=== PATIENT | female | born 1935 | race Caucasian/White ===

== ENCOUNTER 2016-06-08 10:04 | Emergency (ER) | payer MEDICARE, BC ==
[2016-06-08 11:45] VITALS: BP 150/73
--- NOTE | 2016-06-08 12:26 | EDM.PDOC ---
ED HPI Trauma - General Chief Complaint: Lower Extremity Injury/Pain Stated Complaint: A LOT OF PAIN, HYPOGLYCEMIC, HASN'T EATEN Time Seen by Provider: 06/08/16 10:37 Source: Reports: Patient History Limitations: Reports: No limitations - History of Present Illness INITIAL COMMENTS - FREE TEXT/NARRATIVE: History of present illness: [-year-old female has an appointment to see a clinic office manager she thinks the st for left hip pain. She is patient of Dr. Smith is was arranged this. She presents today ambulatory with a cane after her son called and requested that we do a pelvic CT to see if we might find anything by that study. She's had pain for 2 weeks now in it's progressively getting worse and she's been given pain medications but she states that they aren't quite cutting it but she will followup with her primary care doctor on that. I believe it was Percocet she was given.. she's had no fevers or dysuria. No constipation or diarrhea] Review of systems: As per history of present illness and below otherwise all systems reviewed and negative. Past medical history: As per history of present illness and as reviewed below otherwise noncontributory. Surgical history: As per history of present illness and as reviewed below otherwise noncontributory. Social history: No reported history of drug or alcohol abuse. Family history: As per history of present illness and as reviewed below otherwise noncontributory. Physical exam: HEENT: Atraumatic, normocephalic, pupils reactive, negative for conjunctival pallor or scleral icterus, mucous membranes moist, throat clear, neck supple, nontender, trachea midline. Lungs: Clear to auscultation, breath sounds equal bilaterally, chest nontender. Heart: S1S2, regular, negative for clicks, rubs, or JVD. Abdomen: Soft, nondistended, nontender. Negative for masses or hepatosplenomegaly. Negative for costovertebral tenderness. Pelvis: Stable nontender. Genitourinary: Deferred. Rectal: Deferred. Extremities: Atraumatic, negative for cords or calf pain. Neurovascular unremarkable. Neuro: Awake, alert, oriented. Cranial nerves II through XII unremarkable. Cerebellum unremarkable. Motor and sensory unremarkable throughout. Exam nonfocal. Diagnostics: [] Therapeutics: [] Impression: [] Plan: [] Definitive disposition and diagnosis as appropriate pending reevaluation and review of above. Allergies/ADRs: Allergies milk Allergy (Unknown, Verified 06/23/15 09:35) Cannot Remember gluten Allergy (Verified 06/23/15 09:35) Cannot Remember acetaminophen [From Tylenol-Codeine #3] Adverse Reaction (Verified 06/23/15 09: 35) Nausea codeine phosphate [From Tylenol-Codeine #3] Adverse Reaction (Verified 06/23/15 09:35) Nausea Home Medications: Ambulatory Orders RX: Amitriptyline [Elavil] 100 mg PO BEDTIME 02/23/14 [Confirmed 06/08/16] RX: Furosemide [Lasix] 20 mg PO TID 04/05/14 [Confirmed 06/08/16] RX: Cod Liver Oil 1 cap PO DAILY 07/01/14 [Confirmed 06/08/16] RX: Multivitamin [Multivitamins] 1 tab PO DAILY 07/01/14 [Confirmed 06/08/16] RX: Vitamin B Complex [B Complex] 1 tab PO DAILY 07/01/14 [Confirmed 06/08/16] RX: Folic Acid 1 mg PO DAILY 04/26/15 [Confirmed 06/08/16] RX: predniSONE [Prednisone] 20 mg PO DAILY 03/31/16 [Confirmed 06/08/16] RX: Pantoprazole [Protonix] 40 mg PO ACBREAKFAST #30 tab.cr 04/07/16 [Confirmed 06/08/16] oxyCODONE HCl/Acetaminophen [Percocet 5-325 mg Tablet] 1 each PO TID 06/08/16 [ Confirmed 06/08/16] Past Medical History HEENT History: Reports: Impaired vision Cardiovascular History: Reports: Heart murmur Respiratory History: Reports: Asthma Gastrointestinal History: Reports: GERD Genitourinary History: Reports: UTI, recurrent 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: Musculoskeletal History: Reports: Osteoarthritis, Other (see below) Other Musculoskeletal History: Chronic hip pain polyarthritis Psychiatric History: Reports: Anxiety Endocrine/Metabolic History: Reports: Other (see below) Other Endocrine/Metabolic History: hyperglycemia , adrenal insufficiency(HCC) Hematologic History: Reports: Anemia 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 - Infectious Disease History Infectious Disease History: Reports: Chicken pox, Measles, Mumps - Past Surgical History HEENT Surgical History: Reports: Cataract surgery GI Surgical History: Reports: Cholecystectomy, Colonoscopy Female Surgical History: Reports: Hysterectomy Musculoskeletal Surgical History: Reports: None Social & Family History - Family History Respiratory: Reports: COPD, Other (see below) Other Respiratory Family Hisory: emphysema : Reports: Renal disease/insufficiency Musculoskeletal: Reports: Arthritis, Osteoporosis, RA Neurological: Reports: Migraines Dermatologic: Reports: Eczema, Psoriasis - Tobacco Use Smoking Status *Q: Never Smoker Second Hand Smoke Exposure: No - Caffeine Use Caffeine Use: Reports: Coffee Caffeine Use Comment: 1 cup per day - Alcohol Use Days Per Week of Alcohol Use: 0 - Recreational Drug Use Recreational Drug Use: No Review of Systems - Review of Systems Review Of Systems: ROS reveals no pertinent complaints other than HPI. Trauma Exam - Physical Exam Exam: See Below Course - Vital Signs Last Recorded V/S: Last Vital Signs Temp 36.6 C 06/08/16 11:44 Pulse 85 06/08/16 11:44 Resp 16 06/08/16 11:44 BP 150/73 H 06/08/16 11:44 Pulse Ox 8 L 06/08/16 11:44 - Orders/Labs/Meds Orders: Active Orders 24 hr Category Date Time Status Pelvis wo Cont [CT] Stat Exams 06/08/16 10:38 Taken Labs: Laboratory Tests 06/08/16 Range/Units 11:41 Urine Color Yellow Urine Appearance Clear Urine pH 5.0 (4.5-8.0) Ur Specific [place] 1.015 (1.008-1.030) Urine Protein Negative (NEGATIVE) mg/dL Urine Glucose (UA) Normal (NEGATIVE) mg/dL Urine Ketones Negative (NEGATIVE) mg/dL Urine Occult Blood Negative (NEGATIVE) Urine Nitrite Negative (NEGATIVE) Urine Bilirubin Negative (NEGATIVE) Urine Urobilinogen Normal (NORMAL) mg/dL Ur Leukocyte Esterase Negative (NEGATIVE) Urine RBC 0-5 (0-5) Urine WBC 0-5 (0-5) Ur Epithelial Cells Few Amorphous Sediment Not seen Urine Bacteria Few Urine Mucus Not seen Departure - Departure Time of Disposition: 12:25 Disposition: Home, Self-Care 01 Condition: good Clinical Impression: Left hip pain Forms: ED Department Discharge Additional Instructions: If the pain medication that you were given is not quite strong enough I would recommend that you please call the clinic and speak with your doctor's nurse to see if they might want to try something different for you. I am glad that you have an appointment to see a clinic office manager and hopefully they will be able to help you. - My Orders Last 24 Hours: My Active Orders 06/08/16 10:38 Pelvis wo Cont [CT] Stat - Assessment/Plan Last 24 Hours: My Active Orders 06/08/16 10:38 Pelvis wo Cont [CT] Stat
== END 2016-06-08 12:35 | disposition home or self-care (01) ==
LOC: JP.ED 10:04
DX: M25.552 Pain in left hip (principal); K21.9 Gastro-esophageal reflux disease without esophagitis; F41.9 Anxiety disorder, unspecified; Z90.49 Acquired absence of other specified parts of digestive tract; Z98.49 Cataract extraction status, unspecified eye; Z90.710 Acquired absence of both cervix and uterus; Z79.899 Other long term (current) drug therapy; Z88.5 Allergy status to narcotic agent; Z88.8 Allergy status to other drugs, medicaments and biological substances; Z91.011 Allergy to milk products
CPT/HCPCS: 72192; 81001; 99282; 99284

== ENCOUNTER 2016-06-12 18:08 | Emergency (ER) | payer MEDICARE, BC ==
[2016-06-12 19:00] VITALS: BP 160/89
[2016-06-12] MEDS ORDERED: oxyCODONE 5 MG Tab PO ONE (19:54)
--- NOTE | 2016-06-12 19:59 | EDM.PDOC ---
ED HPI GENERAL MEDICAL PROBLEM - General Chief Complaint: Back Pain or Injury Stated Complaint: ARTHRITIC PAIN, LEFT HIP Time Seen by Provider: 06/12/16 19:05 Source of Information: Reports: Patient, Family (Son), Old records, RN notes reviewed History Limitations: Reports: No limitations - History of Present Illness INITIAL COMMENTS - FREE TEXT/NARRATIVE: Brought in by her son Chief complaint Left hip pain HPI 81-year-old female who is fairly independent, lives with her son, she still drives but he takes care of her. Last admitted to the hospital from March 31- with diverticulitis and sepsis, also had a small right-sided pneumonia. Treated with antibiotics and discharged improved. She always reports pains in her hips and back and has been diagnosed with osteoarthritis of her hips and degenerative disc disease and some spinal stenosis in the lumbar spine. However about 2-3 weeks ago she started having increased pain in her left hip area it hard for her to walk and get around. She was seen in the clinic 2 weeks ago and was prescribed Tylenol and a muscle relaxant for muscle spasms in her back. The son states that this was a misdiagnosis. She became quite dizzy and had some hallucinations on the muscle relaxer which had to be stopped. Furthermore didn't help her pain at all. Seen in the clinic again, on the , a different physician, prescribed Percocet for the pain, 5 mg/325, one tablet every 6 hours which did help with the pain, but only lasted about 5 hours. Seen in emergency June 08 because of the persisting pain. 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 She was instructed to take the oxycodone more frequently every 4 hours. Consequently she ran out of pain medication. Her son phoned to try and get a renewal or visit to get a renewal this was declined and there is no openings available at the clinic. She does have a followup appointment in 5 days time to recheck her hip. At home she's been crying with the pain which is really unusual for her, she has tolerated pain previously. No incontinence of bowel or stool No other signs of pain or injury. She She notes and feels the pain as a deep ache, most probably in the posterior aspect of the hip and the left buttock. Also to lesser degree in the anterior aspect of left hip and shooting down the leg to as far as the knee. She has not had any constipation, she does use laxatives regularly and this has not been a problem for her. Left Hip Pain Score (Numeric/FACES): 10 - Related Data Allergies Allergy/AdvReac Type Severity Reaction Status Date / Time milk Allergy Unknown Cannot Verified 06/23/15 09:35 Remember gluten Allergy Cannot Verified 06/23/15 09:35 Remember acetaminophen AdvReac Nausea Verified 06/23/15 09:35 [From Tylenol-Codeine #3] codeine phosphate AdvReac Nausea Verified 06/23/15 09:35 [From Tylenol-Codeine #3] Home Meds: Home Meds Amitriptyline [Elavil] 100 mg PO BEDTIME 02/23/14 [History] Furosemide [Lasix] 20 mg PO TID 04/05/14 [History] Cod Liver Oil 1 cap PO DAILY 07/01/14 [History] Multivitamin [Multivitamins] 1 tab PO DAILY 07/01/14 [History] Vitamin B Complex [B Complex] 1 tab PO DAILY 07/01/14 [History] Folic Acid 1 mg PO DAILY 04/26/15 [History] predniSONE [Prednisone] 20 mg PO DAILY 03/31/16 [History] Pantoprazole [Protonix] 40 mg PO ACBREAKFAST #30 tab.cr 04/07/16 [Rx] oxyCODONE HCl/Acetaminophen [Percocet 5-325 mg Tablet] 1 each PO TID 06/08/16 [ History] oxyCODONE 5 mg PO Q4H #36 tab 06/12/16 [Rx] Past Medical History HEENT History: Reports: Impaired vision Cardiovascular History: Reports: Heart murmur Respiratory History: Reports: Asthma Gastrointestinal History: Reports: GERD Genitourinary History: Reports: UTI, recurrent 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: Musculoskeletal History: Reports: Osteoarthritis, Other (see below) Other Musculoskeletal History: Chronic hip pain polyarthritis Psychiatric History: Reports: Anxiety Endocrine/Metabolic History: Reports: Other (see below) Other Endocrine/Metabolic History: hyperglycemia , adrenal insufficiency(HCC) Hematologic History: Reports: Anemia 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 - Infectious Disease History Infectious Disease History: Reports: Chicken pox, Measles, Mumps - Past Surgical History HEENT Surgical History: Reports: Cataract surgery GI Surgical History: Reports: Cholecystectomy, Colonoscopy Female Surgical History: Reports: Hysterectomy Musculoskeletal Surgical History: Reports: None Social & Family History - Family History Respiratory: Reports: COPD, Other (see below) Other Respiratory Family Hisory: emphysema : Reports: Renal disease/insufficiency Musculoskeletal: Reports: Arthritis, Osteoporosis, RA Neurological: Reports: Migraines Dermatologic: Reports: Eczema, Psoriasis - Tobacco Use Smoking Status *Q: Never Smoker Second Hand Smoke Exposure: No - Caffeine Use Caffeine Use: Reports: Coffee Caffeine Use Comment: 1 cup per day - Alcohol Use Days Per Week of Alcohol Use: 0 - Recreational Drug Use Recreational Drug Use: No ED ROS GENERAL - Review of Systems Review Of Systems: See Below Constitutional: Reports: no symptoms HEENT: Reports: No symptoms Respiratory: Reports: No Symptoms Cardiovascular: Reports: No symptoms GI/Abdominal: Reports: No symptoms : Reports: no symptoms Musculoskeletal: Reports: back pain, joint pain (Left hip), other (Ambulate using a cane in her right hand, less agile than usual) Skin: Reports: no symptoms Neurological: Reports: Difficulty Walking (Because of the pain). Denies: Numbness, Paresthesia, Syncope, Tingling, Trouble Speaking, Weakness, Change in Speech Psychiatric: Reports: Other (Occasional cries with the pain) Hematologic/Lymphatic: Reports: anemia (Chronic immune hemolytic anemia, on prednisone daily) Immunologic: Reports: no symptoms ED EXAM, GENERAL - Physical Exam Exam: See Below Exam Limited By: No limitations General Appearance: alert, mild distress, other (Appears healthy, color normal, vital signs normal apart from elevated systolic blood pressure, no difficulty speaking or breathing) Eye Exam: bilateral eye: normal inspection Ears: normal external exam, hearing grossly normal Nose: normal inspection Throat/Mouth: Normal inspection Head: atraumatic, normocephalic Neck: normal inspection, supple Respiratory/Chest: no respiratory distress, no accessory muscle use Cardiovascular: normal peripheral pulses, regular rate, rhythm Back Exam: normal inspection, other (Good range of motion although she has some instability bending forward, flexion and extension do not aggravate the pain but rotation to the left cause aggravation of her left hip pain, no spinal tenderness). No: vertebral tenderness Extremities: normal inspection, other (Pain particularly with external rotation of the left hip, she's able then to using a cane.Range of motion of the hip is otherwise normal, no crepitus, no deformity). No: limited range of motion Neurological: alert, oriented, normal cognition, normal reflexes, no motor/ sensory deficits, other (Strength is equal both lower limbs, reflexes are normal , no paresthesias and no motor or sensory deficit) Psychiatric: normal affect, normal mood Skin Exam: Warm, Dry, Intact, Normal color, No rash, Other (No signs of zoster- like rash) Lymphatic: no adenopathy Course - Vital Signs Last Recorded V/S: Last Vital Signs Temp 36.6 C 06/12/16 18:58 Pulse 87 06/12/16 18:58 Resp 18 06/12/16 18:58 BP 160/89 H 06/12/16 18:58 Pulse Ox 97 06/12/16 18:58 - Orders/Labs/Meds Meds: Medications Discontinued Medications Generic Name Dose Route Start Last Admin Trade Name Dorian PRN Reason Stop Dose Admin Oxycodone HCl 5 mg 06/12/16 19:54 06/12/16 19:58 Oxycodone PO 06/12/16 19:55 5 mg ONETIME ONE Administration - Re-Assessments/Exams Free Text/Narrative Re-Assessment/Exam: 06/12/16 20:56 81-year-old female with significant pain which appears to be in the left hip area. 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 Oxycodone 5 mg one tablet by mouth She does have followup in 5 days time Departure - Departure Time of Disposition: 19:55 Disposition: Home, Self-Care 01 Condition: fair Clinical Impression: Left hip pain Prescriptions: oxyCODONE 5 mg PO Q4H #36 tab Instructions: Hip Pain Referrals: Charbel Machuca MD [Primary Care Provider] - Forms: ED Department Discharge Additional Instructions: Please keep your appointment next Friday as scheduled. Return to emergency if symptoms are worsening
== END 2016-06-12 20:05 | disposition home or self-care (01) ==
LOC: JP.ED 18:08
DX: M25.552 Pain in left hip (principal); J45.909 Unspecified asthma, uncomplicated; K21.9 Gastro-esophageal reflux disease without esophagitis; Z79.899 Other long term (current) drug therapy; Z88.5 Allergy status to narcotic agent; Z88.8 Allergy status to other drugs, medicaments and biological substances; Z91.011 Allergy to milk products; Z98.49 Cataract extraction status, unspecified eye; Z90.49 Acquired absence of other specified parts of digestive tract; Z90.710 Acquired absence of both cervix and uterus
CPT/HCPCS: 99283; A9270

== ENCOUNTER 2016-08-04 12:04 | Emergency (ER) | payer MEDICARE, BC ==
[2016-08-04 12:30] VITALS: BP 165/80
--- NOTE | 2016-08-04 12:58 | EDM.PDOC ---
ED HPI GENERAL MEDICAL PROBLEM - General Chief Complaint: Lower Extremity Injury/Pain Stated Complaint: MEDICAL VIA TRI Time Seen by Provider: 08/04/16 12:40 Source of Information: Reports: Patient, EMS History Limitations: Reports: No Limitations. Denies: Altered Mental Status - History of Present Illness INITIAL COMMENTS - FREE TEXT/NARRATIVE: Patient presents today via EMS with complaints of worsening left hip pain. She reports use of oxycodone 5mg PO as directed for pain. She states the pain today has worsened. She states she had a fall a few weeks ago, denies significant pain with fall. She does state the pain has increased since that time. Onset: Other (chronic pain with worsening the past several weeks. Pending appointment with Dr. Machuca this coming or Friday. ) Location: Reports: Lower Extremity, Left Quality: Reports: Ache, Dull, Throbbing Severity: Moderate Improves with: Reports: Medication Worsens with: Reports: Movement Associated Symptoms: Denies: Confusion, Chest Pain, Cough, Diaphoresis, Fever/ Chills, Headaches, Nausea/Vomiting, Shortness of Breath, Syncope Treatments MANAGER MANAGED CARE: Reports: Other (see below) (Per EMS, IV fentanyl) - Related Data Allergies Allergy/AdvReac Type Severity Reaction Status Date / Time milk Allergy Unknown Cannot Verified 06/23/15 09:35 Remember gluten Allergy Cannot Verified 06/23/15 09:35 Remember acetaminophen AdvReac Nausea Verified 06/23/15 09:35 [From Tylenol-Codeine #3] codeine phosphate AdvReac Nausea Verified 06/23/15 09:35 [From Tylenol-Codeine #3] Home Meds: Home Meds Amitriptyline [Elavil] 100 mg PO BEDTIME 02/23/14 [History] Furosemide [Lasix] 20 mg PO TID 04/05/14 [History] Cod Liver Oil 1 cap PO DAILY 07/01/14 [History] Multivitamin [Multivitamins] 1 tab PO DAILY 07/01/14 [History] Vitamin B Complex [B Complex] 1 tab PO DAILY 07/01/14 [History] Folic Acid 1 mg PO DAILY 04/26/15 [History] predniSONE [Prednisone] 20 mg PO DAILY 03/31/16 [History] Pantoprazole [ProTONIX] 40 mg PO ACBREAKFAST #30 tab.cr 04/07/16 [Rx] oxyCODONE HCl/Acetaminophen [Percocet 5-325 mg Tablet] 1 each PO TID 06/08/16 [ History] oxyCODONE 5 mg PO Q4H #36 tab 06/12/16 [Rx] Past Medical History - Past Health History Medical/Surgical History: Denies Medical/Surgical History HEENT History: Reports: Impaired Vision Cardiovascular History: Reports: Heart Murmur Respiratory History: Reports: Asthma Gastrointestinal History: Reports: GERD Genitourinary History: Reports: UTI, Recurrent 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: Musculoskeletal History: Reports: Osteoarthritis, Other (See Below) Other Musculoskeletal History: Chronic hip pain polyarthritis Psychiatric History: Reports: Anxiety Endocrine/Metabolic History: Reports: Other (See Below) Other Endocrine/Metabolic History: hyperglycemia , adrenal insufficiency(HCC) Hematologic History: Reports: Anemia 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 - Infectious Disease History Infectious Disease History: Reports: Chicken Pox, Measles, Mumps - Past Surgical History HEENT Surgical History: Reports: Cataract Surgery GI Surgical History: Reports: Cholecystectomy, Colonoscopy Social & Family History - Family History Respiratory: Reports: COPD, Other (See Below) Other Respiratory Family Hisory: emphysema : Reports: Renal Disease/Insufficiency Musculoskeletal: Reports: Arthritis, Osteoporosis, RA Neurological: Reports: Migraines Dermatologic: Reports: Eczema, Psoriasis - Tobacco Use Smoking Status *Q: Never Smoker Second Hand Smoke Exposure: No - Caffeine Use Caffeine Use: Reports: Coffee Caffeine Use Comment: 1 cup per day - Alcohol Use Days Per Week of Alcohol Use: 0 - Recreational Drug Use Recreational Drug Use: No Review of Systems - Review of Systems Review Of Systems: See Below Constitutional: Denies: Chills, Diaphoresis, Fever, Weakness Eyes: Denies: Blurred Vision, Vision Change Mouth/Throat: Denies: Throat Swelling, Muffled Voice, Difficulty Swallowing, Painful Swallowing Respiratory: Denies: Shortness of Breath, Wheezing, Pleuritic Chest Pain, Cough Cardiovascular: Denies: Chest Pain, Edema, Lightheadedness, Syncope GI/Abdominal: Denies: Abdominal Pain, Constipation, Diarrhea, Nausea, Vomiting Genitourinary: Denies: Hematuria, Incontinence, Painful Urination Musculoskeletal: Reports: Other (Left hip pain, chronic in nature with acute exacerbation. ) Skin: Reports: No Symptoms. Denies: Bruising, Rash, Erythema, Wound Neurological: Denies: Dizziness, Headache, Numbness, Tingling, Weakness Psychiatric: Denies: Confusion, Depression, Anxiety Trauma Exam - Physical Exam Exam: See Below Exam Limited By: No Limitations General Appearance: Reports: Alert, WD/WN, No Apparent Distress Head: Reports: Atraumatic, Normocephalic Eyes: Bilateral Eye: PERRL Ears: Reports: Normal External Exam, Normal Canal, Hearing Grossly Normal, Normal TMs Throat/Mouth: Reports: Normal Inspection, Normal Lips, Normal Teeth, Normal Gums , Normal Oropharynx, Normal Voice, No Airway Compromise Neck: Reports: Non-Tender, Full Range of Motion, Normal Alignment, Normal Inspection Respiratory Exam: Reports: No Respiratory Distress, Lungs Clear, Normal Breath Sounds, No Accessory Muscle Use, Chest Non-Tender Cardiovascular: Reports: Normal Peripheral Pulses, Regular Rate, Rhythm, No Edema, No Gallop, No Murmur, No Rub GI/Abdominal: Reports: Normal Bowel Sounds, Soft, Non-Tender, No Organomegaly, No Distention, No Abnormal Bruit, No Mass, Pelvis Stable Back: Reports: Normal Inspection, Non-Tender. Denies: CVA Tenderness (R), CVA Tenderness (L) Extremities: No Evidence of Injury, No Pedal Edema, Other (Pain with movement to left hip, point tenderness to hip. ) Neurologic: Reports: No Motor/Sensory Deficits, Alert, Normal Mood/Affect, Oriented x 3 Skin: Reports: Normal Color, Warm/Dry Course - Vital Signs Last Recorded V/S: Last Vital Signs Temp 36.3 C 08/04/16 12:21 Pulse 88 08/04/16 12:21 Resp 14 08/04/16 12:21 BP 165/80 H 08/04/16 12:21 Pulse Ox 98 08/04/16 12:21 - Orders/Labs/Meds Orders: Active Orders 24 hr Category Date Time Status Hip Min 2V or 3V Lt [CR] Stat Exams 08/04/16 12:46 Taken fentaNYL [Duragesic] Med 08/04/16 14:30 Active 25 mcg TRDERM Q72H Medication Orders Fentanyl (Duragesic) 25 mcg TRDERM Q72H [facility] Last Admin: 08/04/16 14:46 Dose: 25 mcg Meds: Medications Generic Name Dose Route Start Last Admin Trade Name Frebelen PRN Reason Stop Dose Admin Fentanyl 25 mcg 08/04/16 14:30 08/04/16 14:46 Duragesic TRDERM 25 mcg Q72H MYLES Administration Discontinued Medications Generic Name Dose Route Start Last Admin Trade Name Dorian PRN Reason Stop Dose Admin Hydromorphone HCl 0.5 mg 08/04/16 13:13 08/04/16 13:27 Dilaudid IVPUSH 08/04/16 13:14 0.5 mg ONETIME ONE Administration Hydromorphone HCl 0.5 mg 08/04/16 13:39 08/04/16 14:04 Dilaudid IVPUSH 08/04/16 13:40 0.5 mg ONETIME ONE Administration Ondansetron HCl 4 mg 08/04/16 13:14 08/04/16 13:27 Zofran IVPUSH 08/04/16 13:15 4 mg ONETIME ONE Administration - Radiology Interpretation Free Text/Narrative:: Left hip x-rays displays bone on bone, osteoarthritis, no acute fracture identified. Images reviewed with Officer. 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 - Re-Assessments/Exams Free Text/Narrative Re-Assessment/Exam: 08/04/16 1248 At time of examination patient declined additional IV pain medication. 08/04/16 13:41 Patient chart review completed. She was recently seen at [facility] by ORTHO on 07/19/16 and recommended to have hip replacement. She was instructed to follow up with her primary care provider for pain management. She was prescribed oxycodone [address] Machuca on 07/12/16. Patient telephone call to clinic 07/30/16 where she reported she would not have enough pain pills to last her to scheduled appointment this week. No intervention documented with telephone call. Patient reports taking oxycodone every 6 hours to control her pain. She reports she is not well controlled for pain and continues to have difficulty ambulating, completing daily tasks due to pain. Concerns regarding use of oxycodone, her age and level of pain control completed. Patient reports she is the only one taking her oxycodone. She denies her son or other person taking her pain medications. Ally reports she keeps her medication bottles in her room and takes them from the bottle. She states her son does not touch her medication bottles. Ally reports her pain control is not doing well and is concerned about being at home. Per Kenney DOCKERY, patient son telephoned and stated he does not think he can manage Ally at home. Case reviewed with Dr. Cortes. 08/04/16 13:55 Dr. Gallagherr discussed case with Dr. Max Cummings. Management and surgery is best completed as currently arranged with Stacey [facility]. 08/04/16 14:45 Patient status discussed with Mignon discharge planning and Dr. Noble. Patient will be provided fentanyl 25mcg patch today in the emergency room. She will be provided a prescription for one additional patch. Referral for home health placed. Current taxing effort for patient to leave her home due to pain with avascular necrosis and need for monitoring of pain, medication effectiveness with additional fentanyl patch use. Ally will follow up with Dr. Machuca this week as scheduled. Ally is in agreement with plan, all her questions were answered. Reviewed results of x-ray with patient. Ally is in agreement with plan. 08/04/16 15:22 Free Text/Narrative Re-Assessment/Exam: 08/04/16 15:22 Patient son Patricio, telephoned ER multiple times, discharge plan, home health plan discussed. Patricio's questions answered. Departure - Departure Time of Disposition: 14:55 Disposition: Home, Self-Care 01 Condition: fair Clinical Impression: Hip pain, chronic - Discharge Information Instructions: Hip Pain Referrals: Charbel Machuca MD [Primary Care Provider] - Forms: ED Department Discharge Additional Instructions: Ally, you suffer from poor pain control of your left hip pain. You currently have avascular necrosis of your hips and report appointments with [facility]. You must take pain medication as directed. Keep the fentanyl pain patch in place until FridayAugust 07. Take the current patch off and put the new fentanyl pain patch on August 07. Keep your appointment with Dr. Machuca this week. Try to take the oxycodone only twice to three times a day. The pain patch will assist with your pain control, causing you to need less oxycodone. You will be provided oxycodone 5mg tablets. You must only take one tablet at a time. Do not take more then four times in one day. If your pain is well controlled with use of the fentanyl pain patch, DO NOT TAKE the oxycodone. With the use of narcotic medication you run the risk of having a significant decrease in your breathing. Do not overuse the oxycodone. If at any time you feel too sedated, remove the fentanyl pain patch and call or return the the emergency room or your primary provider. Keep yourself hydrated, watch for constipation. Home health services will be contacting you to set up assistance with monitoring of pain. - My Orders Last 24 Hours: My Active Orders 08/04/16 12:46 Hip Min 2V or 3V Lt [CR] Stat 08/04/16 14:30 fentaNYL [Duragesic] 25 mcg TRDERM Q72H - Assessment/Plan Last 24 Hours: My Active Orders 08/04/16 12:46 Hip Min 2V or 3V Lt [CR] Stat 08/04/16 14:30 fentaNYL [Duragesic] 25 mcg TRDERM Q72H
[2016-08-04] MEDS ORDERED: HYDROmorphone 0.5 MG/0.5 ML Syringe IVPUSH ONE ×2 (13:13→13:39)
[2016-08-04] MEDS ORDERED: Ondansetron 4 MG/2 ML SDV IVPUSH ONE (13:14)
[2016-08-04] MEDS ORDERED: fentaNYL 25 MCG/HR Transdermal Patch TRDERM SCH (14:30)
--- NOTE | 2016-08-05 09:55 | CR ---
Hip Min 2V or 3V Lt HISTORY: increase in hip pain FINDINGS: Avascular necrosis changes head of the left femur are redemonstrated. There has been furth er collapse of the superior aspect of the femoral head since the MRI study of 07/08/2016. No other ac pamunkey fracture or dislocation is identified. Bony structures are somewhat osteopenic. No joint effusio n can be seen. No other interval change is identified. IMPRESSION: Probable avascular necrosis head of the left femur with collapse of the superior aspect of the femoral head. This appears little more prominent compared with MRI study of 07/08/2016.
== END 2016-08-04 16:17 | disposition home or self-care (01) ==
LOC: JP.ED 12:04
DX: M25.552 Pain in left hip (principal); G89.29 Other chronic pain; K21.9 Gastro-esophageal reflux disease without esophagitis; F41.9 Anxiety disorder, unspecified; Z98.49 Cataract extraction status, unspecified eye; Z90.49 Acquired absence of other specified parts of digestive tract; Z79.899 Other long term (current) drug therapy; Z88.5 Allergy status to narcotic agent; Z88.8 Allergy status to other drugs, medicaments and biological substances; Z91.011 Allergy to milk products; Z91.018 Allergy to other foods
CPT/HCPCS: 73502; 99284; A9270; J1170; J2405

== ENCOUNTER 2016-08-15 10:12 | Observation (INO) | payer MEDICARE, BC ==
[2016-08-15] MEDS ORDERED: HYDROmorphone 0.5 MG/0.5 ML Syringe IM ONE (11:13)
[2016-08-15] MEDS ORDERED: Cyclobenzaprine 10 MG Tab PO ONE (11:15)
--- NOTE | 2016-08-15 11:21 | EDM.PDOC ---
ED HPI GENERAL MEDICAL PROBLEM - General Chief Complaint: Lower Extremity Injury/Pain Stated Complaint: MEDICAL VIA NORTH Time Seen by Provider: 08/15/16 11:16 Source of Information: Reports: Patient History Limitations: Reports: No Limitations - History of Present Illness INITIAL COMMENTS - FREE TEXT/NARRATIVE: pt arrived from her apartment by ambulance with very severe pain in the left leg and hip. She also has pain ovr the buttock area. Onset: Gradual, Other ( this a chronic pain which is worse today. ) Duration: Day(s):, Other (pain was much worse today. ) Location: Reports: Lower Extremity, Left Associated Symptoms: Reports: No Other Symptoms Left Hip Pain Score (Numeric/FACES): 10 - Related Data Allergies Allergy/AdvReac Type Severity Reaction Status Date / Time milk Allergy Unknown Cannot Verified 08/15/16 10:51 Remember fentanyl Allergy Itching Verified 08/15/16 11:09 gluten Allergy Cannot Verified 08/15/16 10:51 Remember acetaminophen AdvReac Nausea Verified 08/15/16 10:51 [From Tylenol-Codeine #3] codeine phosphate AdvReac Nausea Verified 08/15/16 10:51 [From Tylenol-Codeine #3] Home Meds: Home Meds Amitriptyline [Elavil] 100 mg PO BEDTIME 02/23/14 [History] Furosemide [Lasix] 20 mg PO TID 04/05/14 [History] Cod Liver Oil 1 cap PO DAILY 07/01/14 [History] Multivitamin [Multivitamins] 1 tab PO DAILY 07/01/14 [History] Vitamin B Complex [B Complex] 1 tab PO DAILY 07/01/14 [History] Folic Acid 1 mg PO DAILY 04/26/15 [History] predniSONE [Prednisone] 20 mg PO DAILY 03/31/16 [History] Pantoprazole [ProTONIX] 40 mg PO ACBREAKFAST #30 tab.cr 04/07/16 [Rx] oxyCODONE HCl/Acetaminophen [Percocet 5-325 mg Tablet] 1 each PO TID 06/08/16 [ History] fentaNYL [Duragesic] 25 mcg TRDERM Q72H #1 patch 08/04/16 [Rx] Diclofenac Sodium [Voltaren] 08/15/16 [History] oxyCODONE 5 mg PO Q4H 08/15/16 [History] Past Medical History - Past Health History Medical/Surgical History: Denies Medical/Surgical History HEENT History: Reports: Impaired Vision Cardiovascular History: Reports: Heart Murmur Respiratory History: Reports: Asthma Gastrointestinal History: Reports: GERD Genitourinary History: Reports: UTI, 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: Musculoskeletal History: Reports: Osteoarthritis, Other (See Below) Other Musculoskeletal History: Chronic hip pain polyarthritis Psychiatric History: Reports: Anxiety Endocrine/Metabolic History: Reports: Other (See Below) Other Endocrine/Metabolic History: hyperglycemia , adrenal insufficiency(HCC) Hematologic History: Reports: Anemia 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 - Infectious Disease History Infectious Disease History: Reports: Chicken Pox, Measles, Mumps - Past Surgical History HEENT Surgical History: Reports: Cataract Surgery GI Surgical History: Reports: Cholecystectomy, Colonoscopy Social & Family History - Family History Respiratory: Reports: COPD, Other (See Below) Other Respiratory Family Hisory: emphysema : Reports: Renal Disease/Insufficiency Musculoskeletal: Reports: Arthritis, Osteoporosis, RA Neurological: Reports: Migraines Dermatologic: Reports: Eczema, Psoriasis - Tobacco Use Smoking Status *Q: Never Smoker Second Hand Smoke Exposure: No - Caffeine Use Caffeine Use: Reports: Coffee Caffeine Use Comment: 1 cup per day - Alcohol Use Days Per Week of Alcohol Use: 0 - Recreational Drug Use Recreational Drug Use: No Review of Systems - Review of Systems Review Of Systems: See Below Constitutional: Reports: No Symptoms Eyes: Reports: No Symptoms Ears: Reports: No Symptoms Nose: Reports: No Symptoms Mouth/Throat: Reports: No Symptoms Respiratory: Reports: No Symptoms Cardiovascular: Reports: No Symptoms GI/Abdominal: Reports: No Symptoms Genitourinary: Reports: No Symptoms Musculoskeletal: Reports: Other ( severe pain in the left hip area. ) Skin: Reports: No Symptoms Psychiatric: Reports: No Symptoms Trauma Exam - Physical Exam Exam: See Below Text/Narrative:: Pt arrived with severe pain over the left buttock, hip and down the left leg to the ankle. Exam Limited By: Intoxication General Appearance: Reports: Alert, Anxious, Moderate Distress Head: Reports: Atraumatic Ears: Reports: Normal TMs Nose: Reports: Normal Inspection Throat/Mouth: Reports: Normal Inspection Neck: Reports: Non-Tender Respiratory Exam: Reports: No Respiratory Distress Cardiovascular: Reports: Regular Rate, Rhythm GI/Abdominal: Reports: Soft, Non-Tender Rectal (Female) Exam: Deferred Back: Reports: Other (pt is tender in the lower lumbar area. She is very uncomfortable if her leg is raised. She has alot of pain in the left hip. Her pain is going down her leg to the ankle. The color of the leg is good. ) Course - Vital Signs Last Recorded V/S: Last Vital Signs Temp 36.5 C 08/15/16 10:49 Pulse 91 08/15/16 13:30 Resp 15 08/15/16 13:30 BP 149/84 H 08/15/16 13:30 Pulse Ox 98 08/15/16 13:30 - Orders/Labs/Meds Meds: Medications Discontinued Medications Generic Name Dose Route Start Last Admin Trade Name Freq PRN Reason Stop Dose Admin Cyclobenzaprine HCl 5 mg 08/15/16 11:15 08/15/16 11:20 Flexeril PO 08/15/16 11:16 5 mg ONETIME ONE Administration Hydromorphone HCl 0.5 mg 08/15/16 11:13 08/15/16 11:17 Dilaudid IM 08/15/16 11:14 0.5 mg ONETIME ONE Administration Oxycodone/Acetaminophen 1 tab 08/15/16 12:49 08/15/16 13:59 Percocet 325-5 Mg PO 08/15/16 12:50 1 tab ONETIME ONE Administration - Re-Assessments/Exams Free Text/Narrative Re-Assessment/Exam: 08/15/16 15:02 pt was given dilaudid im and percocet 5/325 . She is much more comfortable. We did get her up and she could bearly stand up. She has so much pain with movement. Departure - Departure Time of Disposition: 15:07 Disposition: Admitted As Inpatient 64 Condition: fair Clinical Impression: Lumbar disc disease with radiculopathy, Degenerative arthritis of hip - Discharge Information Forms: ED Department Discharge Care Plan Goals: admit to Dr murdock.
[2016-08-15] MEDS ORDERED: Acetaminophen/oxyCODONE 325-5 MG Tab PO ONE (12:49)
--- NOTE | 2016-08-15 15:35 | PCM.HP ---
H&P History of Present Illness - General Date of Service: 08/15/16 Admit Problem/Dx: Admission Diagnosis/Problem Admission Diagnosis/Problem Hip pain Source of Information: Patient, Provider History Limitations: Reports: No Limitations - History of Present Illness Initial Comments - Free Text/Narative: Ally presents to the emergency room today with acute on chronic bilateral hip pain, left greater than right. She has been struggling with hip pain for a number of months and has not had great pain control. She has known avascular necrosis of the hip and surgical intervention is planned in August at [facility]. Pain has been much worse for some reason over the past week or 2. Her pain is so bad that she is unable to bear any weight at this time. She reports a combination of deep achy pain as well as a sharp shooting pains in the left hip that radiates to the groin. 2 Percocet help take the edge off of the pain moving makes the pain much worse. Pain is mild to moderate rest and severe with any sort of activity. Similar though less intense pain in the right hip. She also has some mild diffuse muscle aches as well as a variety of other arthritis symptoms that are mild. He has not had any recent fevers. She has not noticed any joints that have become warm or swollen. Appetite and energy have been okay. She is able to get some sleep at night. Bowels seem to move regularly as long as she is taking a stool softener. No recent falls or trauma. She does use a cane or walker to get around. Workup in the emergency room remarkable for a fair amount of pain but otherwise benign. Mild hypertension initially that has improved with pain control. She' s not felt to be safe for outpatient management because she's requiring the assistance of 2 people just to get to the commode. She will be admitted for observation and pain control. Left Hip Pain Score (Numeric/FACES): 10 - Related Data Allergies/Adverse Reactions: Allergies Allergy/AdvReac Type Severity Reaction Status Date / Time milk Allergy Unknown Cannot Verified 08/15/16 10:51 Remember fentanyl Allergy Itching Verified 08/15/16 11:09 gluten Allergy Cannot Verified 08/15/16 10:51 Remember acetaminophen AdvReac Nausea Verified 08/15/16 10:51 [From Tylenol-Codeine #3] codeine phosphate AdvReac Nausea Verified 08/15/16 10:51 [From Tylenol-Codeine #3] Home Medications: Home Meds Amitriptyline [Elavil] 100 mg PO BEDTIME 02/23/14 [History] Furosemide [Lasix] 20 mg PO TID 04/05/14 [History] Cod Liver Oil 1 cap PO DAILY 07/01/14 [History] Multivitamin [Multivitamins] 1 tab PO DAILY 07/01/14 [History] Vitamin B Complex [B Complex] 1 tab PO DAILY 07/01/14 [History] Folic Acid 1 mg PO DAILY 04/26/15 [History] predniSONE [Prednisone] 20 mg PO DAILY 03/31/16 [History] Pantoprazole [ProTONIX] 40 mg PO ACBREAKFAST #30 tab.cr 04/07/16 [Rx] oxyCODONE HCl/Acetaminophen [Percocet 5-325 mg Tablet] 1 each PO TID 06/08/16 [ History] fentaNYL [Duragesic] 25 mcg TRDERM Q72H #1 patch 08/04/16 [Rx] Diclofenac Sodium [Voltaren] 08/15/16 [History] oxyCODONE 5 mg PO Q4H 08/15/16 [History] Past Medical History - Past Health History Medical/Surgical History: Denies Medical/Surgical History HEENT History: Reports: Impaired Vision Cardiovascular History: Reports: Heart Murmur Respiratory History: Reports: Asthma Gastrointestinal History: Reports: GERD Genitourinary History: Reports: UTI, Recurrent 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: Musculoskeletal History: Reports: Osteoarthritis, Other (See Below) Other Musculoskeletal History: Chronic hip pain polyarthritis Psychiatric History: Reports: Anxiety Endocrine/Metabolic History: Reports: Other (See Below) Other Endocrine/Metabolic History: hyperglycemia , adrenal insufficiency(HCC) Hematologic History: Reports: Anemia 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 - Infectious Disease History Infectious Disease History: Reports: Chicken Pox, Measles, Mumps - Past Surgical History HEENT Surgical History: Reports: Cataract Surgery GI Surgical History: Reports: Cholecystectomy, Colonoscopy Social & Family History - Family History Respiratory: Reports: COPD, Other (See Below) Other Respiratory Family Hisory: emphysema : Reports: Renal Disease/Insufficiency Musculoskeletal: Reports: Arthritis, Osteoporosis, RA Neurological: Reports: Migraines Dermatologic: Reports: Eczema, Psoriasis - Tobacco Use Smoking Status *Q: Never Smoker Second Hand Smoke Exposure: No - Caffeine Use Caffeine Use: Reports: Coffee Caffeine Use Comment: 1 cup per day - Alcohol Use Days Per Week of Alcohol Use: 0 - Recreational Drug Use Recreational Drug Use: No H&P Review of Systems - Review of Systems: Review Of Systems: See Below Free Text/Narrative: A complete 12 point review of systems was obtained. Pertinent positives and negatives are noted in the history of present illness. All other systems were reviewed and were negative except as noted. Exam - Exam Exam: See Below - Vital Signs Vital Signs: Last Vital Signs Temp 36.5 C 08/15/16 10:49 Pulse 94 08/15/16 15:03 Resp 16 08/15/16 15:03 BP 135/81 08/15/16 15:03 Pulse Ox 96 08/15/16 15:03 Weight: 67.585 kg - Exam Quality Assessment: No: Supplemental Oxygen General: Alert, Oriented, Cooperative, Mild Distress HEENT: Mucosa Moist & [place]. No: Scleral Icterus Neck: Supple, Trachea Midline Lungs: Clear to Auscultation, Normal Respiratory Effort Cardiovascular: Regular Rate, Regular Rhythm, Systolic Murmur Abdomen: Normal Bowel Sounds, Soft. No: Distention, Tenderness Back Exam: Full Range of Motion Extremities: Edema (mild bilateral ankle edema). No: Cyanosis Skin: Warm, Dry Neuro Extensive - Mental Status: Alert, Oriented x3, Nl Response to Commands Neuro Extensive - Motor, Sensory, Reflexes: CN II-XII Intact. No: Dysarthria, Abnormal Motor, Tremor Psychiatric: Alert, Normal Affect *Q Meaningful Use (ADM) - VTE *Q VTE Criteria *Q: - VTE Risk Assess *Q Each Risk Factor Represents 1 Point: Swollen Legs, Current Total Score 1 Point Risk Factors: 1 Each Risk Factor Represents 2 Points: None Total Score 2 Point Risk Factors: 0 Each Risk Factor Represents 3 Points: Age 75 Years or Greater Total Score 3 Point Risk Factors: 3 Each Risk Factor Represents 5 Points: None Total Score 5 Point Risk Factors: 0 Venous Thromboembolism Risk Factor Score *Q: 4 - Stroke *Q Stroke Criteria *Q: - AMI *Q AMI Criteria *Q: - Problem List (1) Avascular necrosis of bone of left hip SNOMED Code(s): 127055082 ICD Code: M87.052 - IDIOPATHIC ASEPTIC NECROSIS OF LEFT FEMUR Status: Acute Current Visit: Yes (2) Autoimmune hemolytic anemia SNOMED Code(s): 630366847 ICD Code: D59.1 - OTHER AUTOIMMUNE HEMOLYTIC ANEMIAS Status: Chronic Current Visit: No Problem List Initiated/Reviewed/Updated: Yes Orders Last 24hrs: Active Orders 24 hr Category Date Time Status Patient Status Manage Transfer [TRANSFER] Routine ADT 08/15/16 15:24 Ordered Resuscitation Status Routine Resus Stat 08/15/16 15:26 Ordered Assessment/Plan Comment:: Assessment and plan - Avascular necrosis left hip with acute on chronic pain - no obvious cause for worsening of her pain. She can't bare weight and needs the assist of two people. Surgical intervention is planned but unfortunately not for more than 2 weeks. She has some optimal pain control and was not safe for outpatient management at this time. If she has upcoming surgical intervention I think it would be best to avoid increasing her steroids at this time. -Admit for observation -Increase oxycodone to 10 mg every 4 hours as needed -Trial of OxyContin at bedtime -Ibuprofen as needed -Physical therapy Hemolytic anemia - history of. Stable she's been on prednisone therapy. -Continue prednisone Maintenance issues - - DVT prophylaxis - antiembolism stockings - GI prophylaxis - PPI - Nutrition - regular diet - Carlos catheter - not indicated CODE STATUS - full code Admission justification - patient will be referred observation status for pain control and physical therapy Disposition - hopefully we will be able to control her pain well enough so she can go home but she may need senior living placement until her hip surgery Primary care physician - Dr. Brigette Noble M.D.
[2016-08-15] MEDS ORDERED: Ibuprofen 600 MG Tab PO PRN (16:08)
[2016-08-15] MEDS ORDERED: Polyethylene Glycol 3350 Powder 17 GM Packet PO PRN (16:08)
[2016-08-15] MEDS ORDERED: HYDROmorphone 0.5 MG/0.5 ML Syringe IVPUSH PRN (16:08)
[2016-08-15] MEDS ORDERED: Ondansetron 4 MG Tab.DIS PO PRN (16:08)
[2016-08-15] MEDS: oxyCODONE 5 MG Tab PO PRN ×2 (18:08→22:05)
[2016-08-15] MEDS ORDERED: OXYCODONE 15 MG PO SCH (21:00)
[2016-08-15] MEDS ORDERED: oxyCODONE ER 10 MG TAB.ER ONE (21:08)
[2016-08-15] MEDS: AMITRIPTYLINE 100 MG PO SCH (21:18)
[2016-08-16] MEDS: oxyCODONE 5 MG Tab PO PRN ×3 (03:09→18:02)
[2016-08-16] MEDS ORDERED: Non-Formulary Medication 1 Each (Pantoprazole [Protonix***] 40 MG) PO SCH (07:30)
[2016-08-16] MEDS: PANTOPRAZOLE 40 MG PO SCH (08:48)
[2016-08-16] MEDS: PREDNISONE 20 MG PO SCH (08:48)
[2016-08-16] MEDS: oxyCODONE ER 10 MG TAB.ER PO SCH ×2 (08:48→20:51)
[2016-08-16] MEDS: FOLIC ACID 1 MG PO SCH (08:48)
[2016-08-16] MEDS ORDERED: Non-Formulary Medication 1 Each (Folic Acid [Folic Acid] 1 MG) PO SCH (09:00)
[2016-08-16] MEDS ORDERED: PREDNISONE 20 MG PO SCH (09:00)
--- NOTE | 2016-08-16 15:29 | PCM.PN ---
- General Info Date of Service: 08/16/16 Functional Status: Reports: ambulating, urinating - Review of Systems General: Reports: Weakness. Denies: Fever, Chills Pulmonary: Reports: no symptoms Cardiovascular: Reports: No Symptoms Gastrointestinal: Reports: No symptoms Musculoskeletal: Reports: other (Left hip pain) Systems Review Comment:: This patient is an 81-year-old woman who was admitted to observation status yesterday because of uncontrolled pain in her left hip secondary to aseptic necrosis. She has documented aseptic necrosis of both hips, thought secondary to long-standing prednisone use. She has been taking oxycodone at home but had progressed to the point with her pain that she's been unable to walk or weight- bear. On admission she was started on OxyContin 10 mg twice daily. Pain control has improved but she continues to have difficulty with ambulation. - Patient Data Vitals - most recent: Last Vital Signs Temp 99.3 F 08/16/16 14:26 Pulse 92 08/16/16 14:26 Resp 16 08/16/16 14:26 BP 129/54 L 08/16/16 14:26 Pulse Ox 95 08/16/16 14:26 Weight - most recent: 150 lb 0.005 oz I&O - last 24 hours: Intake & Output 08/16/16 08/16/16 08/16/16 06:59 14:59 22:59 Intake Total 480 800 Output Total 100 525 Balance 380 275 Med Orders - Current: Current Medications Folic Acid (Folic Acid) 1 mg PO DAILY [facility] Last Admin: 08/16/16 08:48 Dose: 1 mg Hydromorphone HCl (Dilaudid) 0.5 - 1 mg IVPUSH Q2H PRN PRN Reason: Pain (severe 7-10) Last Admin: 08/15/16 22:06 Dose: 1 mg Ibuprofen (Motrin) 600 mg PO Q6H PRN PRN Reason: Pain/Fever Amitriptyline [ Elavil] 100 Mg Own Med 100 mg PO BEDTIME [facility] Last Admin: 08/15/16 21:18 Dose: 100 mg Ondansetron HCl (Zofran Odt) 4 mg PO Q6H PRN PRN Reason: Nausea able to take PO Oxycodone HCl (Oxycodone) 10 mg PO Q4H PRN PRN Reason: Pain (moderate 4-6) Last Admin: 08/16/16 13:46 Dose: 10 mg Oxycodone HCl (Oxycontin) 10 mg PO BID [facility] Last Admin: 08/16/16 08:48 Dose: 10 mg Pantoprazole Sodium (Protonix) 40 mg PO ACBREAKFAST [facility] Last Admin: 08/16/16 08:48 Dose: 40 mg Polyethylene Glycol (Miralax) 17 gm PO DAILY PRN PRN Reason: Constipation Prednisone (Prednisone) 20 mg PO DAILY@0800 [facility] Last Admin: 08/16/16 08:48 Dose: 20 mg Senna/Docusate Sodium (Senna Plus) 1 tab PO BID PRN PRN Reason: Constipation Discontinued Medications Cyclobenzaprine HCl (Flexeril) 5 mg PO ONETIME ONE Stop: 08/15/16 11:16 Last Admin: 08/15/16 11:20 Dose: 5 mg Hydromorphone HCl (Dilaudid) 0.5 mg IM ONETIME ONE Stop: 08/15/16 11:14 Last Admin: 08/15/16 11:17 Dose: 0.5 mg Oxycodone HCl (Oxycontin) 10 mg PO Q12H [facility] Last Admin: 08/15/16 21:19 Dose: 10 mg Oxycodone HCl (Oxycontin) Confirm Administered Dose 10 mg .ROUTE .STK-MED ONE Stop: 08/15/16 21:09 Last Admin: 08/15/16 21:18 Dose: Not Given Oxycodone/Acetaminophen (Percocet 325-5 Mg) 1 tab PO ONETIME ONE Stop: 08/15/16 12:50 Last Admin: 08/15/16 13:59 Dose: 1 tab - Exam Quality Assessment: DVT prophylaxis General: alert, oriented, cooperative, moderate distress Lungs: Clear to auscultation, Normal respiratory effort Cardiovascular: Regular Rate, Regular Rhythm, No Murmurs Abdomen: bowel sounds present, soft, no tenderness, no distension Extremities: no edema Skin: warm, dry, intact - Problem List Review Problem List Initiated/Reviewed/Updated: Yes - Plan Plan:: Assessment and plan - Avascular necrosis left hip with acute on chronic pain - no obvious cause for worsening of her pain. Symptoms have improved somewhat since admission with increasing pain medication. She was able to transfer somewhat better today and walked a short distance with a from the physical therapist. -Increase oxycodone to 10 mg every 4 hours as needed -Trial of OxyContin 10 mg by mouth twice a day -Ibuprofen as needed -Physical therapy Hemolytic anemia - history of. Stable she's been on prednisone therapy. -Continue prednisone Maintenance issues - - DVT prophylaxis - antiembolism stockings - GI prophylaxis - PPI - Nutrition - regular diet - Carlos catheter - not indicated CODE STATUS - full code Admission justification - patient will be referred observation status for pain control and physical therapy Disposition - she refuses any consideration of detention placement, plan for discharge to home tomorrow with home care services Primary care physician - Dr. Machuca
[2016-08-16] MEDS: AMITRIPTYLINE 100 MG PO SCH (20:54)
[2016-08-17] MEDS: oxyCODONE 5 MG Tab PO PRN ×3 (03:43→11:41)
[2016-08-17] MEDS: PREDNISONE 20 MG PO SCH (08:44)
[2016-08-17] MEDS: PANTOPRAZOLE 40 MG PO SCH (08:44)
[2016-08-17] MEDS: FOLIC ACID 1 MG PO SCH (08:44)
[2016-08-17] MEDS: oxyCODONE ER 10 MG TAB.ER PO SCH (08:45)
--- NOTE | 2016-08-17 11:17 | PCM.DCSUM1 ---
Discharge Summary - Hospital Course Brief History: This patient is an 81-year-old woman who is admitted through the emergency department to observation status for management of severe pain related to aseptic process of her left hip. - Discharge Data Discharge Date: 08/17/16 Discharge Disposition: Home, W Home Health Agency 06 Condition: Stable - Discharge Diagnosis/Problem(s) (1) Avascular necrosis of bone of left hip SNOMED Code(s): 734105925 ICD Code: M87.052 - IDIOPATHIC ASEPTIC NECROSIS OF LEFT FEMUR Status: Acute Current Visit: Yes (2) Hip pain, chronic SNOMED Code(s): 99881345 ICD Code: M25.559 - PAIN IN UNSPECIFIED HIP; G89.29 - OTHER CHRONIC PAIN Status: Acute Current Visit: No (3) Autoimmune hemolytic anemia SNOMED Code(s): 615647899 ICD Code: D59.1 - OTHER AUTOIMMUNE HEMOLYTIC ANEMIAS Status: Chronic Current Visit: No - Patient Summary/Data Hospital Course: This patient has had ongoing difficulty with pain in her left hip related to aseptic necrosis, she also has known aseptic process of her right hip which is not as severe. Pain had reached the point where she was unable to ambulate independently. She does have an appointment coming up with orthopedic surgery to discuss left hip replacement. She's been on prednisone for some time because of a history of hemolytic anemia. On admission she was given IV fluids for hydration and her pain medication was increased with the addition of OxyContin 10 mg by mouth twice daily. She was seen and evaluated by physical therapy and by the time of discharge was able to ambulate with use of the walker , for short distances. Physical therapy also recommended that she be provided with a wheelchair to increase her mobility. On discharge prescription will rewritten for wheelchair, to assist in ongoing management of her severe pain and aseptic process of the left hip. Prior to discharge we did review the change in narcotic therapy with her primary care physician, Dr. Machuca, who is in agreement with current management plan. Patient does understand that narcotics will be discontinued after her hip replacement surgery. Activity will be as tolerated and she will resume her usual diet. Followup appointment will be scheduled with Dr. Machuca within one week. Activity will be as tolerated and she will resume her usual diet. Home care services will be prescribed at the time of discharge for ongoing assistance in management at home. - Patient Instructions Diet: Usual Diet as Tolerated Activity: As Tolerated Other/Special Instructions: Please schedule followup appointment with Dr. Machuca within one week. - Discharge Plan Prescriptions/Med Rec: oxyCODONE ER [OxyCONTIN] 10 mg PO BID #20 tab.er Home Medications: Home Meds Amitriptyline [Elavil] 100 mg PO BEDTIME 02/23/14 [History] Furosemide [Lasix] 20 mg PO TID 04/05/14 [History] Cod Liver Oil 1 cap PO DAILY 07/01/14 [History] Multivitamin [Multivitamins] 1 tab PO DAILY 07/01/14 [History] Vitamin B Complex [B Complex] 1 tab PO DAILY 07/01/14 [History] Folic Acid 1 mg PO DAILY 04/26/15 [History] predniSONE [Prednisone] 20 mg PO DAILY 03/31/16 [History] Pantoprazole [ProTONIX] 40 mg PO ACBREAKFAST #30 tab.cr 04/07/16 [Rx] oxyCODONE HCl/Acetaminophen [Percocet 5-325 mg Tablet] 1 each PO TID 06/08/16 [ History] Diclofenac Sodium [Voltaren] 08/15/16 [History] oxyCODONE 5 mg PO Q4H 08/15/16 [History] oxyCODONE ER [OxyCONTIN] 10 mg PO BID #20 tab.er 08/17/16 [Rx] Referrals: Charbel Machuca MD [Physician] - - Patient Data Vitals - Most Recent: Last Vital Signs Temp 98.1 F 08/17/16 06:58 Pulse 83 08/17/16 06:58 Resp 16 08/17/16 06:58 BP 131/59 L 08/17/16 06:58 Pulse Ox 94 L 08/17/16 06:58 Weight - Most Recent: 150 lb 0.005 oz I&O - Last 24 hours: Intake & Output 08/16/16 08/17/16 08/17/16 22:59 06:59 14:59 Intake Total 240 Output Total 550 400 Balance -310 -400 Med Orders - Current: Current Medications Folic Acid (Folic Acid) 1 mg PO DAILY [facility] Last Admin: 08/17/16 08:44 Dose: 1 mg Hydromorphone HCl (Dilaudid) 0.5 - 1 mg IVPUSH Q2H PRN PRN Reason: Pain (severe 7-10) Last Admin: 08/15/16 22:06 Dose: 1 mg Ibuprofen (Motrin) 600 mg PO Q6H PRN PRN Reason: Pain/Fever Last Admin: 08/17/16 03:43 Dose: 600 mg Amitriptyline [ Elavil] 100 Mg Own Med 100 mg PO BEDTIME [facility] Last Admin: 08/16/16 20:54 Dose: 100 mg Ondansetron HCl (Zofran Odt) 4 mg PO Q6H PRN PRN Reason: Nausea able to take PO Oxycodone HCl (Oxycodone) 10 mg PO Q4H PRN PRN Reason: Pain (moderate 4-6) Last Admin: 08/17/16 07:45 Dose: 10 mg Oxycodone HCl (Oxycontin) 10 mg PO BID [facility] Last Admin: 08/17/16 08:45 Dose: 10 mg Pantoprazole Sodium (Protonix) 40 mg PO ACBREAKFAST [facility] Last Admin: 08/17/16 08:44 Dose: 40 mg Polyethylene Glycol (Miralax) 17 gm PO DAILY PRN PRN Reason: Constipation Prednisone (Prednisone) 20 mg PO DAILY@0800 [facility] Last Admin: 08/17/16 08:44 Dose: 20 mg Senna/Docusate Sodium (Senna Plus) 1 tab PO BID PRN PRN Reason: Constipation Discontinued Medications Cyclobenzaprine HCl (Flexeril) 5 mg PO ONETIME ONE Stop: 08/15/16 11:16 Last Admin: 08/15/16 11:20 Dose: 5 mg Hydromorphone HCl (Dilaudid) 0.5 mg IM ONETIME ONE Stop: 08/15/16 11:14 Last Admin: 08/15/16 11:17 Dose: 0.5 mg Oxycodone HCl (Oxycontin) 10 mg PO Q12H [facility] Last Admin: 08/15/16 21:19 Dose: 10 mg Oxycodone HCl (Oxycontin) Confirm Administered Dose 10 mg .ROUTE .STK-MED ONE Stop: 08/15/16 21:09 Last Admin: 08/15/16 21:18 Dose: Not Given Oxycodone/Acetaminophen (Percocet 325-5 Mg) 1 tab PO ONETIME ONE Stop: 08/15/16 12:50 Last Admin: 08/15/16 13:59 Dose: 1 tab *Q Meaningful Use (DIS) - VTE *Q VTE Criteria *Q: - Stroke *Q Stroke Criteria *Q: - AMI *Q AMI Criteria *Q:
[2016-08-17 11:20] VITALS: BP 146/66
== END 2016-08-17 13:32 | disposition home health service (06) ==
LOC: JP.ED 10:12 → JP.MS 16:08
PROVIDERS: ADMIT Internal Medicine; ATTEND Hospitalist
DX: M87.052 Idiopathic aseptic necrosis of left femur (principal); D59.1 Other autoimmune hemolytic anemias; G89.29 Other chronic pain; M25.552 Pain in left hip; J45.909 Unspecified asthma, uncomplicated; F41.9 Anxiety disorder, unspecified; K21.9 Gastro-esophageal reflux disease without esophagitis; R73.9 Hyperglycemia, unspecified; Z90.49 Acquired absence of other specified parts of digestive tract; Z98.890 Other specified postprocedural states; Z79.899 Other long term (current) drug therapy; Z91.011 Allergy to milk products; Z88.8 Allergy status to other drugs, medicaments and biological substances; D58.9 Hereditary hemolytic anemia, unspecified
CPT/HCPCS: 97110; 97162; 97530; 99284; 99285; A9270; J1170; 96374; 99217; 99219; 99225; G0378

== ENCOUNTER 2016-08-29 12:11 | Emergency (ER) | payer MEDICARE, BC ==
--- NOTE | 2016-08-29 13:28 | EDM.PDOC ---
[id number]: back pain Time Seen by Provider: 08/29/16 12:30 Source of Information: Reports: Patient, EMS History Limitations: Reports: No Limitations - History of Present Illness INITIAL COMMENTS - FREE TEXT/NARRATIVE: 81-year-old female with known avascular necrosis of the left hip is developed intractable left hip and left back pain. She was recently hospitalized for pain control and discharge but his back by ambulance today. She is not febrile , has not had new trauma but is having marked difficulty bearing any weight with her left leg. She is on OxyContin twice daily and not getting relief. Onset: Gradual (Worsening over the past 2 months) Lower Back Pain Score (Numeric/FACES): 10 - Related Data Allergies Allergy/AdvReac Type Severity Reaction Status Date / Time milk Allergy Unknown Cannot Verified 08/29/16 12:14 Remember fentanyl Allergy Itching Verified 08/29/16 12:14 gluten Allergy Cannot Verified 08/29/16 12:14 Remember codeine phosphate AdvReac Nausea Verified 08/29/16 12:14 [From Tylenol-Codeine #3] Home Meds: Home Meds Amitriptyline [Elavil] 100 mg PO BEDTIME 02/23/14 [History] Furosemide [Lasix] 20 mg PO TID 04/05/14 [History] Cod Liver Oil 1 cap PO DAILY 07/01/14 [History] Multivitamin [Multivitamins] 1 tab PO DAILY 07/01/14 [History] Vitamin B Complex [B Complex] 1 tab PO DAILY 07/01/14 [History] Folic Acid 1 mg PO DAILY 04/26/15 [History] predniSONE [Prednisone] 20 mg PO DAILY 03/31/16 [History] Pantoprazole [ProTONIX] 40 mg PO ACBREAKFAST #30 tab.cr 04/07/16 [Rx] Diclofenac Sodium [Voltaren] 50 mg PO TID 08/15/16 [History] oxyCODONE 5 mg PO Q4H 08/15/16 [History] oxyCODONE ER [OxyCONTIN] 10 mg PO BID #20 tab.er 08/17/16 [Rx] hydrOXYzine HCl [Atarax] 25 mg PO TID PRN 08/29/16 [History] Past Medical History - Past Health History Medical/Surgical History: Denies Medical/Surgical History HEENT History: Reports: Impaired Vision Cardiovascular History: Reports: Heart Murmur Respiratory History: Reports: Asthma Gastrointestinal History: Reports: GERD Genitourinary History: Reports: UTI, Recurrent 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: Musculoskeletal History: Reports: Arthritis, Back Pain, Chronic, Osteoarthritis , Other (See Below) Other Musculoskeletal History: Chronic hip pain B 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 planning CORBIN in future Psychiatric History: Reports: Anxiety Endocrine/Metabolic History: Reports: Other (See Below) Other Endocrine/Metabolic History: hypoglycemia, adrenal insufficiency (HCC) Hematologic History: Reports: Anemia Other Hematologic History: hemolytic anemia, 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 - Infectious Disease History Infectious Disease History: Reports: Chicken Pox, Measles, Mumps - Past Surgical History HEENT Surgical History: Reports: Cataract Surgery GI Surgical History: Reports: Cholecystectomy, Colonoscopy Female Surgical History: Reports: Hysterectomy Musculoskeletal Surgical History: Reports: None Social & Family History - Family History Cardiac: Reports: Blood Clots/VTE/DVT, Heart Failure, [place], Other (See Below) Other Cardiac Family History: strokes Respiratory: Reports: COPD, Other (See Below) Other Respiratory Family Hisory: emphysema : Reports: Renal Disease/Insufficiency Musculoskeletal: Reports: Arthritis, Osteoporosis, RA Neurological: Reports: CVA, Migraines Psychiatric: Reports: Panic Attack Dermatologic: Reports: Eczema, Psoriasis Oncologic: Reports: Brain - Tobacco Use Smoking Status *Q: Never Smoker Second Hand Smoke Exposure: Yes - Caffeine Use Caffeine Use: Reports: Coffee Caffeine Use Comment: 1 cup per day - Alcohol Use Days Per Week of Alcohol Use: 0 - Recreational Drug Use Recreational Drug Use: No ED ROS GENERAL - Review of Systems Review Of Systems: See Below Constitutional: Denies: Chills Respiratory: Denies: Shortness of Breath Cardiovascular: Denies: Chest Pain GI/Abdominal: Denies: Nausea Skin: Reports: Bruising (Bruises easily) Neurological: Denies: Confusion Psychiatric: Reports: Anxiety ED EXAM, GENERAL - Physical Exam Exam: See Below Exam Limited By: No Limitations General Appearance: Alert, Moderate Distress (Persistent groaning in discomfort despite pain control) Respiratory/Chest: No Respiratory Distress, Lungs Clear Cardiovascular: Regular Rate, Rhythm GI/Abdominal: Soft Extremities: Other (Patient has marked pain with any passive range of motion or palpation of the left hip area.) Skin Exam: Warm, Dry (Some bruising seen over the top of the right foot unknown etiology) Course - Vital Signs Last Recorded V/S: Last Vital Signs Temp 97.5 F 08/29/16 13:37 Pulse 105 H 08/29/16 13:37 Resp 16 08/29/16 13:37 BP 151/99 H 08/29/16 13:37 Pulse Ox 93 L 08/29/16 13:37 - Orders/Labs/Meds Meds: Medications Discontinued Medications Generic Name Dose Route Start Last Admin Trade Name Dorian PRN Reason Stop Dose Admin Fentanyl 50 mcg 08/29/16 13:55 08/29/16 14:07 Sublimaze IVPUSH 50 mcg Q6H PRN Administration Pain (severe 7-10) - Re-Assessments/Exams Free Text/Narrative Re-Assessment/Exam: 08/29/16 13:25 No further workup was done in the emergency room. She was given 50 mcg of IV fentanyl for pain control. I discussed her condition with our hospitalist service who asked her to be sent to [facility] if possible for definitive orthopedic care. It was felt that our options were limited and we had no further offerings other than pain control. I discussed her condition with Dr. Caraballo of the hospitalist service at [facility] and he kindly accepted the patient. We will try to collect any recent H&Ps and discharge summaries as well as imaging studies to send with the patient. Departure - Departure Time of Disposition: 14:10 Disposition: DC/Tfer to Other 70 Condition: fair Clinical Impression: Avascular necrosis of bone of left hip Degenerative arthritis of hip Qualifiers: Osteoarthritis type: unspecified Laterality: left Qualified Code(s): M16.12 - Unilateral primary osteoarthritis, left hip - Discharge Information Referrals: PCP,None [Primary Care Provider] - Forms: ED Department Discharge Care Plan Goals: Patient will be transferred to [facility] in [place] for orthopedic evaluation of intractable left hip pain due to avascular necrosis.
[2016-08-29 13:38] VITALS: BP 151/99
[2016-08-29] MEDS ORDERED: fentaNYL 100 MCG/2 ML SDV IVPUSH PRN (13:55)
== END 2016-08-29 14:10 | disposition other institution (70) ==
LOC: JP.ED 12:11
DX: M87.052 Idiopathic aseptic necrosis of left femur (principal); M16.12 Unilateral primary osteoarthritis, left hip; J45.909 Unspecified asthma, uncomplicated; E27.40 Unspecified adrenocortical insufficiency; K21.9 Gastro-esophageal reflux disease without esophagitis; F41.9 Anxiety disorder, unspecified; Z98.49 Cataract extraction status, unspecified eye; Z90.49 Acquired absence of other specified parts of digestive tract; Z90.710 Acquired absence of both cervix and uterus; Z79.899 Other long term (current) drug therapy; Z91.011 Allergy to milk products; Z88.5 Allergy status to narcotic agent; Z88.8 Allergy status to other drugs, medicaments and biological substances
CPT/HCPCS: 96374; 99285; J3010; 99284

== ENCOUNTER 2016-09-14 10:13 | Emergency (ER) | payer MEDICARE, BC ==
--- NOTE | 2016-09-14 12:28 | EDM.PDOC ---
ED HPI GENERAL MEDICAL PROBLEM - General Chief Complaint: Wound Recheck Stated Complaint: HAD LT HIP SURGERY/RETAINING FLUID/LEAKING Time Seen by Provider: 09/14/16 11:05 Source of Information: Reports: Patient History Limitations: Reports: No Limitations - History of Present Illness INITIAL COMMENTS - FREE TEXT/NARRATIVE: Ally is an 81 year old female who presents to the ED today with c/o drainage from her left hip surgical incision that started this morning. Patient had her hip replaced on [facility] approximately 2 weeks ago, (patient unsure of exact date) and has been doing well. Patient denies any fever/chills/increased pain or other complaints today. - Related Data Allergies Allergy/AdvReac Type Severity Reaction Status Date / Time milk Allergy Unknown Cannot Verified 08/29/16 12:14 Remember fentanyl Allergy Itching Verified 08/29/16 12:14 gluten Allergy Cannot Verified 08/29/16 12:14 Remember codeine phosphate AdvReac Nausea Verified 08/29/16 12:14 [From Tylenol-Codeine #3] Home Meds: Home Meds Amitriptyline [Elavil] 100 mg PO BEDTIME 02/23/14 [History] Furosemide [Lasix] 20 mg PO TID 04/05/14 [History] Cod Liver Oil 1 cap PO DAILY 07/01/14 [History] Multivitamin [Multivitamins] 1 tab PO DAILY 07/01/14 [History] Vitamin B Complex [B Complex] 1 tab PO DAILY 07/01/14 [History] Folic Acid 1 mg PO DAILY 04/26/15 [History] predniSONE [Prednisone] 20 mg PO DAILY 03/31/16 [History] Pantoprazole [ProTONIX] 40 mg PO ACBREAKFAST #30 tab.cr 04/07/16 [Rx] Diclofenac Sodium [Voltaren] 50 mg PO TID 08/15/16 [History] oxyCODONE 5 mg PO Q4H 08/15/16 [History] oxyCODONE ER [OxyCONTIN] 10 mg PO BID #20 tab.er 08/17/16 [Rx] hydrOXYzine HCl [Atarax] 25 mg PO TID PRN 08/29/16 [History] Past Medical History - Past Health History Medical/Surgical History: Denies Medical/Surgical History HEENT History: Reports: Impaired Vision Cardiovascular History: Reports: Heart Murmur Respiratory History: Reports: Asthma Gastrointestinal History: Reports: GERD Genitourinary History: Reports: UTI, Recurrent 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: Musculoskeletal History: Reports: Arthritis, Back Pain, Chronic, Osteoarthritis , Other (See Below) Other Musculoskeletal History: Chronic hip pain B 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 planning CORBIN in future Psychiatric History: Reports: Anxiety Endocrine/Metabolic History: Reports: Other (See Below) Other Endocrine/Metabolic History: hypoglycemia, adrenal insufficiency (HCC) Hematologic History: Reports: Anemia Other Hematologic History: hemolytic anemia, 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 - Infectious Disease History Infectious Disease History: Reports: Chicken Pox, Measles, Mumps - Past Surgical History HEENT Surgical History: Reports: Cataract Surgery GI Surgical History: Reports: Cholecystectomy, Colonoscopy Female Surgical History: Reports: Hysterectomy Musculoskeletal Surgical History: Reports: None Social & Family History - Family History Cardiac: Reports: Blood Clots/VTE/DVT, Heart Failure, [place], Other (See Below) Other Cardiac Family History: strokes Respiratory: Reports: COPD, Other (See Below) Other Respiratory Family Hisory: emphysema : Reports: Renal Disease/Insufficiency Musculoskeletal: Reports: Arthritis, Osteoporosis, RA Neurological: Reports: CVA, Migraines Psychiatric: Reports: Panic Attack Dermatologic: Reports: Eczema, Psoriasis Oncologic: Reports: Brain - Tobacco Use Smoking Status *Q: Never Smoker Second Hand Smoke Exposure: Yes - Caffeine Use Caffeine Use: Reports: Coffee Caffeine Use Comment: 1 cup per day - Alcohol Use Days Per Week of Alcohol Use: 0 - Recreational Drug Use Recreational Drug Use: No ED ROS GENERAL - Review of Systems Review Of Systems: ROS reveals no pertinent complaints other than HPI. ED EXAM, SKIN/RASH Exam: See Below Exam Limited By: No Limitations General Appearance: Alert, WD/WN, No Apparent Distress Ears: Normal External Exam Throat/Mouth: Normal Inspection, Normal Oropharynx Head: Atraumatic Respiratory/Chest: No Respiratory Distress, Lungs Clear Cardiovascular: Regular Rate, Rhythm Extremities: Normal Inspection Neurological: Alert, Oriented, CN II-XII Intact Psychiatric: Normal Affect Skin: Warm, Dry, Intact, Normal Color, Other (4 inch surgical incision to left lateral hip, no erythema or warmth, serous drainage from proximal portion of incision, otherwise looks great) Lymphatic: No Adenopathy Course - Vital Signs Text/Narrative:: Ally is an 81 year old immunocompromised (on chronic prednisone for Yefri's syndrome) who presents to the ED today with c/o left hip drainage. Patient had a CORBIN done on 09/[address] Holliday at [facility]. Patient has been doing well and has been ambulating with minimal difficulty. Please refer to HPI and focused exam. Hip incision looks wonderful, there is some serous drainage noted from proximal portion but no evidence of infection. Patient did ask to follow up with our orthopedic department here. I discussed patient with Dr. Cummings who desires patient to follow up with her primary surgeon. I then spoke with Dr. Bryson who is electronic warfare operator for [facility] orthopedics to discuss patient' s presentation today, I also informed him of patient's chronic prednisone use. He feels that patient likely had a hematoma that is dissolving, causing her drainage. He does not recommend antibitoics at this time but to ensure patient follows up with Dr. Holliday on Friday as scheduled. I discussed this all with Ally as well as reasons to return to the ED in detail. She was given gauze to collect any drainage and should change often. She is agreeable to plan of care and questions were answered prior to discharge. Patient discharged in stable condition. Last Recorded V/S: Last Vital Signs Temp 36.3 C 09/14/16 12:32 Pulse 90 09/14/16 12:32 Resp 16 09/14/16 12:32 BP 125/75 09/14/16 12:32 Pulse Ox 93 L 09/14/16 12:32 Departure - Departure Time of Disposition: 13:15 Disposition: Home, Self-Care 01 Condition: Good Clinical Impression: S/P hip replacement Qualifiers: Laterality: left Qualified Code(s): Z96.642 - Presence of left artificial hip joint Clinical Impression: (Ruled Out): Surgical incision causing urine leakage - Discharge Information Forms: ED Department Discharge Additional Instructions: Ally, please keep gauze on wound and change frequently. Follow up with Dr. Holliday on Friday as scheduled. Return to the ED if you experience any worsening pain, redness of incision, or generally do not feel well. Take care and good luck with your recovery.
[2016-09-14 12:32] VITALS: BP 125/75
== END 2016-09-14 13:47 | disposition home or self-care (01) ==
LOC: JP.ED 10:13
DX: T84.89XA Other specified complication of internal orthopedic prosthetic devices, implants and grafts, initial encounter (principal); M19.90 Unspecified osteoarthritis, unspecified site; H54.7 Unspecified visual loss; J45.909 Unspecified asthma, uncomplicated; K21.9 Gastro-esophageal reflux disease without esophagitis; Z87.440 Personal history of urinary (tract) infections; D69.41 Evans syndrome; E16.2 Hypoglycemia, unspecified; E27.40 Unspecified adrenocortical insufficiency; Z91.011 Allergy to milk products; Z96.642 Presence of left artificial hip joint; Z88.8 Allergy status to other drugs, medicaments and biological substances; Z88.5 Allergy status to narcotic agent; Z79.899 Other long term (current) drug therapy; Z90.49 Acquired absence of other specified parts of digestive tract; Z90.710 Acquired absence of both cervix and uterus; Z98.49 Cataract extraction status, unspecified eye
CPT/HCPCS: 99282; 99283

== ENCOUNTER 2016-10-02 19:20 | Emergency (ER) | payer MEDICARE, BC ==
[2016-10-02] MEDS ORDERED: Sodium Chloride 0.9% 1,000 ML IV SCH (21:15)
--- NOTE | 2016-10-02 21:32 | EDM.PDOC ---
ED HPI GENERAL MEDICAL PROBLEM - General Chief Complaint: General Stated Complaint: INFECTION Time Seen by Provider: 10/02/16 20:22 Source of Information: Reports: Patient History Limitations: Reports: No Limitations - History of Present Illness INITIAL COMMENTS - FREE TEXT/NARRATIVE: History of present illness: [Patient is an 81-year-old female who had total hip surgery left in [place] approximately a month ago. She is presenting to our emergency room with about a two-week history of increasing weakness and weight loss up to 20 pounds. She has had some chilling at night but no fever that she is aware of she continues to have pain in her left hip whether this represents postop pain versus infection is to do be determined. ] Review of systems: As per history of present illness and below otherwise all systems reviewed and negative. Past medical history: As per history of present illness and as reviewed below otherwise noncontributory. Surgical history: As per history of present illness and as reviewed below otherwise noncontributory. Social history: No reported history of drug or alcohol abuse. Family history: As per history of present illness and as reviewed below otherwise noncontributory. Physical exam: HEENT: Atraumatic, normocephalic, pupils reactive, negative for conjunctival pallor or scleral icterus, mucous membranes moist, throat clear, neck supple, nontender, trachea midline. Lungs: Clear to auscultation, breath sounds equal bilaterally, chest nontender. Heart: S1S2, regular, negative for clicks, rubs, or JVD. Abdomen: Soft, nondistended, nontender. Negative for masses or hepatosplenomegaly. Negative for costovertebral tenderness. Pelvis: Stable nontender. Genitourinary: Deferred. Rectal: Deferred. Extremities: Manipulation of her left hip exacerbates her pain Neuro: Awake, alert, oriented. Cranial nerves II through XII unremarkable. Cerebellum unremarkable. Motor and sensory unremarkable throughout. Exam nonfocal. Diagnostics: [CBC demonstrates an elevated white count of 20,000 CRP is also elevated chest x -ray looks clear urine is still pending] Therapeutics: [She is receiving IV fluids] Impression: [Elevated white count of uncertain etiology septic hip is the most concerning issue] Plan: [We've made arrangements for her to be transferred to [facility] were her hip surgery was done is the hospitalist that is the accepting physician. We thank him for his help in caring for this patient.] Definitive disposition and diagnosis as appropriate pending reevaluation and review of above. Lower Back Pain Score (Numeric/FACES): 8 - Related Data Allergies Allergy/AdvReac Type Severity Reaction Status Date / Time milk Allergy Unknown Cannot Verified 10/02/16 20:21 Remember fentanyl Allergy Itching Verified 10/02/16 20:21 gluten Allergy Cannot Verified 10/02/16 20:21 Remember codeine phosphate AdvReac Nausea Verified 10/02/16 20:21 [From Tylenol-Codeine #3] Home Meds: Home Meds Amitriptyline [Elavil] 100 mg PO BEDTIME 02/23/14 [History] Furosemide [Lasix] 20 mg PO TID PRN 04/05/14 [History] Cod Liver Oil 1 cap PO DAILY 07/01/14 [History] Multivitamin [Multivitamins] 1 tab PO DAILY 07/01/14 [History] Vitamin B Complex [B Complex] 1 tab PO DAILY 07/01/14 [History] Folic Acid 1 mg PO DAILY 04/26/15 [History] predniSONE [Prednisone] 20 mg PO DAILY 03/31/16 [History] Pantoprazole [ProTONIX] 40 mg PO ACBREAKFAST #30 tab.cr 04/07/16 [Rx] Diclofenac Sodium [Voltaren] 50 mg PO TID 08/15/16 [History] hydrOXYzine HCl [Atarax] 25 mg PO TID PRN 08/29/16 [History] Acetaminophen 2 tab PO Q6H PRN 10/02/16 [History] Ibuprofen 2 cap PO Q6H PRN 10/02/16 [History] Menthol [[place] Pain Relieving] 1 dose TOP ASDIRECTED 10/02/16 [History] Past Medical History - Past Health History Medical/Surgical History: Denies Medical/Surgical History HEENT History: Reports: Cataract, Impaired Vision, Macular Degeneration Cardiovascular History: Reports: Heart Murmur Respiratory History: Reports: Asthma Gastrointestinal History: Reports: GERD Genitourinary History: Reports: UTI, Recurrent 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: Musculoskeletal History: Reports: Arthritis, Back Pain, Chronic, Osteoarthritis , Other (See Below) Other Musculoskeletal History: Chronic hip pain B 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 planning CORBIN in future Psychiatric History: Reports: Anxiety Endocrine/Metabolic History: Reports: Other (See Below) Other Endocrine/Metabolic History: hypoglycemia, adrenal insufficiency (HCC) Hematologic History: Reports: Anemia Other Hematologic History: hemolytic anemia, 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 - Infectious Disease History Infectious Disease History: Reports: Chicken Pox, Measles, Mumps - Past Surgical History HEENT Surgical History: Reports: Cataract Surgery GI Surgical History: Reports: Cholecystectomy, Colonoscopy Female Surgical History: Reports: Hysterectomy Musculoskeletal Surgical History: Reports: None, Hip Replacement, Other (See Below) Other Musculoskeletal Surgeries/Procedures:: left hip replacement August 2016 Social & Family History - Family History Cardiac: Reports: Blood Clots/VTE/DVT, Heart Failure, [place], Other (See Below) Other Cardiac Family History: strokes Respiratory: Reports: COPD, Other (See Below) Other Respiratory Family Hisory: emphysema : Reports: Renal Disease/Insufficiency Musculoskeletal: Reports: Arthritis, Osteoporosis, RA Neurological: Reports: CVA, Migraines Psychiatric: Reports: Panic Attack Dermatologic: Reports: Eczema, Psoriasis Oncologic: Reports: Brain - Tobacco Use Smoking Status *Q: Never Smoker Second Hand Smoke Exposure: Yes - Caffeine Use Caffeine Use: Reports: Coffee Caffeine Use Comment: 1 cup per day - Alcohol Use Days Per Week of Alcohol Use: 0 - Recreational Drug Use Recreational Drug Use: No ED ROS GENERAL - Review of Systems Review Of Systems: ROS reveals no pertinent complaints other than HPI. ED EXAM, GENERAL - Physical Exam Exam: See Below Course - Vital Signs Last Recorded V/S: Last Vital Signs Temp 37.1 C 10/02/16 20:20 Pulse 99 10/02/16 20:20 Resp 16 10/02/16 20:20 BP 155/82 H 10/02/16 20:20 Pulse Ox 97 10/02/16 20:20 - Orders/Labs/Meds Orders: Active Orders 24 hr Category Date Time Status SEDIMENTATION RATE MANUAL [HEME] Stat Lab 10/02/16 20:35 Received UA W/MICROSCOPIC [URIN] Stat Lab 10/02/16 20:23 Uncollected Sodium Chloride 0.9% [Normal Saline] 1,000 ml Med 10/02/16 21:15 Active IV ASDIRECTED Medication Orders Sodium Chloride (Normal Saline) 1,000 mls @ 250 mls/hr IV ASDIRECTED MYLES Labs: Laboratory Tests 10/02/16 10/02/16 10/02/16 Range/Units 20:35 20:35 20:35 WBC 28.1 H (4.5-11.0) K/uL RBC 3.35 (3.30-5.50) M/uL Hgb 12.6 D (12.0-15.0) g/dL Hct 35.6 L (36.0-48.0) % MCV 106 H (80-98) fL MCH 38 H (27-31) pg MCHC 35 (32-36) % Plt Count 354 (150-400) K/uL Neut % (Auto) 90 H (36-66) % Lymph % (Auto) 4 L (24-44) % [place] % (Auto) 5 (2-6) % Eos % (Auto) 0 L (2-4) % Baso % (Auto) 0 (0-1) % Sodium 138 L (140-148) mmol/L Potassium 4.5 (3.6-5.2) mmol/L Chloride 99 L (100-108) mmol/L Carbon Dioxide 33 H (21-32) mmol/L Anion Gap 10.5 (5.0-14.0) mmol/L BUN 30 H D (7-18) mg/dL Creatinine 1.8 H D (0.6-1.0) mg/dL Est Cr Clr Drug Dosing 17.01 mL/min Estimated GFR (MDRD) 27 L (>60) Glucose 141 H (74-106) mg/dL Lactic Acid 1.3 (0.4-2.0) mmol/L Calcium 10.2 H (8.5-10.1) mg/dL Total Bilirubin 1.2 H (0.2-1.0) mg/dL AST 30 (15-37) U/L ALT 23 (12-78) U/L Alkaline Phosphatase 202 H D (46-116) U/L C-Reactive Protein 8.61 H (0.0-0.3) mg/dL Total Protein 6.5 (6.4-8.2) g/dL Albumin 3.6 (3.4-5.0) g/dL Globulin 2.9 (2.3-3.5) g/dL Albumin/Globulin Ratio 1.2 (1.2-2.2) Meds: Medications Generic Name Dose Route Start Last Admin Trade Name Dorian PRN Reason Stop Dose Admin Sodium Chloride 1,000 mls @ 250 mls/hr 10/02/16 21:15 Normal Saline IV ASDIRECTED MYLES Departure - Departure Time of Disposition: 21:31 Disposition: DC/Tfer to Acute Hospital 02 Condition: Fair Clinical Impression: Weakness, Weight loss Elevated white blood cell count Qualifiers: Leukocytosis type: unspecified Qualified Code(s): D72.829 - Elevated white blood cell count, unspecified - Discharge Information Forms: ED Department Discharge - My Orders Last 24 Hours: My Active Orders 10/02/16 20:23 UA W/MICROSCOPIC [URIN] Stat 10/02/16 20:35 SEDIMENTATION RATE MANUAL [HEME] Stat 10/02/16 21:15 Sodium Chloride 0.9% [Normal Saline] 1,000 ml IV ASDIRECTED - Assessment/Plan Last 24 Hours: My Active Orders 10/02/16 20:23 UA W/MICROSCOPIC [URIN] Stat 10/02/16 20:35 SEDIMENTATION RATE MANUAL [HEME] Stat 10/02/16 21:15 Sodium Chloride 0.9% [Normal Saline] 1,000 ml IV ASDIRECTED
[2016-10-02 21:39] VITALS: BP 193/60
[2016-10-02] MEDS ORDERED: HYDROmorphone 1 MG/ML Syringe IVPUSH ONE (21:58)
== END 2016-10-02 22:27 ==
LOC: JP.ED 19:20
DX: R53.1 Weakness (principal); D72.829 Elevated white blood cell count, unspecified; R63.4 Abnormal weight loss; J45.909 Unspecified asthma, uncomplicated; K21.9 Gastro-esophageal reflux disease without esophagitis; M19.90 Unspecified osteoarthritis, unspecified site; D64.9 Anemia, unspecified; Z90.710 Acquired absence of both cervix and uterus; Z98.49 Cataract extraction status, unspecified eye; Z90.49 Acquired absence of other specified parts of digestive tract; Z96.649 Presence of unspecified artificial hip joint; Z79.899 Other long term (current) drug therapy; Z88.5 Allergy status to narcotic agent; Z91.011 Allergy to milk products; Z88.8 Allergy status to other drugs, medicaments and biological substances
CPT/HCPCS: 36415; 80053; 83605; 85025; 85651; 86140; 96360; 99285; J7040; 99284

== ENCOUNTER 2016-12-07 11:30 | Emergency (ER) | payer MEDICARE, BC ==
[2016-12-07] MEDS ORDERED: LORazepam 2 MG/ML MDV IM ONE (11:50)
[2016-12-07] MEDS ORDERED: HYDROmorphone 1 MG/ML Syringe IM ONE (11:51)
--- NOTE | 2016-12-07 12:11 | EDM.PDOC ---
ED HPI GENERAL MEDICAL PROBLEM - General Chief Complaint: Back Pain or Injury Stated Complaint: MEDICAL Time Seen by Provider: 12/07/16 11:52 Source of Information: Reports: Patient, Family History Limitations: Reports: No Limitations - History of Present Illness INITIAL COMMENTS - FREE TEXT/NARRATIVE: Ally presents today for complaints of pain to her low back. She states she is out of oxycodone. Patient son with patient, he states he was told to give her two pain pills at a time and they were not given enough pain pills. Onset: Today Duration: Hour(s): Location: Reports: Back Quality: Reports: Ache, Stabbing Severity: Severe Improves with: Reports: None Worsens with: Reports: Movement Associated Symptoms: Reports: No Other Symptoms - Related Data Allergies Allergy/AdvReac Type Severity Reaction Status Date / Time milk Allergy Unknown Cannot Verified 12/07/16 11:44 Remember fentanyl Allergy Itching Verified 12/07/16 11:44 gluten Allergy Cannot Verified 12/07/16 11:44 Remember codeine phosphate AdvReac Nausea Verified 12/07/16 11:44 [From Tylenol-Codeine #3] Home Meds: Home Meds Amitriptyline [Elavil] 100 mg PO BEDTIME 02/23/14 [History] Furosemide [Lasix] 20 mg PO TID PRN 04/05/14 [History] Cod Liver Oil 1 cap PO DAILY 07/01/14 [History] Multivitamin [Multivitamins] 1 tab PO DAILY 07/01/14 [History] Vitamin B Complex [B Complex] 1 tab PO DAILY 07/01/14 [History] Folic Acid 1 mg PO DAILY 04/26/15 [History] predniSONE [Prednisone] 20 mg PO DAILY 03/31/16 [History] Pantoprazole [ProTONIX] 40 mg PO ACBREAKFAST #30 tab.cr 04/07/16 [Rx] Diclofenac Sodium [Voltaren] 50 mg PO TID 08/15/16 [History] hydrOXYzine HCl [Atarax] 25 mg PO TID PRN 08/29/16 [History] Acetaminophen 2 tab PO Q6H PRN 10/02/16 [History] Ibuprofen 2 cap PO Q6H PRN 10/02/16 [History] Menthol [Gold Barron Pain Relieving] 1 dose TOP ASDIRECTED 10/02/16 [History] oxyCODONE [oxyCODONE] 1 tab PO Q4HR 12/07/16 [History] Past Medical History - Past Health History Medical/Surgical History: Denies Medical/Surgical History HEENT History: Reports: Cataract, Impaired Vision, Macular Degeneration Cardiovascular History: Reports: Heart Murmur Respiratory History: Reports: Asthma Gastrointestinal History: Reports: GERD Genitourinary History: Reports: UTI, 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: Musculoskeletal History: Reports: Arthritis, Back Pain, Chronic, Osteoarthritis , Other (See Below) Other Musculoskeletal History: Chronic hip pain B 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 planning CORBIN in future Psychiatric History: Reports: Anxiety Endocrine/Metabolic History: Reports: Other (See Below) Other Endocrine/Metabolic History: hypoglycemia, adrenal insufficiency (HCC) Hematologic History: Reports: Anemia Other Hematologic History: hemolytic anemia, 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 - Infectious Disease History Infectious Disease History: Reports: Chicken Pox, Measles, Mumps - Past Surgical History HEENT Surgical History: Reports: Cataract Surgery GI Surgical History: Reports: Cholecystectomy, Colonoscopy Female Surgical History: Reports: Hysterectomy Musculoskeletal Surgical History: Reports: None, Hip Replacement, Other (See Below) Other Musculoskeletal Surgeries/Procedures:: left hip replacement August 2016 Social & Family History - Family History Cardiac: Reports: Blood Clots/VTE/DVT, Heart Failure, [place], Other (See Below) Other Cardiac Family History: strokes Respiratory: Reports: COPD, Other (See Below) Other Respiratory Family Hisory: emphysema : Reports: Renal Disease/Insufficiency Musculoskeletal: Reports: Arthritis, Osteoporosis, RA Neurological: Reports: CVA, Migraines Psychiatric: Reports: Panic Attack Dermatologic: Reports: Eczema, Psoriasis Oncologic: Reports: Brain - Tobacco Use Smoking Status *Q: Never Smoker Second Hand Smoke Exposure: Yes - Caffeine Use Caffeine Use: Reports: Coffee Caffeine Use Comment: 1 cup per day - Alcohol Use Days Per Week of Alcohol Use: 0 - Recreational Drug Use Recreational Drug Use: No ED ROS GENERAL - Review of Systems Review Of Systems: See Below Constitutional: Denies: Fever, Chills, Malaise, Weakness HEENT: Reports: No Symptoms Respiratory: Denies: Shortness of Breath, Wheezing, Cough, Sputum Cardiovascular: Denies: Chest Pain, Blood Pressure Problem, Dyspnea on Exertion , Edema, Lightheadedness, Palpitations, Syncope Endocrine: Reports: No Symptoms GI/Abdominal: Denies: Abdominal Pain, Anorexia, Black Stool, Bloody Stool, Constipation, Diarrhea, Nausea, Vomiting : Reports: No Symptoms Musculoskeletal: Reports: Back Pain Skin: Denies: Cyanosis, Diaphoresis, Bruising, Pruritis, Rash, Erythema Neurological: Denies: Confusion, Dizziness, Headache, Numbness, Paresthesia, Tingling, Weakness Psychiatric: Denies: Agitation, Anxiety, Confusion, Cravings, Depression, Homicidal Ideation, Suicidal Ideation Hematologic/Lymphatic: Reports: No Symptoms Immunologic: Reports: No Symptoms ED EXAM,LOWER BACK PAIN/INJURY - Physical Exam Exam: See Below Exam Limited By: No Limitations General Appearance: Alert, Moderate Distress Eye Exam: Bilateral Eye: EOMI, PERRL Ears: Normal External Exam, Normal Canal, Hearing Grossly Normal, Normal TMs Nose: Normal Inspection, Normal Mucosa, No Blood Throat/Mouth: Normal Inspection, Normal Lips, Normal Voice, No Airway Compromise Head: Atraumatic, Normocephalic Neck: Normal Inspection, Supple, Non-Tender, Full Range of Motion Respiratory/Chest: No Respiratory Distress, Lungs Clear, Normal Breath Sounds, No Accessory Muscle Use, Chest Non-Tender Cardiovascular: Normal Peripheral Pulses, Regular Rate, Rhythm, No Edema, No Murmur, No Rub GI/Abdominal: Normal Bowel Sounds, Soft, Non-Tender, No Distention Back Exam: Other (Patient yells and cries with any attempt at palpation or examination of back. ). No: CVA Tenderness (R), CVA Tenderness (L) Extremities: Normal Inspection, Normal Range of Motion, Non-Tender, No Pedal Edema, Normal Capillary Refill Neurological: Alert, Normal Dorsiflexion, CN II-XII Intact, No Motor/Sensory Deficits, Oriented x 3 Psychiatric: Anxious, Tearful, Other (Crying and yelling, stating she has pain. ) Skin Exam: Warm, Intact, Normal Color, Diaphoretic Lymphatic: No Adenopathy Course - Vital Signs Last Recorded V/S: Last Vital Signs Temp 36.8 C 12/07/16 12:15 Pulse 89 12/07/16 12:15 Resp 20 12/07/16 12:15 BP 135/60 12/07/16 12:15 Pulse Ox 96 12/07/16 12:15 - Orders/Labs/Meds Orders: Active Orders 24 hr Category Date Time Status Abdomen Pelvis w Cont [CT] Stat Exams 12/07/16 14:48 Taken Lactated Ringers [Ringers, Lactated] 1,000 ml Med 12/07/16 14:30 Active IV ASDIRECTED Sodium Chloride 0.9% [Saline Flush] Med 12/07/16 14:29 Active 10 ml FLUSH ASDIRECTED PRN Saline Lock Insert [OM.PC] Routine Oth 12/07/16 14:29 Ordered Medication Orders Lactated Ringer's (Ringers, Lactated) 1,000 mls @ 150 mls/hr IV ASDIRECTED MYLES Last Admin: 12/07/16 15:38 Dose: 150 mls/hr Sodium Chloride (Saline Flush) 10 ml FLUSH ASDIRECTED PRN PRN Reason: Keep Vein Open Last Admin: 12/07/16 15:38 Dose: 10 ml Labs: Laboratory Tests 12/07/16 12/07/16 12/07/16 Range/Units 12:05 12:05 12:15 WBC 15.9 H (4.5-11.0) K/uL RBC 3.29 L (3.30-5.50) M/uL Hgb 12.6 (12.0-15.0) g/dL Hct 35.6 L (36.0-48.0) % MCV 108 H (80-98) fL MCH 38 H (27-31) pg MCHC 35 (32-36) % Plt Count 347 (150-400) K/uL Neut % (Auto) 90 H (36-66) % Lymph % (Auto) 5 L (24-44) % Scott % (Auto) 5 (2-6) % Eos % (Auto) 1 L (2-4) % Baso % (Auto) 0 (0-1) % ESR (0-25) mm/hr Sodium 139 L (140-148) mmol/L Potassium 4.4 (3.6-5.2) mmol/L Chloride 105 (100-108) mmol/L Carbon Dioxide 27 (21-32) mmol/L Anion Gap 11.4 (5.0-14.0) mmol/L BUN 24 H (7-18) mg/dL Creatinine 1.2 H (0.6-1.0) mg/dL Est Cr Clr Drug Dosing 25.51 mL/min Estimated GFR (MDRD) 43 L (>60) Glucose 155 H (74-106) mg/dL Calcium 8.9 (8.5-10.1) mg/dL C-Reactive Protein (0.0-0.3) mg/dL Urine Color Urine Appearance Urine pH (4.5-8.0) Ur Specific [place] (1.008-1.030) Urine Protein (NEGATIVE) mg/dL Urine Glucose (UA) (NEGATIVE) mg/dL Urine Ketones (NEGATIVE) mg/dL Urine Occult Blood (NEGATIVE) Urine Nitrite (NEGATIVE) Urine Bilirubin (NEGATIVE) Urine Urobilinogen (NORMAL) mg/dL Ur Leukocyte Esterase (NEGATIVE) Urine Opiates Screen Positive H (NEGATIVE) Ur Oxycodone Screen Positive H (NEGATIVE) Urine Methadone Screen Negative (NEGATIVE) Ur Propoxyphene Screen Negative (NEGATIVE) Ur Barbiturates Screen Negative (NEGATIVE) Ur Tricyclics Screen Positive H (NEGATIVE) Ur Phencyclidine Scrn Negative (NEGATIVE) Ur Amphetamine Screen Negative (NEGATIVE) U Methamphetamines Scrn Negative (NEGATIVE) Urine MDMA Screen Negative (NEGATIVE) U Benzodiazepines Scrn Negative (NEGATIVE) U Cocaine Metab Screen Negative (NEGATIVE) U Marijuana (THC) Screen Negative (NEGATIVE) 12/07/16 12/07/16 12/07/16 Range/Units 12:15 14:49 14:49 WBC (4.5-11.0) K/uL RBC (3.30-5.50) M/uL Hgb (12.0-15.0) g/dL Hct (36.0-48.0) % MCV (80-98) fL MCH (27-31) pg MCHC (32-36) % Plt Count (150-400) K/uL Neut % (Auto) (36-66) % Lymph % (Auto) (24-44) % Scott % (Auto) (2-6) % Eos % (Auto) (2-4) % Baso % (Auto) (0-1) % ESR 39 H (0-25) mm/hr Sodium (140-148) mmol/L Potassium (3.6-5.2) mmol/L Chloride (100-108) mmol/L Carbon Dioxide (21-32) mmol/L Anion Gap (5.0-14.0) mmol/L BUN (7-18) mg/dL Creatinine (0.6-1.0) mg/dL Est Cr Clr Drug Dosing mL/min Estimated GFR (MDRD) (>60) Glucose (74-106) mg/dL Calcium (8.5-10.1) mg/dL C-Reactive Protein 1.50 H (0.0-0.3) mg/dL Urine Color Yellow Urine Appearance Slightly cloudy Urine pH 5.0 (4.5-8.0) Ur Specific [place] 1.015 (1.008-1.030) Urine Protein Negative (NEGATIVE) mg/dL Urine Glucose (UA) Normal (NEGATIVE) mg/dL Urine Ketones Negative (NEGATIVE) mg/dL Urine Occult Blood Negative (NEGATIVE) Urine Nitrite Negative (NEGATIVE) Urine Bilirubin Negative (NEGATIVE) Urine Urobilinogen Normal (NORMAL) mg/dL Ur Leukocyte Esterase Negative (NEGATIVE) Urine Opiates Screen (NEGATIVE) Ur Oxycodone Screen (NEGATIVE) Urine Methadone Screen (NEGATIVE) Ur Propoxyphene Screen (NEGATIVE) Ur Barbiturates Screen (NEGATIVE) Ur Tricyclics Screen (NEGATIVE) Ur Phencyclidine Scrn (NEGATIVE) Ur Amphetamine Screen (NEGATIVE) U Methamphetamines Scrn (NEGATIVE) Urine MDMA Screen (NEGATIVE) U Benzodiazepines Scrn (NEGATIVE) U Cocaine Metab Screen (NEGATIVE) U Marijuana (THC) Screen (NEGATIVE) Lab work reviewed. Meds: Medications Generic Name Dose Route Start Last Admin Trade Name Freq PRN Reason Stop Dose Admin Lactated Ringer's 1,000 mls @ 150 mls/hr 12/07/16 14:30 12/07/16 15:38 Ringers, Lactated IV 150 mls/hr ASDIRECTED MYLES Administration Sodium Chloride 10 ml 12/07/16 14:29 12/07/16 15:38 Saline Flush FLUSH 10 ml ASDIRECTED PRN Administration Keep Vein Open Discontinued Medications Generic Name Dose Route Start Last Admin Trade Name Freq PRN Reason Stop Dose Admin Docusate Sodium 100 mg 12/07/16 16:40 Colace 50 Mg/5 Ml Liquid PO 12/07/16 16:41 ONETIME ONE Hydromorphone HCl 1 mg 12/07/16 11:51 12/07/16 12:21 Dilaudid IM 12/07/16 11:52 1 mg ONETIME ONE Administration Hydromorphone HCl 0.5 mg 12/07/16 15:28 12/07/16 15:38 Dilaudid IVPUSH 12/07/16 15:29 0.5 mg ONETIME ONE Administration Sodium Chloride 70 mls @ 3 mls/sec 12/07/16 15:04 12/07/16 15:23 Normal Saline IV 12/07/16 15:05 3 mls/sec ASDIRECTED STA Administration Iopamidol 70 ml 12/07/16 15:04 12/07/16 15:23 Isovue-300 (61%) IV 12/07/16 15:05 100 ml . DIRECTED STA Administration Lorazepam 0.5 mg 12/07/16 11:50 12/07/16 12:21 Ativan IM 12/07/16 11:51 0.5 mg ONETIME ONE Administration - Radiology Interpretation Free Text/Narrative:: CT scan report shows compression fracture T12 that is relatively new when compared to March [address] CT[address] Retained stool, constipation. - Re-Assessments/Exams Free Text/Narrative Re-Assessment/Exam: 1445 [place] PDMP reviewed 12/07/16 13:03 Patient resting, denies pain at this time. 12/07/16 13:[address] Noble of patient status, lab work. 12/07/16 13:24 We will work on getting records from [facility]. 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 Recent records reviewed. Due to elevated WBC with left shift, will attempt to transfer patient to [facility]. Patient has recent history of AVN left hip, left TKA. This week Ally's pain drastically increased, she was following instructions as directed per [place] [facility]. 12/07/16 14:51 Discussed patient case with Dr. Haines of [facility]. Will complete CT of abdomen and pelvis with contrast, follow wiht T9-T12 xrays if not well visualized. Free Text/Narrative Re-Assessment/Exam: 12/07/16 17:[address] with [facility] Hospitalist. Advised to have patient continue pain medication, use of muscle relaxant, treat constipation and follow up with primary provider and neurosurgery next week, Friday preferred. Patient notified. She is in agreement with plan. Departure - Departure Time of Disposition: 16:46 Disposition: Home, Self-Care 01 Condition: Fair Clinical Impression: Back pain, Constipation - Discharge Information Instructions: Back Pain, Adult, Constipation, Adult Referrals: Charbel Machuca MD [Primary Care Provider] - Forms: ED Department Discharge Additional Instructions: You are suffering from chronic back pain due to compression fracture of T12. CT scan of abdomen and pelvis show constipation. You need to treat your constipation, this will improve back pain. You are provided percocet #10 tablets. You may take one tablet every 8 hours as needed for pain. Do not take percocet more then directed. You need to buy docusate sodium and miralax to assist with constipation. Take Docusate 100mg tablet by mouth in the morning and at bedtime for a stool softner. Use miralax one capful in 8oz of water if no bowel movement in 3 days. Flexeril 5mg by mouth three times a day for pain. Take your other medications as directed. Follow up with Dr. Machuca on Friday for additional pain control if needed. Follow up with your neurosurgeon on Friday. Return to the emergency room for worsening. - My Orders Last 24 Hours: My Active Orders 12/07/16 14:29 Sodium Chloride 0.9% [Saline Flush] 10 ml FLUSH ASDIRECTED PRN Saline Lock Insert [OM.PC] Routine 12/07/16 14:30 Lactated Ringers [Ringers, Lactated] 1,000 ml IV ASDIRECTED 12/07/16 14:48 Abdomen Pelvis w Cont [CT] Stat - Assessment/Plan Last 24 Hours: My Active Orders 12/07/16 14:29 Sodium Chloride 0.9% [Saline Flush] 10 ml FLUSH ASDIRECTED PRN Saline Lock Insert [OM.PC] Routine 12/07/16 14:30 Lactated Ringers [Ringers, Lactated] 1,000 ml IV ASDIRECTED 12/07/16 14:48 Abdomen Pelvis w Cont [CT] Stat Assessment:: Back pain Compression fracture T12 Constipation Plan: Patient suffering from chronic back pain due to compression fracture of T12. CT scan of abdomen and pelvis show constipation. She was advised that she needs to treat her constipation, this will improve back pain. She is provided percocet #10 tablets. She may take one tablet every 8 hours as needed for pain. Do not take percocet more then directed. She will need to buy docusate sodium and miralax to assist with constipation. Take Docusate 100mg tablet by mouth in the morning and at bedtime for a stool softner. Use miralax one capful in 8oz of water if no bowel movement in 3 days. Flexeril 5mg PO twice daily prn pain. Take other medications as directed. Follow up with Dr. Machuca on Friday for additional pain control if needed. Follow up with your neurosurgeon on Friday. Return to the emergency room for worsening.
[2016-12-07 12:17] VITALS: BP 135/60
[2016-12-07] MEDS ORDERED: Sodium Chloride 0.9% 10 ML Syringe FLUSH PRN (14:29)
[2016-12-07] MEDS ORDERED: Lactated Ringers 1,000 ML IV SCH (14:30)
[2016-12-07] MEDS ORDERED: Iopamidol 612 MG/ML 100 ML Bottle IV STA (15:04)
[2016-12-07] MEDS ORDERED: HYDROmorphone 0.5 MG/0.5 ML Syringe IVPUSH ONE (15:28)
[2016-12-07] MEDS ORDERED: Docusate Sodium Liquid 100 MG/10 ML UD Cup PO ONE (16:40)
== END 2016-12-07 17:51 | disposition home or self-care (01) ==
LOC: JP.ED 11:30
DX: M54.5 Low back pain (principal); K59.00 Constipation, unspecified; J45.909 Unspecified asthma, uncomplicated; K21.9 Gastro-esophageal reflux disease without esophagitis; F41.9 Anxiety disorder, unspecified; M19.90 Unspecified osteoarthritis, unspecified site; Z88.5 Allergy status to narcotic agent; Z88.8 Allergy status to other drugs, medicaments and biological substances; Z79.899 Other long term (current) drug therapy; Z91.011 Allergy to milk products; Z87.440 Personal history of urinary (tract) infections; Z98.49 Cataract extraction status, unspecified eye; Z90.49 Acquired absence of other specified parts of digestive tract; Z90.710 Acquired absence of both cervix and uterus; Z96.642 Presence of left artificial hip joint
CPT/HCPCS: 36415; 74177; 80048; 80305; 81003; 85025; 85651; 86140; 96361; 96372; 96374; 99284; A9270; J1170; J2060; J7030; J7050; J7120; Q9967

== ENCOUNTER 2016-12-09 15:26 | Emergency (ER) | payer MEDICARE, BC ==
[2016-12-09] MEDS ORDERED: Ketorolac 60 MG/2 ML SDV IM ONE (15:56)
--- NOTE | 2016-12-09 16:09 | EDM.PDOC ---
<OfficerElijah - Last Filed: 12/09/16 16:05> ED HPI GENERAL MEDICAL PROBLEM - General Chief Complaint: Back Pain or Injury Stated Complaint: MEDICAL [facility]IA [facility] Time Seen by Provider: 12/09/16 15:38 Source of Information: Reports: Patient, Old Records, RN Notes Reviewed History Limitations: Reports: No Limitations - History of Present Illness INITIAL COMMENTS - FREE TEXT/NARRATIVE: 81-year-old female presents emergency department day he EMS services for exacerbation of chronic back pain, she has a known history of T10 compression fracture has been evaluated by her primary care provider as well as neurosurgery , has also had placement in rehabilitation facility in [place]. She has declined kyphoplasty and also checked herself out of rehabilitation early prior to completion. She has had visits to the emergency department last was 3 days ago was provided oxycodone for pain control she states she took the last one this morning. I also discussed the case with her primary care provider who states there is concern her son may be diverting narcotics at home, and states the social situation has caused her to make the decisions of not proceeding with kyphoplasty and leaving rehabilitation early before completion based upon the relationship with her son. Middle Back Pain Score (Numeric/FACES): 9 - Related Data Allergies Allergy/AdvReac Type Severity Reaction Status Date / Time milk Allergy Unknown Cannot Verified 12/07/16 11:44 Remember fentanyl Allergy Itching Verified 12/07/16 11:44 gluten Allergy Cannot Verified 12/07/16 11:44 Remember codeine phosphate AdvReac Nausea Verified 12/07/16 11:44 [From Tylenol-Codeine #3] Home Meds: Home Meds Amitriptyline [Elavil] 100 mg PO BEDTIME 02/23/14 [History] Furosemide [Lasix] 20 mg PO TID PRN 04/05/14 [History] Cod Liver Oil 1 cap PO DAILY 07/01/14 [History] Multivitamin [Multivitamins] 1 tab PO DAILY 07/01/14 [History] Vitamin B Complex [B Complex] 1 tab PO DAILY 07/01/14 [History] Folic Acid 1 mg PO DAILY 04/26/15 [History] predniSONE [Prednisone] 20 mg PO DAILY 03/31/16 [History] Pantoprazole [ProTONIX] 40 mg PO ACBREAKFAST #30 tab.cr 04/07/16 [Rx] Diclofenac Sodium [Voltaren] 50 mg PO TID 08/15/16 [History] hydrOXYzine HCl [Atarax] 25 mg PO TID PRN 08/29/16 [History] Acetaminophen 2 tab PO Q6H PRN 10/02/16 [History] Ibuprofen 2 cap PO Q6H PRN 10/02/16 [History] Menthol [Gold Barron Pain Relieving] 1 dose TOP ASDIRECTED 10/02/16 [History] Cyclobenzaprine [Flexeril] 10 mg PO ASDIRECTED 12/09/16 [History] Past Medical History HEENT History: Reports: Cataract, Impaired Vision, Macular Degeneration Cardiovascular History: Reports: Heart Murmur Respiratory History: Reports: Asthma Gastrointestinal History: Reports: GERD Genitourinary History: Reports: UTI, 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: Musculoskeletal History: Reports: Arthritis, Back Pain, Chronic, Osteoarthritis , Other (See Below) Other Musculoskeletal History: Chronic hip pain B 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 planning CORBIN in future Psychiatric History: Reports: Anxiety Endocrine/Metabolic History: Reports: Other (See Below) Other Endocrine/Metabolic History: hypoglycemia, adrenal insufficiency (HCC) Hematologic History: Reports: Anemia Other Hematologic History: hemolytic anemia, 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 - Infectious Disease History Infectious Disease History: Reports: Chicken Pox, Measles, Mumps - Past Surgical History HEENT Surgical History: Reports: Cataract Surgery GI Surgical History: Reports: Cholecystectomy, Colonoscopy Female Surgical History: Reports: Hysterectomy Musculoskeletal Surgical History: Reports: None, Hip Replacement, Other (See Below) Other Musculoskeletal Surgeries/Procedures:: left hip replacement August 2016 Social & Family History - Family History Cardiac: Reports: Blood Clots/VTE/DVT, Heart Failure, [place], Other (See Below) Other Cardiac Family History: strokes Respiratory: Reports: COPD, Other (See Below) Other Respiratory Family Hisory: emphysema : Reports: Renal Disease/Insufficiency Musculoskeletal: Reports: Arthritis, Osteoporosis, RA Neurological: Reports: CVA, Migraines Psychiatric: Reports: Panic Attack Dermatologic: Reports: Eczema, Psoriasis Oncologic: Reports: Brain - Tobacco Use Smoking Status *Q: Never Smoker Second Hand Smoke Exposure: Yes - Caffeine Use Caffeine Use: Reports: Coffee Caffeine Use Comment: 1 cup per day - Alcohol Use Days Per Week of Alcohol Use: 0 - Recreational Drug Use Recreational Drug Use: No ED ROS GENERAL - Review of Systems Review Of Systems: See Below Constitutional: Reports: No Symptoms HEENT: Reports: No Symptoms Respiratory: Reports: No Symptoms Cardiovascular: Reports: No Symptoms GI/Abdominal: Reports: No Symptoms : Reports: No Symptoms Musculoskeletal: Reports: Back Pain Skin: Reports: No Symptoms Neurological: Reports: No Symptoms ED EXAM, UPPER BACK/NECK PAIN - Physical Exam Exam: See Below Exam Limited By: No Limitations General Appearance: Alert, Mild Distress Head Exam: Atraumatic, Normocephalic Cardiovascular/Respiratory: No Respiratory Distress Back Exam: Other (Back brace in place) Course - Vital Signs Last Recorded V/S: Last Vital Signs Temp 98.1 F 12/09/16 18:59 Pulse 94 12/09/16 18:59 Resp 16 12/09/16 18:59 BP 133/71 12/09/16 18:59 Pulse Ox 96 12/09/16 18:59 - Orders/Labs/Meds Labs: Laboratory Tests 12/09/16 12/09/16 Range/Units 17:25 17:25 Urine Color Yellow Urine Appearance Clear Urine pH 7.0 (4.5-8.0) Ur Specific [place] 1.010 (1.008-1.030) Urine Protein Negative (NEGATIVE) mg/dL Urine Glucose (UA) Normal (NEGATIVE) mg/dL Urine Ketones 15 H (NEGATIVE) mg/dL Urine Occult Blood Negative (NEGATIVE) Urine Nitrite Negative (NEGATIVE) Urine Bilirubin Negative (NEGATIVE) Urine Urobilinogen Normal (NORMAL) mg/dL Ur Leukocyte Esterase Negative (NEGATIVE) Urine RBC 0-5 (0-5) Urine WBC 0-5 (0-5) Ur Epithelial Cells Few Amorphous Sediment Few Urine Bacteria Rare Urine Mucus Few Urine Opiates Screen Negative (NEGATIVE) Ur Oxycodone Screen Positive H (NEGATIVE) Urine Methadone Screen Negative (NEGATIVE) Ur Propoxyphene Screen Negative (NEGATIVE) Ur Barbiturates Screen Negative (NEGATIVE) Ur Tricyclics Screen Positive H (NEGATIVE) Ur Phencyclidine Scrn Negative (NEGATIVE) Ur Amphetamine Screen Negative (NEGATIVE) U Methamphetamines Scrn Negative (NEGATIVE) Urine MDMA Screen Negative (NEGATIVE) U Benzodiazepines Scrn Negative (NEGATIVE) U Cocaine Metab Screen Negative (NEGATIVE) U Marijuana (THC) Screen Negative (NEGATIVE) Meds: Medications Discontinued Medications Generic Name Dose Route Start Last Admin Trade Name Freq PRN Reason Stop Dose Admin Fentanyl 12 mcg 12/09/16 18:15 12/09/16 18:09 Duragesic TRDERM 12 mcg Q72H MYLES Administration Hydromorphone HCl 1 mg 12/09/16 16:43 12/09/16 16:52 Dilaudid IVPUSH 12/09/16 16:44 1 mg ONETIME ONE Administration Ketorolac Tromethamine 60 mg 12/09/16 15:56 12/09/16 16:28 Toradol IM 12/09/16 15:57 60 mg ONETIME ONE Administration Lorazepam 1 mg 12/09/16 17:34 12/09/16 17:52 Ativan IVPUSH 12/09/16 17:35 1 mg ONETIME ONE Administration Departure - Departure Disposition: DC/Tfer to Other 70 Clinical Impression: T12 compression fracture Back pain Qualifiers: Back pain location: thoracic back pain Chronicity: chronic Back pain laterality : midline Qualified Code(s): M54.6 - Pain in thoracic spine - Discharge Information Referrals: PCP,None [Primary Care Provider] - Forms: ED Department Discharge Care Plan Goals: Patient is to be transferred to [facility] for pain control and consultation regarding kyphoplasty or other treatment modalities to treat her intractable pain. <Charbel Adan - Last Filed: 12/09/16 20:30> Departure - Departure Time of Disposition: 19:10 Condition: Fair
[2016-12-09] MEDS ORDERED: HYDROmorphone 1 MG/ML Syringe IVPUSH ONE (16:43)
[2016-12-09] MEDS ORDERED: LORazepam 2 MG/ML MDV IVPUSH ONE (17:34)
[2016-12-09] MEDS ORDERED: fentaNYL 12 MCG/HR Transdermal Patch TRDERM SCH (18:15)
[2016-12-09 19:00] VITALS: BP 133/71
== END 2016-12-09 19:19 | disposition other institution (70) ==
LOC: JP.ED 15:26
DX: M48.54XA Collapsed vertebra, not elsewhere classified, thoracic region, initial encounter for fracture (principal); J45.909 Unspecified asthma, uncomplicated; M19.90 Unspecified osteoarthritis, unspecified site; F41.9 Anxiety disorder, unspecified; Z86.2 Personal history of diseases of the blood and blood-forming organs and certain disorders involving the immune mechanism; Z90.49 Acquired absence of other specified parts of digestive tract; Z90.710 Acquired absence of both cervix and uterus; Z96.642 Presence of left artificial hip joint; Z79.899 Other long term (current) drug therapy; Z88.5 Allergy status to narcotic agent; Z88.8 Allergy status to other drugs, medicaments and biological substances; Z91.011 Allergy to milk products
CPT/HCPCS: 80305; 81001; 96372; 96374; 96375; 99284; A9270; J1170; J1885; J2060

== ENCOUNTER 2016-12-21 18:53 | Emergency (ER) | payer MEDICARE, BC ==
[2016-12-21] MEDS ORDERED: Sodium Chloride 0.9% 10 ML Syringe FLUSH PRN (19:15)
[2016-12-21] MEDS ORDERED: Sodium Chloride 0.9% 500 ML IV ONE (19:16)
[2016-12-21] MEDS ORDERED: Acetaminophen/oxyCODONE 325-5 MG Tab PO ONE (19:17)
[2016-12-21] MEDS ORDERED: Sodium Chloride 0.9% 1,000 ML IV SCH (19:45)
--- NOTE | 2016-12-21 20:11 | EDM.PDOC ---
ED HPI GENERAL MEDICAL PROBLEM - General Chief Complaint: Back Pain or Injury Stated Complaint: PAIN Time Seen by Provider: 12/21/16 19:15 Source of Information: Reports: Patient History Limitations: Reports: No Limitations - History of Present Illness INITIAL COMMENTS - FREE TEXT/NARRATIVE: Ally is an 81-year-old female with a history of chronic back pain who presents to the emergency department today with complaints of upper back pain and left sided back pain after falling earlier today at 1500. Patient reports that she became dizzy and fell striking her left upper back. Patient reports a recent microsurgery of her upper spine. Patient has been on oxycodone at home which she has since ran out of, her last dose was yesterday. Patient has been taking ibuprofen and Tylenol for pain with minimal relief. Patient reports movement makes her symptoms worse. Patient denies any fever, chest pain, shortness of breath, vomiting, diarrhea. Patient reports her appetite has been poor, she has not been eating much or drinking well. Patient endorses dizziness upon standing throughout the day. Onset: Today, Sudden Middle Back Pain Score (Numeric/FACES): 10 - Related Data Allergies Allergy/AdvReac Type Severity Reaction Status Date / Time milk Allergy Unknown Cannot Verified 12/21/16 20:13 Remember fentanyl Allergy Itching Verified 12/21/16 20:13 gluten Allergy Cannot Verified 12/21/16 20:13 Remember codeine phosphate AdvReac Nausea Verified 12/21/16 20:13 [From Tylenol-Codeine #3] Home Meds: Home Meds Amitriptyline [Elavil] 100 mg PO BEDTIME 02/23/14 [History] Furosemide [Lasix] 20 mg PO TID PRN 04/05/14 [History] Cod Liver Oil 1 cap PO DAILY 07/01/14 [History] Multivitamin [Multivitamins] 1 tab PO DAILY 07/01/14 [History] Vitamin B Complex [B Complex] 1 tab PO DAILY 07/01/14 [History] Folic Acid 1 mg PO DAILY 04/26/15 [History] predniSONE [Prednisone] 20 mg PO DAILY 03/31/16 [History] Pantoprazole [ProTONIX] 40 mg PO ACBREAKFAST #30 tab.cr 04/07/16 [Rx] Diclofenac Sodium [Voltaren] 50 mg PO TID 08/15/16 [History] hydrOXYzine HCl [Atarax] 25 mg PO TID PRN 08/29/16 [History] Acetaminophen 2 tab PO Q6H PRN 10/02/16 [History] Ibuprofen 2 cap PO Q6H PRN 10/02/16 [History] Menthol [[place] Pain Relieving] 1 dose TOP ASDIRECTED 10/02/16 [History] Cyclobenzaprine [Flexeril] 10 mg PO ASDIRECTED 12/09/16 [History] Past Medical History - Past Health History Medical/Surgical History: Denies Medical/Surgical History HEENT History: Reports: Cataract, Impaired Vision, Macular Degeneration Cardiovascular History: Reports: Heart Murmur Respiratory History: Reports: Asthma Gastrointestinal History: Reports: GERD Genitourinary History: Reports: UTI, Recurrent TAX [employer]OR History: Reports: Musculoskeletal History: Reports: Arthritis, Back Pain, Chronic, Osteoarthritis , Other (See Below) Other Musculoskeletal History: Chronic hip pain B 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 planning CORBIN in future Psychiatric History: Reports: Anxiety Endocrine/Metabolic History: Reports: Other (See Below) Other Endocrine/Metabolic History: hypoglycemia, adrenal insufficiency (HCC) Hematologic History: Reports: Anemia Other Hematologic History: hemolytic anemia, 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 - Infectious Disease History Infectious Disease History: Reports: Chicken Pox, Measles, Mumps - Past Surgical History HEENT Surgical History: Reports: Cataract Surgery GI Surgical History: Reports: Cholecystectomy, Colonoscopy Female Surgical History: Reports: Hysterectomy Musculoskeletal Surgical History: Reports: None, Hip Replacement, Other (See Below) Other Musculoskeletal Surgeries/Procedures:: left hip replacement August 2016 Social & Family History - Family History Cardiac: Reports: Blood Clots/VTE/DVT, Heart Failure, CA, Other (See Below) Other Cardiac Family History: strokes Respiratory: Reports: COPD, Other (See Below) Other Respiratory Family Hisory: emphysema : Reports: Renal Disease/Insufficiency Musculoskeletal: Reports: Arthritis, Osteoporosis, RA Neurological: Reports: CVA, Migraines Psychiatric: Reports: Panic Attack Dermatologic: Reports: Eczema, Psoriasis Oncologic: Reports: Brain - Tobacco Use Smoking Status *Q: Never Smoker Second Hand Smoke Exposure: Yes - Caffeine Use Caffeine Use: Reports: Coffee Caffeine Use Comment: 1 cup per day - Alcohol Use Days Per Week of Alcohol Use: 0 - Recreational Drug Use Recreational Drug Use: No ED ROS GENERAL - Review of Systems Review Of Systems: ROS reveals no pertinent complaints other than HPI. ED EXAM, UPPER BACK/NECK PAIN - Physical Exam Exam: See Below Exam Limited By: No Limitations General Appearance: Alert, WD/WN, No Apparent Distress Eye Exam: Bilateral Eye: EOMI Ears Exam: Normal External Exam Nose Exam: Normal Inspection Throat/Mouth Exam: No Airway Compromise, Other (modestly dry mucous membranes) Head Exam: Atraumatic Cardiovascular/Respiratory: Regular Rate, Rhythm, Normal Breath Sounds GI/Abdominal: Normal Bowel Sounds, Soft, Non-Tender Extremities: Normal Inspection, Other (mild tenderness to left upper back just distal to scapular region as well as mid thoracic area, no step-offs or trauma appreciated) Neurologic: No Motor/Sensory Deficits, Normal Mood/Affect, Oriented x 3 Psychiatric: Normal Affect, Normal Mood Skin Exam: Normal Color, Warm/Dry Lymphatic: No Adenopathy EKG INTERPRETATION EKG Date: 12/21/16 Time: 20:09 Rhythm: NSR [place]: Normal P-Wave: Present QRS: Normal ST-T: Normal QT: Normal Comparison: No Change (from EKG done on April 052016) Course - Vital Signs Last Recorded V/S: Last Vital Signs Temp 37.1 C 12/21/16 20:23 Pulse 84 12/21/16 20:23 Resp 16 12/21/16 20:23 BP 160/98 H 12/21/16 20:23 Pulse Ox 95 12/21/16 20:23 Ally is an 81-year-old female with a history of chronic back pain on chronic opioid medication who presents to the emergency department today with complaints of ongoing back pain as well as dizziness which preceded a fall this afternoon. His refer to history of present illness and focused exam. Patient on exam is alert and oriented, she does not exhibit any neural/focal deficits. Patient does admit to not eating or drinking well which likely is playing a role in her dizziness. EKG was obtained to rule out any cardiac abnormality and is negative for any acute ischemic findings or arrhythmias. Blood work was also obtained, white count does come back elevated at 15.1 with a left shift, hemoglobin stable at 12.9. Comprehensive metabolic panel returns with an elevated UN of 23, a creatinine of 0.9, bilirubin of 1.2, and a glucose of 141. Alkaline phosphatase is elevated at 128, troponin is negative. Blood work is consistent with mild dehydration. Patient was given half a liter of normal saline here. Patient was given a dose of oxycodone. Urinalysis was obtained secondary to leukocytosis and dizziness an 81-year-old female, this returns negative for any obvious infection, patient is feeling better here after pain medication and IV fluid. The patient is stable to be discharged home, I encouraged adequate hydration especially given her blood work today. I can't help but wonder if opioid withdrawal is playing a role in her symptoms today. I am going to give patient 10 Percocet today, I had a rather lengthy discussion with the patient and her son regarding her opioid use. Patient reports that her primary doctor is refused to give her medication, I told her that as an emergency department we cannot keep prescribing her opioid medication for her back and she would have to find other options/avenues to deal with her pain. Given that it is the weekend, I will give her enough for today and tomorrow.according to the [place] prescription monitoring program, patient has had several narcotic prescriptions, she has not appeared to be taking more than prescribed based on dates that they were filled. Patient and her son verbalized understanding of this. Narcotic safety was discussed in detail. Patient will be discharged in stable condition with her son driving. - Orders/Labs/Meds Orders: Active Orders 24 hr Category Date Time Status EKG Documentation Completion [RC] ASDIRECTED Care 12/21/16 19:16 Active Peripheral IV Care [RC] . DIRECTED Care 12/21/16 19:15 Active Sodium Chloride 0.9% [Normal Saline] 1,000 ml Med 12/21/16 19:45 Active IV ASDIRECTED Sodium Chloride 0.9% [Saline Flush] Med 12/21/16 19:15 Active 10 ml FLUSH ASDIRECTED PRN Peripheral IV Insertion Adult [OM.PC] Routine Oth 12/21/16 19:15 Ordered EKG 12 Lead [EK] Stat Ther 12/21/16 19:16 Ordered Medication Orders Sodium Chloride (Normal Saline) 1,000 mls @ 500 mls/hr IV ASDIRECTED MYLES Last Admin: 12/21/16 19:35 Dose: 500 mls/hr Sodium Chloride (Saline Flush) 10 ml FLUSH ASDIRECTED PRN PRN Reason: Keep Vein Open Labs: Laboratory Tests 12/21/16 12/21/16 12/21/16 Range/Units 19:30 19:30 21:15 WBC 15.1 H (4.5-11.0) K/uL RBC 3.43 (3.30-5.50) M/uL Hgb 12.9 (12.0-15.0) g/dL Hct 37.3 (36.0-48.0) % MCV 109 H (80-98) fL MCH 38 H (27-31) pg MCHC 35 (32-36) % Plt Count 385 (150-400) K/uL Neut % (Auto) 78 H (36-66) % Lymph % (Auto) 10 L (24-44) % [place] % (Auto) 11 H (2-6) % Eos % (Auto) 0 L (2-4) % Baso % (Auto) 0 (0-1) % Sodium 141 (140-148) mmol/L Potassium 4.4 (3.6-5.2) mmol/L Chloride 104 (100-108) mmol/L Carbon Dioxide 29 (21-32) mmol/L Anion Gap 7.9 (5.0-14.0) mmol/L BUN 23 H (7-18) mg/dL Creatinine 0.9 (0.6-1.0) mg/dL Est Cr Clr Drug Dosing 34.02 mL/min Estimated GFR (MDRD) 60 (>60) Glucose 141 H (74-106) mg/dL Calcium 8.9 (8.5-10.1) mg/dL Total Bilirubin 1.2 H (0.2-1.0) mg/dL AST 31 (15-37) U/L ALT 30 (12-78) U/L Alkaline Phosphatase 128 H (46-116) U/L Troponin I 0.027 (0.000-0.056) ng/mL Total Protein 6.1 L (6.4-8.2) g/dL Albumin 3.6 (3.4-5.0) g/dL Globulin 2.5 (2.3-3.5) g/dL Albumin/Globulin Ratio 1.4 (1.2-2.2) Urine Color Yellow Urine Appearance Slightly cloudy Urine pH 7.0 (4.5-8.0) Ur Specific [place] 1.010 (1.008-1.030) Urine Protein Negative (NEGATIVE) mg/dL Urine Glucose (UA) Normal (NEGATIVE) mg/dL Urine Ketones Negative (NEGATIVE) mg/dL Urine Occult Blood Negative (NEGATIVE) Urine Nitrite Negative (NEGATIVE) Urine Bilirubin Negative (NEGATIVE) Urine Urobilinogen Normal (NORMAL) mg/dL Ur Leukocyte Esterase Negative (NEGATIVE) Urine RBC Not seen (0-5) Urine WBC 0-5 (0-5) Ur Epithelial Cells Few Urine Bacteria Few Urine Mucus Not seen Meds: Medications Generic Name Dose Route Start Last Admin Trade Name Freq PRN Reason Stop Dose Admin Sodium Chloride 1,000 mls @ 500 mls/hr 12/21/16 19:45 12/21/16 19:35 Normal Saline IV 500 mls/hr ASDIRECTED MYLES Administration Sodium Chloride 10 ml 12/21/16 19:15 Saline Flush FLUSH ASDIRECTED PRN Keep Vein Open Discontinued Medications Generic Name Dose Route Start Last Admin Trade Name Freq PRN Reason Stop Dose Admin Sodium Chloride 500 mls @ 500 mls/hr 12/21/16 19:16 Normal Saline IV 12/21/16 20:15 .BOLUS ONE Oxycodone/Acetaminophen 2 tab 12/21/16 19:17 12/21/16 19:31 Percocet 325-5 Mg PO 12/21/16 19:18 2 tab ONETIME ONE Administration Departure - Departure Time of Disposition: 22:00 Disposition: Home, Self-Care 01 Condition: Good Clinical Impression: Dizziness Back pain Qualifiers: Back pain location: thoracic back pain Chronicity: chronic Back pain laterality : midline Qualified Code(s): M54.6 - Pain in thoracic spine; G89.29 - Other chronic pain Fall Qualifiers: Encounter type: initial encounter Qualified Code(s): W19.XXXA - Unspecified fall, initial encounter - Discharge Information Instructions: Back Pain, Adult, [id number], Chronic Back Pain Referrals: PCP,None [Primary Care Provider] - Forms: ED Department Discharge Additional Instructions: Ally, stay well-hydrated. Take medications as prescribed, the Percocet I have prescribed for you does have Tylenol in it,maximum daily dose of Tylenol in a 24-hour period is 4000 mg. You need to follow up with her primary provider on Friday or work on finding a new provider where your pain can be better controlled on a consistent basis. Please be careful when you get up and ambulate. Return to the emergency department with any complications or worsening symptoms. - My Orders Last 24 Hours: My Active Orders 12/21/16 19:15 Peripheral IV Care [RC] . DIRECTED Sodium Chloride 0.9% [Saline Flush] 10 ml FLUSH ASDIRECTED PRN Peripheral IV Insertion Adult [OM.PC] Routine 12/21/16 19:16 EKG Documentation Completion [RC] ASDIRECTED EKG 12 Lead [EK] Stat 12/21/16 19:45 Sodium Chloride 0.9% [Normal Saline] 1,000 ml IV ASDIRECTED - Assessment/Plan Last 24 Hours: My Active Orders 12/21/16 19:15 Peripheral IV Care [RC] . DIRECTED Sodium Chloride 0.9% [Saline Flush] 10 ml FLUSH ASDIRECTED PRN Peripheral IV Insertion Adult [OM.PC] Routine 12/21/16 19:16 EKG Documentation Completion [RC] ASDIRECTED EKG 12 Lead [EK] Stat 12/21/16 19:45 Sodium Chloride 0.9% [Normal Saline] 1,000 ml IV ASDIRECTED
[2016-12-21 22:14] VITALS: BP 158/96
== END 2016-12-21 22:05 | disposition home or self-care (01) ==
LOC: JP.ED 18:53
DX: M54.6 Pain in thoracic spine (principal); G89.29 Other chronic pain; R42 Dizziness and giddiness; J45.909 Unspecified asthma, uncomplicated; K21.9 Gastro-esophageal reflux disease without esophagitis; F41.9 Anxiety disorder, unspecified; Z86.2 Personal history of diseases of the blood and blood-forming organs and certain disorders involving the immune mechanism; Z87.440 Personal history of urinary (tract) infections; Z90.49 Acquired absence of other specified parts of digestive tract; Z91.011 Allergy to milk products; Z90.710 Acquired absence of both cervix and uterus; Z96.642 Presence of left artificial hip joint; Z79.899 Other long term (current) drug therapy; Z88.5 Allergy status to narcotic agent; Z88.8 Allergy status to other drugs, medicaments and biological substances; W19.XXXA Unspecified fall, initial encounter
CPT/HCPCS: 36415; 80053; 81001; 84484; 85025; 93005; 96360; 99284; A9270; J7040; 93010; 99283

== ENCOUNTER 2016-12-27 15:28 | Emergency (ER) | payer MEDICARE, BC ==
[2016-12-27] MEDS ORDERED: Sodium Chloride 0.9% 10 ML Syringe FLUSH PRN (16:21)
[2016-12-27] MEDS ORDERED: HYDROmorphone 0.5 MG/0.5 ML Syringe IVPUSH ONE ×2 (16:21→17:21)
--- NOTE | 2016-12-27 16:27 | EDM.PDOC ---
ED HPI GENERAL MEDICAL PROBLEM - General Chief Complaint: General Stated Complaint: PAIN Time Seen by Provider: 12/27/16 16:10 Source of Information: Reports: Patient History Limitations: Reports: No Limitations - History of Present Illness INITIAL COMMENTS - FREE TEXT/NARRATIVE: Ally presents today with complaints of uncontrolled back pain. She reports pain as burning and aching, 12/31, she has not taken any pain medications and is unable to do her daily tasks. Onset: Today, Gradual Duration: Hour(s):, Getting Worse Location: Reports: Back, Radiates to, Other (bilateral ribs) Quality: Reports: Ache, Stabbing Severity: Moderate Improves with: Reports: None Worsens with: Reports: Movement Associated Symptoms: Reports: Weakness. Denies: Cough, Diaphoresis, Fever/ Chills, Headaches, Nausea/Vomiting, Shortness of Breath Generalized Pain Score (Numeric/FACES): 10 - Related Data Allergies Allergy/AdvReac Type Severity Reaction Status Date / Time milk Allergy Unknown Cannot Verified 12/21/16 20:13 Remember fentanyl Allergy Itching Verified 12/21/16 20:13 gluten Allergy Cannot Verified 12/21/16 20:13 Remember codeine phosphate AdvReac Nausea Verified 12/21/16 20:13 [From Tylenol-Codeine #3] Home Meds: Home Meds Amitriptyline [Elavil] 100 mg PO BEDTIME 02/23/14 [History] Furosemide [Lasix] 20 mg PO TID PRN 04/05/14 [History] Cod Liver Oil 1 cap PO DAILY 07/01/14 [History] Multivitamin [Multivitamins] 1 tab PO DAILY 07/01/14 [History] Vitamin B Complex [B Complex] 1 tab PO DAILY 07/01/14 [History] Folic Acid 1 mg PO DAILY 04/26/15 [History] predniSONE [Prednisone] 20 mg PO DAILY 03/31/16 [History] Pantoprazole [ProTONIX] 40 mg PO ACBREAKFAST #30 tab.cr 04/07/16 [Rx] Diclofenac Sodium [Voltaren] 50 mg PO TID 08/15/16 [History] hydrOXYzine HCl [Atarax] 25 mg PO TID PRN 08/29/16 [History] Acetaminophen 2 tab PO Q6H PRN 10/02/16 [History] Ibuprofen 2 cap PO Q6H PRN 10/02/16 [History] Menthol [Gold Barron Pain Relieving] 1 dose TOP ASDIRECTED 10/02/16 [History] Cyclobenzaprine [Flexeril] 10 mg PO ASDIRECTED 12/09/16 [History] traMADol HCl [Tramadol HCl] 50 mg PO Q6H PRN 12/27/16 [History] Past Medical History - Past Health History Medical/Surgical History: Denies Medical/Surgical History HEENT History: Reports: Cataract, Impaired Vision, Macular Degeneration Cardiovascular History: Reports: Heart Murmur Respiratory History: Reports: Asthma Gastrointestinal History: Reports: GERD Genitourinary History: Reports: UTI, Recurrent CLIENT RETENTION SPECIALIST History: Reports: Musculoskeletal History: Reports: Arthritis, Back Pain, Chronic, Osteoarthritis , Other (See Below) Other Musculoskeletal History: Chronic hip pain B 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 planning CORBIN in future Psychiatric History: Reports: Anxiety Endocrine/Metabolic History: Reports: Other (See Below) Other Endocrine/Metabolic History: hypoglycemia, adrenal insufficiency (HCC) Hematologic History: Reports: Anemia Other Hematologic History: hemolytic anemia, 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 - Infectious Disease History Infectious Disease History: Reports: Chicken Pox, Measles, Mumps - Past Surgical History HEENT Surgical History: Reports: Cataract Surgery GI Surgical History: Reports: Cholecystectomy, Colonoscopy Female Surgical History: Reports: Hysterectomy Musculoskeletal Surgical History: Reports: None, Hip Replacement, Other (See Below) Other Musculoskeletal Surgeries/Procedures:: left hip replacement August 2016 Social & Family History - Family History Cardiac: Reports: Blood Clots/VTE/DVT, Heart Failure, [place], Other (See Below) Other Cardiac Family History: strokes Respiratory: Reports: COPD, Other (See Below) Other Respiratory Family Hisory: emphysema : Reports: Renal Disease/Insufficiency Musculoskeletal: Reports: Arthritis, Osteoporosis, RA Neurological: Reports: CVA, Migraines Psychiatric: Reports: Panic Attack Dermatologic: Reports: Eczema, Psoriasis Oncologic: Reports: Brain - Tobacco Use Smoking Status *Q: Never Smoker Second Hand Smoke Exposure: Yes - Caffeine Use Caffeine Use: Reports: Coffee Caffeine Use Comment: 1 cup per day - Alcohol Use Days Per Week of Alcohol Use: 0 - Recreational Drug Use Recreational Drug Use: No ED ROS GENERAL - Review of Systems Review Of Systems: See Below Constitutional: Reports: Malaise, Weakness. Denies: Fever, Chills, Night Sweats , Diaphoresis HEENT: Reports: No Symptoms Respiratory: Denies: Shortness of Breath, Wheezing, Pleuritic Chest Pain, Cough , Sputum Cardiovascular: Denies: Chest Pain, Dyspnea on Exertion, Edema, Lightheadedness , Palpitations, PND, Syncope Endocrine: Reports: Fatigue GI/Abdominal: Denies: Abdominal Pain, Black Stool, Bloody Stool, Constipation, Diarrhea, Difficulty Swallowing, Nausea, Vomiting : Reports: Flank Pain. Denies: Dysuria, Frequency, Hematuria, Incontinence, Pain, Urgency Musculoskeletal: Reports: Other (Mid/lower Back pain radiating to ribs) Skin: Denies: Cyanosis, Pruritis, Rash, Erythema, Wound, Lesions, Lumps Neurological: Reports: Weakness. Denies: Confusion, Dizziness, Headache, Numbness, Paresthesia, Tingling, Difficulty Walking, Gait Disturbance Psychiatric: Reports: Agitation, Anxiety, Depression. Denies: Hallucinations, Suicidal Ideation Hematologic/Lymphatic: Reports: No Symptoms Immunologic: Reports: No Symptoms ED EXAM, GENERAL - Physical Exam Exam: See Below Free Text/Narrative:: Ally is an alert, oriented and anxious 81 year old female presenting to the emergency room with complaints of worsening back pain radiating to her ribs and flank areas. She reports the pain worsened today and she does not have any pain medication. She would like to be transferred to [place] if she needs to. She denies recent injury or trauma to her back or ribs, she denies chest pain. Exam Limited By: No Limitations General Appearance: Alert, Moderate Distress Eye Exam: Bilateral Eye: EOMI, Normal Inspection Ears: Normal External Exam, Normal Canal, Hearing Grossly Normal, Normal TMs Ear Exam: Bilateral Ear: Auricle Normal, Canal Normal, TM normal Nose: Normal Inspection, Normal Mucosa, No Blood Throat/Mouth: Normal Inspection, Normal Voice, No Airway Compromise, Other (Dry mucus membranes. ) Head: Atraumatic, Normocephalic Neck: Normal Inspection, Supple, Non-Tender, Full Range of Motion. No: Lymphadenopathy (R), Lymphadenopathy (L) Respiratory/Chest: No Respiratory Distress, No Accessory Muscle Use, Decreased Breath Sounds. No: Rales, Rhonchi, Wheezing, Accessory Muscle Use, Retractions , Splinting Cardiovascular: Normal Peripheral Pulses, Regular Rate, Rhythm, No Edema, No Murmur, No Rub Peripheral Pulses: 2+: Radial (L), Radial (R), Dorsalis Pedis (L), Dorsalis Pedis (R) GI/Abdominal: Normal Bowel Sounds, Soft, Non-Tender, No Distention, No Mass Back Exam: Normal Inspection, CVA Tenderness (R), CVA Tenderness (L), Decreased Range of Motion, Muscle Spasm, Other (Tenderness with palpation, no edema or ecchymosis) Extremities: Normal Inspection, Normal Range of Motion, Non-Tender, No Pedal Edema, Normal Capillary Refill Neurological: Alert, Oriented, CN II-XII Intact, Normal Cognition, No Motor/ Sensory Deficits Psychiatric: Anxious, Tearful Skin Exam: Warm, Dry, Intact, Normal Color, No Rash Lymphatic: No Adenopathy EKG INTERPRETATION EKG Date: 12/27/16 Rhythm: NSR [place]: Normal P-Wave: Present QRS: Normal ST-T: Normal QT: Normal Course - Vital Signs Last Recorded V/S: Last Vital Signs Temp 36 C 12/27/16 15:31 Pulse 97 12/27/16 18:47 Resp 18 12/27/16 15:47 BP 134/77 12/27/16 18:47 Pulse Ox 95 12/27/16 18:47 - Orders/Labs/Meds Orders: Active Orders 24 hr Category Date Time Status EKG Documentation Completion [RC] ASDIRECTED Care 12/27/16 18:31 Active Chest Abdomen Pelvis wo Cont [CT] Stat Exams 12/27/16 18:23 Taken Saline Lock Insert [OM.PC] Routine Oth 12/27/16 16:21 Ordered EKG 12 Lead [EK] Routine Ther 12/27/16 18:31 Ordered Labs: Laboratory Tests 12/27/16 12/27/16 12/27/16 Range/Units 16:33 16:33 16:48 WBC Cancelled RBC Cancelled Hgb Cancelled Hct Cancelled MCV Cancelled MCH Cancelled MCHC Cancelled Plt Count Cancelled Add Manual Diff Neutrophils % (Manual) (36-66) % Band Neutrophils % (5-11) % Lymphocytes % (Manual) (24-44) % Monocytes % (Manual) (2-6) % Eosinophils % (Manual) (2-4) % Sodium 140 (140-148) mmol/L Potassium 4.1 (3.6-5.2) mmol/L Chloride 104 (100-108) mmol/L Carbon Dioxide 28 (21-32) mmol/L Anion Gap 7.9 (5.0-14.0) mmol/L BUN 29 H (7-18) mg/dL Creatinine 1.5 H D (0.6-1.0) mg/dL Est Cr Clr Drug Dosing 20.41 mL/min Estimated GFR (MDRD) 33 L (>60) Glucose 179 H (74-106) mg/dL Calcium 9.3 (8.5-10.1) mg/dL Total Bilirubin 1.4 H (0.2-1.0) mg/dL AST 30 (15-37) U/L ALT 27 (12-78) U/L Alkaline Phosphatase 136 H (46-116) U/L Total Protein 6.6 (6.4-8.2) g/dL Albumin 3.7 (3.4-5.0) g/dL Globulin 2.9 (2.3-3.5) g/dL Albumin/Globulin Ratio 1.3 (1.2-2.2) Urine Color Urine Appearance Urine pH (4.5-8.0) Ur Specific [place] (1.008-1.030) Urine Protein (NEGATIVE) mg/dL Urine Glucose (UA) (NEGATIVE) mg/dL Urine Ketones (NEGATIVE) mg/dL Urine Occult Blood (NEGATIVE) Urine Nitrite (NEGATIVE) Urine Bilirubin (NEGATIVE) Urine Urobilinogen (NORMAL) mg/dL Ur Leukocyte Esterase (NEGATIVE) Urine RBC (0-5) Urine WBC (0-5) Ur Epithelial Cells Amorphous Sediment Urine Bacteria Urine Mucus Urine Opiates Screen Negative (NEGATIVE) Ur Oxycodone Screen Negative (NEGATIVE) Urine Methadone Screen Negative (NEGATIVE) Ur Propoxyphene Screen Negative (NEGATIVE) Ur Barbiturates Screen Negative (NEGATIVE) Ur Tricyclics Screen Positive H (NEGATIVE) Ur Phencyclidine Scrn Negative (NEGATIVE) Ur Amphetamine Screen Negative (NEGATIVE) U Methamphetamines Scrn Negative (NEGATIVE) Urine MDMA Screen Negative (NEGATIVE) U Benzodiazepines Scrn Negative (NEGATIVE) U Cocaine Metab Screen Negative (NEGATIVE) U Marijuana (THC) Screen Negative (NEGATIVE) 12/27/16 12/27/16 Range/Units 16:48 18:28 WBC 15.1 H RBC 3.35 Hgb 12.7 Hct 36.0 MCV 108 H MCH 38 H MCHC 35 Plt Count 411 H Add Manual Diff Yes Neutrophils % (Manual) 88 H (36-66) % Band Neutrophils % 2 L (5-11) % Lymphocytes % (Manual) 4 L (24-44) % Monocytes % (Manual) 5 (2-6) % Eosinophils % (Manual) 1 L (2-4) % Sodium (140-148) mmol/L Potassium (3.6-5.2) mmol/L Chloride (100-108) mmol/L Carbon Dioxide (21-32) mmol/L Anion Gap (5.0-14.0) mmol/L BUN (7-18) mg/dL Creatinine (0.6-1.0) mg/dL Est Cr Clr Drug Dosing mL/min Estimated GFR (MDRD) (>60) Glucose (74-106) mg/dL Calcium (8.5-10.1) mg/dL Total Bilirubin (0.2-1.0) mg/dL AST (15-37) U/L ALT (12-78) U/L Alkaline Phosphatase (46-116) U/L Total Protein (6.4-8.2) g/dL Albumin (3.4-5.0) g/dL Globulin (2.3-3.5) g/dL Albumin/Globulin Ratio (1.2-2.2) Urine Color Yellow Urine Appearance Clear Urine pH 5.0 (4.5-8.0) Ur Specific [place] 1.025 (1.008-1.030) Urine Protein Negative (NEGATIVE) mg/dL Urine Glucose (UA) Normal (NEGATIVE) mg/dL Urine Ketones Negative (NEGATIVE) mg/dL Urine Occult Blood Negative (NEGATIVE) Urine Nitrite Negative (NEGATIVE) Urine Bilirubin Small (NEGATIVE) Urine Urobilinogen Normal (NORMAL) mg/dL Ur Leukocyte Esterase Negative (NEGATIVE) Urine RBC 0-5 (0-5) Urine WBC 0-5 (0-5) Ur Epithelial Cells Rare Amorphous Sediment Few Urine Bacteria Not seen Urine Mucus Not seen Urine Opiates Screen (NEGATIVE) Ur Oxycodone Screen (NEGATIVE) Urine Methadone Screen (NEGATIVE) Ur Propoxyphene Screen (NEGATIVE) Ur Barbiturates Screen (NEGATIVE) Ur Tricyclics Screen (NEGATIVE) Ur Phencyclidine Scrn (NEGATIVE) Ur Amphetamine Screen (NEGATIVE) U Methamphetamines Scrn (NEGATIVE) Urine MDMA Screen (NEGATIVE) U Benzodiazepines Scrn (NEGATIVE) U Cocaine Metab Screen (NEGATIVE) U Marijuana (THC) Screen (NEGATIVE) UA negative for opiate medication. Patient filled oxycodone on 12/22/16 per [place] [facility] REPA[employer]. Reviewed CT, noted constipation. Meds: Medications Discontinued Medications Generic Name Dose Route Start Last Admin Trade Name Freq PRN Reason Stop Dose Admin Hydromorphone HCl 0.5 mg 12/27/16 16:21 12/27/16 16:42 Dilaudid IVPUSH 12/27/16 16:22 0.5 mg ONETIME ONE Administration Hydromorphone HCl 0.5 mg 12/27/16 17:21 12/27/16 17:41 Dilaudid IVPUSH 12/27/16 17:22 0.5 mg ONETIME ONE Administration Lactated Ringer's 1,000 mls @ 500 mls/hr 12/27/16 17:00 12/27/16 16:56 Ringers, Lactated IV 500 mls/hr ASDIRECTED MYLES Administration Lorazepam 1 mg 12/27/16 16:50 12/27/16 16:56 Ativan IVPUSH 12/27/16 16:51 1 mg ONETIME ONE Administration Senna/Docusate Sodium 2 tab 12/27/16 20:18 12/27/16 21:27 Senna Plus PO 12/27/16 20:19 2 tab ONETIME ONE Administration Sodium Chloride 10 ml 12/27/16 16:21 12/27/16 16:41 Saline Flush FLUSH 10 ml ASDIRECTED PRN Administration Keep Vein Open - Radiology Interpretation CT Results Date: 12/27/16 (Impression: No acute abnormality seen wihtin the chest, abdomen or pelvis. Trace pericardial effusion. Coronary artery disease. Large amount of stool within the distal colon. Multiple remote compression fractures in the spine with veterebroplasty material at several levels. ) - Re-Assessments/Exams Free Text/Narrative Re-Assessment/Exam: 12/27/16 18:34 WBC elevated, diff ordered, CT chest, abdomen,pelvis. 12/27/16 20:45 Discussion with patient about her use of controlled substances, her son telephoning the emergency room and concerns of diversion of her medications. Ally denies feeling unsafe at home. Departure - Departure Time of Disposition: 21:26 Disposition: Home, Self-Care 01 Condition: Fair Clinical Impression: Constipation, Chronic back pain - Discharge Information Instructions: Constipation, Adult, [id number] Referrals: PCP,None [Primary Care Provider] - Forms: ED Department Discharge Additional Instructions: You are suffering from chronic back pain. You were given IV pain medication and medication for constipation. Use your tramadol as directed for you chronic back pain. Drink plenty of water to stay hydrated and prevent constipation. Return to your primary provider on Friday to address you chronic pain. Return to ER for worsening, issues or concerns. - My Orders Last 24 Hours: My Active Orders 12/27/16 16:21 Saline Lock Insert [OM.PC] Routine 12/27/16 18:23 Chest Abdomen Pelvis wo Cont [CT] Stat 12/27/16 18:31 EKG Documentation Completion [RC] ASDIRECTED EKG 12 Lead [EK] Routine - Assessment/Plan Last 24 Hours: My Active Orders 12/27/16 16:21 Saline Lock Insert [OM.PC] Routine 12/27/16 18:23 Chest Abdomen Pelvis wo Cont [CT] Stat 12/27/16 18:31 EKG Documentation Completion [RC] ASDIRECTED EKG 12 Lead [EK] Routine Assessment:: Chronic back pain Constipation Plan: Patient suffering from chronic back pain, not taking tramadol as directed. She reports she is out of oxycodone. She was given Oxycodone 5mg 10 tabs on 12/22/16. Suspected opiate abuse or diversion. vamp cut out worker notified. She was given IV pain medication, lorazepam and medication for constipation. She had a BM in the ER. She can use her tramadol as directed for chronic back pain. Drink plenty of water to stay hydrated and prevent constipation. Discussion with Ally on her care, pain management and chronic medication management. She would be best cared for in a controlled environment such as a [facility] or assisted living situation. Ally verbalized understanding. She was advised to see her primary care provider Friday. Return to her primary provider on Friday to address her chronic pain. Return to ER for worsening, issues or concerns.
[2016-12-27] MEDS ORDERED: Lactated Ringers 500 ML IV SCH (16:30)
[2016-12-27] MEDS ORDERED: LORazepam 2 MG/ML MDV IVPUSH ONE (16:50)
[2016-12-27] MEDS ORDERED: Lactated Ringers 1,000 ML IV SCH (17:00)
[2016-12-27 18:48] VITALS: BP 134/77
== END 2016-12-27 21:36 | disposition home or self-care (01) ==
LOC: JP.ED 15:28
DX: G89.29 Other chronic pain (principal); M54.9 Dorsalgia, unspecified; K59.00 Constipation, unspecified; J45.909 Unspecified asthma, uncomplicated; K21.9 Gastro-esophageal reflux disease without esophagitis; M19.90 Unspecified osteoarthritis, unspecified site; D64.9 Anemia, unspecified; Z98.49 Cataract extraction status, unspecified eye; Z98.890 Other specified postprocedural states; Z90.49 Acquired absence of other specified parts of digestive tract; Z90.710 Acquired absence of both cervix and uterus; Z79.899 Other long term (current) drug therapy; Z91.011 Allergy to milk products; Z88.5 Allergy status to narcotic agent; Z88.8 Allergy status to other drugs, medicaments and biological substances
CPT/HCPCS: 36415; 71250; 74176; 80053; 80305; 81001; 85025; 93005; 93010; 96361; 96374; 96375; 96376; 99284; A9270; J1170; J2060; J7050; J7120; 99283

== ENCOUNTER 2016-12-28 19:20 | Observation (INO) | payer MEDICARE, BC ==
[2016-12-28] MEDS ORDERED: HYDROmorphone 0.5 MG/0.5 ML Syringe IVPUSH ONE (19:26)
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
[2016-12-28] MEDS ORDERED: Promethazine 6.25 MG in Sodium Chloride 0.9% 50 ML IV PRN (22:46)
[2016-12-28] MEDS ORDERED: Sodium Chloride 0.9% 10 ML Syringe FLUSH PRN (22:46)
[2016-12-28] MEDS ORDERED: Acetaminophen 325 MG Tab PO PRN (22:58)
[2016-12-28] MEDS ORDERED: MENTHOL TOP SCH (23:00)
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
[2016-12-28] MEDS ORDERED: Furosemide 20 MG Tab (PTOM) PO PRN (23:30)
[2016-12-28] MEDS: traMADol 50 MG Tab PO PRN (23:48)
[2016-12-28] MEDS: Acetaminophen 325 MG Tab PO PRN (23:57)
[2016-12-29] MEDS ORDERED: Amitriptyline 10 MG Tab PO ONE
[2016-12-29] MEDS: traMADol 50 MG Tab PO PRN ×3 (06:17→18:16)
[2016-12-29] MEDS ORDERED: Nitroglycerin 0.4 MG Tab.SL ONE (06:21)
[2016-12-29] MEDS ORDERED: Pantoprazole 40 MG Tab.CR PO SCH (07:30)
[2016-12-29] MEDS: Folic Acid 1 MG Tab PO SCH (08:19)
[2016-12-29] MEDS: Multivitamins with Iron/Calcium/Folic Acid/Minerals Tab PO SCH (08:19)
[2016-12-29] MEDS: Vitamin B Complex Tab PO SCH (08:20)
[2016-12-29] MEDS: Diclofenac Sodium 50 MG Tab.EC PO SCH ×3 (08:21→17:15)
[2016-12-29] MEDS ORDERED: Enoxaparin 30 MG/0.3 ML Syringe SUBCUT SCH ×2 (09:00→11:26)
[2016-12-29] MEDS ORDERED: predniSONE 20 MG Tab PO SCH (09:00)
[2016-12-29] MEDS: Acetaminophen 325 MG Tab PO PRN ×3 (09:24→18:16)
--- NOTE | 2016-12-29 11:26 | PCM.PN ---
- General Info Date of Service: 12/29/16 Functional Status: Reports: Pain Controlled, Tolerating Diet - Review of Systems General: Reports: Weakness. Denies: Fever, Chills Pulmonary: Reports: No Symptoms Cardiovascular: Reports: No Symptoms Gastrointestinal: Reports: No Symptoms Musculoskeletal: Reports: Back Pain, Joint Pain Systems Review Comment:: This patient is an 81-year-old woman who was admitted last night to observation status by Dr. Smith. She has had a recent spinal compression fracture and is status post kyphoplasty. Continues to have significant pain and has become progressively more weak. She also has an history of avascular necrosis of both hips and is status post left total hip arthroplasty. She had reached the point where she was unable to function at home and does have a very poor social situation. Son lives with her and there is a history that he is diverted pain medications. Several vulnerable adult status is up and filed with the [facility] but to this point she is not wanted to pursue a different living situation. She' s had transient stays [facility] the [facility] but had always return home prior to this time. She is willing to accept [facility] placement and then consider assisted living following that. - Patient Data Vitals - Most Recent: Last Vital Signs Temp 97.5 F 12/29/16 07:09 Pulse 84 12/29/16 07:09 Resp 16 12/29/16 07:09 BP 128/58 L 12/29/16 09:31 Pulse Ox 98 12/29/16 07:09 Weight - Most Recent: 128 lb 15.527 oz I&O - Last 24 Hours: Intake & Output 12/28/16 12/29/16 12/29/16 22:59 06:59 14:59 Intake Total 480 Balance 480 Lab Results Last 24 Hours: Laboratory Results - last 24 hr 12/28/16 12/28/16 12/29/16 Range/Units 23:12 23:12 06:07 WBC 13.4 H (4.5-11.0) K/uL RBC 3.18 L (3.30-5.50) M/uL Hgb 11.8 L (12.0-15.0) g/dL Hct 33.9 L (36.0-48.0) % MCV 107 H (80-98) fL MCH 37 H (27-31) pg MCHC 35 (32-36) % Plt Count 392 (150-400) K/uL Neut % (Auto) 86 H (36-66) % Lymph % (Auto) 9 L (24-44) % [place] % (Auto) 5 (2-6) % Eos % (Auto) 0 L (2-4) % Baso % (Auto) 0 (0-1) % Sodium 140 (140-148) mmol/L Potassium 4.5 (3.6-5.2) mmol/L Chloride 103 (100-108) mmol/L Carbon Dioxide 29 (21-32) mmol/L Anion Gap 8.0 (5.0-14.0) mmol/L BUN 23 H (7-18) mg/dL Creatinine 1.2 H (0.6-1.0) mg/dL Est Cr Clr Drug Dosing TNP Estimated GFR (MDRD) 43 L (>60) Glucose 176 H (74-106) mg/dL Calcium 9.1 (8.5-10.1) mg/dL Magnesium 1.9 (1.8-2.4) mg/dL Total Bilirubin 1.0 (0.2-1.0) mg/dL AST 21 (15-37) U/L ALT 23 (12-78) U/L Alkaline Phosphatase 119 H (46-116) U/L Creatine Kinase (26-192) U/L Troponin I (0.000-0.056) ng/mL Total Protein 5.7 L (6.4-8.2) g/dL Albumin 3.2 L (3.4-5.0) g/dL Globulin 2.5 (2.3-3.5) g/dL Albumin/Globulin Ratio 1.3 (1.2-2.2) Urine Color Yellow Urine Appearance Clear Urine pH 6.0 (4.5-8.0) Ur Specific [place] 1.010 (1.008-1.030) Urine Protein Negative (NEGATIVE) mg/dL Urine Glucose (UA) Normal (NEGATIVE) mg/dL Urine Ketones Negative (NEGATIVE) mg/dL Urine Occult Blood Negative (NEGATIVE) Urine Nitrite Negative (NEGATIVE) Urine Bilirubin Negative (NEGATIVE) Urine Urobilinogen Normal (NORMAL) mg/dL Ur Leukocyte Esterase Negative (NEGATIVE) Urine RBC 0-5 (0-5) Urine WBC 0-5 (0-5) Ur Epithelial Cells Few Amorphous Sediment Few Urine Bacteria Rare Urine Mucus Few 12/29/16 12/29/16 Range/Units 06:39 06:39 WBC (4.5-11.0) K/uL RBC (3.30-5.50) M/uL Hgb (12.0-15.0) g/dL Hct (36.0-48.0) % MCV (80-98) fL MCH (27-31) pg MCHC (32-36) % Plt Count (150-400) K/uL Neut % (Auto) (36-66) % Lymph % (Auto) (24-44) % [place] % (Auto) (2-6) % Eos % (Auto) (2-4) % Baso % (Auto) (0-1) % Sodium (140-148) mmol/L Potassium (3.6-5.2) mmol/L Chloride (100-108) mmol/L Carbon Dioxide (21-32) mmol/L Anion Gap (5.0-14.0) mmol/L BUN (7-18) mg/dL Creatinine (0.6-1.0) mg/dL Est Cr Clr Drug Dosing Estimated GFR (MDRD) (>60) Glucose (74-106) mg/dL Calcium (8.5-10.1) mg/dL Magnesium (1.8-2.4) mg/dL Total Bilirubin (0.2-1.0) mg/dL AST (15-37) U/L ALT (12-78) U/L Alkaline Phosphatase (46-116) U/L Creatine Kinase 22 L (26-192) U/L Troponin I 0.027 (0.000-0.056) ng/mL Total Protein (6.4-8.2) g/dL Albumin (3.4-5.0) g/dL Globulin (2.3-3.5) g/dL Albumin/Globulin Ratio (1.2-2.2) Urine Color Urine Appearance Urine pH (4.5-8.0) Ur Specific [place] (1.008-1.030) Urine Protein (NEGATIVE) mg/dL Urine Glucose (UA) (NEGATIVE) mg/dL Urine Ketones (NEGATIVE) mg/dL Urine Occult Blood (NEGATIVE) Urine Nitrite (NEGATIVE) Urine Bilirubin (NEGATIVE) Urine Urobilinogen (NORMAL) mg/dL Ur Leukocyte Esterase (NEGATIVE) Urine RBC (0-5) Urine WBC (0-5) Ur Epithelial Cells Amorphous Sediment Urine Bacteria Urine Mucus Med Orders - Current: Current Medications Acetaminophen (Tylenol) 650 mg PO Q4H PRN PRN Reason: Pain (Mild 1-3)/fever Last Admin: 12/29/16 09:24 Dose: 650 mg Amitriptyline HCl (Elavil) 100 mg PO BEDTIME [facility] Diclofenac Sodium (Voltaren) 50 mg PO TIDPC [facility] Last Admin: 12/29/16 08:21 Dose: 50 mg Enoxaparin Sodium (Lovenox) 30 mg SUBCUT DAILY [facility] Folic Acid (Folic Acid) 1 mg PO DAILY [facility] Last Admin: 12/29/16 08:19 Dose: 1 mg Furosemide (Lasix) 20 mg PO TID PRN PRN Reason: Other Promethazine HCl 6.25 mg/ (Sodium Chloride) 50.25 mls @ 200 mls/hr IV Q6H PRN PRN Reason: Nausea/Vomiting Multivitamins/Minerals (Thera M Plus) 1 tab PO DAILY [facility] Last Admin: 12/29/16 08:19 Dose: 1 tab Non-Formulary Medication (Menthol [Gold Barron Pain Relieving]) 1 dose TOP ASDIRECTED [facility] Pantoprazole Sodium (Protonix) 40 mg PO ACBREAKFAST [facility] Last Admin: 12/29/16 08:19 Dose: 40 mg Prednisone (Prednisone) 20 mg PO DAILY [facility] Last Admin: 12/29/16 08:19 Dose: 20 mg Sodium Chloride (Saline Flush) 10 ml FLUSH ASDIRECTED PRN PRN Reason: Keep Vein Open Tramadol HCl (Ultram) 50 mg PO Q6H PRN PRN Reason: Pain Last Admin: 12/29/16 06:17 Dose: 50 mg Vitamin B Complex (Vitamin B Complex) 1 each PO DAILY [facility] Last Admin: 12/29/16 08:20 Dose: 1 each Discontinued Medications Amitriptyline HCl (Elavil) 100 mg PO ONETIME ONE Stop: 12/29/16 00:01 Last Admin: 12/29/16 03:29 Dose: Not Given Amitriptyline HCl (Elavil) 100 mg PO ONETIME ONE Stop: 12/29/16 00:28 Last Admin: 12/29/16 00:45 Dose: 100 mg Hydromorphone HCl (Dilaudid) 0.5 mg IVPUSH ONETIME ONE Stop: 12/28/16 19:27 Last Admin: 12/28/16 19:33 Dose: 0.5 mg Nitroglycerin (Nitrostat) Confirm Administered Dose 0.4 mg .ROUTE .STK-MED ONE Stop: 12/29/16 06:22 Last Admin: 12/29/16 09:31 Dose: Not Given - Exam Quality Assessment: DVT Prophylaxis General: Alert, Oriented, Cooperative, Mild Distress Lungs: Clear to Auscultation, Normal Respiratory Effort Cardiovascular: Regular Rate, Regular Rhythm, Murmurs. No: Irregular Rhythm, Bradycardia, Tachycardia GI/Abdominal Exam: Normal Bowel Sounds, Soft, Non-Tender, No Organomegaly, No Distention Extremities: Non-Tender, No Pedal Edema Skin: Warm, Dry, Intact - Problem List Review Problem List Initiated/Reviewed/Updated: Yes - My Orders Last 24 Hours: My Active Orders 12/29/16 11:12 TROPONIN I [CHEM] Stat 12/30/16 05:00 BASIC METABOLIC PANEL,BMP [CHEM] Timed CBC WITH AUTO DIFF [HEME] Timed 12/30/16 08:00 Myocardial Perf Spect Multi [NM] Routine - Plan Plan:: Assessment and plan Generalized weakness-unable to care for herself at home, yesterday fell and was unable to get herself up off of the floor -alf placement, followed by transition to assisted living Compression fracture chronic-with ongoing pain -PT, OT assessments. -Tramadol as needed for pain -Nonsteroidal therapy as needed Chest pain-on admission last night, occurring in the central chest. Initial troponin within normal range -Follow-up troponin level now -Sumerco scan Cardiolite study in a.m. Admission status-Admit to observation with expected stay not more then two nights. Disposition-anticipate discharge to [facility] tomorrow, transition from [facility] to assisted living. Vulnerable adult filings multiple, [facility] and social service consults. Staff aware, police called because of son's behavior in the emergency department
[2016-12-29] MEDS ORDERED: Enoxaparin 40 MG/0.4 ML Syringe SUBCUT SCH (12:00)
[2016-12-29] MEDS ORDERED: BENGAY TOP PRN (16:11)
[2016-12-29] MEDS: AMITRIPTYLINE 100 MG PO SCH (21:58)
--- NOTE | 2016-12-30 09:03 | CR ---
Portable chest Comparison: 02 October 2016. Findings: The heart and vascular structures are stable. There are no infiltrates or effusions. There are chronic calcified granulomas of the right hilum. There are no acute infiltrates or effusions. Impression: 1. No acute findings.
[2016-12-30] MEDS ORDERED: Aminophylline 250 MG/10 ML SDV IVPUSH ONE (11:54)
--- NOTE | 2016-12-30 13:14 | PCM.PN ---
- General Info Date of Service: 12/30/16 - Review of Systems General: Denies: Fever Musculoskeletal: Reports: Back Pain, Other (muscle pains) Systems Review Comment:: No acute events overnight. No recurrent episodes of chest pain. Vital signs have been stable. Patient reports moderate mid back pain as well as some diffuse myalgias. Pain is stable since yesterday. Still working on physical therapy evaluation and discussing placement options. - Patient Data Vitals - Most Recent: Last Vital Signs Temp 36.3 C 12/30/16 07:00 Pulse 86 12/30/16 11:57 Resp 18 12/30/16 11:57 BP 155/91 H 12/30/16 11:57 Pulse Ox 96 12/30/16 07:00 Weight - Most Recent: 58.513 kg I&O - Last 24 Hours: Intake & Output 12/29/16 12/30/16 12/30/16 22:59 06:59 14:59 Intake Total 480 Output Total 500 Balance -20 Lab Results Last 24 Hours: Laboratory Results - last 24 hr 12/30/16 12/30/16 Range/Units 05:40 05:40 WBC 11.9 H (4.5-11.0) K/uL RBC 2.87 L (3.30-5.50) M/uL Hgb 10.8 L (12.0-15.0) g/dL Hct 31.1 L (36.0-48.0) % MCV 108 H (80-98) fL MCH 38 H (27-31) pg MCHC 35 (32-36) % Plt Count 350 (150-400) K/uL Add Manual Diff Yes Neutrophils % (Manual) 66 (36-66) % Band Neutrophils % 3 L (5-11) % Lymphocytes % (Manual) 24 (24-44) % Monocytes % (Manual) 6 (2-6) % Eosinophils % (Manual) 1 L (2-4) % Sodium 141 (140-148) mmol/L Potassium 3.6 (3.6-5.2) mmol/L Chloride 107 (100-108) mmol/L Carbon Dioxide 29 (21-32) mmol/L Anion Gap 5.3 (5.0-14.0) mmol/L BUN 17 (7-18) mg/dL Creatinine 1.0 (0.6-1.0) mg/dL Est Cr Clr Drug Dosing 30.62 mL/min Estimated GFR (MDRD) 53 L (>60) Glucose 124 H (74-106) mg/dL Calcium 8.6 (8.5-10.1) mg/dL Med Orders - Current: Current Medications Acetaminophen (Tylenol) 650 mg PO Q4H PRN PRN Reason: Pain (Mild 1-3)/fever Last Admin: 12/29/16 18:16 Dose: 650 mg Diclofenac Sodium (Voltaren) 50 mg PO TIDPC [facility] Last Admin: 12/29/16 17:15 Dose: 50 mg Enoxaparin Sodium (Lovenox) 30 mg SUBCUT Q24H [facility] Folic Acid (Folic Acid) 1 mg PO DAILY [facility] Last Admin: 12/29/16 08:19 Dose: 1 mg Furosemide (Lasix) 20 mg PO TID PRN PRN Reason: Other Promethazine HCl 6.25 mg/ (Sodium Chloride) 50.25 mls @ 200 mls/hr IV Q6H PRN PRN Reason: Nausea/Vomiting Multivitamins/Minerals (Thera M Plus) 1 tab PO DAILY [facility] Last Admin: 12/29/16 08:19 Dose: 1 tab Pantoprazole Sodium (Protonix) 40 mg PO ACBREAKFAST [facility] Amitriptyline 100mg ((Ptom)) 0 each PO BEDTIME [facility] Last Admin: 12/29/16 21:58 Dose: 1 each Bengay Cream (Ptom) 0 each TOP ASDIRECTED PRN PRN Reason: PAIN Prednisone (Prednisone) 20 mg PO DAILY [facility] Sodium Chloride (Saline Flush) 10 ml FLUSH ASDIRECTED PRN PRN Reason: Keep Vein Open Tramadol HCl (Ultram) 50 mg PO Q6H PRN PRN Reason: Pain Last Admin: 12/29/16 18:16 Dose: 50 mg Vitamin B Complex (Vitamin B Complex) 1 each PO DAILY [facility] Last Admin: 12/29/16 08:20 Dose: 1 each Discontinued Medications Aminophylline (Aminophylline) 125 mg IVPUSH ONETIME ONE Stop: 12/30/16 11:55 Last Admin: 12/30/16 11:56 Dose: 125 mg Amitriptyline HCl (Elavil) 100 mg PO BEDTIME [facility] Amitriptyline HCl (Elavil) 100 mg PO ONETIME ONE Stop: 12/29/16 00:01 Last Admin: 12/29/16 03:29 Dose: Not Given Amitriptyline HCl (Elavil) 100 mg PO ONETIME ONE Stop: 12/29/16 00:28 Last Admin: 12/29/16 00:45 Dose: 100 mg Enoxaparin Sodium (Lovenox) 40 mg SUBCUT Q24H [facility] Last Admin: 12/29/16 12:05 Dose: 40 mg Hydromorphone HCl (Dilaudid) 0.5 mg IVPUSH ONETIME ONE Stop: 12/28/16 19:27 Last Admin: 12/28/16 19:33 Dose: 0.5 mg Nitroglycerin (Nitrostat) Confirm Administered Dose 0.4 mg .ROUTE .STK-MED ONE Stop: 12/29/16 06:22 Last Admin: 12/29/16 09:31 Dose: Not Given Non-Formulary Medication (Menthol [Gold Barron Pain Relieving]) 1 dose TOP ASDIRECTED [facility] Pantoprazole Sodium (Protonix) 40 mg PO ACBREAKFAST [facility] Last Admin: 12/29/16 08:19 Dose: 40 mg Prednisone (Prednisone) 20 mg PO DAILY [facility] Last Admin: 12/29/16 08:19 Dose: 20 mg Regadenoson (Lexiscan) 0.4 mg IVPUSH ONETIME ONE Stop: 12/30/16 11:46 Last Admin: 12/30/16 11:46 Dose: 0.4 mg - Exam Quality Assessment: No: Supplemental Oxygen General: Alert, Cooperative, No Acute Distress Neck: Supple Lungs: Normal Respiratory Effort GI/Abdominal Exam: Soft, No Distention Extremities: No Pedal Edema Skin: Warm, Dry Psy/Mental Status: Alert, Normal Affect - Problem List Review Problem List Initiated/Reviewed/Updated: Yes - Plan Plan:: Assessment and Plan - Generalized weakness - unable to care for herself at home, concern for diversion of medications. Also concerned that she may not be competent to make her own decisions. -[facility] placement, followed by transition to assisted living -Competency evaluation Compression fracture chronic - pain fairly well controlled -PT, OT assessments. -Tramadol as needed for pain -Scheduled acetaminophen -Nonsteroidal therapy as needed Chest pain - troponin levels normal. No recurrence. Stress test pending. -Follow-up troponin level now -Follow-up stress test results Maintenance issues - -DVT - enoxaparin -GI - PPI -Nutrition - regular diet Jeff Noble M.D.
[2016-12-30] MEDS: Enoxaparin 30 MG/0.3 ML Syringe SUBCUT SCH (13:47)
[2016-12-30] MEDS: Pantoprazole 40 MG Tab.CR (PTOM) PO SCH (13:48)
[2016-12-30] MEDS: PREDNISONE 20 MG PO SCH (13:49)
[2016-12-30] MEDS: Folic Acid 1 MG Tab PO SCH (13:49)
--- NOTE | 2016-12-30 13:49 | NM ---
Nuclear medicine cardiac Lexiscan stress test. History: Chest pain. Technique: The patient was stressed pharmacologically with the administration of Lexiscan. The patien t received intravenously 8.5 millicuries of technetium 99 Myoview followed by rest imaging and 23.8 millicuries followed by stress imaging. Findings: There is a uniform distribution of the radiopharmaceutical on the stress images. There are no findings of ischemia. There is no evidence of infarction. There is normal wall motion. The cardiac ejection fraction is within normal limits equal to 88%. Impression: 1. Negative exam.
[2016-12-30] MEDS: Vitamin B Complex Tab PO SCH (13:50)
[2016-12-30] MEDS: Diclofenac Sodium 50 MG Tab.EC PO SCH ×3 (13:50→17:13)
[2016-12-30] MEDS: Multivitamins with Iron/Calcium/Folic Acid/Minerals Tab PO SCH (13:50)
[2016-12-30] MEDS: Acetaminophen 325 MG Tab PO PRN (14:14)
[2016-12-30] MEDS: AMITRIPTYLINE 100 MG PO SCH (20:07)
[2016-12-30] MEDS: Acetaminophen 500 MG Tab PO SCH (20:09)
--- NOTE | 2016-12-31 02:27 | STRESS ---
DATE OF SERVICE: 12/30/2016 PROPOSED PROCEDURE: Lexiscan stress test. INDICATION FOR STRESS TEST: Chest pain. PRIMARY CARE PHYSICIAN: Charbel Machuca M.D. DESCRIPTION OF PROCEDURE: Ally presents to the outpatient unit from an inpatient bed for a Lexiscan stress test. Preprocedure, her blood pressure was 150/98 and her pulse was 76. Baseline EKG shows a normal sinus rhythm with a normal axis. She does have some diffuse T- wave flattening involving inferior and anterolateral leads. The stress test was administered per the protocol. Review of the continuous EKG monitoring show very slight T- wave inversions inferiorly, and she does develop very small T-waves during the stress and early recovery portion of the test before all of her T-waves returned to baseline. No ST- segment depressions were noted. Blood pressure did drop after Lexiscan injection down to 120/64 at the 1 minute amrik of recovery and then returned to baseline. Heart rate evy to a maximum of 94 at the 2-minute amrik of recovery before declining. Postprocedure blood pressure is 155/91 and her pulse is 88. Review of the product technician's notes suggest they noted occasional PVCs and PACs. She did report chronic back pain, which did not change. She also had a headache in the recovery phase and did require 125 mg of aminophylline. IMPRESSION: Negative EKG portion of the stress test. The patient did not experience chest pain. The nuclear medicine portion will be interpreted separately for additional clinical correlation. Jeff Noble MD /[id number]
[2016-12-31] MEDS: traMADol 50 MG Tab PO PRN ×2 (03:21→10:09)
[2016-12-31] MEDS: Pantoprazole 40 MG Tab.CR (PTOM) PO SCH (07:03)
[2016-12-31] MEDS: Folic Acid 1 MG Tab PO SCH (08:47)
[2016-12-31] MEDS: PREDNISONE 20 MG PO SCH (08:47)
[2016-12-31] MEDS: Acetaminophen 500 MG Tab PO SCH ×2 (08:48→13:14)
[2016-12-31] MEDS: Vitamin B Complex Tab PO SCH (08:48)
[2016-12-31] MEDS: Multivitamins with Iron/Calcium/Folic Acid/Minerals Tab PO SCH (08:48)
[2016-12-31] MEDS: Diclofenac Sodium 50 MG Tab.EC PO SCH ×2 (08:48→12:51)
[2016-12-31 11:07] VITALS: BP 138/61
--- NOTE | 2016-12-31 12:00 | PCM.DCSUM1 ---
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 She was admitted for further workup and management. - Discharge Data Discharge Date: 12/31/16 Discharge Disposition: DC/Tfer to SNF 03 Condition: Good - Discharge Diagnosis/Problem(s) (1) Generalized weakness SNOMED Code(s): 38821317 ICD Code: R53.1 - WEAKNESS Status: Acute Current Visit: Yes (2) Acute chest wall pain SNOMED Code(s): 405035948 ICD Code: R07.89 - OTHER CHEST PAIN Status: Chronic Priority: Medium Current Visit: Yes (3) T12 compression fracture SNOMED Code(s): 292139194 ICD Code: S22.080A - WEDGE COMPRESSION FRACTURE OF T11-T12 VERTEBRA, INIT Status: Chronic Priority: Medium Current Visit: No (4) Back pain SNOMED Code(s): 768896435 ICD Code: M54.9 - DORSALGIA, UNSPECIFIED Status: Chronic Priority: Medium Current Visit: No Qualifiers: Back pain location: thoracic back pain Chronicity: chronic Back pain laterality: midline Qualified Code(s): M54.6 - Pain in thoracic spine; G89.29 - Other chronic pain (5) Cognitive deficits SNOMED Code(s): 971161483 ICD Code: R41.89 - [facility] SYMPTOMS AND SIGNS W COGNITIVE FUNCTIONS AND AWARENESS Status: Chronic Current Visit: Yes (6) Autoimmune hemolytic anemia SNOMED Code(s): 463701651 ICD Code: D59.1 - OTHER AUTOIMMUNE HEMOLYTIC ANEMIAS Status: Chronic Current Visit: No Problem Details: on chronic prednisone therapy (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 Workup in the emergency room was reassuring but the patient was not felt to be safe for outpatient management given her pain difficulties as well as concerns about safety at home as well as the potential she was a vulnerable adult. She was admitted to the hospital for both pain control as well as attempts to improve her social situation. current pain is attributed to a flare of chronic back pain related to a T12 compression fracture that has received kyphoplasty treatment. She also has some pain from her left hip after having a hip replacement performed at [place] in [place] this summer. She also has some right hip pain related to mild avascular necrosis of this hip though it is not bad enough to require surgical intervention at this time. As far as the pain control was concerned we have had good luck using scheduled acetaminophen as well as diclofenac on a scheduled basis. She uses tramadol on an as-needed basis for breakthrough pain. She has been working with physical therapy. She has had significant improvement in her pain during the hospital stay. Her generalized weakness has been slowly improving but she does not have enough strength to be safe at home at this time. Should benefit from subacute rehabilitation to improve both her strength and her endurance prior to returning either home or to an assisted living facility. Regarding her social situation, this is quite complex. She has been living with her son and there is concern that he has been diverting pain medications. A urine drug screen obtained at the time of admission did not reveal any evidence for narcotics though she reported she had been taking them. There is also concern about her decision-making capacity. We did have Dr. Esquivel evaluate her and he did not feel that she was capable of making her own decisions at this time. She does not have a formal diagnosis of dementia at this point but a dementia-like process is suspected. She would benefit from outpatient evaluation and a neuropsychology evaluation for a more formal diagnosis. The county is currently seeking emergency guardianship. Appropriate paperwork has been completed prior to hospital discharge. She has a history of a chronic hemolytic anemia which has been stable while she takes her prednisone daily. there is no evidence for active hemolysis. - Patient Instructions Diet: Regular Diet as Tolerated Activity: As Tolerated Showering/Bathing: May Shower Notify Provider of: Fever, Increased Pain, Nausea and/or Vomiting Other/Special Instructions: 1. You were in the hospital for pain control and strengthening after an episode of acute on chronic back pain and generalized weakness. Your pain has been improving with scheduled Tylenol as well as several as needed medications. I do recommend subacute rehabilitation for strengthening and additional rehabilitation before you return to home or possibly assisted living. 2. CODE STATUS is full code. 3. Referral to physical and occupational therapy for strengthening program. 4. Please seek medical attention if you develop fever greater than 101, have sudden onset of shortness of breath or you have severe pain that is not controlled with the current medications. - Discharge Plan Prescriptions/Med Rec: Acetaminophen [Tylenol Extra Strength] 1,000 mg PO TID #180 tablet Cyclobenzaprine [Flexeril] 10 mg PO BID PRN #20 tablet PRN Reason: Muscle Spasm Furosemide [Lasix] 20 mg PO DAILY #30 tablet traMADol HCl [Tramadol HCl] 50 mg PO Q6H PRN #60 tablet PRN Reason: Pain Home Medications: Home Meds Amitriptyline [Elavil] 100 mg PO BEDTIME 02/23/14 [History] Cod Liver Oil 1 cap PO DAILY 07/01/14 [History] Multivitamin [Multivitamins] 1 tab PO DAILY 07/01/14 [History] Vitamin B Complex [B Complex] 1 tab PO DAILY 07/01/14 [History] Folic Acid 1 mg PO DAILY 04/26/15 [History] predniSONE [Prednisone] 20 mg PO DAILY 03/31/16 [History] Pantoprazole [ProTONIX] 40 mg PO ACBREAKFAST #30 tab.cr 04/07/16 [Rx] hydrOXYzine HCl [hydrOXYzine] 25 mg PO TID PRN 08/29/16 [History] Menthol [Gold Barron Pain Relieving] 1 dose TOP ASDIRECTED 10/02/16 [History] Acetaminophen [Tylenol Extra Strength] 1,000 mg PO TID #180 tablet 12/31/16 [Rx] Cyclobenzaprine [Flexeril] 10 mg PO BID PRN #20 tablet 12/31/16 [Rx] Diclofenac Sodium [Voltaren] 50 mg PO TID 12/31/16 [History] Furosemide [Lasix] 20 mg PO DAILY #30 tablet 12/31/16 [Rx] traMADol HCl [Tramadol HCl] 50 mg PO Q6H PRN #60 tablet 12/31/16 [Rx] Patient Handouts: Tramadol tablets, Spinal Compression Fracture Referrals: Charbel Machuca MD [Physician] - (f/u as needed after the rehab stay) - Discharge Summary/Plan Comment DC Time >30 min.: Yes (45 - new senior living discharge) - Patient Data Vitals - Most Recent: Last Vital Signs Temp 36.3 C 12/31/16 11:00 Pulse 96 12/31/16 11:00 Resp 18 12/31/16 11:00 BP 138/61 12/31/16 11:00 Pulse Ox 96 12/31/16 11:00 Weight - Most Recent: 58.513 kg I&O - Last 24 hours: Intake & Output 12/30/16 12/31/16 12/31/16 22:59 06:59 14:59 Intake Total 360 Output Total 400 Balance -40 Med Orders - Current: Current Medications Acetaminophen (Tylenol Extra Strength) 1,000 mg PO TID [facility] Last Admin: 12/31/16 08:48 Dose: 1,000 mg Diclofenac Sodium (Voltaren) 50 mg PO TIDPC [facility] Last Admin: 12/31/16 08:48 Dose: 50 mg Enoxaparin Sodium (Lovenox) 30 mg SUBCUT Q24H [facility] Last Admin: 12/30/16 13:47 Dose: 30 mg Folic Acid (Folic Acid) 1 mg PO DAILY [facility] Last Admin: 12/31/16 08:47 Dose: 1 mg Furosemide (Lasix) 20 mg PO TID PRN PRN Reason: Other Promethazine HCl 6.25 mg/ (Sodium Chloride) 50.25 mls @ 200 mls/hr IV Q6H PRN PRN Reason: Nausea/Vomiting Multivitamins/Minerals (Thera M Plus) 1 tab PO DAILY [facility] Last Admin: 12/31/16 08:48 Dose: 1 tab Pantoprazole Sodium (Protonix) 40 mg PO ACBREAKFAST [facility] Last Admin: 12/31/16 07:03 Dose: 40 mg Amitriptyline 100mg ((Ptom)) 0 each PO BEDTIME [facility] Last Admin: 12/30/16 20:07 Dose: 1 each Bengay Cream (Ptom) 0 each TOP ASDIRECTED PRN PRN Reason: PAIN Prednisone (Prednisone) 20 mg PO DAILY [facility] Last Admin: 12/31/16 08:47 Dose: 20 mg Sodium Chloride (Saline Flush) 10 ml FLUSH ASDIRECTED PRN PRN Reason: Keep Vein Open Tramadol HCl (Ultram) 50 mg PO Q6H PRN PRN Reason: Pain Last Admin: 12/31/16 10:09 Dose: 50 mg Vitamin B Complex (Vitamin B Complex) 1 each PO DAILY [facility] Last Admin: 12/31/16 08:48 Dose: 1 each Discontinued Medications Acetaminophen (Tylenol) 650 mg PO Q4H PRN PRN Reason: Pain (Mild 1-3)/fever Last Admin: 12/30/16 14:14 Dose: 650 mg Aminophylline (Aminophylline) 125 mg IVPUSH ONETIME ONE Stop: 12/30/16 11:55 Last Admin: 12/30/16 11:56 Dose: 125 mg Amitriptyline HCl (Elavil) 100 mg PO BEDTIME [facility] Amitriptyline HCl (Elavil) 100 mg PO ONETIME ONE Stop: 12/29/16 00:01 Last Admin: 12/29/16 03:29 Dose: Not Given Amitriptyline HCl (Elavil) 100 mg PO ONETIME ONE Stop: 12/29/16 00:28 Last Admin: 12/29/16 00:45 Dose: 100 mg Enoxaparin Sodium (Lovenox) 40 mg SUBCUT Q24H [facility] Last Admin: 12/29/16 12:05 Dose: 40 mg Hydromorphone HCl (Dilaudid) 0.5 mg IVPUSH ONETIME ONE Stop: 12/28/16 19:27 Last Admin: 12/28/16 19:33 Dose: 0.5 mg Nitroglycerin (Nitrostat) Confirm Administered Dose 0.4 mg .ROUTE .STK-MED ONE Stop: 12/29/16 06:22 Last Admin: 12/29/16 09:31 Dose: Not Given Non-Formulary Medication (Menthol [Gold Barron Pain Relieving]) 1 dose TOP ASDIRECTED [facility] Pantoprazole Sodium (Protonix) 40 mg PO ACBREAKFAST [facility] Last Admin: 12/29/16 08:19 Dose: 40 mg Prednisone (Prednisone) 20 mg PO DAILY [facility] Last Admin: 12/29/16 08:19 Dose: 20 mg Regadenoson (Lexiscan) 0.4 mg IVPUSH ONETIME ONE Stop: 12/30/16 11:46 Last Admin: 12/30/16 11:46 Dose: 0.4 mg *Q Meaningful Use (DIS) - VTE *Q VTE Criteria *Q: - Stroke *Q Stroke Criteria *Q: - AMI *Q AMI Criteria *Q:
[2016-12-31] MEDS: Enoxaparin 30 MG/0.3 ML Syringe SUBCUT SCH (12:50)
== END 2016-12-31 14:15 ==
LOC: JP.ED 19:20 → JP.MS 22:46
PROVIDERS: ADMIT Internal Medicine; ATTEND Internal Medicine
DX: S22.080A Wedge compression fracture of T11-T12 vertebra, initial encounter for closed fracture (principal); R53.1 Weakness; R07.9 Chest pain, unspecified; D59.1 Other autoimmune hemolytic anemias; D69.41 Evans syndrome; J45.909 Unspecified asthma, uncomplicated; K21.9 Gastro-esophageal reflux disease without esophagitis; R41.89 Other symptoms and signs involving cognitive functions and awareness; Z98.890 Other specified postprocedural states; Z90.49 Acquired absence of other specified parts of digestive tract; Z91.011 Allergy to milk products; Z79.899 Other long term (current) drug therapy; Z88.8 Allergy status to other drugs, medicaments and biological substances; Z90.710 Acquired absence of both cervix and uterus; Z96.642 Presence of left artificial hip joint; W19.XXXA Unspecified fall, initial encounter
CPT/HCPCS: 36415; 71010; 78452; 80048; 80053; 81001; 82550; 83735; 84484; 85025; 96372; 96374; 96376; 97161; 97165; 97530; 97535; 99217; 99220; 99225; 99285; A9270; A9500; G0283; G0378; J1170; J1650; J2785; 93005; 93017; 96375

== ENCOUNTER 2017-05-18 13:05 | Inpatient (IN) | payer MEDICARE, BC, MEDICAID ==
[2017-05-18] MEDS ORDERED: Cefepime 1 GM Vial ONE (16:26)
[2017-05-18] MEDS ORDERED: Levofloxacin/Dextrose 5%-Water 150 ML IV ONE (16:27)
[2017-05-18] MEDS ORDERED: Cefepime 1 GM in Sodium Chloride 0.9% 50 ML IV SCH (16:30)
--- NOTE | 2017-05-18 16:46 | PCM.HP ---
H&P History of Present Illness - General Date of Service: 05/18/17 Admit Problem/Dx: Admission Diagnosis/Problem Admission Diagnosis/Problem Hypoxia Source of Information: Patient, Old Records, Provider, RN Notes Reviewed History Limitations: Reports: Altered Mental Status (Lethargic, underlying dementia) - History of Present Illness Initial Comments - Free Text/Narative: Ms. Watson is an 82-year-old woman who is admitted through the emergency department with weakness, lethargy, fever, and hypoxia. She currently resides at the [facility] and was noted by staff to be more short of breath and weak, with a fever. She was brought into the emergency department for further evaluation. White blood cell count is significantly elevated at 20,000, chest x- ray shows no obvious infiltrates at this time. Patient is unable to provide significant history concerning recent symptoms or review of systems because of underlying dementia and current lethargy. - Related Data Allergies/Adverse Reactions: Allergies Allergy/AdvReac Type Severity Reaction Status Date / Time milk Allergy Unknown Cannot Verified 05/18/17 13:48 Remember fentanyl Allergy Itching Verified 05/18/17 13:48 gluten Allergy Cannot Verified 05/18/17 13:48 Remember codeine phosphate AdvReac Nausea Verified 05/18/17 13:48 [From Tylenol-Codeine #3] Home Medications: Home Meds Amitriptyline [Elavil] 100 mg PO BEDTIME 02/23/14 [History] Cod Liver Oil 1 cap PO DAILY 07/01/14 [History] Multivitamin [Multivitamins] 1 tab PO DAILY 07/01/14 [History] Vitamin B Complex [B Complex] 1 tab PO DAILY 07/01/14 [History] Folic Acid 1 mg PO DAILY 04/26/15 [History] predniSONE [Prednisone] 20 mg PO DAILY 03/31/16 [History] Pantoprazole [ProTONIX] 40 mg PO ACBREAKFAST #30 tab.cr 04/07/16 [Rx] hydrOXYzine HCl [hydrOXYzine] 25 mg PO TID PRN 08/29/16 [History] Menthol [Gold Barron Pain Relieving] 1 dose TOP ASDIRECTED 10/02/16 [History] Acetaminophen [Tylenol Extra Strength] 1,000 mg PO TID #180 tablet 12/31/16 [Rx] Cyclobenzaprine [Flexeril] 10 mg PO BID PRN #20 tablet 12/31/16 [Rx] Diclofenac Sodium [Voltaren] 50 mg PO TID 12/31/16 [History] Furosemide [Lasix] 20 mg PO DAILY #30 tablet 12/31/16 [Rx] traMADol HCl [Tramadol HCl] 50 mg PO Q6H PRN #60 tablet 12/31/16 [Rx] oxyCODONE HCl/Acetaminophen [oxyCODONE-Acetaminophen 5-325] 1 tab PO BEDTIME [History] Past Medical History - Past Health History Medical/Surgical History: Denies Medical/Surgical History HEENT History: Reports: Cataract, Impaired Vision, Macular Degeneration Cardiovascular History: Reports: Heart Murmur Respiratory History: Reports: Asthma, Other (See Below) Other Respiratory History: H/o pneumonia, h/o bronchitis Gastrointestinal History: Reports: GERD, Other (See Below) Other Gastrointestinal History: H/o diverticulitis Genitourinary History: Reports: UTI, 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: Musculoskeletal History: Reports: Arthritis, Back Pain, Chronic, Fracture, Osteoarthritis, Other (See Below) Other Musculoskeletal History: Chronic hip pain 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; T12 vertebral compression fracture; T10 wedge compression fracture; lumbar disc disease with radiculopathy; R sciatica L3-L4 down R LE; h/o falls Psychiatric History: Reports: Anxiety Endocrine/Metabolic History: Reports: Other (See Below) Other Endocrine/Metabolic History: hypoglycemia, adrenal insufficiency (HCC) Hematologic History: Reports: Anemia Other Hematologic History: hemolytic anemia, 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 - Infectious Disease History Infectious Disease History: Reports: Chicken Pox, Measles, Mumps - Past Surgical History HEENT Surgical History: Reports: Cataract Surgery GI Surgical History: Reports: Cholecystectomy, Colonoscopy Female Surgical History: Reports: Hysterectomy Musculoskeletal Surgical History: Reports: None, Hip Replacement, Other (See Below) Other Musculoskeletal Surgeries/Procedures:: L CORBIN August 2016; Vertebral kyphoplasty ~11/2016 per patient report Social & Family History - Family History Cardiac: Reports: Blood Clots/VTE/DVT, Heart Failure, IA, Other (See Below) Other Cardiac Family History: strokes Respiratory: Reports: COPD, Other (See Below) Other Respiratory Family Hisory: emphysema : Reports: Renal Disease/Insufficiency Musculoskeletal: Reports: Arthritis, Osteoporosis, RA Neurological: Reports: CVA, Migraines Psychiatric: Reports: Panic Attack Dermatologic: Reports: Eczema, Psoriasis Oncologic: Reports: Brain - Tobacco Use Smoking Status *Q: Never Smoker Second Hand Smoke Exposure: Yes - Caffeine Use Caffeine Use: Reports: Coffee Other Caffeine Use: cup per day Caffeine Use Comment: 1 cup per day - Alcohol Use Days Per Week of Alcohol Use: 0 - Recreational Drug Use Recreational Drug Use: No - Living Situation & Occupation Living situation: Reports: Occupation: Retired H&P Review of Systems - Review of Systems: Review Of Systems: Unable To Obtain General: Reports: ROS unobtainable (Lethargy and underlying dementia) Exam - Exam Exam: See Below - Vital Signs Vital Signs: Last Vital Signs Temp 99.8 F 05/18/17 13:44 Pulse 97 05/18/17 14:35 Resp 20 05/18/17 14:35 BP 100/46 L 05/18/17 14:35 Pulse Ox 93 L 05/18/17 14:35 Weight: 165 lb - Exam Quality Assessment: Supplemental Oxygen, DVT Prophylaxis General: Mild Distress, Lethargic HEENT: Conjunctiva Clear, Hearing Intact, Normal Nasal Septum, Posterior Pharynx Clear, Pupils Equal. No: Mucosa Moist & Ellis Neck: Supple, Trachea Midline, +2 Carotid Pulse wo Bruit Lungs: Decreased Breath Sounds, Wheezing. No: Crackles, Rales, Rhonchi, Rub Cardiovascular: Regular Rate, Regular Rhythm, Normal S1, Normal S2, Systolic Murmur. No: Diastolic Murmur GI/Abdominal Exam: Soft, Non-Tender, No Organomegaly, No Distention Extremities: Non-Tender, No Pedal Edema Skin: Warm, Dry, Intact Neuro Extensive - Mental Status: Disorientation to Place, Disorientation to Time , Memory Loss-Recent Events. No: Alert, Memory Intact, Disorientation to Person - Patient Data Lab Results Last 24 hrs: Laboratory Results - last 24 hr 05/18/17 05/18/17 05/18/17 Range/Units 14:52 14:52 16:18 WBC 20.9 H (4.5-11.0) K/uL RBC 3.46 (3.30-5.50) M/uL Hgb 11.9 L (12.0-15.0) g/dL Hct 36.2 (36.0-48.0) % MCV 105 H (80-98) fL MCH 34 H (27-31) pg MCHC 33 (32-36) % Plt Count 300 (150-400) K/uL Add Manual Diff Yes Neutrophils % (Manual) 66 (36-66) % Band Neutrophils % 13 H (5-11) % Lymphocytes % (Manual) 10 L (24-44) % Monocytes % (Manual) 11 H (2-6) % Sodium 135 L (140-148) mmol/L Potassium 4.4 (3.6-5.2) mmol/L Chloride 100 (100-108) mmol/L Carbon Dioxide 27 (21-32) mmol/L Anion Gap 12.4 (5.0-14.0) mmol/L BUN 24 H (7-18) mg/dL Creatinine 1.6 H D (0.6-1.0) mg/dL Est Cr Clr Drug Dosing 25.45 mL/min Estimated GFR (MDRD) 31 L (>60) Glucose 199 H (74-106) mg/dL Lactic Acid 2.4 H (0.4-2.0) mmol/L Calcium 8.7 (8.5-10.1) mg/dL Total Bilirubin 1.2 H (0.2-1.0) mg/dL AST 39 H D (15-37) U/L ALT 32 (12-78) U/L Alkaline Phosphatase 126 H (46-116) U/L Troponin I 0.126 H* (0.000-0.056) ng/mL NT-Pro-B Natriuret Pep 5255 H (5-450) pg/mL Total Protein 5.7 L (6.4-8.2) g/dL Albumin 2.7 L (3.4-5.0) g/dL Globulin 3.0 (2.3-3.5) g/dL Albumin/Globulin Ratio 0.9 L (1.2-2.2) Result Diagrams: 05/18/17 14:52 05/18/17 14:52 Sharath Results Last 24 hrs: Microbiology 05/18/17 14:38 Influenza Type A Antigen Screen - Final Nasopharyngeal Swab NEGATIVE INFLUENZA A VIRUS AG Influenza Type B Antigen Screen - Final NEGATIVE INFLUENZA B VIRUS AG *Q Meaningful Use (ADM) - VTE *Q VTE Criteria *Q: - VTE Risk Assess *Q Each Risk Factor Represents 1 Point: Obesity ( BMI > 25 kg/m2), Serious lung disease including pneumonia Total Score 1 Point Risk Factors: 2 Each Risk Factor Represents 2 Points: None Total Score 2 Point Risk Factors: 0 Each Risk Factor Represents 3 Points: Age 75 Years or Greater Total Score 3 Point Risk Factors: 3 Each Risk Factor Represents 5 Points: None Total Score 5 Point Risk Factors: 0 Venous Thromboembolism Risk Factor Score *Q: 5 - Stroke *Q Stroke Criteria *Q: - AMI *Q AMI Criteria *Q: Problem List Initiated/Reviewed/Updated: Yes Orders Last 24hrs: Active Orders 24 hr Category Date Time Status Patient Status Manage Transfer [TRANSFER] Routine ADT 05/18/17 16:19 Active EKG Documentation Completion [RC] ASDIRECTED Care 05/18/17 14:29 Active Chest 1V Frontal [CR] Urgent Exams 05/18/17 14:28 Taken CULTURE BLOOD [BC] Stat Lab 05/18/17 16:19 Ordered CULTURE BLOOD [BC] Stat Lab 05/18/17 16:19 Ordered FOLIC ACID [CHEM] Stat Lab 05/18/17 16:19 Ordered UA W/MICROSCOPIC [URIN] Stat Lab 05/18/17 15:54 Ordered VITAMIN B12 [CHEM] Stat Lab 05/18/17 16:19 Ordered Cefepime [Maxipime] 1 gm Med 05/18/17 16:30 Active Sodium Chloride 0.9% [Normal Saline] 50 ml IV Q8H Levofloxacin/Dextrose 5%-Water [Levaquin in D5W 750 MG/ Med 05/18/17 17:00 Active 150 ML] 750 mg Premix Bag 1 bag IV Q48H Blood Culture x2 Reflex Set [OM.PC] Urgent Oth 05/18/17 16:18 Ordered Resuscitation Status Routine Resus Stat 05/18/17 16:23 Ordered EKG 12 Lead [EK] Urgent Ther 05/18/17 14:28 Ordered Medication Orders Cefepime HCl 1 gm/ Sodium (Chloride) 50 mls @ 100 mls/hr IV Q8H MYLES Levofloxacin/Dextrose 750 mg/ (Premix) 150 mls @ 100 mls/hr IV Q48H MYLES Assessment/Plan Comment:: ASSESSMENT AND PLAN HYPOXIA-noted by staff at the [facility] to be more short of breath and when checked was found to be hypoxic. This is corrected with use of supplemental oxygen and she denies subjective symptoms of shortness of breath at present time. Likely related to underlying respiratory tract infection, no obvious infiltrate identified on chest x-ray. On exam does have some bilateral expiratory wheezes. -Supplemental oxygen as needed -Nebulized albuterol and duo nebs -Solu-Medrol 40 mg IV every 6 hours -Echocardiogram in a.m. to evaluate left ventricular function PROBABLE PNEUMONIA WITH EARLY SEPSIS-temperature elevation associated with elevated white blood cell count would suggest significant underlying pulmonary infection. Lactic acid level pending but blood pressure is somewhat borderline as is heart rate. -Repeat chest x-ray in a.m. after hydration -IV fluid replacement per sepsis protocol -Lactic acid level pending -Blood cultures and sputum culture ordered -Expanded spectrum IV antibiotic therapy given recent prednisone use and probable sepsis; cefepime and levofloxacin, pending culture results -Urinalysis pending to rule out other source of infection ELEVATED TROPONIN-likely secondary to demand ischemia in the setting of infection and hypoxia, chronic kidney disease may also be a contributing factor -Serial troponin levels CHRONIC KIDNEY DISEASE STAGE III-likely exacerbated secondary to dehydration -IV fluids as above -Closely monitor urine output and renal function DEMENTIA-likely exacerbated secondary to current illness -Melatonin 9 mg by mouth daily at bedtime PALLIATIVE CARE-documented from [facility] that patient does not want further aggressive interventions including CPR or mechanical ventilation. MAINTENANCE ISSUES -DVT prophylaxis; Lovenox 40 mg subcutaneous daily -GI prophylaxis; continue outpatient PPI therapy -Carlos catheter; not indicated -Nutrition; regular diet -Nicotine dependence; not required CODE STATUS-DNR/DNI ADMISSION STATUS-patient will be admitted to inpatient status, expect at least a 2 night hospital stay for evaluation and management of problems as outlined above. At the time of this admission I do not reasonably expected evaluation and management of this problem will require more than a 96 hour hospital stay. DISPOSITION-anticipate discharge to home after the hospital stay.
[2017-05-18] MEDS ORDERED: Enoxaparin 40 MG/0.4 ML Syringe SUBCUT SCH (16:52)
[2017-05-18] MEDS ORDERED: Lactated Ringers 500 ML IV SCH (16:52)
[2017-05-18] MEDS ORDERED: Polyethylene Glycol 3350 Powder 17 GM Packet PO PRN (16:52)
[2017-05-18] MEDS ORDERED: Sodium Chloride 0.9% 10 ML Syringe FLUSH PRN (16:52)
[2017-05-18] MEDS ORDERED: Acetaminophen 325 MG Tab PO PRN (16:52)
[2017-05-18] MEDS ORDERED: Magnesium Hydroxide 400 MG/5 ML Susp 30 ML Cup PO PRN (16:52)
[2017-05-18] MEDS ORDERED: Albuterol 0.083% 2.5 MG/3 ML Neb Soln NEB PRN (16:52)
[2017-05-18] MEDS ORDERED: Ondansetron 4 MG/2 ML SDV IV PRN (16:52)
[2017-05-18] MEDS ORDERED: Levofloxacin/Dextrose 5%-Water 750 MG in Premix Bag 1 BAG IV SCH (17:00)
[2017-05-18] MEDS ORDERED: Sodium Chloride 0.9% 50 ML ONE (17:08)
[2017-05-18] MEDS: methylPREDNISolone Sodium Succinate 40 MG/1 ML SDV IVPUSH SCH ×2 (18:17→22:35)
--- NOTE | 2017-05-18 18:37 | EDM.PDOC ---
ED HPI GENERAL MEDICAL PROBLEM - General Chief Complaint: Respiratory Problem Stated Complaint: RESPIRATORY; FEVER Time Seen by Provider: 05/18/17 14:38 Source of Information: Reports: Patient, Old Records, Provider, RN Notes Reviewed History Limitations: Reports: Altered Mental Status (Lethargic, underlying dementia) - History of Present Illness INITIAL COMMENTS - FREE TEXT/NARRATIVE: This lady comes from the long term. They reported that she seemed to be having some difficulty breathing and her oxygen saturation was down in the 80s. She's a recent admission to the long term. EMS gave her an albuterol nebulizer treatment on the way in and that seemed to help some. - Related Data Allergies Allergy/AdvReac Type Severity Reaction Status Date / Time milk Allergy Unknown Cannot Verified 05/18/17 13:48 Remember fentanyl Allergy Itching Verified 05/18/17 13:48 gluten Allergy Cannot Verified 05/18/17 13:48 Remember codeine phosphate AdvReac Nausea Verified 05/18/17 13:48 [From Tylenol-Codeine #3] Home Meds: Home Meds Amitriptyline [Elavil] 100 mg PO BEDTIME 02/23/14 [History] Cod Liver Oil 1 cap PO DAILY 07/01/14 [History] Multivitamin [Multivitamins] 1 tab PO DAILY 07/01/14 [History] Vitamin B Complex [B Complex] 1 tab PO DAILY 07/01/14 [History] Folic Acid 1 mg PO DAILY 04/26/15 [History] predniSONE [Prednisone] 20 mg PO DAILY 03/31/16 [History] Pantoprazole [ProTONIX] 40 mg PO ACBREAKFAST #30 tab.cr 04/07/16 [Rx] hydrOXYzine HCl [hydrOXYzine] 25 mg PO TID PRN 08/29/16 [History] Menthol [Gold Barron Pain Relieving] 1 dose TOP ASDIRECTED 10/02/16 [History] Acetaminophen [Tylenol Extra Strength] 1,000 mg PO TID #180 tablet 12/31/16 [Rx] Cyclobenzaprine [Flexeril] 10 mg PO BID PRN #20 tablet 12/31/16 [Rx] Diclofenac Sodium [Voltaren] 50 mg PO TID 12/31/16 [History] Furosemide [Lasix] 20 mg PO DAILY #30 tablet 12/31/16 [Rx] traMADol HCl [Tramadol HCl] 50 mg PO Q6H PRN #60 tablet 12/31/16 [Rx] oxyCODONE HCl/Acetaminophen [oxyCODONE-Acetaminophen 5-325] 1 tab PO BEDTIME [History] Past Medical History - Past Health History Medical/Surgical History: Denies Medical/Surgical History HEENT History: Reports: Cataract, Impaired Vision, Macular Degeneration Cardiovascular History: Reports: Heart Murmur Respiratory History: Reports: Asthma, Other (See Below) Other Respiratory History: H/o pneumonia, h/o bronchitis Gastrointestinal History: Reports: GERD, Other (See Below) Other Gastrointestinal History: H/o diverticulitis Genitourinary History: Reports: UTI, Recurrent HEALTH POLICY NURSE History: Reports: Musculoskeletal History: Reports: Arthritis, Back Pain, Chronic, Fracture, Osteoarthritis, Other (See Below) Other Musculoskeletal History: Chronic hip pain 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; T12 vertebral compression fracture; T10 wedge compression fracture; lumbar disc disease with radiculopathy; R sciatica L3-L4 down R LE; h/o falls Psychiatric History: Reports: Anxiety Endocrine/Metabolic History: Reports: Other (See Below) Other Endocrine/Metabolic History: hypoglycemia, adrenal insufficiency (HCC) Hematologic History: Reports: Anemia Other Hematologic History: hemolytic anemia, 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 - Infectious Disease History Infectious Disease History: Reports: Chicken Pox, Measles, Mumps - Past Surgical History HEENT Surgical History: Reports: Cataract Surgery GI Surgical History: Reports: Cholecystectomy, Colonoscopy Female Surgical History: Reports: Hysterectomy Musculoskeletal Surgical History: Reports: None, Hip Replacement, Other (See Below) Other Musculoskeletal Surgeries/Procedures:: L CORBIN August 2016; Vertebral kyphoplasty ~11/2016 per patient report Social & Family History - Family History Cardiac: Reports: Blood Clots/VTE/DVT, Heart Failure, [place], Other (See Below) Other Cardiac Family History: strokes Respiratory: Reports: COPD, Other (See Below) Other Respiratory Family Hisory: emphysema : Reports: Renal Disease/Insufficiency Musculoskeletal: Reports: Arthritis, Osteoporosis, RA Neurological: Reports: CVA, Migraines Psychiatric: Reports: Panic Attack Dermatologic: Reports: Eczema, Psoriasis Oncologic: Reports: Brain - Tobacco Use Smoking Status *Q: Never Smoker Second Hand Smoke Exposure: Yes - Caffeine Use Caffeine Use: Reports: Coffee Other Caffeine Use: cup per day Caffeine Use Comment: 1 cup per day - Alcohol Use Days Per Week of Alcohol Use: 0 - Recreational Drug Use Recreational Drug Use: No - Living Situation & Occupation Living situation: Reports: Occupation: Retired ED ROS GENERAL - Review of Systems Review Of Systems: Unable To Obtain ED EXAM, GENERAL - Physical Exam Exam: See Below Exam Limited By: Altered Mental Status General Appearance: Alert, Obese, Other (This lady is awake she's not able to carry on a conversation. She has some audible upper airway noise which sounds like some rhonchi occasionally a wheeze that I think probably maybe stridor. She doesn't appear to be in respiratory distress) Eye Exam: Bilateral Eye: Normal Inspection Nose: Normal Inspection Throat/Mouth: Normal Inspection Head: Atraumatic Neck: Other (Auscultation over the larynx occasionally demonstrates just a slight stridor but overall I think her airway is okay) Respiratory/Chest: Rhonchi Cardiovascular: Regular Rate, Rhythm GI/Abdominal: Soft, Non-Tender, No Organomegaly, No Distention Extremities: Normal Inspection, Non-Tender, No Pedal Edema Skin Exam: Warm, Dry Course - Vital Signs Last Recorded V/S: Last Vital Signs Temp 37.1 C 05/18/17 17:24 Pulse 93 05/18/17 17:24 Resp 18 05/18/17 17:24 BP 99/50 L 05/18/17 17:24 Pulse Ox 94 L 05/18/17 18:19 - Orders/Labs/Meds Orders: Active Orders 24 hr Category Date Time Status Chest 1V Frontal [CR] Urgent Exams 05/18/17 14:28 Taken CULTURE BLOOD [BC] Stat Lab 05/18/17 16:25 Received CULTURE BLOOD [BC] Stat Lab 05/18/17 16:30 Received UA W/MICROSCOPIC [URIN] Stat Lab 05/18/17 15:54 Ordered Acetaminophen/oxyCODONE [Percocet 325-5 MG] Med 05/18/17 21:00 Active 1 tab PO BEDTIME Amitriptyline [Elavil] Med 05/18/17 21:00 Active 100 mg PO BEDTIME Cefepime [Maxipime] 1 gm Med 05/18/17 16:30 Active Sodium Chloride 0.9% [Normal Saline] 50 ml IV Q8H Folic Acid Med 05/19/17 09:00 Active 1 mg PO DAILY Levofloxacin/Dextrose 5%-Water [Levaquin in D5W 750 MG/ Med 05/18/17 17:00 Active 150 ML] 750 mg Premix Bag 1 bag IV Q48H Pantoprazole [ProTONIX] Med 05/19/17 07:30 Active 40 mg PO ACBREAKFAST Blood Culture x2 Reflex Set [OM.PC] Urgent Oth 05/18/17 16:18 Ordered EKG 12 Lead [EK] Urgent Ther 05/18/17 14:28 Stop Req Medication Orders Acetaminophen (Tylenol) 650 mg PO Q4H PRN PRN Reason: Pain (Mild 1-3)/fever Albuterol (Proventil Neb Soln) 2.5 mg NEB Q4H PRN PRN Reason: Shortness Of Breath/wheezing Albuterol/Ipratropium (Duoneb 3.0-0.5 Mg/3 Ml) 3 ml NEB QID [facility] Enoxaparin Sodium (Lovenox) 40 mg SUBCUT DAILY [facility] Last Admin: 05/18/17 18:16 Dose: 40 mg Folic Acid (Folic Acid) 1 mg PO DAILY [facility] Cefepime HCl 1 gm/ Sodium (Chloride) 50 mls @ 100 mls/hr IV Q8H [facility] Last Admin: 05/18/17 17:42 Dose: 100 mls/hr Levofloxacin/Dextrose 750 mg/ (Premix) 150 mls @ 100 mls/hr IV Q48H [facility] Last Admin: 05/18/17 16:55 Dose: 100 mls/hr Lactated Ringer's (Ringers, Lactated) 500 mls @ 500 mls/hr IV .BOLUS [facility] Stop: 05/18/17 19:53 Last Admin: 05/18/17 17:41 Dose: 500 mls/hr Lactated Ringer's (Ringers, Lactated) 1,000 mls @ 125 mls/hr IV ASDIRECTED [facility] Magnesium Hydroxide (Milk Of Magnesia) 30 ml PO Q12H PRN PRN Reason: Constipation Melatonin (Melatonin) 9 mg PO BEDTIME [facility] Methylprednisolone Sodium Succinate (Solu-Medrol) 40 mg IVPUSH Q6H [facility] Last Admin: 05/18/17 18:17 Dose: 40 mg Non-Formulary Medication (Amitriptyline [Elavil]) 100 mg PO BEDTIME [facility] Ondansetron HCl (Zofran) 4 mg IV Q4H PRN PRN Reason: Nausea/Vomiting Oxycodone/Acetaminophen (Percocet 325-5 Mg) 1 tab PO BEDTIME [facility] Pantoprazole Sodium (Protonix) 40 mg PO ACBREAKFAST [facility] Polyethylene Glycol (Miralax) 17 gm PO DAILY PRN PRN Reason: Constipation Senna/Docusate Sodium (Senna Plus) 1 tab PO BID PRN PRN Reason: Constipation Sodium Chloride (Saline Flush) 10 ml FLUSH ASDIRECTED PRN PRN Reason: Keep Vein Open Labs: Laboratory Tests 05/18/17 05/18/17 05/18/17 Range/Units 14:52 14:52 16:18 WBC 20.9 H (4.5-11.0) K/uL RBC 3.46 (3.30-5.50) M/uL Hgb 11.9 L (12.0-15.0) g/dL Hct 36.2 (36.0-48.0) % MCV 105 H (80-98) fL MCH 34 H (27-31) pg MCHC 33 (32-36) % Plt Count 300 (150-400) K/uL Add Manual Diff Yes Neutrophils % (Manual) 66 (36-66) % Band Neutrophils % 13 H (5-11) % Lymphocytes % (Manual) 10 L (24-44) % Monocytes % (Manual) 11 H (2-6) % Sodium 135 L (140-148) mmol/L Potassium 4.4 (3.6-5.2) mmol/L Chloride 100 (100-108) mmol/L Carbon Dioxide 27 (21-32) mmol/L Anion Gap 12.4 (5.0-14.0) mmol/L BUN 24 H (7-18) mg/dL Creatinine 1.6 H D (0.6-1.0) mg/dL Est Cr Clr Drug Dosing 25.45 mL/min Estimated GFR (MDRD) 31 L (>60) Glucose 199 H (74-106) mg/dL Lactic Acid 2.4 H (0.4-2.0) mmol/L Calcium 8.7 (8.5-10.1) mg/dL Total Bilirubin 1.2 H (0.2-1.0) mg/dL AST 39 H D (15-37) U/L ALT 32 (12-78) U/L Alkaline Phosphatase 126 H (46-116) U/L Troponin I 0.126 H* (0.000-0.056) ng/mL NT-Pro-B Natriuret Pep 5255 H (5-450) pg/mL Total Protein 5.7 L (6.4-8.2) g/dL Albumin 2.7 L (3.4-5.0) g/dL Globulin 3.0 (2.3-3.5) g/dL Albumin/Globulin Ratio 0.9 L (1.2-2.2) Vitamin B12 (193-986) pg/ml Folate (8.6-58.9) ng/ml 05/18/17 Range/Units 16:19 WBC (4.5-11.0) K/uL RBC (3.30-5.50) M/uL Hgb (12.0-15.0) g/dL Hct (36.0-48.0) % MCV (80-98) fL MCH (27-31) pg MCHC (32-36) % Plt Count (150-400) K/uL Add Manual Diff Neutrophils % (Manual) (36-66) % Band Neutrophils % (5-11) % Lymphocytes % (Manual) (24-44) % Monocytes % (Manual) (2-6) % Sodium (140-148) mmol/L Potassium (3.6-5.2) mmol/L Chloride (100-108) mmol/L Carbon Dioxide (21-32) mmol/L Anion Gap (5.0-14.0) mmol/L BUN (7-18) mg/dL Creatinine (0.6-1.0) mg/dL Est Cr Clr Drug Dosing mL/min Estimated GFR (MDRD) (>60) Glucose (74-106) mg/dL Lactic Acid (0.4-2.0) mmol/L Calcium (8.5-10.1) mg/dL Total Bilirubin (0.2-1.0) mg/dL AST (15-37) U/L ALT (12-78) U/L Alkaline Phosphatase (46-116) U/L Troponin I (0.000-0.056) ng/mL NT-Pro-B Natriuret Pep (5-450) pg/mL Total Protein (6.4-8.2) g/dL Albumin (3.4-5.0) g/dL Globulin (2.3-3.5) g/dL Albumin/Globulin Ratio (1.2-2.2) Vitamin B12 1652 H (193-986) pg/ml Folate > 20.0 (8.6-58.9) ng/ml Meds: Medications Generic Name Dose Route Start Last Admin Trade Name Freq PRN Reason Stop Dose Admin Acetaminophen 650 mg 05/18/17 16:52 Tylenol PO Q4H PRN Pain (Mild 1-3)/fever Albuterol 2.5 mg 05/18/17 16:52 Proventil Neb Soln NEB Q4H PRN Shortness Of Breath/wheezing Albuterol/Ipratropium 3 ml 05/18/17 22:00 Duoneb 3.0-0.5 Mg/3 Ml NEB QID [facility] Enoxaparin Sodium 40 mg 05/18/17 16:52 05/18/17 18:16 Lovenox SUBCUT 40 mg DAILY [facility] Administration Folic Acid 1 mg 05/19/17 09:00 Folic Acid PO DAILY [facility] Cefepime HCl 1 gm/ Sodium 50 mls @ 100 mls/hr 05/18/17 16:30 05/18/17 17:42 Chloride IV 100 mls/hr Q8H [facility] Administration Levofloxacin/Dextrose 750 mg/ 150 mls @ 100 mls/hr 05/18/17 17:00 05/18/17 16 :55 Premix IV 100 mls/hr Q48H [facility] Administration Lactated Ringer's 500 mls @ 500 mls/hr 05/18/17 16:52 05/18/17 17:41 Ringers, Lactated IV 05/18/17 19:53 500 mls/hr .BOLUS [facility] Administration Lactated Ringer's 1,000 mls @ 125 mls/hr 05/18/17 19:30 Ringers, Lactated IV ASDIRECTED [facility] Magnesium Hydroxide 30 ml 05/18/17 16:52 Milk Of Magnesia PO Q12H PRN Constipation Melatonin 9 mg 05/18/17 21:00 Melatonin PO BEDTIME [facility] Methylprednisolone Sodium Succinate 40 mg 05/18/17 16:52 05/18/17 18:17 Solu-Medrol IVPUSH 40 mg Q6H [facility] Administration Non-Formulary Medication 100 mg 05/18/17 21:00 Amitriptyline [Elavil] PO BEDTIME [facility] Ondansetron HCl 4 mg 05/18/17 16:52 Zofran IV Q4H PRN Nausea/Vomiting Oxycodone/Acetaminophen 1 tab 05/18/17 21:00 Percocet 325-5 Mg PO BEDTIME [facility] Pantoprazole Sodium 40 mg 05/19/17 07:30 Protonix PO ACBREAKFAST [facility] Polyethylene Glycol 17 gm 05/18/17 16:52 Miralax PO DAILY PRN Constipation Senna/Docusate Sodium 1 tab 05/18/17 16:52 Senna Plus PO BID PRN Constipation Sodium Chloride 10 ml 05/18/17 16:52 Saline Flush FLUSH ASDIRECTED PRN Keep Vein Open Discontinued Medications Generic Name Dose Route Start Last Admin Trade Name Freq PRN Reason Stop Dose Admin Cefepime HCl Confirm 05/18/17 16:26 05/18/17 17:14 Maxipime Administered 05/18/17 16:27 Not Given Dose 1 gm .ROUTE .STK-MED ONE Levofloxacin/Dextrose Confirm 05/18/17 16:27 05/18/17 17:15 Levaquin In D5w 750 Mg/150 Ml Administered 05/18/17 16:28 Not Given Dose 150 mls @ as directed IV .STK-MED ONE Sodium Chloride Confirm 05/18/17 17:08 Normal Saline Administered 05/18/17 17:09 Dose 50 mls @ as directed .ROUTE .STK-MED ONE - Radiology Interpretation Free Text/Narrative:: Chest x-ray shows some mild cardiomegaly I do see a lot of air bronchograms - Re-Assessments/Exams Free Text/Narrative Re-Assessment/Exam: 05/18/17 18:40 Oxygen saturations are 92-93%. Noted an elevated white blood cell count with excessive bands. Troponin is slightly elevated also. EKG did not show any acute ischemia. Dr. Do was contacted and he has come to the department to admit the lady 05/18/17 18:41 Departure - Departure Time of Disposition: 18:42 Disposition: Admitted As Inpatient 64 Clinical Impression: Congestive heart failure - Discharge Information - My Orders Last 24 Hours: My Active Orders 05/18/17 14:28 Chest 1V Frontal [CR] Urgent EKG 12 Lead [EK] Urgent - Assessment/Plan Last 24 Hours: My Active Orders 05/18/17 14:28 Chest 1V Frontal [CR] Urgent EKG 12 Lead [EK] Urgent
[2017-05-18] MEDS ORDERED: Lactated Ringers 1,000 ML IV SCH (19:30)
[2017-05-18] MEDS ORDERED: AMITRIPTYLINE 100 MG PO SCH (21:00)
[2017-05-18] MEDS ORDERED: Albuterol/Ipratropium 3.0-0.5 MG/3 ML Neb Soln NEB SCH (22:00)
[2017-05-18] MEDS: Melatonin 3 MG Tab PO SCH (22:27)
[2017-05-18] MEDS: Acetaminophen/oxyCODONE 325-5 MG Tab PO SCH (22:28)
[2017-05-19] MEDS: Acetaminophen/oxyCODONE 325-5 MG Tab PO SCH ×2 (03:41→21:15)
[2017-05-19] MEDS: methylPREDNISolone Sodium Succinate 40 MG/1 ML SDV IVPUSH SCH (05:25)
[2017-05-19] MEDS: Cefepime 1 GM in Sodium Chloride 0.9% 50 ML IV SCH ×2 (05:25→17:29)
[2017-05-19] MEDS ORDERED: methylPREDNISolone Sodium Succinate 40 MG/1 ML SDV ONE (05:35)
[2017-05-19] MEDS: traMADol 50 MG Tab PO PRN ×2 (06:01→12:49)
[2017-05-19] MEDS: Albuterol/Ipratropium 3.0-0.5 MG/3 ML Neb Soln NEB SCH ×4 (07:03→20:00)
[2017-05-19] MEDS: Pantoprazole 40 MG Tab.CR PO SCH (08:26)
[2017-05-19] MEDS: Folic Acid 1 MG Tab PO SCH (08:27)
--- NOTE | 2017-05-19 09:29 | PCM.PN ---
- General Info Date of Service: 05/19/17 Functional Status: Reports: Pain Controlled, Tolerating Diet - Review of Systems General: Denies: Fever Pulmonary: Reports: Shortness of Breath, Cough Systems Review Comment:: There were no acute events overnight. Patient thinks that she's feeling a little better today but doesn't really remember last night or yesterday. She feels mildly short of breath but cough has been tolerable. She did not have any fevers overnight. No complaints of chest pain or abdominal pain. White blood cell count has improved and her kidney function is better with hydration overnight. Chest x-ray this morning appears to show a right lung infiltrate that was not noted yesterday. - Patient Data Vitals - Most Recent: Last Vital Signs Temp 35.9 C 05/19/17 06:00 Pulse 82 05/19/17 07:03 Resp 20 05/19/17 06:00 BP 144/70 H 05/19/17 06:00 Pulse Ox 96 05/19/17 08:00 Weight - Most Recent: 68.946 kg I&O - Last 24 Hours: Intake & Output 05/18/17 05/19/17 05/19/17 22:59 06:59 14:59 Intake Total 240 1859 Output Total 100 25 Balance 240 1759 -25 Lab Results Last 24 Hours: Laboratory Results - last 24 hr 05/18/17 05/18/17 05/19/17 Range/Units 20:54 20:54 05:30 WBC 16.5 H (4.5-11.0) K/uL RBC 2.96 L (3.30-5.50) M/uL Hgb 10.5 L (12.0-15.0) g/dL Hct 30.7 L (36.0-48.0) % MCV 104 H (80-98) fL MCH 36 H (27-31) pg MCHC 34 (32-36) % Plt Count 279 (150-400) K/uL Neut % (Auto) 93 H (36-66) % Lymph % (Auto) 3 L (24-44) % Gaston % (Auto) 4 (2-6) % Eos % (Auto) 0 L (2-4) % Baso % (Auto) 0 (0-1) % Sodium (140-148) mmol/L Potassium (3.6-5.2) mmol/L Chloride (100-108) mmol/L Carbon Dioxide (21-32) mmol/L Anion Gap (5.0-14.0) mmol/L BUN (7-18) mg/dL Creatinine (0.6-1.0) mg/dL Est Cr Clr Drug Dosing mL/min Estimated GFR (MDRD) (>60) Glucose (74-106) mg/dL Lactic Acid 2.5 H (0.4-2.0) mmol/L Calcium (8.5-10.1) mg/dL Magnesium (1.8-2.4) mg/dL Troponin I 0.076 H* (0.000-0.056) ng/mL 05/19/17 Range/Units 05:30 WBC (4.5-11.0) K/uL RBC (3.30-5.50) M/uL Hgb (12.0-15.0) g/dL Hct (36.0-48.0) % MCV (80-98) fL MCH (27-31) pg MCHC (32-36) % Plt Count (150-400) K/uL Neut % (Auto) (36-66) % Lymph % (Auto) (24-44) % Gaston % (Auto) (2-6) % Eos % (Auto) (2-4) % Baso % (Auto) (0-1) % Sodium 138 L (140-148) mmol/L Potassium 4.4 (3.6-5.2) mmol/L Chloride 103 (100-108) mmol/L Carbon Dioxide 29 (21-32) mmol/L Anion Gap 10.4 (5.0-14.0) mmol/L BUN 23 H (7-18) mg/dL Creatinine 1.2 H (0.6-1.0) mg/dL Est Cr Clr Drug Dosing 33.94 mL/min Estimated GFR (MDRD) 43 L (>60) Glucose 231 H (74-106) mg/dL Lactic Acid (0.4-2.0) mmol/L Calcium 8.6 (8.5-10.1) mg/dL Magnesium 1.9 (1.8-2.4) mg/dL Troponin I 0.022 (0.000-0.056) ng/mL Med Orders - Current: Current Medications Acetaminophen (Tylenol) 650 mg PO Q4H PRN PRN Reason: Pain (Mild 1-3)/fever Albuterol (Proventil Neb Soln) 2.5 mg NEB Q4H PRN PRN Reason: Shortness Of Breath/wheezing Albuterol/Ipratropium (Duoneb 3.0-0.5 Mg/3 Ml) 3 ml NEB QIDRT [facility] Last Admin: 05/19/17 07:03 Dose: 3 ml Amitriptyline HCl (Elavil) 100 mg PO BEDTIME [facility] Enoxaparin Sodium (Lovenox) 30 mg SUBCUT Q24H [facility] Folic Acid (Folic Acid) 1 mg PO DAILY [facility] Last Admin: 05/19/17 08:27 Dose: 1 mg Levofloxacin/Dextrose 750 mg/ (Premix) 150 mls @ 100 mls/hr IV Q48H [facility] Last Admin: 05/18/17 16:55 Dose: 100 mls/hr Cefepime HCl 1 gm/ Sodium (Chloride) 50 mls @ 100 mls/hr IV Q12H [facility] Last Admin: 05/19/17 05:25 Dose: 100 mls/hr Magnesium Hydroxide (Milk Of Magnesia) 30 ml PO Q12H PRN PRN Reason: Constipation Melatonin (Melatonin) 9 mg PO BEDTIME [facility] Last Admin: 05/18/17 22:27 Dose: Not Given Ondansetron HCl (Zofran) 4 mg IV Q4H PRN PRN Reason: Nausea/Vomiting Oxycodone/Acetaminophen (Percocet 325-5 Mg) 1 tab PO BEDTIME [facility] Last Admin: 05/19/17 03:41 Dose: 1 tab Pantoprazole Sodium (Protonix) 40 mg PO ACBREAKFAST [facility] Last Admin: 05/19/17 08:26 Dose: 40 mg Polyethylene Glycol (Miralax) 17 gm PO DAILY PRN PRN Reason: Constipation Prednisone (Prednisone) 20 mg PO BIDAC [facility] Senna/Docusate Sodium (Senna Plus) 1 tab PO BID PRN PRN Reason: Constipation Sodium Chloride (Saline Flush) 10 ml FLUSH ASDIRECTED PRN PRN Reason: Keep Vein Open Tramadol HCl (Ultram) 50 mg PO Q6H PRN PRN Reason: Pain Last Admin: 05/19/17 06:01 Dose: 50 mg Discontinued Medications Albuterol/Ipratropium (Duoneb 3.0-0.5 Mg/3 Ml) 3 ml NEB QID [facility] Last Admin: 05/18/17 22:35 Dose: 3 ml Cefepime HCl (Maxipime) Confirm Administered Dose 1 gm .ROUTE .STK-MED ONE Stop: 05/18/17 16:27 Last Admin: 05/18/17 17:14 Dose: Not Given Enoxaparin Sodium (Lovenox) 40 mg SUBCUT DAILY [facility] Last Admin: 05/18/17 18:16 Dose: 40 mg Cefepime HCl 1 gm/ Sodium (Chloride) 50 mls @ 100 mls/hr IV Q8H [facility] Last Admin: 05/18/17 17:42 Dose: 100 mls/hr Levofloxacin/Dextrose (Levaquin In D5w 750 Mg/150 Ml) Confirm Administered Dose 150 mls @ as directed IV .STK-MED ONE Stop: 05/18/17 16:28 Last Admin: 05/18/17 17:15 Dose: Not Given Lactated Ringer's (Ringers, Lactated) 500 mls @ 500 mls/hr IV .BOLUS [facility] Stop: 05/18/17 19:53 Last Admin: 05/18/17 17:41 Dose: 500 mls/hr Lactated Ringer's (Ringers, Lactated) 1,000 mls @ 125 mls/hr IV ASDIRECTED [facility] Last Admin: 05/19/17 07:40 Dose: 125 mls/hr Sodium Chloride (Normal Saline) Confirm Administered Dose 50 mls @ as directed .ROUTE .STK-MED ONE Stop: 05/18/17 17:09 Last Admin: 05/18/17 21:09 Dose: Not Given Methylprednisolone Sodium Succinate (Solu-Medrol) 40 mg IVPUSH Q6H [facility] Last Admin: 05/19/17 05:25 Dose: 40 mg Methylprednisolone Sodium Succinate (Solu-Medrol) Confirm Administered Dose 40 mg .ROUTE .STK-MED ONE Stop: 05/19/17 05:36 Last Admin: 05/19/17 06:02 Dose: Not Given Methylprednisolone Sodium Succinate (Solu-Medrol) 40 mg IVPUSH Q6H [facility] Non-Formulary Medication (Amitriptyline [Elavil]) 100 mg PO BEDTIME [facility] Last Admin: 05/18/17 22:27 Dose: Not Given - Exam Quality Assessment: Supplemental Oxygen General: Alert, Cooperative, No Acute Distress. No: Oriented Lungs: Normal Respiratory Effort, Crackles (right mid and lower lung), Wheezing (left side, diffuse) Cardiovascular: Regular Rate, Regular Rhythm GI/Abdominal Exam: Normal Bowel Sounds, Soft, No Distention Extremities: No Pedal Edema Skin: Warm, Dry Psy/Mental Status: Alert, Normal Affect - Problem List Review Problem List Initiated/Reviewed/Updated: Yes - My Orders Last 24 Hours: My Active Orders 05/19/17 09:26 Convert IV to Saline Lock [OM.PC] Routine 05/19/17 09:27 Discontinue Telemetry Monitoring [Cardiac Monitoring Discontinue] [RC] Click to Edit 05/19/17 16:30 predniSONE 20 mg PO BIDAC 05/20/17 05:00 BASIC METABOLIC PANEL,BMP [CHEM] Timed CBC W/O DIFF,HEMOGRAM [HEME] Timed (1) - Plan Plan:: ASSESSMENT AND PLAN HYPOXIA - patient has some crackles on the right chest and x-ray suggest new infiltrate not noted yesterday. She has not had any fevers since admission. White blood cell count is trending down. Preliminary review of the echocardiogram does not suggest congestive heart failure with a normal ejection fraction and no significant valvular issues noted. -Supplemental oxygen as needed -Nebulized albuterol and duo nebs -Transition to prednisone -Follow-up formal echocardiogram reading PROBABLE PNEUMONIA WITH EARLY SEPSIS - febrile on arrival but not overnight. Repeat chest x-ray more suggestive of pneumonia today than yesterday. Dissemination fits well as well. Vital signs have stabilized with hydration overnight. -Saline lock IV -Follow-up cultures, negative so far -Expanded spectrum IV antibiotic therapy given recent prednisone use and probable sepsis; cefepime and levofloxacin, pending culture results -Urinalysis pending to rule out other source of infection ELEVATED TROPONIN - likely secondary to demand ischemia in the setting of infection and hypoxia further complicated by acute on chronic kidney disease. Level has normalized overnight. -Discontinue cardiac monitoring CHRONIC KIDNEY DISEASE STAGE III - improved with hydration. -Saline lock IV and repeat labs in the morning DEMENTIA - likely exacerbated secondary to current illness -Melatonin 9 mg by mouth daily at bedtime PALLIATIVE CARE - documented from [facility] that patient does not want further aggressive interventions including CPR or mechanical ventilation. MAINTENANCE ISSUES -DVT prophylaxis; Lovenox 40 mg subcutaneous daily -GI prophylaxis; continue outpatient PPI therapy -Carlos catheter; not indicated -Nutrition; regular diet DISPOSITION - anticipate discharge back to the [facility] after the hospital stay. Jeff Noble M.D.
--- NOTE | 2017-05-19 10:25 | CR ---
Chest 1V Frontal INDICATION: pain COMPARISON: 12/28/2016 FINDINGS: AP portable chest. Heart size normal. Mild vascular congestion or mild fibrotic change is stable. No new infiltrates. No definite pleural effusion.
--- NOTE | 2017-05-19 11:14 | CR ---
Chest 2V INDICATION: FU after hydration COMPARISON: 05/18/2017 FINDINGS: Two views. Vascular congestion as well as mild interstitial pulmonary edema now seen on to day's exam. No focal consolidation or pleural effusion. No change in heart size. Vertebroplasty changes in the thoracic spine again noted. IMPRESSION: Mild CHF appears new since yesterday's exam.
[2017-05-19] MEDS ORDERED: methylPREDNISolone Sodium Succinate 40 MG/1 ML SDV IVPUSH SCH (12:00)
[2017-05-19] MEDS ORDERED: Enoxaparin 30 MG/0.3 ML Syringe SUBCUT SCH (16:00)
[2017-05-19] MEDS: predniSONE 20 MG Tab PO SCH (16:22)
[2017-05-19] MEDS: Melatonin 3 MG Tab PO SCH (21:14)
[2017-05-20] MEDS: Cefepime 1 GM in Sodium Chloride 0.9% 50 ML IV SCH ×2 (05:25→06:08)
[2017-05-20] MEDS: Albuterol/Ipratropium 3.0-0.5 MG/3 ML Neb Soln NEB SCH ×4 (07:05→21:27)
[2017-05-20] MEDS: Folic Acid 1 MG Tab PO SCH (08:50)
[2017-05-20] MEDS: predniSONE 20 MG Tab PO SCH ×2 (08:50→15:50)
[2017-05-20] MEDS: Pantoprazole 40 MG Tab.CR PO SCH (08:50)
--- NOTE | 2017-05-20 09:29 | PCM.PN ---
- General Info Date of Service: 05/20/17 Functional Status: Reports: Pain Controlled, Tolerating Diet - Review of Systems General: Reports: Weakness. Denies: Fever Pulmonary: Reports: Shortness of Breath, Cough Systems Review Comment:: No acute events overnight. No fevers overnight. Oxygenation has improved but she has remained on supplemental oxygen. She reports a moderate nonproductive cough. She was able to produce a sputum sample and this showed a few gram- positive cocci. Clinically she feels better today. Did not sleep well and feels tired but otherwise feels okay. Mild pleuritic chest pain. Cultures negative so far. - Patient Data Vitals - Most Recent: Last Vital Signs Temp 36.1 C 05/20/17 07:00 Pulse 100 05/20/17 07:06 Resp 18 05/20/17 07:00 BP 125/54 L 05/20/17 07:00 Pulse Ox 100 05/20/17 07:00 Weight - Most Recent: 68.81 kg I&O - Last 24 Hours: Intake & Output 05/19/17 05/20/17 05/20/17 22:59 06:59 14:59 Intake Total 817 50 118 Output Total 500 Balance 817 -450 118 Lab Results Last 24 Hours: Laboratory Results - last 24 hr 05/20/17 05/20/17 Range/Units 05:00 05:00 WBC 18.3 H (4.5-11.0) K/uL RBC 2.73 L (3.30-5.50) M/uL Hgb 9.4 L (12.0-15.0) g/dL Hct 28.6 L (36.0-48.0) % MCV 105 H (80-98) fL MCH 34 H (27-31) pg MCHC 33 (32-36) % Plt Count 287 (150-400) K/uL Sodium 139 L (140-148) mmol/L Potassium 4.7 (3.6-5.2) mmol/L Chloride 105 (100-108) mmol/L Carbon Dioxide 30 (21-32) mmol/L Anion Gap 8.7 (5.0-14.0) mmol/L BUN 16 (7-18) mg/dL Creatinine 0.8 (0.6-1.0) mg/dL Est Cr Clr Drug Dosing 50.77 mL/min Estimated GFR (MDRD) > 60 (>60) Glucose 165 H (74-106) mg/dL Calcium 8.9 (8.5-10.1) mg/dL [facility] Results Last 24 Hours: Microbiology 05/18/17 16:30 Aerobic Blood Culture - Preliminary Blood - Arm, Right NO GROWTH AFTER 1 DAY Anaerobic Blood Culture - Preliminary NO GROWTH AFTER 1 DAY 05/18/17 16:25 Aerobic Blood Culture - Preliminary Blood - Arm, Right NO GROWTH AFTER 1 DAY Anaerobic Blood Culture - Preliminary NO GROWTH AFTER 1 DAY Med Orders - Current: Current Medications Acetaminophen (Tylenol) 650 mg PO Q4H PRN PRN Reason: Pain (Mild 1-3)/fever Last Admin: 05/19/17 15:04 Dose: 650 mg Albuterol (Proventil Neb Soln) 2.5 mg NEB Q4H PRN PRN Reason: Shortness Of Breath/wheezing Albuterol/Ipratropium (Duoneb 3.0-0.5 Mg/3 Ml) 3 ml NEB QIDRT [facility] Last Admin: 05/20/17 07:05 Dose: 3 ml Amitriptyline HCl (Elavil) 100 mg PO BEDTIME [facility] Last Admin: 05/19/17 21:15 Dose: 100 mg Enoxaparin Sodium (Lovenox) 30 mg SUBCUT Q24H [facility] Last Admin: 05/19/17 16:23 Dose: 30 mg Folic Acid (Folic Acid) 1 mg PO DAILY [facility] Last Admin: 05/20/17 08:50 Dose: 1 mg Levofloxacin/Dextrose 750 mg/ (Premix) 150 mls @ 100 mls/hr IV Q48H [facility] Last Admin: 05/18/17 16:55 Dose: 100 mls/hr Magnesium Hydroxide (Milk Of Magnesia) 30 ml PO Q12H PRN PRN Reason: Constipation Melatonin (Melatonin) 9 mg PO BEDTIME [facility] Last Admin: 05/19/17 21:14 Dose: 9 mg Ondansetron HCl (Zofran) 4 mg IV Q4H PRN PRN Reason: Nausea/Vomiting Oxycodone/Acetaminophen (Percocet 325-5 Mg) 1 tab PO BEDTIME [facility] Last Admin: 05/19/17 21:15 Dose: 1 tab Pantoprazole Sodium (Protonix) 40 mg PO ACBREAKFAST [facility] Last Admin: 05/20/17 08:50 Dose: 40 mg Polyethylene Glycol (Miralax) 17 gm PO DAILY PRN PRN Reason: Constipation Prednisone (Prednisone) 20 mg PO BIDAC [facility] Last Admin: 05/20/17 08:50 Dose: 20 mg Senna/Docusate Sodium (Senna Plus) 1 tab PO BID PRN PRN Reason: Constipation Sodium Chloride (Saline Flush) 10 ml FLUSH ASDIRECTED PRN PRN Reason: Keep Vein Open Tramadol HCl (Ultram) 50 mg PO Q6H PRN PRN Reason: Pain Last Admin: 05/19/17 12:49 Dose: 50 mg Discontinued Medications Albuterol/Ipratropium (Duoneb 3.0-0.5 Mg/3 Ml) 3 ml NEB QID [facility] Last Admin: 05/18/17 22:35 Dose: 3 ml Cefepime HCl (Maxipime) Confirm Administered Dose 1 gm .ROUTE .STK-MED ONE Stop: 05/18/17 16:27 Last Admin: 05/18/17 17:14 Dose: Not Given Enoxaparin Sodium (Lovenox) 40 mg SUBCUT DAILY [facility] Last Admin: 05/18/17 18:16 Dose: 40 mg Cefepime HCl 1 gm/ Sodium (Chloride) 50 mls @ 100 mls/hr IV Q8H [facility] Last Admin: 05/18/17 17:42 Dose: 100 mls/hr Levofloxacin/Dextrose (Levaquin In D5w 750 Mg/150 Ml) Confirm Administered Dose 150 mls @ as directed IV .STK-MED ONE Stop: 05/18/17 16:28 Last Admin: 05/18/17 17:15 Dose: Not Given Lactated Ringer's (Ringers, Lactated) 500 mls @ 500 mls/hr IV .BOLUS [facility] Stop: 05/18/17 19:53 Last Admin: 05/18/17 17:41 Dose: 500 mls/hr Lactated Ringer's (Ringers, Lactated) 1,000 mls @ 125 mls/hr IV ASDIRECTED [facility] Last Admin: 05/19/17 07:40 Dose: 125 mls/hr Sodium Chloride (Normal Saline) Confirm Administered Dose 50 mls @ as directed .ROUTE .STK-MED ONE Stop: 05/18/17 17:09 Last Admin: 05/18/17 21:09 Dose: Not Given Cefepime HCl 1 gm/ Sodium (Chloride) 50 mls @ 100 mls/hr IV Q12H [facility] Last Admin: 05/20/17 06:08 Dose: 100 mls/hr Methylprednisolone Sodium Succinate (Solu-Medrol) 40 mg IVPUSH Q6H [facility] Last Admin: 05/19/17 05:25 Dose: 40 mg Methylprednisolone Sodium Succinate (Solu-Medrol) Confirm Administered Dose 40 mg .ROUTE .STK-MED ONE Stop: 05/19/17 05:36 Last Admin: 05/19/17 06:02 Dose: Not Given Methylprednisolone Sodium Succinate (Solu-Medrol) 40 mg IVPUSH Q6H [facility] Non-Formulary Medication (Amitriptyline [Elavil]) 100 mg PO BEDTIME [facility] Last Admin: 05/18/17 22:27 Dose: Not Given - Exam Quality Assessment: Supplemental Oxygen General: Alert, Cooperative, No Acute Distress Neck: Supple Lungs: Normal Respiratory Effort, Crackles (diffuse ), Wheezing Cardiovascular: Regular Rate, Regular Rhythm GI/Abdominal Exam: Soft, No Distention Extremities: Pedal Edema Skin: Warm, Dry Psy/Mental Status: Alert, Normal Affect - Problem List Review Problem List Initiated/Reviewed/Updated: Yes - My Orders Last 24 Hours: My Active Orders 05/19/17 09:26 Convert IV to Saline Lock [OM.PC] Routine 05/19/17 16:30 predniSONE 20 mg PO BIDAC 05/20/17 09:27 PT Evaluation and Treatment [CONS] Routine Furosemide [Lasix] 20 mg IVPUSH ONETIME ONE 05/21/17 05:00 BASIC METABOLIC PANEL,BMP [CHEM] Timed CBC W/O DIFF,HEMOGRAM [HEME] Timed (1) - Plan Plan:: ASSESSMENT AND PLAN PROBABLE PNEUMONIA WITH EARLY SEPSIS - no fevers overnight. Still wheezing some today. Oxygenation improving but she has remained on supplemental oxygen. Sputum culture pending with a few gram-positive cocci seen on the Gram stain. Clinically getting better. White blood cell count up today but this could be a steroid effect because otherwise she seems to be improving. She may have a component of mild volume overload today with diffuse crackles noted. -Furosemide 1 -Saline lock IV -Scheduled and as needed nebulizers -Continue prednisone -Follow-up cultures, negative so far -Discontinue cefepime, continue levofloxacin HISTORY OF PERSAUD SYNDROME - hemoglobin has dropped some since admission but there is no evidence for bleeding and this could be related to dilution from IV fluids. She had been taken off prednisone prior to admission. -Repeat hemoglobin in the morning CHRONIC KIDNEY DISEASE STAGE III - continues to improve with hydration. -Saline lock IV and repeat labs in the morning DEMENTIA - likely exacerbated secondary to current illness but no behavior issues. -Melatonin 9 mg by mouth daily at bedtime PALLIATIVE CARE - documented from correction that patient does not want further aggressive interventions including CPR or mechanical ventilation. MAINTENANCE ISSUES -DVT prophylaxis; Lovenox 40 mg subcutaneous daily -GI prophylaxis; continue outpatient PPI therapy -Carlos catheter; not indicated -Nutrition; regular diet DISPOSITION - anticipate discharge back to the correction after the hospital stay. Jeff Noble M.D.
[2017-05-20] MEDS ORDERED: Furosemide 20 MG/2 ML VIAL IVPUSH ONE (10:00)
[2017-05-20] MEDS ORDERED: Enoxaparin 40 MG/0.4 ML Syringe SUBCUT SCH (16:00)
[2017-05-20] MEDS ORDERED: Levofloxacin/Dextrose 5%-Water 750 MG in Premix Bag 1 BAG IV SCH (16:00)
[2017-05-20] MEDS: Acetaminophen/oxyCODONE 325-5 MG Tab PO SCH (21:27)
[2017-05-20] MEDS: Melatonin 3 MG Tab PO SCH (21:28)
[2017-05-21] MEDS: Albuterol/Ipratropium 3.0-0.5 MG/3 ML Neb Soln NEB SCH ×2 (07:21→11:03)
[2017-05-21] MEDS: predniSONE 20 MG Tab PO SCH (07:58)
[2017-05-21] MEDS: Pantoprazole 40 MG Tab.CR PO SCH (07:58)
[2017-05-21] MEDS: Folic Acid 1 MG Tab PO SCH (08:00)
--- NOTE | 2017-05-21 11:00 | PCM.DCSUM1 ---
Discharge Summary - Hospital Course Brief History: 82-year-old female custodial resident with history of Persaud syndrome who presented with fever, lethargy and cough and was admitted for management of bilateral pneumonia with early sepsis syndrome. - Discharge Data Discharge Date: 05/21/17 Discharge Disposition: DC/Tfer to SNF 03 Condition: Good - Discharge Diagnosis/Problem(s) (1) Bilateral pneumonia SNOMED Code(s): 927332761 ICD Code: J18.9 - PNEUMONIA, UNSPECIFIED ORGANISM Status: Acute Current Visit: Yes Qualifiers: Pneumonia type: due to unspecified organism Lung location: unspecified part of lung Qualified Code(s): J18.9 - Pneumonia, unspecified organism (2) Sepsis SNOMED Code(s): 97001718 ICD Code: A41.9 - SEPSIS, UNSPECIFIED ORGANISM Status: Acute Current Visit: Yes Qualifiers: Sepsis type: sepsis due to unspecified organism Qualified Code(s): A41.9 - Sepsis, unspecified organism (3) Acute respiratory failure with hypoxia SNOMED Code(s): 93767322 ICD Code: J96.01 - ACUTE RESPIRATORY FAILURE WITH HYPOXIA Status: Acute Current Visit: Yes (4) Chronic renal insufficiency, stage III (moderate) SNOMED Code(s): 790242376 ICD Code: N18.3 - CHRONIC KIDNEY DISEASE, STAGE 3 (MODERATE) Status: Chronic Current Visit: No (5) Cognitive deficits SNOMED Code(s): 669944894 ICD Code: R41.89 - [facility] SYMPTOMS AND SIGNS W COGNITIVE FUNCTIONS AND AWARENESS Status: Chronic Current Visit: No (6) Persaud' syndrome SNOMED Code(s): 90366405 ICD Code: D69.41 - PERSAUD SYNDROME Status: Chronic Current Visit: No - Patient Summary/Data Consults: Consultations 05/20/17 09:27 PT Evaluation and Treatment [CONS] Routine Please Evaluate and Treat. PT Reason for Consult: Strengthening This query below is only for informational purposes and is not editable. Admission Diagnosis/Problem: Hypoxia Hospital Course: Ally presented to the emergency room from the custodial with lethargy, shortness of breath and fever. Workup in the emergency room revealed leukocytosis with a white blood cell count of 20,000 as well as fever and hypoxic respiratory failure. There was concern for pneumonia but chest x-ray did not show obvious infiltrate. Sepsis was suspected with the hypoxic respiratory failure, leukocytosis, tachycardia and mildly elevated lactic acid. Troponin was also noted to be elevated mildly but EKG did not suggest ischemia. She was admitted to the hospital and started on extended spectrum antibiotics to cover a suspected pneumonia. Extended spectrum antibiotics were chosen because of recent prednisone treatment. Cultures were obtained at the time of admission. A repeat chest x-ray the morning after admission was obtained and this was more suggestive of pneumonia though the radiologist also thought that pulmonary edema could look this way. Her clinical picture was much more consistent with a bilateral pneumonia and physical examination fit with this as well. She remained on the extended spectrum antibiotics and did show slow but steady improvement in her respiratory status. We were able to transition her from IV steroids to prednisone. She continued to show improvement after this transition. By the day before discharge her wheezing had resolved and her oxygenation had improved to the point that we were able to remove her supplemental oxygen. Her white blood cell count has been trending down and her fever curve has improved. We were able to discontinue the cefepime and fortunately she had ongoing clinical improvement. She has remained off supplemental oxygen and has shown continued improvement. I believe she is safe for discharge back to the custodial at this time. She will need for additional days of levofloxacin to complete an 8 day course of antibiotics. Regarding the troponin that was mildly elevated at the time of admission. This was thought to be related to demand ischemia in the setting of hypoxia and sepsis. the level trended down and then normalized by the morning after admission. She has not had any episodes of chest pain. Vital signs have all been stable. I don't believe additional workup is warranted at this time as she has improved significantly. - Patient Instructions Diet: Regular Diet as Tolerated Activity: As Tolerated Showering/Bathing: May Shower Notify Provider of: Fever, Increased Pain, Nausea and/or Vomiting Other/Special Instructions: 1. You were in the hospital for management of bilateral pneumonia. You have been improving with our current antibiotic therapy. I recommend four additional days of antibiotic therapy with levofloxacin. You will take this medication once daily at suppertime for 4 more days with your next dose being due tomorrow. You can use Tessalon Perles as needed for cough. 2. Continue your other medications as previously prescribed. 3. Code status - DNR/DNI. 4. PT and OT for strengthening. 5. Seek medical attention if you develop fever greater than 101, have sudden onset/worsening of your shortness of breath or if you develop chest pain. - Discharge Plan Prescriptions/Med Rec: Benzonatate [Tessalon Perle] 100 mg PO TID PRN #20 capsule PRN Reason: Cough Levofloxacin 750 mg PO QPM #4 tablet Home Medications: Home Meds Amitriptyline [Elavil] 100 mg PO BEDTIME 02/23/14 [History] Cod Liver Oil 1 cap PO DAILY 07/01/14 [History] Multivitamin [Multivitamins] 1 tab PO DAILY 07/01/14 [History] Vitamin B Complex [B Complex] 1 tab PO DAILY 07/01/14 [History] Folic Acid 1 mg PO DAILY 04/26/15 [History] predniSONE [Prednisone] 20 mg PO DAILY 03/31/16 [History] Furosemide [Lasix] 20 mg PO DAILY #30 tablet 12/31/16 [Rx] Acetaminophen [Tylenol Extra Strength] 1,000 mg PO BID 05/21/17 [History] Benzonatate [Tessalon Perle] 100 mg PO TID PRN #20 capsule 05/21/17 [Rx] Hydrocodone/Acetaminophen [Hydrocodon-Acetaminophen 5-325] 1 tab PO BID [History] Levofloxacin 750 mg PO QPM #4 tablet 05/21/17 [Rx] Omeprazole 20 mg PO DAILY 05/21/17 [History] Trolamine Salicylate/Aloe Vera [Aspercreme 10% Cream] 1 gm TP Q6H PRN 05/21/17 [ History] traMADol HCl [Ultram] 50 mg PO BID 05/21/17 [History] Patient Handouts: Incentive Spirometer, Levofloxacin tablets, Community- Acquired Pneumonia, Adult Referrals: Charbel Machuca MD [Physician] - (f/u as needed after the hospital stay) - Discharge Summary/Plan Comment DC Time >30 min.: Yes (40 - [facility] discharge ) - Patient Data Vitals - Most Recent: Last Vital Signs Temp 36.1 C 05/21/17 07:47 Pulse 96 05/21/17 07:47 Resp 16 05/21/17 07:47 BP 140/64 05/21/17 07:47 Pulse Ox 96 05/21/17 07:47 Weight - Most Recent: 68.81 kg I&O - Last 24 hours: Intake & Output 05/20/17 05/21/17 05/21/17 22:59 06:59 14:59 Intake Total 240 300 Output Total 800 400 Balance -560 -100 Lab Results - Last 24 hrs: Laboratory Results - last 24 hr 05/21/17 05/21/17 Range/Units 06:00 06:00 WBC 14.1 H (4.5-11.0) K/uL RBC 2.81 L (3.30-5.50) M/uL Hgb 9.6 L (12.0-15.0) g/dL Hct 29.4 L (36.0-48.0) % MCV 105 H (80-98) fL MCH 34 H (27-31) pg MCHC 33 (32-36) % Plt Count 320 (150-400) K/uL Sodium 143 (140-148) mmol/L Potassium 4.6 (3.6-5.2) mmol/L Chloride 107 (100-108) mmol/L Carbon Dioxide 30 (21-32) mmol/L Anion Gap 6.5 (5.0-14.0) mmol/L BUN 15 (7-18) mg/dL Creatinine 0.9 (0.6-1.0) mg/dL Est Cr Clr Drug Dosing 45.13 mL/min Estimated GFR (MDRD) 60 (>60) Glucose 180 H (74-106) mg/dL Calcium 8.9 (8.5-10.1) mg/dL [facility] Results - Last 24 hrs: Microbiology 05/18/17 16:30 Aerobic Blood Culture - Preliminary Blood - Arm, Right NO GROWTH AFTER 2 DAYS Anaerobic Blood Culture - Preliminary NO GROWTH AFTER 2 DAYS 05/18/17 16:25 Aerobic Blood Culture - Preliminary Blood - Arm, Right NO GROWTH AFTER 2 DAYS Anaerobic Blood Culture - Preliminary NO GROWTH AFTER 2 DAYS Med Orders - Current: Current Medications Acetaminophen (Tylenol) 650 mg PO Q4H PRN PRN Reason: Pain (Mild 1-3)/fever Last Admin: 05/19/17 15:04 Dose: 650 mg Albuterol (Proventil Neb Soln) 2.5 mg NEB Q4H PRN PRN Reason: Shortness Of Breath/wheezing Albuterol/Ipratropium (Duoneb 3.0-0.5 Mg/3 Ml) 3 ml NEB QIDRT [facility] Last Admin: 05/21/17 07:21 Dose: 3 ml Amitriptyline HCl (Elavil) 100 mg PO BEDTIME [facility] Last Admin: 05/20/17 21:28 Dose: 100 mg Enoxaparin Sodium (Lovenox) 40 mg SUBCUT Q24H [facility] Last Admin: 05/20/17 15:51 Dose: 40 mg Folic Acid (Folic Acid) 1 mg PO DAILY [facility] Last Admin: 05/21/17 08:00 Dose: 1 mg Levofloxacin (Levaquin) 250 mg PO Q24H [facility] Levofloxacin (Levaquin) 500 mg PO Q24H [facility] Magnesium Hydroxide (Milk Of Magnesia) 30 ml PO Q12H PRN PRN Reason: Constipation Melatonin (Melatonin) 9 mg PO BEDTIME [facility] Last Admin: 05/20/17 21:28 Dose: 9 mg Ondansetron HCl (Zofran) 4 mg IV Q4H PRN PRN Reason: Nausea/Vomiting Oxycodone/Acetaminophen (Percocet 325-5 Mg) 1 tab PO BEDTIME [facility] Last Admin: 05/20/17 21:27 Dose: 1 tab Pantoprazole Sodium (Protonix) 40 mg PO ACBREAKFAST [facility] Last Admin: 05/21/17 07:58 Dose: 40 mg Polyethylene Glycol (Miralax) 17 gm PO DAILY PRN PRN Reason: Constipation Prednisone (Prednisone) 20 mg PO BIDAC [facility] Last Admin: 05/21/17 07:58 Dose: 20 mg Senna/Docusate Sodium (Senna Plus) 1 tab PO BID PRN PRN Reason: Constipation Sodium Chloride (Saline Flush) 10 ml FLUSH ASDIRECTED PRN PRN Reason: Keep Vein Open Tramadol HCl (Ultram) 50 mg PO Q6H PRN PRN Reason: Pain Last Admin: 05/19/17 12:49 Dose: 50 mg Discontinued Medications Albuterol/Ipratropium (Duoneb 3.0-0.5 Mg/3 Ml) 3 ml NEB QID [facility] Last Admin: 05/18/17 22:35 Dose: 3 ml Cefepime HCl (Maxipime) Confirm Administered Dose 1 gm .ROUTE .STK-MED ONE Stop: 05/18/17 16:27 Last Admin: 05/18/17 17:14 Dose: Not Given Enoxaparin Sodium (Lovenox) 40 mg SUBCUT DAILY [facility] Last Admin: 05/18/17 18:16 Dose: 40 mg Enoxaparin Sodium (Lovenox) 30 mg SUBCUT Q24H [facility] Last Admin: 05/19/17 16:23 Dose: 30 mg Furosemide (Lasix) 20 mg IVPUSH ONETIME ONE Stop: 05/20/17 10:01 Last Admin: 05/20/17 10:18 Dose: 20 mg Cefepime HCl 1 gm/ Sodium (Chloride) 50 mls @ 100 mls/hr IV Q8H [facility] Last Admin: 05/18/17 17:42 Dose: 100 mls/hr Levofloxacin/Dextrose 750 mg/ (Premix) 150 mls @ 100 mls/hr IV Q48H [facility] Last Admin: 05/18/17 16:55 Dose: 100 mls/hr Levofloxacin/Dextrose (Levaquin In D5w 750 Mg/150 Ml) Confirm Administered Dose 150 mls @ as directed IV .STK-MED ONE Stop: 05/18/17 16:28 Last Admin: 05/18/17 17:15 Dose: Not Given Lactated Ringer's (Ringers, Lactated) 500 mls @ 500 mls/hr IV .BOLUS [facility] Stop: 05/18/17 19:53 Last Admin: 05/18/17 17:41 Dose: 500 mls/hr Lactated Ringer's (Ringers, Lactated) 1,000 mls @ 125 mls/hr IV ASDIRECTED [facility] Last Admin: 05/19/17 07:40 Dose: 125 mls/hr Sodium Chloride (Normal Saline) Confirm Administered Dose 50 mls @ as directed .ROUTE .STK-MED ONE Stop: 05/18/17 17:09 Last Admin: 05/18/17 21:09 Dose: Not Given Cefepime HCl 1 gm/ Sodium (Chloride) 50 mls @ 100 mls/hr IV Q12H [facility] Last Admin: 05/20/17 06:08 Dose: 100 mls/hr Levofloxacin/Dextrose 750 mg/ (Premix) 150 mls @ 100 mls/hr IV Q24H [facility] Last Admin: 05/20/17 15:50 Dose: 100 mls/hr Methylprednisolone Sodium Succinate (Solu-Medrol) 40 mg IVPUSH Q6H [facility] Last Admin: 05/19/17 05:25 Dose: 40 mg Methylprednisolone Sodium Succinate (Solu-Medrol) Confirm Administered Dose 40 mg .ROUTE .STK-MED ONE Stop: 05/19/17 05:36 Last Admin: 05/19/17 06:02 Dose: Not Given Methylprednisolone Sodium Succinate (Solu-Medrol) 40 mg IVPUSH Q6H [facility] Non-Formulary Medication (Amitriptyline [Elavil]) 100 mg PO BEDTIME [facility] Last Admin: 05/18/17 22:27 Dose: Not Given - Exam Quality Assessment: Denies: Supplemental Oxygen General: Reports: Alert, Cooperative, No Acute Distress Neck: Reports: Supple Lungs: Reports: Normal Respiratory Effort, Crackles (rare anterior chest). Denies: Wheezing Cardiovascular: Reports: Regular Rate, Regular Rhythm Extremities: No Pedal Edema Psy/Mental Status: Reports: Alert, Normal Affect *Q Meaningful Use (DIS) - VTE *Q VTE Criteria *Q: - Stroke *Q Stroke Criteria *Q: - AMI *Q AMI Criteria *Q:
[2017-05-21] MEDS ORDERED: Levofloxacin 250 MG Tab PO SCH (13:00)
[2017-05-21] MEDS ORDERED: Levofloxacin 500 MG Tab PO SCH (13:00)
[2017-05-21 13:26] VITALS: BP 141/57
[2017-05-21] MEDS ORDERED: guaiFENesin/Dextromethorphan 100-10 MG/5 ML Soln 10 ML Cup PO ONE (13:30)
== END 2017-05-21 14:34 | DRG 871 ==
LOC: JP.ED 13:05 → JP.MS 16:23
PROVIDERS: ADMIT Hospitalist; ATTEND Internal Medicine
DX: A41.9 Sepsis, unspecified organism (principal); J18.9 Pneumonia, unspecified organism; J96.01 Acute respiratory failure with hypoxia; I24.8 Other forms of acute ischemic heart disease; D69.41 Evans syndrome; R74.8 Abnormal levels of other serum enzymes; F03.90 Unspecified dementia, unspecified severity, without behavioral disturbance, psychotic disturbance, mood disturbance, and anxiety; R09.02 Hypoxemia; R50.9 Fever, unspecified; R53.1 Weakness; N18.3 Chronic kidney disease, stage 3 (moderate); R06.00 Dyspnea, unspecified; Z66 Do not resuscitate; Z51.5 Encounter for palliative care; R41.89 Other symptoms and signs involving cognitive functions and awareness; M54.9 Dorsalgia, unspecified; G89.29 Other chronic pain; M19.90 Unspecified osteoarthritis, unspecified site; K21.9 Gastro-esophageal reflux disease without esophagitis; Z87.440 Personal history of urinary (tract) infections; H54.7 Unspecified visual loss; H35.30 Unspecified macular degeneration; Z96.642 Presence of left artificial hip joint; Z79.52 Long term (current) use of systemic steroids; Z88.5 Allergy status to narcotic agent; Z88.8 Allergy status to other drugs, medicaments and biological substances; Z91.011 Allergy to milk products; Z91.018 Allergy to other foods
CPT/HCPCS: 36415; 71045; 71045-26; 71046; 71046-26; 80048; 80053; 82607; 82746; 83605; 83735; 83880; 84484; 85025; 85027; 87040; 87070; 87205; 87804; 93005; 93010; 93306; 94640; 97110-GP; 97161-GP; 99283; 99285-25; A9270-GY; J0692; J1650; J1940; J1956; J2920; J7050; J7120; J7620

== ENCOUNTER 2017-09-06 17:00 | Emergency (ER) | payer MEDICARE, BC, MEDICAID ==
[2017-09-06 17:07] VITALS: BP 184/97
[2017-09-06] MEDS ORDERED: Ketorolac 30 MG/ML SDV IM ONE (18:17)
[2017-09-06] MEDS ORDERED: Cyclobenzaprine 10 MG Tab PO ONE (18:17)
--- NOTE | 2017-09-06 18:27 | EDM.PDOC ---
ED HPI GENERAL MEDICAL PROBLEM - General Chief Complaint: Back Pain or Injury Stated Complaint: BACK PAIN Time Seen by Provider: 09/06/17 18:05 Source of Information: Reports: Patient, Old Records, RN History Limitations: Reports: No Limitations - History of Present Illness INITIAL COMMENTS - FREE TEXT/NARRATIVE: 82 yo female [facility] resident with a pHx of chronic back pain and recurrent compression fx's presents with onset of back pain between her shoulder pains. Pain began a few days ago and has gotten worse. She denies fever, cough or injury. EMS gave Dilaudid 0.5 mg IM with some relief. Has not contacted her provider about her problem. Onset: Gradual Onset Date: 09/04/17 Duration: Day(s): (2+), Getting Worse Location: Reports: Back Quality: Reports: Ache Severity: Moderate Improves with: Reports: Rest Worsens with: Reports: Movement Context: Reports: Other (chronic back pain, compression fx's) Associated Symptoms: Reports: No Other Symptoms Treatments TREATMENT MANAGER: Reports: Other (see below) (IM Dilaudid per EMS) - Related Data Allergies Allergy/AdvReac Type Severity Reaction Status Date / Time milk Allergy Unknown Cannot Verified 09/06/17 17:29 Remember fentanyl Allergy Itching Verified 09/06/17 17:29 gluten Allergy Cannot Verified 09/06/17 17:29 Remember codeine phosphate AdvReac Nausea Verified 09/06/17 17:29 [From Tylenol-Codeine #3] Home Meds: Home Meds Amitriptyline [Elavil] 100 mg PO BEDTIME 02/23/14 [History] Cod Liver Oil 1 cap PO DAILY 07/01/14 [History] Multivitamin [Multivitamins] 1 tab PO DAILY 07/01/14 [History] Vitamin B Complex [B Complex] 1 tab PO DAILY 07/01/14 [History] Folic Acid 1 mg PO DAILY 04/26/15 [History] predniSONE [Prednisone] 20 mg PO DAILY 03/31/16 [History] Furosemide [Lasix] 20 mg PO DAILY #30 tablet 12/31/16 [Rx] Acetaminophen [Tylenol Extra Strength] 1,000 mg PO BID 05/21/17 [History] Benzonatate [Tessalon Perle] 100 mg PO TID PRN #20 capsule 05/21/17 [Rx] Hydrocodone/Acetaminophen [Hydrocodon-Acetaminophen 5-325] 1 tab PO BID [History] Levofloxacin 750 mg PO QPM #4 tablet 05/21/17 [Rx] Omeprazole 20 mg PO DAILY 05/21/17 [History] Trolamine Salicylate/Aloe Vera [Aspercreme 10% Cream] 1 gm TP Q6H PRN 05/21/17 [ History] traMADol HCl [Ultram] 50 mg PO BID 05/21/17 [History] Past Medical History - Past Health History Medical/Surgical History: Denies Medical/Surgical History HEENT History: Reports: Cataract, Impaired Vision, Macular Degeneration Cardiovascular History: Reports: Heart Murmur Respiratory History: Reports: Asthma, Other (See Below) Other Respiratory History: H/o pneumonia, h/o bronchitis Gastrointestinal History: Reports: GERD, Other (See Below) Other Gastrointestinal History: H/o diverticulitis Genitourinary History: Reports: UTI, 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: Musculoskeletal History: Reports: Arthritis, Back Pain, Chronic, Fracture, Osteoarthritis, Other (See Below) Other Musculoskeletal History: Chronic hip pain 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; T12 vertebral compression fracture; T10 wedge compression fracture; lumbar disc disease with radiculopathy; R sciatica L3-L4 down R LE; h/o falls Psychiatric History: Reports: Anxiety Endocrine/Metabolic History: Reports: Other (See Below) Other Endocrine/Metabolic History: hypoglycemia, adrenal insufficiency (HCC) Hematologic History: Reports: Anemia Other Hematologic History: hemolytic anemia, 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 - Infectious Disease History Infectious Disease History: Reports: Chicken Pox, Measles, Mumps - Past Surgical History HEENT Surgical History: Reports: Cataract Surgery GI Surgical History: Reports: Cholecystectomy, Colonoscopy Female Surgical History: Reports: Hysterectomy Musculoskeletal Surgical History: Reports: None, Hip Replacement, Other (See Below) Other Musculoskeletal Surgeries/Procedures:: L CORBIN August 2016; Vertebral kyphoplasty ~11/2016 per patient report Social & Family History - Family History Cardiac: Reports: Blood Clots/VTE/DVT, Heart Failure, [place], Other (See Below) Other Cardiac Family History: strokes Respiratory: Reports: COPD, Other (See Below) Other Respiratory Family Hisory: emphysema : Reports: Renal Disease/Insufficiency Musculoskeletal: Reports: Arthritis, Osteoporosis, RA Neurological: Reports: CVA, Migraines Psychiatric: Reports: Panic Attack Dermatologic: Reports: Eczema, Psoriasis Oncologic: Reports: Brain - Tobacco Use Smoking Status *Q: Never Smoker - Caffeine Use Caffeine Use: Reports: Coffee Other Caffeine Use: cup per day Caffeine Use Comment: 1 cup per day - Living Situation & Occupation Living situation: Reports: Occupation: Retired ED ROS GENERAL - Review of Systems Review Of Systems: See Below Constitutional: Reports: No Symptoms HEENT: Reports: No Symptoms Respiratory: Reports: No Symptoms Cardiovascular: Reports: No Symptoms GI/Abdominal: Reports: No Symptoms : Reports: Frequency (not new) Musculoskeletal: Reports: Back Pain Skin: Reports: No Symptoms Neurological: Reports: No Symptoms ED EXAM, UPPER BACK/NECK PAIN - Physical Exam Exam: See Below Exam Limited By: No Limitations General Appearance: Alert, WD/WN, No Apparent Distress Eye Exam: Bilateral Eye: Normal Inspection Ears Exam: Normal External Exam, Normal Canal, Hearing Grossly Normal Nose Exam: Normal Inspection, Normal Mucousa, No Blood Throat/Mouth Exam: Normal Inspection, Normal Lips, Normal Oropharynx, Normal Voice, No Airway Compromise Head Exam: Atraumatic, Normocephalic Neck Exam: Non-Tender, Full Range of Motion Cardiovascular/Respiratory: Regular Rate, Rhythm GI/Abdominal: Normal Bowel Sounds, Soft, Non-Tender, No Distention Back Exam: Normal Inspection, Decreased Range of Motion, Muscle Spasm, Paraspinal Tenderness, Vertebral Tenderness. 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 Vit D ordered, no results found. Parathyroid Hormone levels ordered, not found. Patient also not aware of results. Not clear why she has not been started on tx for her osteoporosis( likely from her prednisone). Feeling considerably better after Toradol and Flexeril. Last Recorded V/S: Last Vital Signs Temp 36.9 C 09/06/17 17:34 Pulse 82 09/06/17 17:34 Resp 16 06/16/18 17:34 BP 184/97 H 09/06/17 17:34 Pulse Ox 96 09/06/17 17:34 - Orders/Labs/Meds Orders: Active Orders 24 hr Category Date Time Status Thoracic Spine 2V [CR] Stat Exams 09/06/17 18:18 Taken Meds: Medications Discontinued Medications Generic Name Dose Route Start Last Admin Trade Name Freq PRN Reason Stop Dose Admin Cyclobenzaprine HCl 10 mg 09/06/17 18:17 09/06/17 18:40 Flexeril PO 09/06/17 18:18 10 mg ONETIME ONE Administration Ketorolac Tromethamine 15 mg 09/06/17 18:17 09/06/17 18:40 Toradol IM 09/06/17 18:18 15 mg ONETIME ONE Administration - Radiology Interpretation Free Text/Narrative:: T-spine [id number] osteopenia, ? new pathology Departure - Departure Time of Disposition: 19:25 Disposition: Home, Self-Care 01 Condition: Fair Clinical Impression: Compression fx, thoracic spine Qualifiers: Encounter type: initial encounter Fracture type: closed Qualified Code(s): S22.000A - Wedge compression fracture of unspecified thoracic vertebra, initial encounter for closed fracture - Discharge Information Referrals: PCP,None [Primary Care Provider] - Forms: ED Department Discharge - My Orders Last 24 Hours: My Active Orders 09/06/17 18:18 Thoracic Spine 2V [CR] Stat - Assessment/Plan Last 24 Hours: My Active Orders 09/06/17 18:18 Thoracic Spine 2V [CR] Stat
--- NOTE | 2017-09-08 09:17 | CR ---
Thoracic Spine 2V CLINICAL HISTORY: Compression fractures FINDINGS: There are numerous compression deformities throughout the mid to lower thoracic spine. Ther e are previous kyphoplasty is at T7 T9 and T10. There is moderate compression deformity of T8. There is moderate compression deformity of T6 and mild compression of T3. Impression: Numerous thoracic vertebral compression deformities. Most of these are old. Multilevel ky phoplasty. There has been a increase in the T6 compression when compared to the lateral chest x-ray from y
== END 2017-09-06 20:27 | disposition home or self-care (01) ==
LOC: JP.ED 17:00
DX: M48.54XA Collapsed vertebra, not elsewhere classified, thoracic region, initial encounter for fracture (principal); Z91.011 Allergy to milk products; Z88.5 Allergy status to narcotic agent; Z79.899 Other long term (current) drug therapy; J45.909 Unspecified asthma, uncomplicated; Z87.01 Personal history of pneumonia (recurrent); K21.9 Gastro-esophageal reflux disease without esophagitis; Z87.440 Personal history of urinary (tract) infections; D64.9 Anemia, unspecified
CPT/HCPCS: 72070; 96372; 99284; A9270; J1885; 99283

== ENCOUNTER 2017-12-19 21:33 | Inpatient (IN) | payer MEDICARE, BC, MEDICAID ==
--- NOTE | 2017-12-19 22:43 | EDM.PDOC ---
ED HPI GENERAL MEDICAL PROBLEM - General Chief Complaint: Neuro Symptoms/Deficits Stated Complaint: MEDICAL [facility] Time Seen by Provider: 12/19/17 21:50 Source of Information: Reports: Patient, EMS, Provider, RN History Limitations: Reports: Altered Mental Status - History of Present Illness INITIAL COMMENTS - FREE TEXT/NARRATIVE: 82-year-old female, custodial resident being treated for chronic pain is particularly fatigued, lethargic and decreased responsiveness through the course of today. She is usually more alert and can ambulate without assistance but today is profoundly tired and weak. No fever or chills, she denies any new pain, no headache, visual complaints, difficulties with speech, shortness of breath or chest pain. She is being treated with an antibiotic for chronic lower leg cellulitis which is slowly improving. She is being treated with fentanyl for chronic pain with breakthrough doses of oxycodone which she has been receiving on a fairly regular basis. Onset: Unknown/Unsure (Symptoms have been present for most of today, unsure when they started) Severity: Moderate Associated Symptoms: Reports: Loss of Appetite, Malaise, Weakness. Denies: Chest Pain, Cough, Diaphoresis, Fever/Chills, Nausea/Vomiting, Shortness of Breath Oral/Mouth Pain Score (Numeric/FACES): 8 - Related Data Allergies Allergy/AdvReac Type Severity Reaction Status Date / Time milk Allergy Unknown Cannot Verified 12/19/17 21:46 Remember gluten Allergy Cannot Verified 12/19/17 21:46 Remember codeine phosphate AdvReac Nausea Verified 12/19/17 21:46 [From Tylenol-Codeine #3] Home Meds: Home Meds Amitriptyline [Elavil] 100 mg PO BEDTIME 02/23/14 [History] Cod Liver Oil 1 cap PO DAILY 07/01/14 [History] Multivitamin [Multivitamins] 1 tab PO DAILY 07/01/14 [History] Vitamin B Complex [B Complex] 1 tab PO DAILY 07/01/14 [History] Folic Acid 1 mg PO DAILY 04/26/15 [History] predniSONE [Prednisone] 20 mg PO DAILY 03/31/16 [History] Acetaminophen [Tylenol Extra Strength] 1,000 mg PO BID 05/21/17 [History] Benzonatate [Tessalon Perle] 100 mg PO TID PRN #20 capsule 05/21/17 [Rx] Omeprazole 20 mg PO DAILY 05/21/17 [History] Calcium Carb & Citrate/Vit D3 [Calcium + D3 ER Tablet] 1 each PO 12/19/17 [ History] Cholecalciferol (Vitamin D3) [Vitamin D3] 1,000 unit PO DAILY 12/19/17 [History] Cyclobenzaprine [Flexeril] 5 mg PO DAILY 12/19/17 [History] Furosemide [Lasix] 40 mg PO BID 12/19/17 [History] Sulfamethoxazole/Trimethoprim [Bactrim Ds Tablet] 1 each PO ASDIRECTED 12/19/17 [History] Travoprost [Travatan Z 0.004% Ophth Soln] 1 drop OP BEDTIME 12/19/17 [History] fentaNYL [Duragesic] 50 mcg TD Q72H 12/19/17 [History] oxyCODONE HCl [Oxycodone HCl] 5 mg PO Q4HR 12/19/17 [History] Past Medical History - Past Health History Medical/Surgical History: Denies Medical/Surgical History HEENT History: Reports: Cataract, Impaired Vision, Macular Degeneration Cardiovascular History: Reports: Heart Murmur Respiratory History: Reports: Asthma, Other (See Below) Other Respiratory History: H/o pneumonia, h/o bronchitis Gastrointestinal History: Reports: GERD, Other (See Below) Other Gastrointestinal History: H/o diverticulitis Genitourinary History: Reports: UTI, Recurrent 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: Musculoskeletal History: Reports: Arthritis, Back Pain, Chronic, Fracture, Osteoarthritis, Other (See Below) Other Musculoskeletal History: Chronic hip pain 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; T12 vertebral compression fracture; T10 wedge compression fracture; lumbar disc disease with radiculopathy; R sciatica L3-L4 down R LE; h/o falls Psychiatric History: Reports: Anxiety Endocrine/Metabolic History: Reports: Other (See Below) Other Endocrine/Metabolic History: hypoglycemia, adrenal insufficiency (HCC) Hematologic History: Reports: Anemia Other Hematologic History: hemolytic anemia, 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 - Infectious Disease History Infectious Disease History: Reports: Chicken Pox, Measles, Mumps - Past Surgical History HEENT Surgical History: Reports: Cataract Surgery GI Surgical History: Reports: Cholecystectomy, Colonoscopy Female Surgical History: Reports: Hysterectomy Musculoskeletal Surgical History: Reports: None, Hip Replacement, Other (See Below) Other Musculoskeletal Surgeries/Procedures:: L CORBIN August 2016; Vertebral kyphoplasty ~11/2016 per patient report Social & Family History - Family History Cardiac: Reports: Blood Clots/VTE/DVT, Heart Failure, [place], Other (See Below) Other Cardiac Family History: strokes Respiratory: Reports: COPD, Other (See Below) Other Respiratory Family Hisory: emphysema : Reports: Renal Disease/Insufficiency Musculoskeletal: Reports: Arthritis, Osteoporosis, RA Neurological: Reports: CVA, Migraines Psychiatric: Reports: Panic Attack Dermatologic: Reports: Eczema, Psoriasis Oncologic: Reports: Brain - Tobacco Use Smoking Status *Q: Never Smoker - Caffeine Use Caffeine Use: Reports: Coffee Other Caffeine Use: cup per day Caffeine Use Comment: 1 cup per day - Living Situation & Occupation Living situation: Reports: Occupation: Retired ED ROS GENERAL - Review of Systems Review Of Systems: See Below Constitutional: Reports: Malaise, Decreased Appetite. Denies: Fever, Chills HEENT: Reports: No Symptoms Respiratory: Denies: Shortness of Breath, Cough Cardiovascular: Denies: Chest Pain GI/Abdominal: Reports: Decreased Appetite. Denies: Nausea, Vomiting : Reports: No Symptoms ED EXAM, GENERAL - Physical Exam Exam: See Below Exam Limited By: Altered Mental Status General Appearance: No Apparent Distress, Lethargic Eye Exam: Bilateral Eye: EOMI, PERRL Throat/Mouth: Normal Inspection Head: Atraumatic Neck: Supple Respiratory/Chest: No Respiratory Distress, Lungs Clear Cardiovascular: Regular Rate, Rhythm, Systolic Murmur (Fairly pronounced systolic murmur, 3/6), Extra Beats GI/Abdominal: Soft, Tender (Reacts with fairly diffuse tenderness to palpation of the abdomen, no focal tenderness) Extremities: Other (Pitting edema of the lower extremities, worse on the right compared to the left. She also has erythema and cellulitis of the right leg with a small draining lesion which is bandaged) Neurological: Slow to Respond, Other (Answering questions appropriately, has difficulty holding her legs up against gravity but no asymmetry or focal deficits) Psychiatric: Depressed Mood, Flat Affect Skin Exam: Warm, Dry, Erythema (Right leg) Course - Vital Signs Last Recorded V/S: Last Vital Signs Temp 98.7 F 12/20/17 02:46 Pulse 102 H 12/20/17 02:46 Resp 18 12/20/17 02:46 BP 145/63 H 12/20/17 02:46 Pulse Ox 94 L 12/20/17 02:46 - Orders/Labs/Meds Orders: Active Orders 24 hr Category Date Time Status Head wo Cont [CT] Stat Exams 12/19/17 22:09 Taken CULTURE BLOOD [BC] Urgent Lab 12/19/17 22:15 Received CULTURE BLOOD [BC] Urgent Lab 12/19/17 22:25 Received CULTURE URINE [RM] Stat Lab 12/19/17 22:49 Received UA W/MICROSCOPIC [URIN] Urgent Lab 12/19/17 22:31 Ordered Sodium Chloride 0.9% [Normal Saline] 1,000 ml Med 12/19/17 23:15 Active IV ASDIRECTED Blood Culture x2 Reflex Set [OM.PC] Urgent Oth 12/19/17 22:09 Ordered Medication Orders Albuterol (Proventil Neb Soln) 2.5 mg NEB Q4H PRN PRN Reason: Shortness Of Breath/wheezing Heparin Sodium (Porcine) (Heparin Sodium) 5,000 units SUBCUT Q8H [facility] Last Admin: 12/20/17 01:00 Dose: 5,000 units Sodium Chloride (Normal Saline) 1,000 mls @ 500 mls/hr IV ASDIRECTED [facility] Last Admin: 12/19/17 23:09 Dose: 500 mls/hr Sodium Chloride (Normal Saline) 1,000 mls @ 150 mls/hr IV ASDIRECTED [facility] Last Admin: 12/20/17 01:48 Dose: 150 mls/hr Piperacillin Sod/Tazobactam (Sod 2.25 gm/ Sodium Chloride) 50 mls @ 100 mls/hr IV Q8H [facility] Last Admin: 12/20/17 01:02 Dose: 100 mls/hr Morphine Sulfate (Morphine) 2 mg IVPUSH Q4H PRN PRN Reason: Pain (severe 7-10) Last Admin: 12/20/17 02:48 Dose: 2 mg Ondansetron HCl (Zofran) 4 mg IV Q6H PRN PRN Reason: Nausea/Vomiting Senna/Docusate Sodium (Senna Plus) 1 tab PO BID PRN PRN Reason: Constipation Labs: Laboratory Tests 09/28/18 09/28/18 09/28/18 Range/Units 22:09 22:09 22:29 WBC 15.0 H (4.5-11.0) K/uL RBC 3.98 (3.30-5.50) M/uL Hgb 14.1 (12.0-15.0) g/dL Hct 41.3 (36.0-48.0) % MCV 104 H (80-98) fL MCH 35 H (27-31) pg MCHC 34 (32-36) % Plt Count 196 (150-400) K/uL Neut % (Auto) 93 H (36-66) % Lymph % (Auto) 4 L (24-44) % [place] % (Auto) 2 (2-6) % Eos % (Auto) 1 L (2-4) % Baso % (Auto) 0 (0-1) % Sodium 136 L (140-148) mmol/L Potassium 3.9 (3.6-5.2) mmol/L Chloride 99 L (100-108) mmol/L Carbon Dioxide 27 (21-32) mmol/L Anion Gap 13.9 (5.0-14.0) mmol/L BUN 40 H (7-18) mg/dL Creatinine 2.1 H D (0.6-1.0) mg/dL Est Cr Clr Drug Dosing 14.32 mL/min Estimated GFR (MDRD) 22 L (>60) Glucose 289 H (74-106) mg/dL Calcium 9.9 (8.5-10.1) mg/dL Total Bilirubin 1.4 H D (0.2-1.0) mg/dL AST 45 H (15-37) U/L ALT 59 (12-78) U/L Alkaline Phosphatase 98 (46-116) U/L Ammonia (11-32) mmol/L Troponin I 0.060 H* (0.000-0.056) ng/mL Total Protein 6.0 L (6.4-8.2) g/dL Albumin 2.9 L (3.4-5.0) g/dL Globulin 3.1 (2.3-3.5) g/dL Albumin/Globulin Ratio 0.9 L (1.2-2.2) Urine Color Yellow Urine Appearance Slightly cloudy Urine pH 5.0 (4.5-8.0) Ur Specific [place] 1.015 (1.008-1.030) Urine Protein 30 H (NEGATIVE) mg/dL Urine Glucose (UA) Negative (NEGATIVE) mg/dL Urine Ketones Negative (NEGATIVE) mg/dL Urine Occult Blood Moderate (NEGATIVE) Urine Nitrite Negative (NEGATIVE) Urine Bilirubin Negative (NEGATIVE) Urine Urobilinogen Normal (NORMAL) mg/dL Ur Leukocyte Esterase Moderate (NEGATIVE) Urine RBC 5-10 H (0-5) Urine WBC 10-20 H (0-5) Ur Epithelial Cells Rare Amorphous Sediment Not seen Urine Bacteria Many Urine Mucus Not seen 12/19/17 Range/Units 22:29 WBC (4.5-11.0) K/uL RBC (3.30-5.50) M/uL Hgb (12.0-15.0) g/dL Hct (36.0-48.0) % MCV (80-98) fL MCH (27-31) pg MCHC (32-36) % Plt Count (150-400) K/uL Neut % (Auto) (36-66) % Lymph % (Auto) (24-44) % [place] % (Auto) (2-6) % Eos % (Auto) (2-4) % Baso % (Auto) (0-1) % Sodium (140-148) mmol/L Potassium (3.6-5.2) mmol/L Chloride (100-108) mmol/L Carbon Dioxide (21-32) mmol/L Anion Gap (5.0-14.0) mmol/L BUN (7-18) mg/dL Creatinine (0.6-1.0) mg/dL Est Cr Clr Drug Dosing mL/min Estimated GFR (MDRD) (>60) Glucose (74-106) mg/dL Calcium (8.5-10.1) mg/dL Total Bilirubin (0.2-1.0) mg/dL AST (15-37) U/L ALT (12-78) U/L Alkaline Phosphatase (46-116) U/L Ammonia < 10 L (11-32) mmol/L Troponin I (0.000-0.056) ng/mL Total Protein (6.4-8.2) g/dL Albumin (3.4-5.0) g/dL Globulin (2.3-3.5) g/dL Albumin/Globulin Ratio (1.2-2.2) Urine Color Urine Appearance Urine pH (4.5-8.0) Ur Specific [place] (1.008-1.030) Urine Protein (NEGATIVE) mg/dL Urine Glucose (UA) (NEGATIVE) mg/dL Urine Ketones (NEGATIVE) mg/dL Urine Occult Blood (NEGATIVE) Urine Nitrite (NEGATIVE) Urine Bilirubin (NEGATIVE) Urine Urobilinogen (NORMAL) mg/dL Ur Leukocyte Esterase (NEGATIVE) Urine RBC (0-5) Urine WBC (0-5) Ur Epithelial Cells Amorphous Sediment Urine Bacteria Urine Mucus Meds: Medications Generic Name Dose Route Start Last Admin Trade Name Frebelen PRN Reason Stop Dose Admin Albuterol 2.5 mg 12/19/17 23:40 Proventil Neb Soln NEB Q4H PRN Shortness Of Breath/wheezing Heparin Sodium (Porcine) 5,000 units 12/20/17 00:00 12/20/17 01:00 Heparin Sodium SUBCUT 5,000 units Q8H MYLES Administration Sodium Chloride 1,000 mls @ 500 mls/hr 12/19/17 23:15 12/19/17 23:09 Normal Saline IV 500 mls/hr ASDIRECTED MYLES Administration Sodium Chloride 1,000 mls @ 150 mls/hr 12/19/17 23:45 12/20/17 01:48 Normal Saline IV 150 mls/hr ASDIRECTED MYLES Administration Piperacillin Sod/Tazobactam 50 mls @ 100 mls/hr 12/20/17 01:00 12/20/17 01:02 Sod 2.25 gm/ Sodium Chloride IV 100 mls/hr Q8H [facility] Administration Morphine Sulfate 2 mg 12/19/17 23:40 12/20/17 02:48 Morphine IVPUSH 2 mg Q4H PRN Administration Pain (severe 7-10) Ondansetron HCl 4 mg 12/19/17 23:40 Zofran IV Q6H PRN Nausea/Vomiting Senna/Docusate Sodium 1 tab 12/19/17 23:40 Senna Plus PO BID PRN Constipation Discontinued Medications Generic Name Dose Route Start Last Admin Trade Name Frebelen PRN Reason Stop Dose Admin Ceftriaxone Sodium 1 gm/ 50 mls @ 100 mls/hr 12/19/17 22:45 12/19/17 23:11 Sodium Chloride IV 12/19/17 23:14 100 mls/hr ONETIME ONE Administration Piperacillin Sod/Tazobactam 50 mls @ 100 mls/hr 12/19/17 23:45 Sod 3.375 gm/ Sodium Chloride IV Q6H MYLES Methylprednisolone Sodium Succinate 40 mg 12/19/17 22:45 12/19/17 23:06 Solu-Medrol IVPUSH 12/19/17 22:46 40 mg ONETIME ONE Administration Naloxone HCl 0.1 mg 12/19/17 23:53 12/20/17 00:03 Narcan IVPUSH 12/19/17 23:54 0.1 mg ONETIME STA Administration - Re-Assessments/Exams Free Text/Narrative Re-Assessment/Exam: 12/19/17 22:48 A mini catheter UA was obtained that showed many bacteria and WBCs. This is despite being on oral Bactrim. A head CT without contrast was obtained, as well as a CBC, CMP, ammonia level and troponin. An IV was started and the patient was given 40 mg of Solu-Medrol IV as well as 1 g of IV Rocephin after blood cultures were obtained. 12/19/17 23:06 White count was 15,000, hemoglobin normal. Potassium normal and sodium 136. Kidney function is less than usual baseline with a creatinine of 2.1 and GFR 22. Patient will be hydrated with 500 mL normal saline an hour. Ammonia level was checked because of her mental status, it was less than 10. Glucose 289. Anion gap 13.9. I discussed her case with and he kindly agreed to come in and evaluate the patient for admission. She'll be admitted for mental status change, dehydration and UTI. CT of her head showed no acute findings. Departure - Departure Time of Disposition: 23:57 Disposition: Admitted As Inpatient 64 Condition: Poor Clinical Impression: Cognitive deficits, Chronic renal insufficiency, stage III (moderate), Dehydration, mild Chronic back pain Qualifiers: Back pain location: low back pain Back pain laterality: bilateral Sciatica presence: without sciatica Qualified Code(s): M54.5 - Low back pain - Discharge Information - My Orders Last 24 Hours: My Active Orders 12/19/17 22:09 Head wo Cont [CT] Stat Blood Culture x2 Reflex Set [OM.PC] Urgent 12/19/17 22:15 CULTURE BLOOD [BC] Urgent 12/19/17 22:25 CULTURE BLOOD [BC] Urgent 12/19/17 22:31 UA W/MICROSCOPIC [URIN] Urgent 12/19/17 22:49 CULTURE URINE [RM] Stat 12/19/17 23:15 Sodium Chloride 0.9% [Normal Saline] 1,000 ml IV ASDIRECTED - Assessment/Plan Last 24 Hours: My Active Orders 12/19/17 22:09 Head wo Cont [CT] Stat Blood Culture x2 Reflex Set [OM.PC] Urgent 12/19/17 22:15 CULTURE BLOOD [BC] Urgent 12/19/17 22:25 CULTURE BLOOD [BC] Urgent 12/19/17 22:31 UA W/MICROSCOPIC [URIN] Urgent 12/19/17 22:49 CULTURE URINE [RM] Stat 12/19/17 23:15 Sodium Chloride 0.9% [Normal Saline] 1,000 ml IV ASDIRECTED
[2017-12-19] MEDS ORDERED: methylPREDNISolone Sodium Succinate 40 MG/1 ML SDV IVPUSH ONE (22:45)
[2017-12-19] MEDS ORDERED: cefTRIAXone 1 GM in Sodium Chloride 0.9% 50 ML IV ONE (22:45)
[2017-12-19] MEDS ORDERED: Sodium Chloride 0.9% 1,000 ML IV SCH (23:15)
[2017-12-19] MEDS ORDERED: Albuterol 0.083% 2.5 MG/3 ML Neb Soln NEB PRN (23:40)
[2017-12-19] MEDS ORDERED: Ondansetron 4 MG/2 ML SDV IV PRN (23:40)
--- NOTE | 2017-12-19 23:40 | PCM.HP ---
H&P History of Present Illness - General Date of Service: 12/19/17 Source of Information: Patient History Limitations: Reports: Altered Mental Status - History of Present Illness Initial Comments - Free Text/Narative: 82-year-old female with past medical history of Persaud syndrome, autoimmune hemolytic anemia, osteoporosis, chronic back pain, thoracic vertebral fracture at T10, T12, chronic lower extremity cellulitis, chronic prednisone use for autoimmunity hemolytic anemia, chronic pain syndrome, moderate diastolic dysfunction with recent echocardiogram on 03/2017 showed ejection fraction of 55 -60% came to the ED with a complaint of altered mental status. Patient is a care home resident. Patient has altered mental status and decreasing alertness since last 2 days which is gradually progressing. Patient has macular papular rash on the anterior surface of the right lower extremity. Patient is oriented to the person and place. Patient has been on fentanyl patch and the oxycodone medication for pain control. Patient denies any chest pain, breathing difficulty, nausea, vomiting, disturbance in bowel or bladder habits. Patient had CT head which did not show any acute findings. Patient lab showed questionable urinary tract infection and received antibiotics in the ED. Patient has been on prednisone 20 mg daily for autoimmune hemolytic anemia since last 1 year. Patient is DNR and DNI. Other review of systems are not significant. Oral/Mouth Pain Score (Numeric/FACES): 0 Right Flank Pain Score (Numeric/FACES): 7 - Related Data Allergies/Adverse Reactions: Allergies Allergy/AdvReac Type Severity Reaction Status Date / Time milk Allergy Unknown Cannot Verified 12/19/17 21:46 Remember gluten Allergy Cannot Verified 12/19/17 21:46 Remember codeine phosphate AdvReac Nausea Verified 12/19/17 21:46 [From Tylenol-Codeine #3] Home Medications: Home Meds Amitriptyline [Elavil] 100 mg PO BEDTIME 02/23/14 [History] Cod Liver Oil 1 cap PO DAILY 07/01/14 [History] Multivitamin [Multivitamins] 1 tab PO DAILY 07/01/14 [History] Vitamin B Complex [B Complex] 1 tab PO DAILY 07/01/14 [History] Folic Acid 1 mg PO DAILY 04/26/15 [History] predniSONE [Prednisone] 20 mg PO DAILY 03/31/16 [History] Acetaminophen [Tylenol Extra Strength] 1,000 mg PO BID 05/21/17 [History] Benzonatate [Tessalon Perle] 100 mg PO TID PRN #20 capsule 05/21/17 [Rx] Omeprazole 20 mg PO DAILY 05/21/17 [History] Calcium Carb & Citrate/Vit D3 [Calcium + D3 ER Tablet] 1 each PO 12/19/17 [ History] Cholecalciferol (Vitamin D3) [Vitamin D3] 1,000 unit PO DAILY 12/19/17 [History] Cyclobenzaprine [Flexeril] 5 mg PO DAILY 12/19/17 [History] Furosemide [Lasix] 40 mg PO BID 12/19/17 [History] Travoprost [Travatan Z 0.004% Ophth Soln] 1 drop OP BEDTIME 12/19/17 [History] fentaNYL [Duragesic] 50 mcg TD Q72H 12/19/17 [History] oxyCODONE HCl [Oxycodone HCl] 5 mg PO Q4HR PRN 12/19/17 [History] Amoxicillin/Clavulanate K [Augmentin 875-125 MG] 1 tab PO BID #4 tablet [Rx] Lactobacillus Acidophilus [Probiotic Acidophilus] 1 each PO BID #30 tablet 12/22 [Rx] Sulfamethoxazole/Trimethoprim [Septra DS] 0.5 tab PO BID #7 tablet 12/22/17 [Rx] Past Medical History - Past Health History Medical/Surgical History: Denies Medical/Surgical History HEENT History: Reports: Cataract, Impaired Vision, Macular Degeneration Cardiovascular History: Reports: Heart Failure, Heart Murmur Respiratory History: Reports: Asthma, Other (See Below) Other Respiratory History: H/o pneumonia, h/o bronchitis Gastrointestinal History: Reports: Cholelithiasis, Diverticulosis, GERD Other Gastrointestinal History: H/o diverticulitis Genitourinary History: Reports: Chronic Renal Insuffiency, UTI, Recurrent IP ATTORNEY History: Reports: Musculoskeletal History: Reports: Arthritis, Back Pain, Chronic, Fracture, Osteoarthritis, Other (See Below) Other Musculoskeletal History: Chronic hip pain 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; T12 vertebral compression fracture; T10 wedge compression fracture; lumbar disc disease with radiculopathy; R sciatica L3-L4 down R LE; h/o falls Neurological History: Reports: Other (See Below) Other Neuro History: cognative deficits Psychiatric History: Reports: Anxiety Endocrine/Metabolic History: Reports: Other (See Below) Other Endocrine/Metabolic History: hypoglycemia, adrenal insufficiency (HCC) Hematologic History: Reports: Anemia Other Hematologic History: hemolytic anemia, 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 Dermatologic History: Reports: Cellulitis Other Dermatologic History: right lower leg ulcer - Infectious Disease History Infectious Disease History: Reports: Chicken Pox, Measles, Mumps - Past Surgical History HEENT Surgical History: Reports: Cataract Surgery GI Surgical History: Reports: Cholecystectomy, Colonoscopy Female Surgical History: Reports: Hysterectomy Musculoskeletal Surgical History: Reports: None, Hip Replacement, Other (See Below) Other Musculoskeletal Surgeries/Procedures:: L CORBIN August 2016; Vertebral kyphoplasty ~11/2016 per patient report Social & Family History - Family History Family Medical History: Noncontributory Cardiac: Reports: Blood Clots/VTE/DVT, Heart Failure, CA, Other (See Below) Other Cardiac Family History: strokes Respiratory: Reports: COPD, Other (See Below) Other Respiratory Family Hisory: emphysema : Reports: Renal Disease/Insufficiency Musculoskeletal: Reports: Arthritis, Osteoporosis, RA Neurological: Reports: CVA, Migraines Psychiatric: Reports: Panic Attack Dermatologic: Reports: Eczema, Psoriasis Oncologic: Reports: Brain - Tobacco Use Smoking Status *Q: Never Smoker - Caffeine Use Caffeine Use: Reports: Coffee Other Caffeine Use: cup per day Caffeine Use Comment: 1 cup per day - Living Situation & Occupation Living situation: Reports: Occupation: Retired H&P Review of Systems - Review of Systems: Review Of Systems: See Below General: Reports: Malaise, Weakness, Fatigue. Denies: Fever, Chills Pulmonary: Denies: Shortness of Breath, Wheezing, Pleuritic Chest Pain Cardiovascular: Denies: Chest Pain, Palpitations, Dyspnea on Exertion, Orthopnea Gastrointestinal: Denies: Abdominal Pain, Anorexia, Black Stool Genitourinary: Denies: Dysuria, Frequency, Burning, Pain Musculoskeletal: Reports: Back Pain. Denies: Neck Pain, Shoulder Pain, Arm Pain Psychiatric: Reports: Confusion. Denies: Depression, Mood Lability, Anxiety, Agitation, Hallucinations Neurological: Reports: Confusion, Difficulty Walking, Weakness, Gait Disturbance. Denies: Dizziness, Headache, Numbness, Paresthesia, Seizure Hematologic/Lymphatic: Denies: Anemia Exam - Exam Exam: See Below - Vital Signs Vital Signs: Last Vital Signs Temp 36.5 C 12/19/17 21:45 Pulse 95 12/19/17 22:52 Resp 20 12/19/17 22:52 BP 122/53 L 12/19/17 22:52 Pulse Ox 96 12/19/17 22:52 Weight: 61 kg - Exam General: Oriented. No: Alert Neck: Supple, Trachea Midline Lungs: Clear to Auscultation, Normal Respiratory Effort Cardiovascular: Regular Rate, Regular Rhythm GI/Abdominal Exam: Normal Bowel Sounds, Soft, Non-Tender, No Organomegaly, No Distention Extremities: Pedal Edema, Leg Pain, Limited Range of Motion, Increased Warmth, Redness - Patient Data Lab Results Last 24 hrs: Laboratory Results - last 24 hr 12/19/17 12/19/17 12/19/17 Range/Units 22:09 22:09 22:29 WBC 15.0 H (4.5-11.0) K/uL RBC 3.98 (3.30-5.50) M/uL Hgb 14.1 (12.0-15.0) g/dL Hct 41.3 (36.0-48.0) % MCV 104 H (80-98) fL MCH 35 H (27-31) pg MCHC 34 (32-36) % Plt Count 196 (150-400) K/uL Neut % (Auto) 93 H (36-66) % Lymph % (Auto) 4 L (24-44) % Parker % (Auto) 2 (2-6) % Eos % (Auto) 1 L (2-4) % Baso % (Auto) 0 (0-1) % Sodium 136 L (140-148) mmol/L Potassium 3.9 (3.6-5.2) mmol/L Chloride 99 L (100-108) mmol/L Carbon Dioxide 27 (21-32) mmol/L Anion Gap 13.9 (5.0-14.0) mmol/L BUN 40 H (7-18) mg/dL Creatinine 2.1 H D (0.6-1.0) mg/dL Est Cr Clr Drug Dosing 14.32 mL/min Estimated GFR (MDRD) 22 L (>60) Glucose 289 H (74-106) mg/dL Calcium 9.9 (8.5-10.1) mg/dL Total Bilirubin 1.4 H D (0.2-1.0) mg/dL AST 45 H (15-37) U/L ALT 59 (12-78) U/L Alkaline Phosphatase 98 (46-116) U/L Ammonia (11-32) mmol/L Troponin I 0.060 H* (0.000-0.056) ng/mL Total Protein 6.0 L (6.4-8.2) g/dL Albumin 2.9 L (3.4-5.0) g/dL Globulin 3.1 (2.3-3.5) g/dL Albumin/Globulin Ratio 0.9 L (1.2-2.2) Urine Color Yellow Urine Appearance Slightly cloudy Urine pH 5.0 (4.5-8.0) Ur Specific [place] 1.015 (1.008-1.030) Urine Protein 30 H (NEGATIVE) mg/dL Urine Glucose (UA) Negative (NEGATIVE) mg/dL Urine Ketones Negative (NEGATIVE) mg/dL Urine Occult Blood Moderate (NEGATIVE) Urine Nitrite Negative (NEGATIVE) Urine Bilirubin Negative (NEGATIVE) Urine Urobilinogen Normal (NORMAL) mg/dL Ur Leukocyte Esterase Moderate (NEGATIVE) Urine RBC 5-10 H (0-5) Urine WBC 10-20 H (0-5) Ur Epithelial Cells Rare Amorphous Sediment Not seen Urine Bacteria Many Urine Mucus Not seen 12/19/17 Range/Units 22:29 WBC (4.5-11.0) K/uL RBC (3.30-5.50) M/uL Hgb (12.0-15.0) g/dL Hct (36.0-48.0) % MCV (80-98) fL MCH (27-31) pg MCHC (32-36) % Plt Count (150-400) K/uL Neut % (Auto) (36-66) % Lymph % (Auto) (24-44) % Parker % (Auto) (2-6) % Eos % (Auto) (2-4) % Baso % (Auto) (0-1) % Sodium (140-148) mmol/L Potassium (3.6-5.2) mmol/L Chloride (100-108) mmol/L Carbon Dioxide (21-32) mmol/L Anion Gap (5.0-14.0) mmol/L BUN (7-18) mg/dL Creatinine (0.6-1.0) mg/dL Est Cr Clr Drug Dosing mL/min Estimated GFR (MDRD) (>60) Glucose (74-106) mg/dL Calcium (8.5-10.1) mg/dL Total Bilirubin (0.2-1.0) mg/dL AST (15-37) U/L ALT (12-78) U/L Alkaline Phosphatase (46-116) U/L Ammonia < 10 L (11-32) mmol/L Troponin I (0.000-0.056) ng/mL Total Protein (6.4-8.2) g/dL Albumin (3.4-5.0) g/dL Globulin (2.3-3.5) g/dL Albumin/Globulin Ratio (1.2-2.2) Urine Color Urine Appearance Urine pH (4.5-8.0) Ur Specific [place] (1.008-1.030) Urine Protein (NEGATIVE) mg/dL Urine Glucose (UA) (NEGATIVE) mg/dL Urine Ketones (NEGATIVE) mg/dL Urine Occult Blood (NEGATIVE) Urine Nitrite (NEGATIVE) Urine Bilirubin (NEGATIVE) Urine Urobilinogen (NORMAL) mg/dL Ur Leukocyte Esterase (NEGATIVE) Urine RBC (0-5) Urine WBC (0-5) Ur Epithelial Cells Amorphous Sediment Urine Bacteria Urine Mucus Result Diagrams: 12/22/17 04:29 12/22/17 04:29 - Problem List (1) Acute cystitis with positive culture SNOMED Code(s): 584612062 ICD Code: N30.00 - ACUTE CYSTITIS WITHOUT HEMATURIA Status: Acute (2) Acute on chronic kidney failure SNOMED Code(s): 390684063 ICD Code: N17.9 - ACUTE KIDNEY FAILURE, UNSPECIFIED; N18.9 - CHRONIC KIDNEY DISEASE, UNSPECIFIED Status: Acute Qualifiers: Acute renal failure type: with acute tubular necrosis Chronic kidney disease stage: stage 3 (moderate) Qualified Code(s): N17.0 - Acute kidney failure with tubular necrosis; N18.3 - Chronic kidney disease, stage 3 (moderate ) (3) Compression fx, thoracic spine SNOMED Code(s): 823514661 ICD Code: S22.000A - WEDGE COMPRESSION FRACTURE OF UNSP THORACIC VERTEBRA, INIT Status: Acute Qualifiers: Encounter type: initial encounter Fracture type: closed Qualified Code(s) : S22.000A - Wedge compression fracture of unspecified thoracic vertebra, initial encounter for closed fracture (4) Dehydration, mild SNOMED Code(s): 5331277920192 ICD Code: E86.0 - DEHYDRATION Status: Acute (5) Sepsis SNOMED Code(s): 81036769 ICD Code: A41.9 - SEPSIS, UNSPECIFIED ORGANISM Status: Acute Qualifiers: Sepsis type: sepsis due to unspecified organism Qualified Code(s): A41.9 - Sepsis, unspecified organism (6) Adrenal insufficiency, primary, iatrogenic ICD Code: E27.49 - OTHER ADRENOCORTICAL INSUFFICIENCY Status: Chronic (7) Autoimmune hemolytic anemia SNOMED Code(s): 092185974 ICD Code: D59.1 - OTHER AUTOIMMUNE HEMOLYTIC ANEMIAS Status: Chronic Problem Details: on chronic prednisone therapy (8) Chronic back pain SNOMED Code(s): 337920215 ICD Code: M54.9 - DORSALGIA, UNSPECIFIED; G89.29 - OTHER CHRONIC PAIN Status: Chronic Priority: Low Qualifiers: Back pain location: low back pain Back pain laterality: bilateral Sciatica presence: without sciatica Qualified Code(s): M54.5 - Low back pain; G89.29 - Other chronic pain (9) Chronic renal insufficiency, stage III (moderate) SNOMED Code(s): 509561861 ICD Code: N18.3 - CHRONIC KIDNEY DISEASE, STAGE 3 (MODERATE) Status: Chronic (10) Degenerative arthritis of hip SNOMED Code(s): 169465426 ICD Code: M16.9 - OSTEOARTHRITIS OF HIP, UNSPECIFIED Status: Chronic Qualifiers: Osteoarthritis type: unspecified Laterality: left Qualified Code(s): M16.12 - Unilateral primary osteoarthritis, left hip (11) Persaud' syndrome SNOMED Code(s): 15190020 ICD Code: D69.41 - PERSAUD SYNDROME Status: Chronic (12) Hip pain, chronic SNOMED Code(s): 79315418 ICD Code: M25.559 - PAIN IN UNSPECIFIED HIP; G89.29 - OTHER CHRONIC PAIN Status: Chronic (13) Mild asthma SNOMED Code(s): 177216424 ICD Code: J45.998 - OTHER ASTHMA Status: Chronic (14) T12 compression fracture SNOMED Code(s): 161469355 ICD Code: S22.080A - WEDGE COMPRESSION FRACTURE OF T11-T12 VERTEBRA, INIT Status: Chronic Priority: Medium (15) Wedge compression fracture of T10 vertebra SNOMED Code(s): 810361208 ICD Code: S22.070A - WEDGE COMPRESSION FRACTURE OF T9-T10 VERTEBRA, INIT Status: Chronic Problem List Initiated/Reviewed/Updated: Yes Orders Last 24hrs: Active Orders 24 hr Category Date Time Status Head wo Cont [CT] Stat Exams 12/19/17 22:09 Taken CULTURE BLOOD [BC] Urgent Lab 12/19/17 22:15 Received CULTURE BLOOD [BC] Urgent Lab 12/19/17 22:25 Received CULTURE URINE [RM] Stat Lab 12/19/17 22:49 Received UA W/MICROSCOPIC [URIN] Urgent Lab 12/19/17 22:31 Ordered Sodium Chloride 0.9% [Normal Saline] 1,000 ml Med 12/19/17 23:15 Active IV ASDIRECTED Blood Culture x2 Reflex Set [OM.PC] Urgent Oth 12/19/17 22:09 Ordered Medication Orders Sodium Chloride (Normal Saline) 1,000 mls @ 500 mls/hr IV ASDIRECTED MYLES Last Admin: 12/19/17 23:09 Dose: 500 mls/hr Assessment/Plan Comment:: 82-year-old female with past medical history of hemolytic anemia, Persaud syndrome , asthma, chronic pain syndrome on opioid pain medications, diastolic dysfunction and on furosemide medication, care home resident, chronic lower extremity swellings came to the ED with the complaining of altered mental status and admitted with diagnosis of questionable opioid overdose along with urinary tract infection. Patient responded well with Narcan medication Seems like opioid overdose along with urinary tract infection Patient has redness in the anterior surface of the right lower extremity seems like cellulitis We'll start Zosyn medication to cover cellulitis and urinary tract infection Patient has been bactrim medication due to chronic prednisone use which was started by heme oncology physicians We will stop Bactrim medication during the hospital stay Patient has chronic back painand previously diagnosed with osteoporosis, will manage out patiently Continue IV fluids Recent echocardiogram showed ejection fraction of 55-60% with diastolic dysfunction We'll continue furosemide medication We'll start with Marphone 2 mg every 2 hourly as needed for pain control we'll hold on fentanyl patches and oxycodone medication IVfluids - normal saline 150 ml/hr CODE STATUS DNR/DNI Diet nothing by mouth now Carlos catheter in place Inpatient status.
[2017-12-19] MEDS ORDERED: Piperacillin/Tazobactam 3.375 GM in Sodium Chloride 0.9% 50 ML IV SCH (23:45)
[2017-12-19] MEDS ORDERED: Naloxone 0.4 MG/ML SDV IVPUSH STA (23:53)
[2017-12-20] MEDS: Heparin Sodium 5,000 Units/ML Vial SUBCUT SCH ×2 (01:00→08:49)
[2017-12-20] MEDS: Piperacillin/Tazobactam 2.25 GM in Sodium Chloride 0.9% 50 ML IV SCH ×4 (01:02→21:19)
[2017-12-20] MEDS: Sodium Chloride 0.9% 1,000 ML IV SCH ×2 (01:48→07:47)
[2017-12-20] MEDS: Morphine 2 MG/ML Syringe IVPUSH PRN ×2 (02:48→08:50)
[2017-12-20] MEDS: Folic Acid 1 MG Tab PO SCH (09:30)
[2017-12-20] MEDS: predniSONE 20 MG Tab PO SCH (09:30)
[2017-12-20] MEDS: Acetaminophen 500 MG Tab PO SCH ×3 (09:34→20:25)
[2017-12-20] MEDS ORDERED: oxyCODONE 5 MG Tab PO PRN (09:52)
[2017-12-20] MEDS ORDERED: oxyCODONE 5 MG Tab PO SCH (10:00)
[2017-12-20] MEDS ORDERED: Magnesium Hydroxide 400 MG/5 ML Susp 30 ML Cup PO PRN (10:19)
--- NOTE | 2017-12-20 10:22 | PCM.PN ---
- General Info Date of Service: 12/20/17 Subjective Update: There were no acute events since admission. Patient is more alert and interactive this morning. Kidney function has improved with hydration. She reports her chronic pain is stable and control is acceptable at this time. She has not had any fevers since admission. She reports that she still feels weak and fatigued. Functional Status: Reports: Pain Controlled - Review of Systems General: Reports: Weakness Neurological: Reports: Confusion - Patient Data Vitals - Most Recent: Last Vital Signs Temp 36.4 C 12/20/17 07:40 Pulse 97 12/20/17 07:40 Resp 18 12/20/17 07:40 BP 144/65 H 12/20/17 07:40 Pulse Ox 95 12/20/17 07:40 Weight - Most Recent: 61 kg I&O - Last 24 Hours: Intake & Output 12/19/17 12/20/17 12/20/17 22:59 06:59 14:59 Intake Total 748 Balance 748 Lab Results Last 24 Hours: Laboratory Results - last 24 hr 12/19/17 12/19/17 12/19/17 Range/Units 22:09 22:09 22:29 WBC 15.0 H (4.5-11.0) K/uL RBC 3.98 (3.30-5.50) M/uL Hgb 14.1 (12.0-15.0) g/dL Hct 41.3 (36.0-48.0) % MCV 104 H (80-98) fL MCH 35 H (27-31) pg MCHC 34 (32-36) % Plt Count 196 (150-400) K/uL Neut % (Auto) 93 H (36-66) % Lymph % (Auto) 4 L (24-44) % Morrow % (Auto) 2 (2-6) % Eos % (Auto) 1 L (2-4) % Baso % (Auto) 0 (0-1) % Sodium 136 L (140-148) mmol/L Potassium 3.9 (3.6-5.2) mmol/L Chloride 99 L (100-108) mmol/L Carbon Dioxide 27 (21-32) mmol/L Anion Gap 13.9 (5.0-14.0) mmol/L BUN 40 H (7-18) mg/dL Creatinine 2.1 H D (0.6-1.0) mg/dL Est Cr Clr Drug Dosing 14.32 mL/min Estimated GFR (MDRD) 22 L (>60) Glucose 289 H (74-106) mg/dL Hemoglobin A1c (4.5-6.2) % Lactic Acid (0.4-2.0) mmol/L Calcium 9.9 (8.5-10.1) mg/dL Total Bilirubin 1.4 H D (0.2-1.0) mg/dL AST 45 H (15-37) U/L ALT 59 (12-78) U/L Alkaline Phosphatase 98 (46-116) U/L Ammonia (11-32) mmol/L Troponin I 0.060 H* (0.000-0.056) ng/mL Total Protein 6.0 L (6.4-8.2) g/dL Albumin 2.9 L (3.4-5.0) g/dL Globulin 3.1 (2.3-3.5) g/dL Albumin/Globulin Ratio 0.9 L (1.2-2.2) Folate (8.6-58.9) ng/ml Urine Color Yellow Urine Appearance Slightly cloudy Urine pH 5.0 (4.5-8.0) Ur Specific Parker 1.015 (1.008-1.030) Urine Protein 30 H (NEGATIVE) mg/dL Urine Glucose (UA) Negative (NEGATIVE) mg/dL Urine Ketones Negative (NEGATIVE) mg/dL Urine Occult Blood Moderate (NEGATIVE) Urine Nitrite Negative (NEGATIVE) Urine Bilirubin Negative (NEGATIVE) Urine Urobilinogen Normal (NORMAL) mg/dL Ur Leukocyte Esterase Moderate (NEGATIVE) Urine RBC 5-10 H (0-5) Urine WBC 10-20 H (0-5) Ur Epithelial Cells Rare Amorphous Sediment Not seen Urine Bacteria Many Urine Mucus Not seen 12/19/17 12/20/17 12/20/17 Range/Units 22:29 01:46 05:26 WBC 14.8 H (4.5-11.0) K/uL RBC 3.51 (3.30-5.50) M/uL Hgb 12.3 (12.0-15.0) g/dL Hct 36.4 (36.0-48.0) % MCV 104 H (80-98) fL MCH 35 H (27-31) pg MCHC 34 (32-36) % Plt Count 179 (150-400) K/uL Neut % (Auto) 96 H (36-66) % Lymph % (Auto) 2 L (24-44) % Morrow % (Auto) 2 (2-6) % Eos % (Auto) 0 L (2-4) % Baso % (Auto) 0 (0-1) % Sodium (140-148) mmol/L Potassium (3.6-5.2) mmol/L Chloride (100-108) mmol/L Carbon Dioxide (21-32) mmol/L Anion Gap (5.0-14.0) mmol/L BUN (7-18) mg/dL Creatinine (0.6-1.0) mg/dL Est Cr Clr Drug Dosing mL/min Estimated GFR (MDRD) (>60) Glucose (74-106) mg/dL Hemoglobin A1c (4.5-6.2) % Lactic Acid (0.4-2.0) mmol/L Calcium (8.5-10.1) mg/dL Total Bilirubin (0.2-1.0) mg/dL AST (15-37) U/L ALT (12-78) U/L Alkaline Phosphatase (46-116) U/L Ammonia < 10 L (11-32) mmol/L Troponin I (0.000-0.056) ng/mL Total Protein (6.4-8.2) g/dL Albumin (3.4-5.0) g/dL Globulin (2.3-3.5) g/dL Albumin/Globulin Ratio (1.2-2.2) Folate 26.4 (8.6-58.9) ng/ml Urine Color Urine Appearance Urine pH (4.5-8.0) Ur Specific Parker (1.008-1.030) Urine Protein (NEGATIVE) mg/dL Urine Glucose (UA) (NEGATIVE) mg/dL Urine Ketones (NEGATIVE) mg/dL Urine Occult Blood (NEGATIVE) Urine Nitrite (NEGATIVE) Urine Bilirubin (NEGATIVE) Urine Urobilinogen (NORMAL) mg/dL Ur Leukocyte Esterase (NEGATIVE) Urine RBC (0-5) Urine WBC (0-5) Ur Epithelial Cells Amorphous Sediment Urine Bacteria Urine Mucus 12/20/17 12/20/17 12/20/17 Range/Units 05:26 05:26 05:26 WBC (4.5-11.0) K/uL RBC (3.30-5.50) M/uL Hgb (12.0-15.0) g/dL Hct (36.0-48.0) % MCV (80-98) fL MCH (27-31) pg MCHC (32-36) % Plt Count (150-400) K/uL Neut % (Auto) (36-66) % Lymph % (Auto) (24-44) % Morrow % (Auto) (2-6) % Eos % (Auto) (2-4) % Baso % (Auto) (0-1) % Sodium 138 L (140-148) mmol/L Potassium 4.5 (3.6-5.2) mmol/L Chloride 103 (100-108) mmol/L Carbon Dioxide 26 (21-32) mmol/L Anion Gap 13.5 (5.0-14.0) mmol/L BUN 33 H (7-18) mg/dL Creatinine 1.5 H (0.6-1.0) mg/dL Est Cr Clr Drug Dosing 20.05 mL/min Estimated GFR (MDRD) 33 L (>60) Glucose 276 H (74-106) mg/dL Hemoglobin A1c 5.3 (4.5-6.2) % Lactic Acid (0.4-2.0) mmol/L Calcium 9.0 (8.5-10.1) mg/dL Total Bilirubin 1.0 (0.2-1.0) mg/dL AST 39 H (15-37) U/L ALT 52 (12-78) U/L Alkaline Phosphatase 86 (46-116) U/L Ammonia (11-32) mmol/L Troponin I 0.039 (0.000-0.056) ng/mL Total Protein 5.4 L (6.4-8.2) g/dL Albumin 2.4 L (3.4-5.0) g/dL Globulin 3.0 (2.3-3.5) g/dL Albumin/Globulin Ratio 0.8 L (1.2-2.2) Folate (8.6-58.9) ng/ml Urine Color Urine Appearance Urine pH (4.5-8.0) Ur Specific Parker (1.008-1.030) Urine Protein (NEGATIVE) mg/dL Urine Glucose (UA) (NEGATIVE) mg/dL Urine Ketones (NEGATIVE) mg/dL Urine Occult Blood (NEGATIVE) Urine Nitrite (NEGATIVE) Urine Bilirubin (NEGATIVE) Urine Urobilinogen (NORMAL) mg/dL Ur Leukocyte Esterase (NEGATIVE) Urine RBC (0-5) Urine WBC (0-5) Ur Epithelial Cells Amorphous Sediment Urine Bacteria Urine Mucus 12/20/17 Range/Units 05:26 WBC (4.5-11.0) K/uL RBC (3.30-5.50) M/uL Hgb (12.0-15.0) g/dL Hct (36.0-48.0) % MCV (80-98) fL MCH (27-31) pg MCHC (32-36) % Plt Count (150-400) K/uL Neut % (Auto) (36-66) % Lymph % (Auto) (24-44) % Morrow % (Auto) (2-6) % Eos % (Auto) (2-4) % Baso % (Auto) (0-1) % Sodium (140-148) mmol/L Potassium (3.6-5.2) mmol/L Chloride (100-108) mmol/L Carbon Dioxide (21-32) mmol/L Anion Gap (5.0-14.0) mmol/L BUN (7-18) mg/dL Creatinine (0.6-1.0) mg/dL Est Cr Clr Drug Dosing mL/min Estimated GFR (MDRD) (>60) Glucose (74-106) mg/dL Hemoglobin A1c (4.5-6.2) % Lactic Acid 2.0 (0.4-2.0) mmol/L Calcium (8.5-10.1) mg/dL Total Bilirubin (0.2-1.0) mg/dL AST (15-37) U/L ALT (12-78) U/L Alkaline Phosphatase (46-116) U/L Ammonia (11-32) mmol/L Troponin I (0.000-0.056) ng/mL Total Protein (6.4-8.2) g/dL Albumin (3.4-5.0) g/dL Globulin (2.3-3.5) g/dL Albumin/Globulin Ratio (1.2-2.2) Folate (8.6-58.9) ng/ml Urine Color Urine Appearance Urine pH (4.5-8.0) Ur Specific Parker (1.008-1.030) Urine Protein (NEGATIVE) mg/dL Urine Glucose (UA) (NEGATIVE) mg/dL Urine Ketones (NEGATIVE) mg/dL Urine Occult Blood (NEGATIVE) Urine Nitrite (NEGATIVE) Urine Bilirubin (NEGATIVE) Urine Urobilinogen (NORMAL) mg/dL Ur Leukocyte Esterase (NEGATIVE) Urine RBC (0-5) Urine WBC (0-5) Ur Epithelial Cells Amorphous Sediment Urine Bacteria Urine Mucus Med Orders - Current: Current Medications Acetaminophen (Tylenol Extra Strength) 1,000 mg PO TID [facility] Last Admin: 12/20/17 09:34 Dose: 1,000 mg Albuterol (Proventil Neb Soln) 2.5 mg NEB Q4H PRN PRN Reason: Shortness Of Breath/wheezing Fentanyl (Duragesic) 50 mcg TRDERM Q72H [facility] Folic Acid (Folic Acid) 1 mg PO DAILY [facility] Last Admin: 12/20/17 09:30 Dose: 1 mg Heparin Sodium (Porcine) (Heparin Sodium) 5,000 units SUBCUT Q8H [facility] Last Admin: 12/20/17 08:49 Dose: 5,000 units Sodium Chloride (Normal Saline) 1,000 mls @ 150 mls/hr IV ASDIRECTED [facility] Last Admin: 12/20/17 07:47 Dose: 150 mls/hr Piperacillin Sod/Tazobactam (Sod 2.25 gm/ Sodium Chloride) 50 mls @ 100 mls/hr IV Q6H [facility] Latanoprost (Xalatan 0.005% Ophth Soln) 0 ml EYELF BEDTIME [facility] Morphine Sulfate (Morphine) 2 mg IVPUSH Q4H PRN PRN Reason: Pain (severe 7-10) Last Admin: 12/20/17 08:50 Dose: 2 mg Ondansetron HCl (Zofran) 4 mg IV Q6H PRN PRN Reason: Nausea/Vomiting Oxycodone HCl (Oxycodone) 5 mg PO Q4H PRN PRN Reason: PAIN Prednisone (Prednisone) 20 mg PO DAILY [facility] Last Admin: 12/20/17 09:30 Dose: 20 mg Senna/Docusate Sodium (Senna Plus) 1 tab PO BID PRN PRN Reason: Constipation Last Admin: 12/20/17 09:30 Dose: 1 tab Discontinued Medications Ceftriaxone Sodium 1 gm/ (Sodium Chloride) 50 mls @ 100 mls/hr IV ONETIME ONE Stop: 12/19/17 23:14 Last Admin: 12/19/17 23:11 Dose: 100 mls/hr Sodium Chloride (Normal Saline) 1,000 mls @ 500 mls/hr IV ASDIRECTED [facility] Last Admin: 12/19/17 23:09 Dose: 500 mls/hr Piperacillin Sod/Tazobactam (Sod 3.375 gm/ Sodium Chloride) 50 mls @ 100 mls/ hr IV Q6H [facility] Last Admin: 12/20/17 06:40 Dose: Not Given Piperacillin Sod/Tazobactam (Sod 2.25 gm/ Sodium Chloride) 50 mls @ 100 mls/hr IV Q8H [facility] Stop: 12/20/17 10:00 Last Admin: 12/20/17 08:51 Dose: 100 mls/hr Methylprednisolone Sodium Succinate (Solu-Medrol) 40 mg IVPUSH ONETIME ONE Stop: 12/19/17 22:46 Last Admin: 12/19/17 23:06 Dose: 40 mg Naloxone HCl (Narcan) 0.1 mg IVPUSH ONETIME STA Stop: 12/19/17 23:54 Last Admin: 12/20/17 00:03 Dose: 0.1 mg - Exam Quality Assessment: No: Supplemental Oxygen General: Alert, Oriented, Cooperative, No Acute Distress Lungs: Normal Respiratory Effort GI/Abdominal Exam: Soft, No Distention Extremities: Pedal Edema Skin: Warm, Dry, Rash (erythema right anterior fontanez) Psy/Mental Status: Alert, Normal Affect - Problem List Review Problem List Initiated/Reviewed/Updated: Yes - My Orders Last 24 Hours: My Active Orders 12/20/17 09:00 Acetaminophen [Tylenol Extra Strength] 1,000 mg PO TID Folic Acid 1 mg PO DAILY predniSONE 20 mg PO DAILY 12/20/17 09:52 oxyCODONE 5 mg PO Q4H PRN 12/20/17 10:19 Magnesium Hydroxide [Milk of Magnesia] 30 ml PO DAILY PRN 12/20/17 10:30 Sodium Chloride 0.9% [Normal Saline] 1,000 ml IV ASDIRECTED fentaNYL [Duragesic] 50 mcg TRDERM Q72H 12/20/17 21:00 Enoxaparin [Lovenox] 30 mg SUBCUT Q24H Latanoprost [Xalatan 0.005% Ophth Soln] 0 ml EYELF BEDTIME 12/21/17 05:00 BASIC METABOLIC PANEL,BMP [CHEM] Timed CBC W/O DIFF,HEMOGRAM [HEME] Timed (1) - Plan Plan:: ASSESSMENT AND PLAN - Acute cystitis with sepsis - patient had tachycardia, confusion and acute kidney injury related to her infection. -Continue Pip/Tazo -Follow-up urine culture -Continue gentle IV fluids Right lower extremity cellulitis - had been on Bactrim as an outpatient. This seems to be slowly improving. -Hold Bactrim -Antibiotics as above Hyperglycemia - patient is steroid-dependent but does not carry a diagnosis of diabetes and she is not currently on any medications. Blood sugar elevated in the mid to upper 200s. -Sliding-scale insulin -A1c in the morning Chronic pain - stable at this time. I suspect some of her hypoactive delirium was related to poor clearance of her chronic medications in the setting of acute kidney injury. She is alert and interactive and it should be safe to restart her usual medications at this time. -Fentanyl patch every 72 hours -As needed oxycodone Diastolic heart failure - well compensated at this time. No evidence for volume overload currently. -Hold diuretics today, anticipate restarting tomorrow -Continue medical management Maintenance issues - - DVT prophylaxis - enoxaparin - GI prophylaxis - PPI - Nutrition - regular Disposition - I would anticipate discharge back to the intermediate after the hospital stay Jeff Noble M.D.
[2017-12-20] MEDS ORDERED: fentaNYL 50 MCG/HR Transdermal Patch TRDERM SCH (10:30)
[2017-12-20] MEDS ORDERED: Sodium Chloride 0.9% 1,000 ML IV SCH (10:30)
[2017-12-20] MEDS: Insulin Lispro 100 Unit/ML 3 ML KwikPen SUBCUT SCH ×3 (12:44→21:20)
[2017-12-20] MEDS: Enoxaparin 30 MG/0.3 ML Syringe SUBCUT SCH (20:26)
[2017-12-20] MEDS: Latanoprost 0.005% Ophth Soln 2.5 ML Bottle EYELF SCH (20:26)
[2017-12-20] MEDS ORDERED: Non-Formulary Medication 1 Each (Travoprost [Travatan Z 0.004% Ophth Soln] 1 DROP) OP SCH (21:00)
[2017-12-21] MEDS: Piperacillin/Tazobactam 2.25 GM in Sodium Chloride 0.9% 50 ML IV SCH ×4 (03:27→21:02)
[2017-12-21] MEDS: Pantoprazole 40 MG Tab.CR PO SCH (07:30)
[2017-12-21] MEDS: Insulin Lispro 100 Unit/ML 3 ML KwikPen SUBCUT SCH ×4 (08:00→20:45)
[2017-12-21] MEDS: Folic Acid 1 MG Tab PO SCH (08:24)
[2017-12-21] MEDS: predniSONE 20 MG Tab PO SCH (08:24)
[2017-12-21] MEDS: Acetaminophen 500 MG Tab PO SCH ×3 (08:24→20:16)
--- NOTE | 2017-12-21 10:11 | PCM.PN ---
- General Info Date of Service: 12/21/17 Subjective Update: There were no acute events overnight. A she reports that she feels better today with improved strength and energy. Her pain is well-controlled. She did not have any fevers. Kidney function is now back to baseline. Her urine culture is growing a gram-positive cocci. Right lower extremity pain seems a little more intense today and feels a little bit more warm on examination. Blood sugars have come down nicely with supplemental insulin. Functional Status: Reports: Pain Controlled, Tolerating Diet - Review of Systems General: Denies: Fever Psychiatric: Denies: Confusion - Patient Data Vitals - Most Recent: Last Vital Signs Temp 35.9 C 12/21/17 07:23 Pulse 94 12/21/17 07:23 Resp 16 12/21/17 07:23 BP 117/62 12/21/17 07:23 Pulse Ox 94 L 12/21/17 07:23 Weight - Most Recent: 61 kg I&O - Last 24 Hours: Intake & Output 12/20/17 12/21/17 12/21/17 22:59 06:59 14:59 Intake Total 1490 550 Output Total 300 Balance 1490 250 Lab Results Last 24 Hours: Laboratory Results - last 24 hr 12/21/17 12/21/17 Range/Units 04:59 04:59 WBC 13.2 H (4.5-11.0) K/uL RBC 2.92 L (3.30-5.50) M/uL Hgb 10.2 L D (12.0-15.0) g/dL Hct 30.6 L (36.0-48.0) % MCV 105 H (80-98) fL MCH 35 H (27-31) pg MCHC 33 (32-36) % Plt Count 176 (150-400) K/uL Sodium 141 (140-148) mmol/L Potassium 4.2 (3.6-5.2) mmol/L Chloride 107 (100-108) mmol/L Carbon Dioxide 26 (21-32) mmol/L Anion Gap 8.1 (5.0-14.0) mmol/L BUN 28 H (7-18) mg/dL Creatinine 1.2 H (0.6-1.0) mg/dL Est Cr Clr Drug Dosing 25.07 mL/min Estimated GFR (MDRD) 43 L (>60) Glucose 134 H (74-106) mg/dL Calcium 8.5 (8.5-10.1) mg/dL Sharath Results Last 24 Hours: Microbiology 12/19/17 22:49 Urine Culture - Preliminary Urine, Quick Cath (In-Out) 12/19/17 22:25 Aerobic Blood Culture - Preliminary Blood - Arm, Left NO GROWTH AFTER 1 DAY Anaerobic Blood Culture - Preliminary NO GROWTH AFTER 1 DAY 12/19/17 22:15 Aerobic Blood Culture - Preliminary Blood - Arm, Left NO GROWTH AFTER 1 DAY Anaerobic Blood Culture - Preliminary NO GROWTH AFTER 1 DAY Med Orders - Current: Current Medications Acetaminophen (Tylenol Extra Strength) 1,000 mg PO TID [facility] Last Admin: 12/21/17 08:24 Dose: 1,000 mg Albuterol (Proventil Neb Soln) 2.5 mg NEB Q4H PRN PRN Reason: Shortness Of Breath/wheezing Enoxaparin Sodium (Lovenox) 30 mg SUBCUT Q24H [facility] Last Admin: 12/20/17 20:26 Dose: 30 mg Fentanyl (Duragesic) 50 mcg TRDERM Q72H [facility] Last Admin: 12/20/17 10:26 Dose: 50 mcg Folic Acid (Folic Acid) 1 mg PO DAILY [facility] Last Admin: 12/21/17 08:24 Dose: 1 mg Piperacillin Sod/Tazobactam (Sod 2.25 gm/ Sodium Chloride) 50 mls @ 100 mls/hr IV Q6H [facility] Last Admin: 12/21/17 03:27 Dose: 100 mls/hr Insulin Human Lispro (Humalog) 0 unit SUBCUT QIDACANDBED [facility]; Protocol Last Admin: 12/21/17 08:00 Dose: Not Given Latanoprost (Xalatan 0.005% Ophth Soln) 0 ml EYELF BEDTIME [facility] Last Admin: 12/20/17 20:26 Dose: 1 drop Magnesium Hydroxide (Milk Of Magnesia) 30 ml PO DAILY PRN PRN Reason: Constipation Morphine Sulfate (Morphine) 2 mg IVPUSH Q4H PRN PRN Reason: Pain (severe 7-10) Last Admin: 12/20/17 08:50 Dose: 2 mg Verify Fentanyl (Patch) 0 each TOP BID [facility] Ondansetron HCl (Zofran) 4 mg IV Q6H PRN PRN Reason: Nausea/Vomiting Oxycodone HCl (Oxycodone) 5 mg PO Q4H PRN PRN Reason: PAIN Pantoprazole Sodium (Protonix) 40 mg PO ACBREAKFAST [facility] Last Admin: 12/21/17 07:30 Dose: 40 mg Prednisone (Prednisone) 20 mg PO DAILY [facility] Last Admin: 12/21/17 08:24 Dose: 20 mg Senna/Docusate Sodium (Senna Plus) 1 tab PO BID PRN PRN Reason: Constipation Last Admin: 12/20/17 09:30 Dose: 1 tab Discontinued Medications Heparin Sodium (Porcine) (Heparin Sodium) 5,000 units SUBCUT Q8H [facility] Last Admin: 12/20/17 08:49 Dose: 5,000 units Ceftriaxone Sodium 1 gm/ (Sodium Chloride) 50 mls @ 100 mls/hr IV ONETIME ONE Stop: 12/19/17 23:14 Last Admin: 12/19/17 23:11 Dose: 100 mls/hr Sodium Chloride (Normal Saline) 1,000 [facility]ls [facility] Admin: 12/19/17 23:09 Dose: 500 mls/hr Piperacillin Sod/Tazobactam (Sod 3.375 gm/ Sodium Chloride) 50 mls @ 100 mls/ hr IV Q6H [facility] Last Admin: 12/20/17 06:40 Dose: Not Given Sodium Chloride (Normal Saline) 1,000 mls @ 150 mls/hr IV ASDIRECTED [facility] Last Admin: 12/20/17 07:47 Dose: 150 mls/hr Piperacillin Sod/Tazobactam (Sod 2.25 gm/ Sodium Chloride) 50 mls @ 100 mls/hr IV Q8H [facility] Stop: 12/20/17 10:00 Last Admin: 12/20/17 08:51 Dose: 100 mls/hr Sodium Chloride (Normal Saline) 1,000 mls @ 50 mls/hr IV ASDIRECTED [facility] Methylprednisolone Sodium Succinate (Solu-Medrol) 40 mg IVPUSH ONETIME ONE Stop: 12/19/17 22:46 Last Admin: 12/19/17 23:06 Dose: 40 mg Naloxone HCl (Narcan) 0.1 mg IVPUSH ONETIME STA Stop: 12/19/17 23:54 Last Admin: 12/20/17 00:03 Dose: 0.1 mg - Exam Quality Assessment: No: Supplemental Oxygen General: Alert, Oriented, Cooperative, No Acute Distress Lungs: Normal Respiratory Effort GI/Abdominal Exam: Soft, No Distention Extremities: Pedal Edema, Increased Warmth (right anterior fontanez) Psy/Mental Status: Alert, Normal Affect - Problem List Review Problem List Initiated/Reviewed/Updated: Yes - My Orders Last 24 Hours: My Active Orders 12/20/17 09:52 oxyCODONE 5 mg PO Q4H PRN 12/20/17 10:19 Magnesium Hydroxide [Milk of Magnesia] 30 ml PO DAILY PRN 12/20/17 10:30 fentaNYL [Duragesic] 50 mcg TRDERM Q72H 12/20/17 10:32 Communication Order [RC] PRN Communication Order [RC] PRN Diabetes Education [RC] Click to Edit Notify Provider [RC] PRN 12/20/17 11:00 Insulin Lispro [HumaLOG] See Protocol SUBCUT QIDACANDBED 12/20/17 21:00 Enoxaparin [Lovenox] 30 mg SUBCUT Q24H Latanoprost [Xalatan 0.005% Ophth Soln] 0 ml EYELF BEDTIME 12/20/17 Lunch Regular Diet [DIET] 12/21/17 07:30 Pantoprazole [ProTONIX] 40 mg PO ACBREAKFAST 12/21/17 10:00 Non-Formulary Medication [NF Drug] 0 each TOP BID 12/21/17 10:10 Convert IV to Saline Lock [OM.PC] Routine 12/21/17 10:15 fentaNYL [Duragesic] 25 mcg TRDERM Q72H 12/21/17 11:30 GLUCOSE POC LAB TO COLLECT [POC] QIDACANDBED 12/21/17 16:30 GLUCOSE POC LAB TO COLLECT [POC] QIDACANDBED 12/21/17 21:00 GLUCOSE POC LAB TO COLLECT [POC] QIDACANDBED 12/22/17 05:00 BASIC METABOLIC PANEL,BMP [CHEM] Timed CBC W/O DIFF,HEMOGRAM [HEME] Timed (1) 12/22/17 07:30 GLUCOSE POC LAB TO COLLECT [POC] QIDACANDBED 12/22/17 11:30 GLUCOSE POC LAB TO COLLECT [POC] QIDACANDBED 12/22/17 16:30 GLUCOSE POC LAB TO COLLECT [POC] QIDACANDBED 12/22/17 21:00 GLUCOSE POC LAB TO COLLECT [POC] QIDACANDBED 12/23/17 07:30 GLUCOSE POC LAB TO COLLECT [POC] QIDACANDBED 12/23/17 11:30 GLUCOSE POC LAB TO COLLECT [POC] QIDACANDBED 12/23/17 16:30 GLUCOSE POC LAB TO COLLECT [POC] QIDACANDBED 12/23/17 21:00 GLUCOSE POC LAB TO COLLECT [POC] QIDACANDBED 12/24/17 07:30 GLUCOSE POC LAB TO COLLECT [POC] QIDACANDBED 12/24/17 11:30 GLUCOSE POC LAB TO COLLECT [POC] QIDACANDBED - Plan Plan:: ASSESSMENT AND PLAN - Acute cystitis with sepsis - sepsis has resolved and clinically she is doing well. Urine culture growing a gram-positive cocci with identification pending. -Continue Pip/Tazo -Follow-up urine culture -Saline lock IV Right lower extremity cellulitis - had been on Bactrim as an outpatient. This seems a little bit worse today so the sulfa antibiotic will be restarted at a renally appropriate dose. -Restart Bactrim with one half tab twice daily Hyperglycemia - patient is steroid-dependent but does not carry a diagnosis of diabetes and she is not currently on any medications. Blood sugar was elevated and I believe this was a combination of acute infection with steroid-induced hyperglycemia. Level is trending down nicely. -Sliding-scale insulin Chronic pain - stable at this time. I suspect some of her hypoactive delirium was related to poor clearance of her chronic medications in the setting of acute kidney injury. She has tolerated restarting her narcotics quite well. -Fentanyl patch every 72 hours -As needed oxycodone Diastolic heart failure - well compensated at this time. No evidence for volume overload currently. -Restart diuretics this afternoon -Continue medical management Maintenance issues - - DVT prophylaxis - enoxaparin - GI prophylaxis - PPI - Nutrition - regular Disposition - I would anticipate discharge back to the skilled nursing after the hospital stay, likely tomorrow if stable overnight Jeff Noble M.D.
[2017-12-21] MEDS ORDERED: fentaNYL 25 MCG/HR Transdermal Patch TRDERM SCH (10:15)
[2017-12-21] MEDS: VERIFY FENTANYL PATCH TOP SCH ×2 (10:32→20:16)
[2017-12-21] MEDS: Sulfamethoxazole/Trimethoprim 800-160 MG Tab PO SCH ×2 (11:12→21:00)
[2017-12-21] MEDS: Furosemide 40 MG Tab PO SCH (13:20)
[2017-12-21] MEDS: Enoxaparin 30 MG/0.3 ML Syringe SUBCUT SCH (20:15)
[2017-12-21] MEDS: Latanoprost 0.005% Ophth Soln 2.5 ML Bottle EYELF SCH (20:16)
[2017-12-22] MEDS: Piperacillin/Tazobactam 2.25 GM in Sodium Chloride 0.9% 50 ML IV SCH (03:58)
[2017-12-22 07:34] VITALS: BP 146/71
--- NOTE | 2017-12-22 08:43 | CR ---
CHEST: Portable CLINICAL HISTORY:Altered mental status COMPARISON:05/19/2017 FINDINGS: Heart size and pulmonary vascularity are normal. There are atherosclerotic changes in the aorta.. There are some streaky density in both perihilar regions left greater than right. There is so me left lung volume loss and compared to prior study. This is likely due to scarring. There is diffus e interstitial prominence which is felt to be chronic. There are fractures of the right the fourth th rough seventh ribs Impression: Fractures of the right fourth through seventh ribs of unknown chronology. These may be ac [place] or subacute Mild volume loss in the left lung with some perihilar atelectasis Underlying COPD and patchy fibrosis
[2017-12-22] MEDS: Insulin Lispro 100 Unit/ML 3 ML KwikPen SUBCUT SCH (09:14)
[2017-12-22] MEDS: Acetaminophen 500 MG Tab PO SCH (09:15)
[2017-12-22] MEDS: Folic Acid 1 MG Tab PO SCH (09:16)
[2017-12-22] MEDS: Furosemide 40 MG Tab PO SCH (09:16)
[2017-12-22] MEDS: predniSONE 20 MG Tab PO SCH (09:16)
[2017-12-22] MEDS: Pantoprazole 40 MG Tab.CR PO SCH (09:16)
[2017-12-22] MEDS: Sulfamethoxazole/Trimethoprim 800-160 MG Tab PO SCH (09:16)
[2017-12-22] MEDS: VERIFY FENTANYL PATCH TOP SCH (09:17)
[2017-12-22] MEDS ORDERED: Amoxicillin/Clavulanate K 875-125 MG Tab PO SCH (10:00)
--- NOTE | 2017-12-22 11:04 | PCM.DCSUM1 ---
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 She was admitted for management of acute cystitis complicated by sepsis syndrome and acute kidney injury. Diagnosis: Stroke: No - Discharge Data Discharge Date: 12/22/17 Discharge Disposition: DC/Tfer to SNF 03 Condition: Good - Discharge Diagnosis/Problem(s) (1) Acute cystitis with positive culture SNOMED Code(s): 933369070 ICD Code: N30.00 - ACUTE CYSTITIS WITHOUT HEMATURIA Status: Acute Current Visit: Yes (2) Sepsis SNOMED Code(s): 49349581 ICD Code: A41.9 - SEPSIS, UNSPECIFIED ORGANISM Status: Acute Current Visit: Yes Qualifiers: Sepsis type: sepsis due to unspecified organism Qualified Code(s): A41.9 - Sepsis, unspecified organism (3) Acute on chronic kidney failure SNOMED Code(s): 452048252 ICD Code: N17.9 - ACUTE KIDNEY FAILURE, UNSPECIFIED; N18.9 - CHRONIC KIDNEY DISEASE, UNSPECIFIED Status: Acute Current Visit: Yes Qualifiers: Acute renal failure type: with acute tubular necrosis Chronic kidney disease stage: stage 3 (moderate) Qualified Code(s): N17.0 - Acute kidney failure with tubular necrosis; N18.3 - Chronic kidney disease, stage 3 (moderate ) (4) Degenerative arthritis of hip SNOMED Code(s): 327472680 ICD Code: M16.9 - OSTEOARTHRITIS OF HIP, UNSPECIFIED Status: Chronic Current Visit: No Qualifiers: Osteoarthritis type: unspecified Laterality: left Qualified Code(s): M16.12 - Unilateral primary osteoarthritis, left hip (5) Persaud' syndrome SNOMED Code(s): 13558231 ICD Code: D69.41 - PERSAUD SYNDROME Status: Chronic Current Visit: No - Patient Summary/Data Consults: Consultations 12/19/17 23:40 OT Evaluation and Treatment [CONS] Routine Please Evaluate and Treat. OT Reason for Consult: Strengthening This query below is only for informational purposes and is not editable. PT Evaluation and Treatment [CONS] Routine Please Evaluate and Treat. PT Reason for Consult: Strengthening This query below is only for informational purposes and is not editable. Hospital Course: Ally presented to the emergency room from a local shelter with weakness and confusion. Workup in the emergency room was suggestive of urinary tract infection complicated by sepsis and acute kidney injury. Initially there was some concern for to many narcotics but she did not improve significantly with Narcan or removing her fentanyl patches. She was started on broad-spectrum antibiotics and provided IV fluids. Overnight following admission she did have some improvement in her mental status but remained weak and mildly confused. Her kidney function did make significant improvement overnight with hydration. Evidence for sepsis resolved fairly quickly with the IV fluids. Throughout the second day and night of hospitalization she made further improvements. Her mental status has returned to baseline. Kidney function has returned to baseline. She did have some hyperglycemia at presentation but this has normalized with supplemental insulin replacement. I suspect the hyperglycemia was a result of acute infection. It is noted that she is on chronic prednisone therapy but normally does not require insulin or antihyperglycemic medication. her urine culture did eventually grow Enterococcus faecalis. She was transitioned to Augmentin at this point given that it was penicillin sensitive. It was noted that she was on Bactrim for her right lower extremity cellulitis and this was continued. I did decrease the dose of the Bactrim to one half tab daily because of her renal function. At this time she is safe for outpatient management. She will be discharged back to the shelter for additional therapies. She will need for additional doses of Augmentin to complete treatment for her urinary tract infection. she is back on her usual pain medications with the fentanyl patch and oxycodone and is tolerating them well. - Patient Instructions Diet: Usual Diet as Tolerated (gluten and lactose free) Activity: As Tolerated Showering/Bathing: May Shower Notify Provider of: Fever, Increased Pain, Nausea and/or Vomiting Other/Special Instructions: 1. You were in the hospital for management of a bladder infection complicated by sepsis and acute on chronic kidney injury. Your condition has been improving with IV fluids and antibiotic therapy. Because your urine culture grew out enterococcus, I recommend four additional doses of Augmentin. You should take this medication twice daily with food for 4 more doses. 2. Decrease your Bactrim dose to one half tab twice daily for 1 more week to manage the cellulitis. 3. Code status - DNR/DNI. 4. Diet - regular diet with gluten-free and lactose-free. 5. Continue previous therapy orders for physical and occupational therapy. 6. Seek medical attention if you have fever greater than 101, severe shortness of breath or persistent vomiting or diarrhea. - Discharge Plan *PRESCRIPTION DRUG MONITORING PROGRAM REVIEWED*: Not Applicable *COPY OF PRESCRIPTION DRUG MONITORING REPORT IN PATIENT EMILIANA: Not Applicable Prescriptions/Med Rec: Amoxicillin/Clavulanate K [Augmentin 875-125 MG] 1 tab PO BID #4 tablet Lactobacillus Acidophilus [Probiotic Acidophilus] 1 each PO BID #30 tablet Sulfamethoxazole/Trimethoprim [Septra DS] 0.5 tab PO BID #7 tablet Home Medications: Home Meds Amitriptyline [Elavil] 100 mg PO BEDTIME 02/23/14 [History] Cod Liver Oil 1 cap PO DAILY 07/01/14 [History] Multivitamin [Multivitamins] 1 tab PO DAILY 07/01/14 [History] Vitamin B Complex [B Complex] 1 tab PO DAILY 07/01/14 [History] Folic Acid 1 mg PO DAILY 04/26/15 [History] predniSONE [Prednisone] 20 mg PO DAILY 03/31/16 [History] Acetaminophen [Tylenol Extra Strength] 1,000 mg PO BID 05/21/17 [History] Benzonatate [Tessalon Perle] 100 mg PO TID PRN #20 capsule 05/21/17 [Rx] Omeprazole 20 mg PO DAILY 05/21/17 [History] Calcium Carb & Citrate/Vit D3 [Calcium + D3 ER Tablet] 1 each PO 12/19/17 [ History] Cholecalciferol (Vitamin D3) [Vitamin D3] 1,000 unit PO DAILY 12/19/17 [History] Cyclobenzaprine [Flexeril] 5 mg PO DAILY 12/19/17 [History] Furosemide [Lasix] 40 mg PO BID 12/19/17 [History] Travoprost [Travatan Z 0.004% Ophth Soln] 1 drop OP BEDTIME 12/19/17 [History] fentaNYL [Duragesic] 50 mcg TD Q72H 12/19/17 [History] oxyCODONE HCl [Oxycodone HCl] 5 mg PO Q4HR PRN 12/19/17 [History] Amoxicillin/Clavulanate K [Augmentin 875-125 MG] 1 tab PO BID #4 tablet [Rx] Lactobacillus Acidophilus [Probiotic Acidophilus] 1 each PO BID #30 tablet 12/22 [Rx] Sulfamethoxazole/Trimethoprim [Septra DS] 0.5 tab PO BID #7 tablet 12/22/17 [Rx] Patient Handouts: Amoxicillin; Clavulanic Acid tablets, Urinary Tract Infection , Adult Referrals: Charbel Machuca MD [Primary Care Provider] - (1-2 weeks - f/u hospital stay for UTI with sepsis) - Discharge Summary/Plan Comment DC Time >30 min.: Yes (45 - complicated [facility] discharge) - Patient Data Vitals - Most Recent: Last Vital Signs Temp 36.2 C 12/22/17 07:32 Pulse 90 12/22/17 07:32 Resp 12 12/22/17 07:32 BP 146/71 H 12/22/17 07:32 Pulse Ox 97 12/22/17 07:32 Weight - Most Recent: 61 kg I&O - Last 24 hours: Intake & Output 12/21/17 12/22/17 12/22/17 22:59 06:59 14:59 Intake Total 1334 Output Total 300 Balance 1334 -300 Lab Results - Last 24 hrs: Laboratory Results - last 24 hr 12/22/17 12/22/17 Range/Units 04:29 04:29 WBC 10.0 (4.5-11.0) K/uL RBC 3.15 L (3.30-5.50) M/uL Hgb 10.9 L (12.0-15.0) g/dL Hct 32.7 L (36.0-48.0) % MCV 104 H (80-98) fL MCH 35 H (27-31) pg MCHC 33 (32-36) % Plt Count 200 (150-400) K/uL Sodium 139 L (140-148) mmol/L Potassium 4.0 (3.6-5.2) mmol/L Chloride 105 (100-108) mmol/L Carbon Dioxide 27 (21-32) mmol/L Anion Gap 11.0 (5.0-14.0) mmol/L BUN 17 (7-18) mg/dL Creatinine 1.0 (0.6-1.0) mg/dL Est Cr Clr Drug Dosing 30.08 mL/min Estimated GFR (MDRD) 53 L (>60) Glucose 124 H (74-106) mg/dL Calcium 8.3 L (8.5-10.1) mg/dL MAYA Results - Last 24 hrs: Microbiology 12/19/17 22:49 Urine Culture - Final Urine, Quick Cath (In-Out) Enterococcus Faecalis 12/19/17 22:25 Aerobic Blood Culture - Preliminary Blood - Arm, Left NO GROWTH AFTER 2 DAYS Anaerobic Blood Culture - Preliminary NO GROWTH AFTER 2 DAYS 12/19/17 22:15 Aerobic Blood Culture - Preliminary Blood - Arm, Left NO GROWTH AFTER 2 DAYS Anaerobic Blood Culture - Preliminary NO GROWTH AFTER 2 DAYS Med Orders - Current: Current Medications Acetaminophen (Tylenol Extra Strength) 1,000 mg PO TID [facility] Last Admin: 12/22/17 09:15 Dose: 1,000 mg Albuterol (Proventil Neb Soln) 2.5 mg NEB Q4H PRN PRN Reason: Shortness Of Breath/wheezing Amoxicillin/Clavulanate Potassium (Augmentin 875 Mg/125 Mg) 1 tab PO BID [facility] Last Admin: 12/22/17 09:24 Dose: 1 tab Enoxaparin Sodium (Lovenox) 30 mg SUBCUT Q24H [facility] Last Admin: 12/21/17 20:15 Dose: 30 mg Fentanyl (Duragesic) 50 mcg TRDERM Q72H [facility] Stop: 12/23/17 07:00 Last Admin: 12/20/17 10:26 Dose: 50 mcg Fentanyl (Duragesic) 25 mcg TRDERM Q72H [facility] Stop: 12/23/17 07:00 Last Admin: 12/21/17 10:40 Dose: 25 mcg Fentanyl (Duragesic) 75 mcg TRDERM Q72H [facility] Folic Acid (Folic Acid) 1 mg PO DAILY [facility] Last Admin: 12/22/17 09:16 Dose: 1 mg Furosemide (Lasix) 40 mg PO BIDDIURETIC [facility] Last Admin: 12/22/17 09:16 Dose: 40 mg Insulin Human Lispro (Humalog) 0 unit SUBCUT QIDACANDBED [facility]; Protocol Last Admin: 12/22/17 09:14 Dose: Not Given Latanoprost (Xalatan 0.005% Ophth Soln) 0 ml EYELF BEDTIME [facility] Last Admin: 12/21/17 20:16 Dose: 1 drop Magnesium Hydroxide (Milk Of Magnesia) 30 ml PO DAILY PRN PRN Reason: Constipation Morphine Sulfate (Morphine) 2 mg IVPUSH Q4H PRN PRN Reason: Pain (severe 7-10) Last Admin: 12/20/17 08:50 Dose: 2 mg Verify Fentanyl (Patch) 0 each TOP BID [facility] Last Admin: 12/22/17 09:17 Dose: 1 each Ondansetron HCl (Zofran) 4 mg IV Q6H PRN PRN Reason: Nausea/Vomiting Oxycodone HCl (Oxycodone) 5 mg PO Q4H PRN PRN Reason: PAIN Last Admin: 12/21/17 21:51 Dose: 5 mg Pantoprazole Sodium (Protonix) 40 mg PO ACBREAKFAST [facility] Last Admin: 12/22/17 09:16 Dose: 40 mg Prednisone (Prednisone) 20 mg PO DAILY [facility] Last Admin: 12/22/17 09:16 Dose: 20 mg Senna/Docusate Sodium (Senna Plus) 1 tab PO BID PRN PRN Reason: Constipation Last Admin: 12/20/17 09:30 Dose: 1 tab Trimethoprim/Sulfamethoxazole (Septra Ds) 0.5 tab PO BID [facility] Last Admin: 12/22/17 09:16 Dose: 0.5 tab Discontinued Medications Heparin Sodium (Porcine) (Heparin Sodium) 5,000 units SUBCUT Q8H [facility] Last Admin: 12/20/17 08:49 Dose: 5,000 units Ceftriaxone Sodium 1 gm/ (Sodium Chloride) 50 mls @ 100 mls/hr IV ONETIME ONE Stop: 12/19/17 23:14 Last Admin: 12/19/17 23:11 Dose: 100 mls/hr Sodium Chloride (Normal Saline) 1,000 mls @ 500 mls/hr IV ASDIRECTED [facility] Last Admin: 12/19/17 23:09 Dose: 500 mls/hr Piperacillin Sod/Tazobactam (Sod 3.375 gm/ Sodium Chloride) 50 mls @ 100 mls/ hr IV Q6H [facility] Last Admin: 12/20/17 06:40 Dose: Not Given Sodium Chloride (Normal Saline) 1,000 mls @ 150 mls/hr IV ASDIRECTED [facility] Last Admin: 12/20/17 07:47 Dose: 150 mls/hr Piperacillin Sod/Tazobactam (Sod 2.25 gm/ Sodium Chloride) 50 mls @ 100 mls/hr IV Q8H [facility] Stop: 12/20/17 10:00 Last Admin: 12/20/17 08:51 Dose: 100 mls/hr Piperacillin Sod/Tazobactam (Sod 2.25 gm/ Sodium Chloride) 50 mls @ 100 mls/hr IV Q6H [facility] Last Admin: 12/22/17 03:58 Dose: 100 mls/hr Sodium Chloride (Normal Saline) 1,000 mls @ 50 mls/hr IV ASDIRECTED [facility] Methylprednisolone Sodium Succinate (Solu-Medrol) 40 mg IVPUSH ONETIME ONE Stop: 12/19/17 22:46 Last Admin: 12/19/17 23:06 Dose: 40 mg Naloxone HCl (Narcan) 0.1 mg IVPUSH ONETIME STA Stop: 12/19/17 23:54 Last Admin: 12/20/17 00:03 Dose: 0.1 mg - Exam Quality Assessment: Denies: Supplemental Oxygen General: Reports: Alert, Oriented, Cooperative, No Acute Distress Lungs: Reports: Normal Respiratory Effort Cardiovascular: Reports: Regular Rate, Regular Rhythm GI/Abdominal Exam: Soft, No Distention Psy/Mental Status: Reports: Alert, Normal Affect
[2017-12-23] MEDS ORDERED: fentaNYL 75 MCG/HR Transdermal Patch TRDERM SCH (09:00)
== END 2017-12-22 12:30 | DRG 871 ==
LOC: JP.ED 21:33 → JP.MS 23:40
PROVIDERS: ADMIT Family Medicine; ATTEND Internal Medicine
DX: N39.0 Urinary tract infection, site not specified (principal); E86.0 Dehydration; A41.9 Sepsis, unspecified organism; N17.0 Acute kidney failure with tubular necrosis; L03.119 Cellulitis of unspecified part of limb; N30.00 Acute cystitis without hematuria; D69.41 Evans syndrome; L03.115 Cellulitis of right lower limb; D58.9 Hereditary hemolytic anemia, unspecified; K21.9 Gastro-esophageal reflux disease without esophagitis; F41.9 Anxiety disorder, unspecified; R41.89 Other symptoms and signs involving cognitive functions and awareness; M80.88XA Other osteoporosis with current pathological fracture, vertebra(e), initial encounter for fracture; I50.32 Chronic diastolic (congestive) heart failure; Z96.642 Presence of left artificial hip joint; B95.2 Enterococcus as the cause of diseases classified elsewhere; M16.12 Unilateral primary osteoarthritis, left hip; G30.9 Alzheimer's disease, unspecified; F02.80 Dementia in other diseases classified elsewhere, unspecified severity, without behavioral disturbance, psychotic disturbance, mood disturbance, and anxiety; Z66 Do not resuscitate; G89.29 Other chronic pain; M54.5 Low back pain; J45.909 Unspecified asthma, uncomplicated; R73.9 Hyperglycemia, unspecified; N18.3 Chronic kidney disease, stage 3 (moderate); H35.30 Unspecified macular degeneration; Z79.52 Long term (current) use of systemic steroids; Z79.899 Other long term (current) drug therapy; Z88.8 Allergy status to other drugs, medicaments and biological substances; Z91.011 Allergy to milk products
CPT/HCPCS: 36415; 70450; 80053; 81001; 82140; 84484; 85025; 87040 ×2; 87086; 87088; 87186; 96365; 96375; 99284; 99285; J0696; J2920; J7030; J7050; 71045; 71045-26; 80048; 82746; 82962; 83036; 83605; 85027; 97162-GP; 97530-GP; A9270-GY; J1644; J1650; J1815; J2270; J2310; J2543

== ENCOUNTER 2018-08-05 11:08 | Inpatient (IN) | payer MEDICARE, MEDICAID ==
[2018-08-05] MEDS ORDERED: Ertapenem 1 GM in Sodium Chloride 0.9% 100 ML IV ONE (12:04)
--- NOTE | 2018-08-05 12:14 | EDM.PDOC ---
ED HPI GENERAL MEDICAL PROBLEM - General Chief Complaint: Lower Extremity Injury/Pain Stated Complaint: MEDICAL [facility] Time Seen by Provider: 08/05/18 11:30 Source of Information: Reports: Patient, EMS, RN History Limitations: Reports: No Limitations - History of Present Illness INITIAL COMMENTS - FREE TEXT/NARRATIVE: 83-year-old female alf resident on chronic Bactrim DS and steroid treatment, is sent into the emergency room because of concerns of fevers, lethargy, increased edema of the lower extremities with erythema of the right leg, and an 8 pound weight gain over the past several days. The patient herself has no complaints and "wonders why she is here". Onset: Unknown/Unsure Bilateral Lower Leg Pain Score (Numeric/FACES): 10 - Related Data Allergies Allergy/AdvReac Type Severity Reaction Status Date / Time milk Allergy Unknown Cannot Verified 08/05/18 11:30 Remember gluten Allergy Cannot Verified 08/05/18 11:30 Remember codeine phosphate AdvReac Nausea Verified 08/05/18 11:30 [From Tylenol-Codeine #3] Home Meds: Home Meds Amitriptyline [Elavil] 50 mg PO BEDTIME 02/23/14 [History] Cod Liver Oil 1 cap PO DAILY 07/01/14 [History] Multivitamin [Multivitamins] 1 tab PO DAILY 07/01/14 [History] Vitamin B Complex [B Complex] 1 tab PO DAILY 07/01/14 [History] Folic Acid 1 mg PO DAILY 04/26/15 [History] predniSONE [Prednisone] 20 mg PO DAILY 03/31/16 [History] Acetaminophen [Tylenol Extra Strength] 1,000 mg PO BID 05/21/17 [History] Benzonatate [Tessalon Perle] 100 mg PO TID PRN #20 capsule 05/21/17 [Rx] Omeprazole 20 mg PO DAILY 05/21/17 [History] Calcium Carb & Citrate/Vit D3 [Calcium + D3 ER Tablet] 1 each PO DAILY 12/19/17 [History] Cholecalciferol (Vitamin D3) [Vitamin D3] 1,000 unit PO DAILY 12/19/17 [History] Cyclobenzaprine [Flexeril] 5 mg PO DAILY 12/19/17 [History] Travoprost [Travatan Z 0.004% Ophth Soln] 1 drop OP BEDTIME 12/19/17 [History] fentaNYL [Duragesic] 25 mcg TD Q72H 12/19/17 [History] oxyCODONE HCl [Oxycodone HCl] 5 mg PO Q4HR PRN 12/19/17 [History] Lactobacillus Acidophilus [Probiotic Acidophilus] 1 each PO BID #30 tablet 12/22 [Rx] DULoxetine [Cymbalta] 50 mg PO DAILY 03/08/18 [History] Sulfamethoxazole/Trimethoprim [Septra DS] 1 tab PO ASDIRECTED 03/08/18 [History] Potassium Chloride 10 meq PO TID 08/05/18 [History] Torsemide 20 mg PO DAILY 08/05/18 [History] Past Medical History - Past Health History Medical/Surgical History: Denies Medical/Surgical History HEENT History: Reports: Cataract, Impaired Vision, Macular Degeneration Cardiovascular History: Reports: Heart Failure, Heart Murmur Respiratory History: Reports: Asthma, Other (See Below) Other Respiratory History: H/o pneumonia, h/o bronchitis Gastrointestinal History: Reports: Cholelithiasis, Diverticulosis, GERD Other Gastrointestinal History: H/o diverticulitis Genitourinary History: Reports: Chronic Renal Insuffiency, UTI, Recurrent [employer] History: Reports: Musculoskeletal History: Reports: Arthritis, Back Pain, Chronic, Fracture, Osteoarthritis, Other (See Below) Other Musculoskeletal History: Chronic hip pain 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; T12 vertebral compression fracture; T10 wedge compression fracture; lumbar disc disease with radiculopathy; R sciatica L3-L4 down R LE; h/o falls Neurological History: Reports: Other (See Below) Other Neuro History: cognative deficits Psychiatric History: Reports: Anxiety Endocrine/Metabolic History: Reports: Other (See Below) Other Endocrine/Metabolic History: hypoglycemia, adrenal insufficiency (HCC) Hematologic History: Reports: Anemia Other Hematologic History: hemolytic anemia, 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 Dermatologic History: Reports: Cellulitis Other Dermatologic History: right lower leg ulcer - Infectious Disease History Infectious Disease History: Reports: Chicken Pox, Measles, Mumps - Past Surgical History HEENT Surgical History: Reports: Cataract Surgery GI Surgical History: Reports: Cholecystectomy, Colonoscopy Female Surgical History: Reports: Hysterectomy Musculoskeletal Surgical History: Reports: None, Hip Replacement, Other (See Below) Other Musculoskeletal Surgeries/Procedures:: L CORBIN August 2016; Vertebral kyphoplasty ~11/2016 per patient report Social & Family History - Family History Family Medical History: Noncontributory Cardiac: Reports: Blood Clots/VTE/DVT, Heart Failure, RI, Other (See Below) Other Cardiac Family History: strokes Respiratory: Reports: COPD, Other (See Below) Other Respiratory Family Hisory: emphysema : Reports: Renal Disease/Insufficiency Musculoskeletal: Reports: Arthritis, Osteoporosis, RA Neurological: Reports: CVA, Migraines Psychiatric: Reports: Panic Attack Dermatologic: Reports: Eczema, Psoriasis Oncologic: Reports: Brain - Tobacco Use Smoking Status *Q: Never Smoker - Caffeine Use Caffeine Use: Reports: Coffee Other Caffeine Use: cup per day Caffeine Use Comment: 1 cup per day - Recreational Drug Use Recreational Drug Use: No - Living Situation & Occupation Living situation: Reports: Occupation: Retired Review of Systems - Review of Systems Review Of Systems: See Below Constitutional: Reports: Fever (According to nursing staff) Respiratory: Reports: Shortness of Breath. Denies: Cough Cardiovascular: Denies: Chest Pain GI/Abdominal: Denies: Abdominal Pain Skin: Reports: Erythema (Right lower leg) Neurological: Reports: Confusion ED EXAM, GENERAL - Physical Exam Exam: See Below Exam Limited By: No Limitations General Appearance: Alert, No Apparent Distress, Other (Appears comfortable but is mildly hypoxic on room air with an O2 saturation of 90%) Eye Exam: Bilateral Eye: Normal Inspection (No jaundice, conjunctiva have good color and hydration) Respiratory/Chest: No Respiratory Distress, Lungs Clear Cardiovascular: Regular Rate, Rhythm GI/Abdominal: Soft, Non-Tender Extremities: Other (Very edematous lower extremities, especially the right with warm erythema of the right lower extremity. Bandages are in place over suspected small skin erosions of the leg.) Psychiatric: Depressed Mood, Flat Affect Course - Vital Signs Last Recorded V/S: Last Vital Signs Temp 97.7 F 08/05/18 16:03 Pulse 99 08/05/18 16:03 Resp 20 08/05/18 16:03 BP 138/80 08/05/18 16:03 Pulse Ox 93 L 08/05/18 16:04 - Orders/Labs/Meds Orders: Active Orders 24 hr Category Date Time Status CULTURE BLOOD [BC] Urgent Lab 08/05/18 11:45 Received CULTURE BLOOD [BC] Urgent Lab 08/05/18 11:52 Received CULTURE URINE [RM] Stat Lab 08/05/18 12:37 Received Medication Orders Acetaminophen (Tylenol) 650 mg PO Q4H PRN PRN Reason: Pain (Mild 1-3)/fever Cyclobenzaprine HCl (Flexeril) 5 mg PO DAILY [facility] Enoxaparin Sodium (Lovenox) 30 mg SUBCUT Q24H [facility] Fentanyl (Duragesic) 25 mcg TRDERM Q72H MYLES Lactated Ringer's (Ringers, Lactated) 1,000 mls @ 125 mls/hr IV ASDIRECTED MYLES Piperacillin/Tazobactam/ (Dextrose 3.375 gm/ Premix) 50 mls @ 100 mls/hr IV ONETIME ONE Stop: 08/05/18 16:59 Non-Formulary Medication (Amitriptyline [Elavil]) 50 mg PO BEDTIME MYLES Non-Formulary Medication (Duloxetine [Cymbalta]) 50 mg PO DAILY [facility] Non-Formulary Medication (Lactobacillus Acidophilus [Probiotic Acidophilus]) 1 each PO BID MYLES Non-Formulary Medication (Omeprazole [Omeprazole]) 20 mg PO DAILY [facility] Non-Formulary Medication (Oxycodone Hcl [Oxycodone Hcl]) 5 mg PO Q4HR PRN PRN Reason: Pain Non-Formulary Medication (Travoprost [Travatan Z 0.004% Ophth Soln]) 1 drop OP BEDTIME MYLES Ondansetron HCl (Zofran) 4 mg IV Q4H PRN PRN Reason: Nausea/Vomiting Polyethylene Glycol (Miralax) 17 gm PO DAILY PRN PRN Reason: Constipation Potassium Chloride (Potassium Chloride) 10 meq PO TID [facility] Prednisone (Prednisone) 20 mg PO DAILY [facility] Sodium Chloride (Saline Flush) 10 ml FLUSH ASDIRECTED PRN PRN Reason: Keep Vein Open Torsemide (Demadex) 20 mg PO DAILY [facility] Vancomycin HCl (Vancomycin) 1 gm IV .PHARMACY TO DOSE [facility] Labs: Laboratory Tests 08/05/18 08/05/18 08/05/18 Range/Units 11:45 11:45 11:45 WBC 30.0 H (4.5-11.0) K/uL RBC 3.79 (3.30-5.50) M/uL Hgb 15.0 (12.0-15.0) g/dL Hct 43.1 (36.0-48.0) % MCV 114 H (80-98) fL MCH 40 H (27-31) pg MCHC 35 (32-36) % Plt Count 261 (150-400) K/uL Add Manual Diff Yes Neutrophils % (Manual) 94 H (36-66) % Lymphocytes % (Manual) 3 L (24-44) % Monocytes % (Manual) 3 (2-6) % Nucleated RBCs 4 Macrocytosis Few Sodium 137 L (140-148) mmol/L Potassium 4.3 (3.6-5.2) mmol/L Chloride 98 L (100-108) mmol/L Carbon Dioxide 30 (21-32) mmol/L Anion Gap 13.3 (5.0-14.0) mmol/L BUN 37 H (7-18) mg/dL Creatinine 1.6 H (0.6-1.0) mg/dL Est Cr Clr Drug Dosing 18.46 mL/min Estimated GFR (MDRD) 31 L (>60) Glucose 293 H (74-106) mg/dL Lactic Acid 3.4 H (0.4-2.0) mmol/L Calcium 9.8 (8.5-10.1) mg/dL Total Bilirubin 1.9 H (0.2-1.0) mg/dL AST 43 H (15-37) U/L ALT 64 (12-78) U/L Alkaline Phosphatase 81 (46-116) U/L Total Protein 6.2 L (6.4-8.2) g/dL Albumin 3.5 (3.4-5.0) g/dL Globulin 2.7 (2.3-3.5) g/dL Albumin/Globulin Ratio 1.3 (1.2-2.2) Procalcitonin ng/mL Urine Color Urine Appearance Urine pH (4.5-8.0) Ur Specific Ace (1.008-1.030) Urine Protein (NEGATIVE) mg/dL Urine Glucose (UA) (NEGATIVE) mg/dL Urine Ketones (NEGATIVE) mg/dL Urine Occult Blood (NEGATIVE) Urine Nitrite (NEGATIVE) Urine Bilirubin (NEGATIVE) Urine Urobilinogen (NORMAL) mg/dL Ur Leukocyte Esterase (NEGATIVE) Urine RBC (0-5) Urine WBC (0-5) Ur Epithelial Cells Amorphous Sediment Urine Bacteria Urine Mucus 08/05/18 08/05/18 Range/Units 11:45 12:17 WBC (4.5-11.0) K/uL RBC (3.30-5.50) M/uL Hgb (12.0-15.0) g/dL Hct (36.0-48.0) % MCV (80-98) fL MCH (27-31) pg MCHC (32-36) % Plt Count (150-400) K/uL Add Manual Diff Neutrophils % (Manual) (36-66) % Lymphocytes % (Manual) (24-44) % Monocytes % (Manual) (2-6) % Nucleated RBCs Macrocytosis Sodium (140-148) mmol/L Potassium (3.6-5.2) mmol/L Chloride (100-108) mmol/L Carbon Dioxide (21-32) mmol/L Anion Gap (5.0-14.0) mmol/L BUN (7-18) mg/dL Creatinine (0.6-1.0) mg/dL Est Cr Clr Drug Dosing mL/min Estimated GFR (MDRD) (>60) Glucose (74-106) mg/dL Lactic Acid (0.4-2.0) mmol/L Calcium (8.5-10.1) mg/dL Total Bilirubin (0.2-1.0) mg/dL AST (15-37) U/L ALT (12-78) U/L Alkaline Phosphatase (46-116) U/L Total Protein (6.4-8.2) g/dL Albumin (3.4-5.0) g/dL Globulin (2.3-3.5) g/dL Albumin/Globulin Ratio (1.2-2.2) Procalcitonin 0.41 ng/mL Urine Color Yellow Urine Appearance Slightly cloudy Urine pH 8.0 (4.5-8.0) Ur Specific Ace 1.005 L (1.008-1.030) Urine Protein Negative (NEGATIVE) mg/dL Urine Glucose (UA) Normal (NEGATIVE) mg/dL Urine Ketones Negative (NEGATIVE) mg/dL Urine Occult Blood Negative (NEGATIVE) Urine Nitrite Negative (NEGATIVE) Urine Bilirubin Negative (NEGATIVE) Urine Urobilinogen Normal (NORMAL) mg/dL Ur Leukocyte Esterase Negative (NEGATIVE) Urine RBC 0-5 (0-5) Urine WBC 0-5 (0-5) Ur Epithelial Cells Few Amorphous Sediment Not seen Urine Bacteria Many Urine Mucus Not seen Meds: Medications Generic Name Dose Route Start Last Admin Trade Name Freq PRN Reason Stop Dose Admin Acetaminophen 650 mg 08/05/18 15:50 Tylenol PO Q4H PRN Pain (Mild 1-3)/fever Cyclobenzaprine HCl 5 mg 08/06/18 09:00 Flexeril PO DAILY [facility] Enoxaparin Sodium 30 mg 08/05/18 17:30 Lovenox SUBCUT Q24H [facility] Fentanyl 25 mcg 08/05/18 15:50 Duragesic TRDERM Q72H [facility] Lactated Ringer's 1,000 mls @ 125 mls/hr 08/05/18 15:50 Ringers, Lactated IV ASDIRECTED [facility] Piperacillin/Tazobactam/ 50 mls @ 100 mls/hr 08/05/18 16:30 Dextrose 3.375 gm/ Premix IV 08/05/18 16:59 ONETIME ONE Non-Formulary Medication 50 mg 08/05/18 21:00 Amitriptyline [Elavil] PO BEDTIME [facility] Non-Formulary Medication 50 mg 08/06/18 09:00 Duloxetine [Cymbalta] PO DAILY [facility] Non-Formulary Medication 1 each 08/05/18 21:00 Lactobacillus Acidophilus [Probiotic Acidophilus] PO BID [facility] Non-Formulary Medication 20 mg 08/06/18 09:00 Omeprazole [Omeprazole] PO DAILY [facility] Non-Formulary Medication 5 mg 08/05/18 15:50 Oxycodone Hcl [Oxycodone Hcl] PO Q4HR PRN Pain Non-Formulary Medication 1 drop 08/05/18 21:00 Travoprost [Travatan Z 0.004% Ophth Soln] OP BEDTIME [facility] Ondansetron HCl 4 mg 08/05/18 15:50 Zofran IV Q4H PRN Nausea/Vomiting Polyethylene Glycol 17 gm 08/05/18 15:50 Miralax PO DAILY PRN Constipation Potassium Chloride 10 meq 08/05/18 21:00 Potassium Chloride PO TID [facility] Prednisone 20 mg 08/06/18 09:00 Prednisone PO DAILY [facility] Sodium Chloride 10 ml 08/05/18 15:50 Saline Flush FLUSH ASDIRECTED PRN Keep Vein Open Torsemide 20 mg 08/06/18 09:00 Demadex PO DAILY MYLES Vancomycin HCl 1 gm 08/05/18 15:50 Vancomycin IV .PHARMACY TO DOSE MYLES Discontinued Medications Generic Name Dose Route Start Last Admin Trade Name Dorian PRN Reason Stop Dose Admin Sodium Chloride 1,000 mls @ 250 mls/hr 08/05/18 12:15 08/05/18 12:29 Normal Saline IV 250 mls/hr ASDIRECTED MYLES Administration Ertapenem 1 gm/ Sodium 100 mls @ 200 mls/hr 08/05/18 12:04 08/05/18 12:29 Chloride IV 08/05/18 12:33 200 mls/hr ONETIME ONE Administration - Re-Assessments/Exams Free Text/Narrative Re-Assessment/Exam: 08/05/18 12:13 A 1 view chest x-ray was obtained which showed no infiltrate. Mini catheter UA obtained, CBC, CMP, lactic acid, blood cultures, and pro-calcitonin. An IV started and patient given 1 g of IV Invanz as well as normal saline at 250 mL an hour. She is afebrile at this time. I do not think fluid bolus is indicated with her normal blood pressure and temperature. There also may be concerns for fluid overload with edema and weight gain and relative hypoxia and shortness of breath. 08/05/18 16:17 White count is 30,000, lactic acid 3.4 but Pro calcitonin is only 0.51. She remained stable and generally asymptomatic in the emergency room, including afebrile. White count may be elevated due to chronic steroid use. Discussed her condition with Dr. Do who agreed to admit her for treatment of worsening right leg cellulitis, weakness and bacteriuria. Departure - Departure Time of Disposition: 15:38 Disposition: Admitted As Inpatient 64 Clinical Impression: Cellulitis of right lower leg, Bacteriuria, Hypoxia - Discharge Information - My Orders Last 24 Hours: My Active Orders 08/05/18 11:45 CULTURE BLOOD [BC] Urgent 08/05/18 11:52 CULTURE BLOOD [BC] Urgent 08/05/18 12:37 CULTURE URINE [RM] Stat - Assessment/Plan Last 24 Hours: My Active Orders 08/05/18 11:45 CULTURE BLOOD [BC] Urgent 08/05/18 11:52 CULTURE BLOOD [BC] Urgent 08/05/18 12:37 CULTURE URINE [RM] Stat
[2018-08-05] MEDS ORDERED: Sodium Chloride 0.9% 1,000 ML IV SCH (12:15)
--- NOTE | 2018-08-05 12:15 | CRLCR ---
INDICATION: Hypoxia. Sepsis. TECHNIQUE: Portable AP view of the chest. COMPARISON: 12/19/2017. FINDINGS: Mildly compromised by body habitus. Cardiac, mediastinal and hilar contours are stable and within normal limits. Atherosclerotic changes are again seen in the thoracic aorta. Pulmonary vasculature is within normal limits. No appreciable airspace opacities to suggest pneumonia. No pleural effusion is seen on this single view study. No pneumothorax. Multiple spinal compression fractures are suboptimally assessed, with prior vertebroplasties at multiple levels. Old healed rib fractures. IMPRESSION: No signs of acute thoracic disease. Dictated by Sam Concepcion MD @ 08/05/2018 12:12:21 PM Dictated by: Sam Concepcion MD @ 08/05/2018 12:12:27 (Electronically Signed)
--- NOTE | 2018-08-05 14:30 | PCM.HP ---
H&P History of Present Illness - General Date of Service: 08/05/18 Admit Problem/Dx: Admission Diagnosis/Problem Admission Diagnosis/Problem Cellulitis Source of Information: Patient, Old Records, Provider, RN Notes Reviewed History Limitations: Reports: Altered Mental Status (Dementia) - History of Present Illness Initial Comments - Free Text/Narative: Ms. Watson is an 83-year-old woman who is admitted through the emergency department with fever weakness and anorexia secondary to cellulitis of her right lower extremity with sepsis. Ms. Tasia vinson does have some underlying dementia and is unable to provide a meaningful history concerning recent symptoms or review of systems. She has had chronic difficulty with bilateral lower extremity edema and has been recently treated with Septra DS for cellulitis of the right lower extremity. Over the past few days is becoming more weak and lethargic. She was transferred to the emergency department this morning because of hypoxia and lethargy. White blood cell count is significantly elevated and there is modest elevation in her lactic acid level, this may be secondary to sepsis or dehydration. Blood cultures have been obtained and she is received a dose of ertapenem in the emergency department. Bilateral Lower Leg Pain Score (Numeric/FACES): 10 - Related Data Allergies/Adverse Reactions: Allergies Allergy/AdvReac Type Severity Reaction Status Date / Time milk Allergy Unknown Cannot Verified 08/05/18 11:30 Remember gluten Allergy Cannot Verified 08/05/18 11:30 Remember codeine phosphate AdvReac Nausea Verified 08/05/18 11:30 [From Tylenol-Codeine #3] Home Medications: Home Meds Amitriptyline [Elavil] 50 mg PO BEDTIME 02/23/14 [History] Cod Liver Oil 1 cap PO DAILY 07/01/14 [History] Multivitamin [Multivitamins] 1 tab PO DAILY 07/01/14 [History] Vitamin B Complex [B Complex] 1 tab PO DAILY 07/01/14 [History] Folic Acid 1 mg PO DAILY 04/26/15 [History] predniSONE [Prednisone] 20 mg PO DAILY 03/31/16 [History] Acetaminophen [Tylenol Extra Strength] 1,000 mg PO BID 05/21/17 [History] Benzonatate [Tessalon Perle] 100 mg PO TID PRN #20 capsule 05/21/17 [Rx] Omeprazole 20 mg PO DAILY 05/21/17 [History] Calcium Carb & Citrate/Vit D3 [Calcium + D3 ER Tablet] 1 each PO DAILY 12/19/17 [History] Cholecalciferol (Vitamin D3) [Vitamin D3] 1,000 unit PO DAILY 12/19/17 [History] Cyclobenzaprine [Flexeril] 5 mg PO DAILY 12/19/17 [History] Travoprost [Travatan Z 0.004% Ophth Soln] 1 drop OP BEDTIME 12/19/17 [History] fentaNYL [Duragesic] 25 mcg TD Q72H 12/19/17 [History] oxyCODONE HCl [Oxycodone HCl] 5 mg PO Q4HR PRN 12/19/17 [History] Lactobacillus Acidophilus [Probiotic Acidophilus] 1 each PO BID #30 tablet 12/22 [Rx] DULoxetine [Cymbalta] 50 mg PO DAILY 03/08/18 [History] Sulfamethoxazole/Trimethoprim [Septra DS] 1 tab PO ASDIRECTED 03/08/18 [History] Potassium Chloride 10 meq PO TID 08/05/18 [History] Torsemide 20 mg PO DAILY 08/05/18 [History] Past Medical History - Past Health History Medical/Surgical History: Denies Medical/Surgical History HEENT History: Reports: Cataract, Impaired Vision, Macular Degeneration Cardiovascular History: Reports: Heart Failure, Heart Murmur Respiratory History: Reports: Asthma, Other (See Below) Other Respiratory History: H/o pneumonia, h/o bronchitis Gastrointestinal History: Reports: Cholelithiasis, Diverticulosis, GERD Other Gastrointestinal History: H/o diverticulitis Genitourinary History: Reports: Chronic Renal Insuffiency, UTI, Recurrent [employer] History: Reports: Musculoskeletal History: Reports: Arthritis, Back Pain, Chronic, Fracture, Osteoarthritis, Other (See Below) Other Musculoskeletal History: Chronic hip pain 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; T12 vertebral compression fracture; T10 wedge compression fracture; lumbar disc disease with radiculopathy; R sciatica L3-L4 down R LE; h/o falls Neurological History: Reports: Other (See Below) Other Neuro History: cognative deficits Psychiatric History: Reports: Anxiety Endocrine/Metabolic History: Reports: Other (See Below) Other Endocrine/Metabolic History: hypoglycemia, adrenal insufficiency (HCC) Hematologic History: Reports: Anemia Other Hematologic History: hemolytic anemia, 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 Dermatologic History: Reports: Cellulitis Other Dermatologic History: right lower leg ulcer - Infectious Disease History Infectious Disease History: Reports: Chicken Pox, Measles, Mumps - Past Surgical History HEENT Surgical History: Reports: Cataract Surgery GI Surgical History: Reports: Cholecystectomy, Colonoscopy Female Surgical History: Reports: Hysterectomy Musculoskeletal Surgical History: Reports: None, Hip Replacement, Other (See Below) Other Musculoskeletal Surgeries/Procedures:: L CORBIN August 2016; Vertebral kyphoplasty ~11/2016 per patient report Social & Family History - Family History Family Medical History: Noncontributory Cardiac: Reports: Blood Clots/VTE/DVT, Heart Failure, [place], Other (See Below) Other Cardiac Family History: strokes Respiratory: Reports: COPD, Other (See Below) Other Respiratory Family Hisory: emphysema : Reports: Renal Disease/Insufficiency Musculoskeletal: Reports: Arthritis, Osteoporosis, RA Neurological: Reports: CVA, Migraines Psychiatric: Reports: Panic Attack Dermatologic: Reports: Eczema, Psoriasis Oncologic: Reports: Brain - Tobacco Use Smoking Status *Q: Never Smoker - Caffeine Use Caffeine Use: Reports: Coffee Other Caffeine Use: cup per day Caffeine Use Comment: 1 cup per day - Recreational Drug Use Recreational Drug Use: No - Living Situation & Occupation Living situation: Reports: Occupation: Retired H&P Review of Systems - Review of Systems: Review Of Systems: Unable To Obtain General: Reports: ROS unobtainable (Dementia) Exam - Exam Exam: See Below - Vital Signs Vital Signs: Last Vital Signs Temp 98.8 F 08/05/18 11:27 Pulse 109 H 08/05/18 11:27 Resp 20 08/05/18 11:27 BP 115/53 L 08/05/18 11:27 Pulse Ox 88 L 08/05/18 11:34 Weight: 174 lb - Exam Quality Assessment: DVT Prophylaxis General: Alert, Cooperative, Mild Distress. No: Oriented HEENT: Conjunctiva Clear, Normal Nasal Septum, Posterior Pharynx Clear, Pupils Equal. No: Hearing Intact, Mucosa Moist & [place] Neck: Supple, Trachea Midline, +2 Carotid Pulse wo Bruit Lungs: Clear to Auscultation, Normal Respiratory Effort, Decreased Breath Sounds Cardiovascular: Regular Rate, Regular Rhythm, Normal S1, Normal S2, Systolic Murmur. No: Diastolic Murmur GI/Abdominal Exam: Soft, Non-Tender, No Organomegaly, No Distention Extremities: Non-Tender, Pedal Edema, Leg Pain (Erythema of the right leg extending from the lower leg and above the knee) Skin: Warm, Dry Neurological: Cranial Nerves Intact, Strength Equal Bilateral, Normal Speech, Normal Tone, Sensation Intact. No: Focal Deficit Neuro Extensive - Mental Status: Alert, Normal Mood/Affect, Disorientation to Person, Disorientation to Place, Disorientation to Time, Memory Loss-Remote Events, Memory Loss-Recent Events. No: Oriented x3, Normal Cognition, Memory Intact - Patient Data Lab Results Last 24 hrs: Laboratory Results - last 24 hr 08/05/18 08/05/18 08/05/18 Range/Units 11:45 11:45 11:45 WBC 30.0 H (4.5-11.0) K/uL RBC 3.79 (3.30-5.50) M/uL Hgb 15.0 (12.0-15.0) g/dL Hct 43.1 (36.0-48.0) % MCV 114 H (80-98) fL MCH 40 H (27-31) pg MCHC 35 (32-36) % Plt Count 261 (150-400) K/uL Add Manual Diff Yes Neutrophils % (Manual) 94 H (36-66) % Lymphocytes % (Manual) 3 L (24-44) % Monocytes % (Manual) 3 (2-6) % Nucleated RBCs 4 Macrocytosis Few Sodium 137 L (140-148) mmol/L Potassium 4.3 (3.6-5.2) mmol/L Chloride 98 L (100-108) mmol/L Carbon Dioxide 30 (21-32) mmol/L Anion Gap 13.3 (5.0-14.0) mmol/L BUN 37 H (7-18) mg/dL Creatinine 1.6 H (0.6-1.0) mg/dL Est Cr Clr Drug Dosing 18.46 mL/min Estimated GFR (MDRD) 31 L (>60) Glucose 293 H (74-106) mg/dL Lactic Acid 3.4 H (0.4-2.0) mmol/L Calcium 9.8 (8.5-10.1) mg/dL Total Bilirubin 1.9 H (0.2-1.0) mg/dL AST 43 H (15-37) U/L ALT 64 (12-78) U/L Alkaline Phosphatase 81 (46-116) U/L Total Protein 6.2 L (6.4-8.2) g/dL Albumin 3.5 (3.4-5.0) g/dL Globulin 2.7 (2.3-3.5) g/dL Albumin/Globulin Ratio 1.3 (1.2-2.2) Procalcitonin ng/mL Urine Color Urine Appearance Urine pH (4.5-8.0) Ur Specific [place] (1.008-1.030) Urine Protein (NEGATIVE) mg/dL Urine Glucose (UA) (NEGATIVE) mg/dL Urine Ketones (NEGATIVE) mg/dL Urine Occult Blood (NEGATIVE) Urine Nitrite (NEGATIVE) Urine Bilirubin (NEGATIVE) Urine Urobilinogen (NORMAL) mg/dL Ur Leukocyte Esterase (NEGATIVE) Urine RBC (0-5) Urine WBC (0-5) Ur Epithelial Cells Amorphous Sediment Urine Bacteria Urine Mucus 08/05/18 08/05/18 Range/Units 11:45 12:17 WBC (4.5-11.0) K/uL RBC (3.30-5.50) M/uL Hgb (12.0-15.0) g/dL Hct (36.0-48.0) % MCV (80-98) fL MCH (27-31) pg MCHC (32-36) % Plt Count (150-400) K/uL Add Manual Diff Neutrophils % (Manual) (36-66) % Lymphocytes % (Manual) (24-44) % Monocytes % (Manual) (2-6) % Nucleated RBCs Macrocytosis Sodium (140-148) mmol/L Potassium (3.6-5.2) mmol/L Chloride (100-108) mmol/L Carbon Dioxide (21-32) mmol/L Anion Gap (5.0-14.0) mmol/L BUN (7-18) mg/dL Creatinine (0.6-1.0) mg/dL Est Cr Clr Drug Dosing mL/min Estimated GFR (MDRD) (>60) Glucose (74-106) mg/dL Lactic Acid (0.4-2.0) mmol/L Calcium (8.5-10.1) mg/dL Total Bilirubin (0.2-1.0) mg/dL AST (15-37) U/L ALT (12-78) U/L Alkaline Phosphatase (46-116) U/L Total Protein (6.4-8.2) g/dL Albumin (3.4-5.0) g/dL Globulin (2.3-3.5) g/dL Albumin/Globulin Ratio (1.2-2.2) Procalcitonin 0.41 ng/mL Urine Color Yellow Urine Appearance Slightly cloudy Urine pH 8.0 (4.5-8.0) Ur Specific [place] 1.005 L (1.008-1.030) Urine Protein Negative (NEGATIVE) mg/dL Urine Glucose (UA) Normal (NEGATIVE) mg/dL Urine Ketones Negative (NEGATIVE) mg/dL Urine Occult Blood Negative (NEGATIVE) Urine Nitrite Negative (NEGATIVE) Urine Bilirubin Negative (NEGATIVE) Urine Urobilinogen Normal (NORMAL) mg/dL Ur Leukocyte Esterase Negative (NEGATIVE) Urine RBC 0-5 (0-5) Urine WBC 0-5 (0-5) Ur Epithelial Cells Few Amorphous Sediment Not seen Urine Bacteria Many Urine Mucus Not seen Result Diagrams: 08/05/18 11:45 08/05/18 11:45 *Q Meaningful Use (ADM) - VTE Risk Assess *Q Each Risk Factor Represents 1 Point: Swollen Legs, Current, Obesity ( BMI > 25 kg/m2) Total Score 1 Point Risk Factors: 2 Each Risk Factor Represents 2 Points: None Total Score 2 Point Risk Factors: 0 Each Risk Factor Represents 3 Points: Age 75 Years or Greater Total Score 3 Point Risk Factors: 3 Each Risk Factor Represents 5 Points: None Total Score 5 Point Risk Factors: 0 Venous Thromboembolism Risk Factor Score *Q: 5 Problem List Initiated/Reviewed/Updated: Yes Orders Last 24hrs: Active Orders 24 hr Category Date Time Status Patient Status Manage Transfer [TRANSFER] Routine ADT 08/05/18 14:17 Ordered CULTURE BLOOD [BC] Urgent Lab 08/05/18 11:45 Received CULTURE BLOOD [BC] Urgent Lab 08/05/18 11:52 Received CULTURE URINE [RM] Stat Lab 08/05/18 12:37 Received Sodium Chloride 0.9% [Normal Saline] 1,000 ml Med 08/05/18 12:15 Active IV ASDIRECTED Blood Culture x2 Reflex Set [OM.PC] Urgent Oth 08/05/18 11:38 Ordered Resuscitation Status Routine Resus Stat 08/05/18 14:26 Ordered Medication Orders Sodium Chloride (Normal Saline) 1,000 mls @ 250 mls/hr IV ASDIRECTED [facility] Last Admin: 08/05/18 12:29 Dose: 250 mls/hr Assessment/Plan Comment:: ASSESSMENT AND PLAN CELLULITIS OF THE RIGHT LEG WITH SEPSIS-history of cellulitis recently treated on an outpatient basis with Nevaeh ERVIN. She unfortunately has failed outpatient treatment and become progressively more lethargic and weak. White blood cell count markedly elevated, modest elevation in lactic acid level which may also be secondary to dehydration. -Blood cultures pending -IV fluids per protocol -IV vancomycin and Zosyn, pending culture results. Broad-spectrum antibiotics utilized at this time because of recent failure of outpatient therapy CHRONIC KIDNEY DISEASE STAGE IIIb -Closely monitor urine output and renal function HYPERGLYCEMIA-she denies previous history of type 2 diabetes mellitus and home medication list includes no medications for diabetes. -Monitor glucose levels and treat with sliding scale insulin MAINTENANCE ISSUES -DVT prophylaxis; Lovenox 40 mg subcutaneous daily -GI prophylaxis; ot indicated -Carlos catheter; not indicated -Nutrition; 2 g sodium diet -Nicotine dependence; not required CODE STATUS-DNR/DNI ADMISSION STATUS-patient will be admitted to inpatient status, expect at least a 2 night hospital stay for evaluation and management of problems as outlined above. At the time of this admission I do not reasonably expected evaluation and management of this problem will require more than a 96 hour hospital stay. DISPOSITION-anticipate discharge back to senior care PRIMARY CARE PROVIDER-Dr. Machuca
[2018-08-05] MEDS ORDERED: fentaNYL 50 MCG/HR Transdermal Patch TRDERM SCH (15:50)
[2018-08-05] MEDS ORDERED: Polyethylene Glycol 3350 Powder 17 GM Packet PO PRN (15:50)
[2018-08-05] MEDS ORDERED: Sodium Chloride 0.9% 10 ML Syringe FLUSH PRN (15:50)
[2018-08-05] MEDS ORDERED: Ondansetron 4 MG/2 ML SDV IV PRN (15:50)
[2018-08-05] MEDS ORDERED: Non-Formulary Medication 1 Each (Oxycodone Hcl [Oxycodone Hcl] 5 MG) PO PRN (15:50)
[2018-08-05] MEDS ORDERED: Enoxaparin 40 MG/0.4 ML Syringe SUBCUT SCH (15:50)
[2018-08-05] MEDS ORDERED: Piperacillin/Tazobactam 3.375 GM in Sodium Chloride 0.9% 50 ML IV SCH (15:50)
[2018-08-05] MEDS ORDERED: Vancomycin 1 GM SDV IV SCH (15:50)
[2018-08-05] MEDS: Lactated Ringers 1,000 ML IV SCH (16:22)
[2018-08-05] MEDS ORDERED: Piperacillin/Tazobactam/Dext 3.375 GM in Premix Bag 1 BAG IV ONE (16:30)
[2018-08-05] MEDS: oxyCODONE 5 MG Tab PO PRN (17:19)
[2018-08-05] MEDS: Acetaminophen 325 MG Tab PO PRN (17:19)
[2018-08-05] MEDS: Enoxaparin 30 MG/0.3 ML Syringe SUBCUT SCH (17:51)
[2018-08-05] MEDS: Vancomycin 1.2 GM in Sodium Chloride 0.9% 250 ML IV SCH (17:51)
[2018-08-05] MEDS: Potassium Chloride 10 MEQ Cap.ER PO SCH (20:53)
[2018-08-05] MEDS: Lactobacillus Rhamnosus GG (Probiotic) Cap PO SCH (20:53)
[2018-08-05] MEDS: Latanoprost 0.005% Ophth Soln 2.5 ML Bottle EYEBOTH SCH (20:59)
[2018-08-05] MEDS ORDERED: Non-Formulary Medication 1 Each (Travoprost [Travatan Z 0.004% Ophth Soln] 1 DROP) OP SCH (21:00)
[2018-08-05] MEDS ORDERED: AMITRIPTYLINE 50 MG PO SCH (21:00)
[2018-08-05] MEDS ORDERED: LACTOBACILLUS ACIDOPHILUS PO SCH (21:00)
[2018-08-05] MEDS: VERIFY FENTANYL PATCH SCH (21:01)
[2018-08-06] MEDS: Insulin Lispro 100 Unit/ML 3 ML KwikPen SUBCUT SCH ×5 (00:56→20:56)
[2018-08-06] MEDS: Piperacillin/Tazobactam 2.25 GM in Sodium Chloride 0.9% 50 ML IV SCH ×4 (00:57→21:00)
[2018-08-06] MEDS ORDERED: Non-Formulary Medication 1 Each (Omeprazole [Omeprazole] 20 MG) PO SCH (09:00)
[2018-08-06] MEDS ORDERED: DULOXETINE PO SCH (09:00)
[2018-08-06] MEDS: Pantoprazole 40 MG Tab.CR PO SCH (09:02)
[2018-08-06] MEDS: Cyclobenzaprine 10 MG Tab PO SCH (09:03)
[2018-08-06] MEDS: Lactobacillus Rhamnosus GG (Probiotic) Cap PO SCH ×2 (09:03→20:56)
[2018-08-06] MEDS: Potassium Chloride 10 MEQ Cap.ER PO SCH ×3 (09:03→20:57)
[2018-08-06] MEDS: predniSONE 20 MG Tab PO SCH (09:04)
[2018-08-06] MEDS: Torsemide 20 MG Tab PO SCH (09:04)
[2018-08-06] MEDS: VERIFY FENTANYL PATCH SCH ×2 (09:05→21:48)
[2018-08-06] MEDS: Acetaminophen 325 MG Tab PO PRN (10:14)
[2018-08-06] MEDS: oxyCODONE 5 MG Tab PO PRN (10:14)
[2018-08-06] MEDS: DULoxetine 30 MG Cap PO SCH (10:16)
[2018-08-06] MEDS: Lactated Ringers 1,000 ML IV SCH (12:51)
[2018-08-06] MEDS: Enoxaparin 30 MG/0.3 ML Syringe SUBCUT SCH (17:21)
[2018-08-06] MEDS: Vancomycin 1.2 GM in Sodium Chloride 0.9% 250 ML IV SCH (17:31)
--- NOTE | 2018-08-06 17:35 | PCM.PN ---
- General Info Date of Service: 08/06/18 Subjective Update: Ms. Watson has been fairly stable since admission, stable vital signs and no significant temperature elevation. White blood cell count has improved but remains elevated, area of cellulitis improved from admission but not resolved. She is unable to provide meaningful information concerning symptoms or review of systems because of underlying dementia. - Patient Data Vitals - Most Recent: Last Vital Signs Temp 97.7 F 08/06/18 14:07 Pulse 96 08/06/18 14:07 Resp 18 08/06/18 14:07 BP 121/57 L 08/06/18 14:07 Pulse Ox 95 08/06/18 14:07 Weight - Most Recent: 184 lb 8 oz I&O - Last 24 Hours: Intake & Output 08/06/18 08/06/18 08/06/18 06:59 14:59 22:59 Intake Total 1530 1216 1500 Balance 1530 1216 1500 Lab Results Last 24 Hours: Laboratory Results - last 24 hr 08/06/18 08/06/18 Range/Units 05:00 05:00 WBC 19.1 H (4.5-11.0) K/uL RBC 3.32 (3.30-5.50) M/uL Hgb 13.0 D (12.0-15.0) g/dL Hct 38.6 (36.0-48.0) % MCV 116 H (80-98) fL MCH 39 H (27-31) pg MCHC 34 (32-36) % Plt Count 225 (150-400) K/uL Neut % (Auto) 85 H (36-66) % Lymph % (Auto) 10 L (24-44) % [place] % (Auto) 5 (2-6) % Eos % (Auto) 1 L (2-4) % Baso % (Auto) 0 (0-1) % Sodium 141 (140-148) mmol/L Potassium 3.7 (3.6-5.2) mmol/L Chloride 103 (100-108) mmol/L Carbon Dioxide 33 H (21-32) mmol/L Anion Gap 8.7 (5.0-14.0) mmol/L BUN 29 H (7-18) mg/dL Creatinine 1.4 H (0.6-1.0) mg/dL Est Cr Clr Drug Dosing 21.10 mL/min Estimated GFR (MDRD) 36 L (>60) Glucose 162 H (74-106) mg/dL Calcium 9.3 (8.5-10.1) mg/dL Magnesium 2.1 (1.8-2.4) mg/dL Sharath Results Last 24 Hours: Microbiology 08/05/18 11:45 Aerobic Blood Culture - Preliminary Blood - Arm, Left NO GROWTH AFTER 1 DAY Anaerobic Blood Culture - Preliminary NO GROWTH AFTER 1 DAY 08/05/18 11:52 Aerobic Blood Culture - Preliminary Blood - Arm, Left NO GROWTH AFTER 1 DAY Anaerobic Blood Culture - Preliminary NO GROWTH AFTER 1 DAY Med Orders - Current: Current Medications Acetaminophen (Tylenol) 650 mg PO Q4H PRN PRN Reason: Pain (Mild 1-3)/fever Last Admin: 08/06/18 10:14 Dose: 650 mg Amitriptyline HCl (Elavil) 50 mg PO BEDTIME [facility] Last Admin: 08/05/18 20:53 Dose: 50 mg Cyclobenzaprine HCl (Flexeril) 5 mg PO DAILY [facility] Last Admin: 08/06/18 09:03 Dose: 5 mg Duloxetine HCl (Cymbalta) 60 mg PO DAILY [facility] Last Admin: 08/06/18 10:16 Dose: 60 mg Enoxaparin Sodium (Lovenox) 30 mg SUBCUT Q24H [facility] Last Admin: 08/06/18 17:21 Dose: 30 mg Fentanyl (Duragesic) 25 mcg TRDERM Q72H [facility] Vancomycin HCl 1.2 gm/ Sodium (Chloride) 250 mls @ 166.667 mls/hr IV Q24H [facility] Last Admin: 08/06/18 17:31 Dose: 166.667 mls/hr Piperacillin Sod/Tazobactam (Sod 2.25 gm/ Sodium Chloride) 50 mls @ 100 mls/hr IV Q6H [facility] Last Admin: 08/06/18 15:55 Dose: 100 mls/hr Insulin Human Lispro (Humalog) 0 unit SUBCUT QIDACANDBED [facility]; Protocol Last Admin: 08/06/18 16:28 Dose: 4 units Lactobacillus Rhamnosus (Culturelle) 1 cap PO BID [facility] Last Admin: 08/06/18 09:03 Dose: 1 cap Latanoprost (Xalatan 0.005% Ophth Soln) 0 ml EYEBOTH BEDTIME [facility] Last Admin: 08/05/18 20:59 Dose: 1 drop Verify Fentanyl (Patch) 0 each .XX BID [facility] Last Admin: 08/06/18 09:05 Dose: Not Given Ondansetron HCl (Zofran) 4 mg IV Q4H PRN PRN Reason: Nausea/Vomiting Oxycodone HCl (Oxycodone) 5 mg PO Q4H PRN PRN Reason: PAIN Last Admin: 08/06/18 10:14 Dose: 5 mg Pantoprazole Sodium (Protonix) 40 mg PO ACBREAKFAST [facility] Last Admin: 08/06/18 09:02 Dose: 40 mg Polyethylene Glycol (Miralax) 17 gm PO DAILY PRN PRN Reason: Constipation Potassium Chloride (Potassium Chloride) 10 meq PO TID [facility] Last Admin: 08/06/18 13:40 Dose: 10 meq Prednisone (Prednisone) 20 mg PO DAILY [facility] Last Admin: 08/06/18 09:04 Dose: 20 mg Sodium Chloride (Saline Flush) 10 ml FLUSH ASDIRECTED PRN PRN Reason: Keep Vein Open Torsemide (Demadex) 20 mg PO DAILY [facility] Last Admin: 08/06/18 09:04 Dose: 20 mg Discontinued Medications Sodium Chloride (Normal Saline) 1,000 mls @ 250 mls/hr IV ASDIRECTED [facility] Last Admin: 08/05/18 12:29 Dose: 250 mls/hr Ertapenem 1 gm/ Sodium (Chloride) 100 mls @ 200 mls/hr IV ONETIME ONE Stop: 08/05/18 12:33 Last Admin: 08/05/18 12:29 Dose: 200 mls/hr Lactated Ringer's (Ringers, Lactated) 1,000 mls @ 125 mls/hr IV ASDIRECTED [facility] Last Admin: 08/06/18 12:51 Dose: 125 mls/hr Piperacillin/Tazobactam/ (Dextrose 3.375 gm/ Premix) 50 mls @ 100 mls/hr IV ONETIME ONE Stop: 08/05/18 16:59 Last Admin: 08/05/18 17:14 Dose: 100 mls/hr Piperacillin Sod/Tazobactam (Sod 2.25 gm/ Sodium Chloride) 50 mls @ 100 mls/hr IV Q8H [facility] Last Admin: 08/06/18 09:23 Dose: 100 mls/hr Vancomycin HCl (Vancomycin) 1 gm IV .PHARMACY TO DOSE MYLES Stop: 08/05/18 15:51 - Exam Quality Assessment: Supplemental Oxygen, DVT Prophylaxis General: Alert, Cooperative, No Acute Distress. No: Oriented Lungs: Clear to Auscultation, Normal Respiratory Effort Cardiovascular: Regular Rate, Regular Rhythm, No Murmurs GI/Abdominal Exam: Soft, Non-Tender, No Organomegaly, No Distention Extremities: Other (Cellulitis right lower extremity improved from admission) - Problem List Review Problem List Initiated/Reviewed/Updated: Yes - My Orders Last 24 Hours: My Active Orders 08/05/18 17:30 Enoxaparin [Lovenox] 30 mg SUBCUT Q24H 08/05/18 18:30 Vancomycin 1.2 gm Sodium Chloride 0.9% [Normal Saline] 250 ml IV Q24H 08/05/18 21:00 Amitriptyline [Elavil] 50 mg PO BEDTIME Lactobacillus Rhamnosus GG [Culturelle] 1 cap PO BID Latanoprost [Xalatan 0.005% Ophth Soln] 0 ml EYEBOTH BEDTIME Non-Formulary Medication [NF Drug] 0 each .XX BID Potassium Chloride 10 meq PO TID 08/06/18 07:30 Pantoprazole [ProTONIX] 40 mg PO ACBREAKFAST 08/06/18 09:00 Cyclobenzaprine [Flexeril] 5 mg PO DAILY DULoxetine [Cymbalta] 60 mg PO DAILY Torsemide [Demadex] 20 mg PO DAILY predniSONE 20 mg PO DAILY 08/06/18 16:00 Piperacillin/Tazobactam [Zosyn] 2.25 gm Sodium Chloride 0.9% [Normal Saline] 50 ml IV Q6H 08/06/18 17:28 Convert IV to Saline Lock [OM.PC] Routine 08/07/18 05:00 BASIC METABOLIC PANEL,BMP [CHEM] Timed CBC WITH AUTO DIFF [HEME] Timed 08/07/18 09:00 fentaNYL [Duragesic] 25 mcg TRDERM Q72H - Plan Plan:: ASSESSMENT AND PLAN CELLULITIS OF THE RIGHT LEG WITH SEPSIS-improved from admission with current antibiotic therapy, area of erythema has receded but not resolved. White blood cell count has improved from admission -Blood cultures pending -Saline lock IV -IV vancomycin and Zosyn, pending culture results. Broad-spectrum antibiotics utilized at this time because of recent failure of outpatient therapy CHRONIC KIDNEY DISEASE STAGE IIIb- renal function has improved from admission with mild decrease in creatinine -Closely monitor urine output and renal function HYPERGLYCEMIA-she denies previous history of type 2 diabetes mellitus and home medication list includes no medications for diabetes. -Monitor glucose levels and treat with sliding scale insulin MAINTENANCE ISSUES -DVT prophylaxis; Lovenox 40 mg subcutaneous daily -GI prophylaxis; not indicated -Carlos catheter; not indicated -Nutrition; 2 g sodium diet -Nicotine dependence; not required CODE STATUS-DNR/DNI ADMISSION STATUS-patient will be admitted to inpatient status, expect at least a 2 night hospital stay for evaluation and management of problems as outlined above. At the time of this admission I do not reasonably expected evaluation and management of this problem will require more than a 96 hour hospital stay. DISPOSITION-anticipate discharge back to [facility] PRIMARY CARE PROVIDER-Dr. Machuca
[2018-08-06] MEDS: Latanoprost 0.005% Ophth Soln 2.5 ML Bottle EYEBOTH SCH (20:57)
[2018-08-06] MEDS: fentaNYL 25 MCG/HR Transdermal Patch TRDERM SCH (21:46)
[2018-08-07] MEDS: Piperacillin/Tazobactam 2.25 GM in Sodium Chloride 0.9% 50 ML IV SCH ×4 (04:40→21:18)
[2018-08-07] MEDS: predniSONE 20 MG Tab PO SCH (08:08)
[2018-08-07] MEDS: Potassium Chloride 10 MEQ Cap.ER PO SCH ×3 (08:08→20:22)
[2018-08-07] MEDS: Lactobacillus Rhamnosus GG (Probiotic) Cap PO SCH ×2 (08:08→20:22)
[2018-08-07] MEDS: Cyclobenzaprine 10 MG Tab PO SCH (08:08)
[2018-08-07] MEDS: Pantoprazole 40 MG Tab.CR PO SCH (08:08)
[2018-08-07] MEDS: DULoxetine 30 MG Cap PO SCH (08:08)
[2018-08-07] MEDS: Torsemide 20 MG Tab PO SCH (08:08)
[2018-08-07] MEDS: VERIFY FENTANYL PATCH SCH ×2 (08:09→20:29)
[2018-08-07] MEDS: Insulin Lispro 100 Unit/ML 3 ML KwikPen SUBCUT SCH ×4 (08:18→21:14)
[2018-08-07] MEDS: oxyCODONE 5 MG Tab PO PRN ×2 (09:23→16:47)
--- NOTE | 2018-08-07 12:46 | PCM.PN ---
- General Info Date of Service: 08/07/18 Subjective Update: Ms. Watson continues to experience cellulitis right lower leg, modestly improved from yesterday. She has significant peripheral edema both lower extremities, somewhat worse on the right. She also reports pain in both lower extremities. No significant temperature elevations over the last 24 hours, white blood cell count is improved but still remains elevated at 15,000. Functional Status: Reports: Tolerating Diet, Urinating - Review of Systems General: Reports: Weakness. Denies: Fever, Chills Pulmonary: Reports: No Symptoms Cardiovascular: Reports: No Symptoms Gastrointestinal: Reports: No Symptoms Musculoskeletal: Reports: Other (Swelling and pain in both lower extremities) - Patient Data Vitals - Most Recent: Last Vital Signs Temp 97.8 F 08/07/18 10:45 Pulse 103 H 08/07/18 10:45 Resp 18 08/07/18 10:45 BP 112/63 08/07/18 10:45 Pulse Ox 94 L 08/07/18 10:45 Weight - Most Recent: 179 lb I&O - Last 24 Hours: Intake & Output 08/06/18 08/07/18 08/07/18 22:59 06:59 14:59 Intake Total 1740 80 480 Balance 1740 80 480 Lab Results Last 24 Hours: Laboratory Results - last 24 hr 08/07/18 08/07/18 Range/Units 05:49 05:49 WBC 15.1 H (4.5-11.0) K/uL RBC 2.90 L (3.30-5.50) M/uL Hgb 11.6 L (12.0-15.0) g/dL Hct 32.9 L (36.0-48.0) % MCV 113 H (80-98) fL MCH 40 H (27-31) pg MCHC 35 (32-36) % Plt Count 215 (150-400) K/uL Neut % (Auto) 84 H (36-66) % Lymph % (Auto) 9 L (24-44) % [place] % (Auto) 6 (2-6) % Eos % (Auto) 1 L (2-4) % Baso % (Auto) 0 (0-1) % Sodium 144 (140-148) mmol/L Potassium 3.6 (3.6-5.2) mmol/L Chloride 108 (100-108) mmol/L Carbon Dioxide 31 (21-32) mmol/L Anion Gap 4.7 L (5.0-14.0) mmol/L BUN 18 (7-18) mg/dL Creatinine 1.1 H (0.6-1.0) mg/dL Est Cr Clr Drug Dosing 26.86 mL/min Estimated GFR (MDRD) 47 L (>60) Glucose 123 H (74-106) mg/dL Calcium 8.8 (8.5-10.1) mg/dL Sharath Results Last 24 Hours: Microbiology 08/05/18 11:52 Aerobic Blood Culture - Preliminary Blood - Arm, Left NO GROWTH AFTER 2 DAYS Anaerobic Blood Culture - Preliminary NO GROWTH AFTER 2 DAYS 08/05/18 11:45 Aerobic Blood Culture - Preliminary Blood - Arm, Left NO GROWTH AFTER 2 DAYS Anaerobic Blood Culture - Preliminary NO GROWTH AFTER 2 DAYS 08/05/18 12:37 Urine Culture - Preliminary Urine, Quick Cath (In-Out) Med Orders - Current: Current Medications Acetaminophen (Tylenol) 650 mg PO Q4H PRN PRN Reason: Pain (Mild 1-3)/fever Last Admin: 08/06/18 10:14 Dose: 650 mg Amitriptyline HCl (Elavil) 50 mg PO BEDTIME [facility] Last Admin: 08/06/18 20:57 Dose: 50 mg Cyclobenzaprine HCl (Flexeril) 5 mg PO DAILY [facility] Last Admin: 08/07/18 08:08 Dose: 5 mg Duloxetine HCl (Cymbalta) 60 mg PO DAILY [facility] Last Admin: 08/07/18 08:08 Dose: 60 mg Enoxaparin Sodium (Lovenox) 30 mg SUBCUT Q24H [facility] Last Admin: 08/06/18 17:21 Dose: 30 mg Fentanyl (Duragesic) 25 mcg TRDERM Q72H [facility] Last Admin: 08/06/18 21:46 Dose: 25 mcg Furosemide (Lasix) 40 mg IVPUSH NOW ONE Stop: 08/07/18 17:01 Furosemide (Lasix) 40 mg IVPUSH Q12H [facility] Vancomycin HCl 1.2 gm/ Sodium (Chloride) 250 mls @ 166.667 mls/hr IV Q24H [facility] Last Admin: 08/06/18 17:31 Dose: 166.667 mls/hr Piperacillin Sod/Tazobactam (Sod 2.25 gm/ Sodium Chloride) 50 mls @ 100 mls/hr IV Q6H [facility] Last Admin: 08/07/18 09:23 Dose: 100 mls/hr Insulin Glargine (Lantus Solostar) 16 units SUBCUT BEDTIME [facility] Insulin Human Lispro (Humalog) 0 unit SUBCUT QIDACANDBED [facility]; Protocol Last Admin: 08/07/18 11:58 Dose: 4 units Lactobacillus Rhamnosus (Culturelle) 1 cap PO BID [facility] Last Admin: 08/07/18 08:08 Dose: 1 cap Latanoprost (Xalatan 0.005% Ophth Soln) 0 ml EYEBOTH BEDTIME [facility] Last Admin: 08/06/18 20:57 Dose: 1 drop Verify Fentanyl (Patch) 0 each .XX BID [facility] Last Admin: 08/07/18 08:09 Dose: Not Given Ondansetron HCl (Zofran) 4 mg IV Q4H PRN PRN Reason: Nausea/Vomiting Oxycodone HCl (Oxycodone) 5 mg PO Q4H PRN PRN Reason: PAIN Last Admin: 08/07/18 09:23 Dose: 5 mg Pantoprazole Sodium (Protonix) 40 mg PO ACBREAKFAST [facility] Last Admin: 08/07/18 08:08 Dose: 40 mg Polyethylene Glycol (Miralax) 17 gm PO DAILY PRN PRN Reason: Constipation Last Admin: 08/07/18 08:22 Dose: 17 gm Potassium Chloride (Potassium Chloride) 10 meq PO TID [facility] Last Admin: 08/07/18 08:08 Dose: 10 meq Prednisone (Prednisone) 20 mg PO DAILY [facility] Last Admin: 08/07/18 08:08 Dose: 20 mg Sodium Chloride (Saline Flush) 10 ml FLUSH ASDIRECTED PRN PRN Reason: Keep Vein Open Discontinued Medications Sodium Chloride (Normal Saline) 1,000 mls @ 250 mls/hr IV ASDIRECTED [facility] Last Admin: 08/05/18 12:29 Dose: 250 mls/hr Ertapenem 1 gm/ Sodium (Chloride) 100 mls @ 200 mls/hr IV ONETIME ONE Stop: 08/05/18 12:33 Last Admin: 08/05/18 12:29 Dose: 200 mls/hr Lactated Ringer's (Ringers, Lactated) 1,000 mls @ 125 mls/hr IV ASDIRECTED [facility] Last Admin: 08/06/18 12:51 Dose: 125 mls/hr Piperacillin/Tazobactam/ (Dextrose 3.375 gm/ Premix) 50 mls @ 100 mls/hr IV ONETIME ONE Stop: 08/05/18 16:59 Last Admin: 08/05/18 17:14 Dose: 100 mls/hr Piperacillin Sod/Tazobactam (Sod 2.25 gm/ Sodium Chloride) 50 mls @ 100 mls/hr IV Q8H [facility] Last Admin: 08/06/18 09:23 Dose: 100 mls/hr Torsemide (Demadex) 20 mg PO DAILY [facility] Last Admin: 08/07/18 08:08 Dose: 20 mg Vancomycin HCl (Vancomycin) 1 gm IV .PHARMACY TO DOSE [facility] Stop: 08/05/18 15:51 - Exam General: Alert, Cooperative, Mild Distress. No: Oriented Lungs: Clear to Auscultation, Normal Respiratory Effort Cardiovascular: Regular Rate, Regular Rhythm, Murmurs GI/Abdominal Exam: Soft, Non-Tender, No Organomegaly, No Distention Extremities: Pedal Edema, Increased Warmth, Redness (Right lower leg) - Problem List Review Problem List Initiated/Reviewed/Updated: Yes - My Orders Last 24 Hours: My Active Orders 08/06/18 16:00 Piperacillin/Tazobactam [Zosyn] 2.25 gm Sodium Chloride 0.9% [Normal Saline] 50 ml IV Q6H 08/06/18 17:28 Convert IV to Saline Lock [OM.PC] Routine 08/06/18 21:30 fentaNYL [Duragesic] 25 mcg TRDERM Q72H 08/07/18 17:00 Furosemide [Lasix] 40 mg IVPUSH NOW ONE 08/07/18 18:00 VANCOMYCIN TROUGH [CHEM] Routine 08/07/18 21:00 Insulin Glarg,Human.Rec.Analog [LantUS Solostar] 16 units SUBCUT BEDTIME 08/08/18 05:00 BASIC METABOLIC PANEL,BMP [CHEM] Timed CBC WITH AUTO DIFF [HEME] Timed 08/08/18 06:30 Furosemide [Lasix] 40 mg IVPUSH Q12H - Plan Plan:: ASSESSMENT AND PLAN CELLULITIS OF THE RIGHT LEG WITH SEPSIS-improved from admission with current antibiotic therapy, area of erythema has receded but not resolved. White blood cell count has improved from admission. Ongoing edema in the right lower extremity is likely contributing to slow resolution of sepsis -Furosemide 40 mg IV every 12 hours -Blood cultures pending -Saline lock IV -IV vancomycin and Zosyn, pending culture results. Broad-spectrum antibiotics utilized at this time because of recent failure of outpatient therapy CHRONIC KIDNEY DISEASE STAGE IIIb- renal function has improved from admission with mild decrease in creatinine -Closely monitor urine output and renal function HYPERGLYCEMIA-she denies previous history of type 2 diabetes mellitus and home medication list includes no medications for diabetes. Glucose levels have remained elevated despite sliding scale insulin -Lantus insulin 16 units subcutaneous daily at bedtime -Monitor glucose levels and treat with sliding scale insulin MAINTENANCE ISSUES -DVT prophylaxis; Lovenox 40 mg subcutaneous daily -GI prophylaxis; not indicated -Carlos catheter; not indicated -Nutrition; 2 g sodium diet -Nicotine dependence; not required CODE STATUS-DNR/DNI ADMISSION STATUS-patient will be admitted to inpatient status, expect at least a 2 night hospital stay for evaluation and management of problems as outlined above. At the time of this admission I do not reasonably expected evaluation and management of this problem will require more than a 96 hour hospital stay. DISPOSITION-anticipate discharge back to long term PRIMARY CARE PROVIDER-Dr. Machuca
[2018-08-07] MEDS: Enoxaparin 30 MG/0.3 ML Syringe SUBCUT SCH (16:38)
[2018-08-07] MEDS ORDERED: Furosemide 40 MG/4 ML VIAL IVPUSH ONE (17:00)
[2018-08-07] MEDS: Vancomycin 1.2 GM in Sodium Chloride 0.9% 250 ML IV SCH (18:36)
[2018-08-07] MEDS: Latanoprost 0.005% Ophth Soln 2.5 ML Bottle EYEBOTH SCH (20:22)
[2018-08-07] MEDS: Insulin Glargine,Human Rec. Analog 100 Units/ML 3 ML Pen SUBCUT SCH (21:16)
[2018-08-08] MEDS: Piperacillin/Tazobactam 2.25 GM in Sodium Chloride 0.9% 50 ML IV SCH ×4 (05:03→22:05)
[2018-08-08] MEDS: Furosemide 40 MG/4 ML VIAL IVPUSH SCH ×2 (07:01→18:33)
[2018-08-08] MEDS: Insulin Lispro 100 Unit/ML 3 ML KwikPen SUBCUT SCH ×4 (07:46→22:02)
[2018-08-08] MEDS: Pantoprazole 40 MG Tab.CR PO SCH (07:47)
[2018-08-08] MEDS ORDERED: Potassium Chloride Riders 40 MEQ in Premix Bag 1 BAG IV ONE (08:22)
[2018-08-08] MEDS: Cyclobenzaprine 10 MG Tab PO SCH (08:28)
[2018-08-08] MEDS: DULoxetine 30 MG Cap PO SCH (08:28)
[2018-08-08] MEDS: Lactobacillus Rhamnosus GG (Probiotic) Cap PO SCH ×2 (08:28→20:18)
[2018-08-08] MEDS: Potassium Chloride 10 MEQ Cap.ER PO SCH ×3 (08:28→20:18)
[2018-08-08] MEDS: oxyCODONE 5 MG Tab PO PRN ×2 (08:39→14:40)
[2018-08-08] MEDS ORDERED: Potassium Chloride 20 MEQ Tab.ER PO ONE ×2 (09:00→17:00)
[2018-08-08] MEDS: Vancomycin 1.2 GM in Sodium Chloride 0.9% 250 ML IV SCH ×2 (09:08→20:18)
[2018-08-08] MEDS: VERIFY FENTANYL PATCH SCH ×2 (09:09→20:19)
[2018-08-08] MEDS: predniSONE 20 MG Tab PO SCH (09:09)
[2018-08-08] MEDS: Potassium Chloride 20 MEQ, Lidocaine 1% 2 ML in Sodium Chloride 0.9% 100 ML IV SCH ×2 (09:18→11:24)
--- NOTE | 2018-08-08 12:06 | PCM.PN ---
- General Info Date of Service: 08/08/18 Subjective Update: Ms. Watson has been stable since yesterday, she has diuresed some with some improvement in peripheral edema as well as cellulitis. Please report pain in the leg, no significant temperature elevation. - Review of Systems General: Reports: Weakness. Denies: Fever, Chills Pulmonary: Reports: No Symptoms Cardiovascular: Reports: No Symptoms Gastrointestinal: Reports: No Symptoms Musculoskeletal: Reports: Leg Pain (Right leg pain and swelling with erythema secondary to cellulitis) - Patient Data Vitals - Most Recent: Last Vital Signs Temp 96.1 F 08/08/18 10:46 Pulse 98 08/08/18 10:46 Resp 16 08/08/18 10:46 BP 121/75 08/08/18 10:46 Pulse Ox 91 L 08/08/18 10:46 Weight - Most Recent: 176 lb 2.389 oz I&O - Last 24 Hours: Intake & Output 08/07/18 08/08/18 08/08/18 22:59 06:59 14:59 Intake Total 430 714 Balance 430 714 Lab Results Last 24 Hours: Laboratory Results - last 24 hr 08/07/18 08/08/18 08/08/18 Range/Units 18:02 04:43 04:43 WBC 14.4 H (4.5-11.0) K/uL RBC 3.17 L (3.30-5.50) M/uL Hgb 12.2 (12.0-15.0) g/dL Hct 36.4 (36.0-48.0) % MCV 115 H (80-98) fL MCH 39 H (27-31) pg MCHC 34 (32-36) % Plt Count 237 (150-400) K/uL Neut % (Auto) 75 H (36-66) % Lymph % (Auto) 16 L (24-44) % [place] % (Auto) 7 H (2-6) % Eos % (Auto) 2 (2-4) % Baso % (Auto) 0 (0-1) % Sodium 145 (140-148) mmol/L Potassium 3.4 L (3.6-5.2) mmol/L Chloride 106 (100-108) mmol/L Carbon Dioxide 33 H (21-32) mmol/L Anion Gap 9.4 (5.0-14.0) mmol/L BUN 13 (7-18) mg/dL Creatinine 1.0 (0.6-1.0) mg/dL Est Cr Clr Drug Dosing 29.54 mL/min Estimated GFR (MDRD) 53 L (>60) Glucose 77 (74-106) mg/dL Calcium 8.7 (8.5-10.1) mg/dL Vancomycin Trough 7.7 L (10.0-20.0) ug/mL Sharath Results Last 24 Hours: Microbiology 08/05/18 11:45 Aerobic Blood Culture - Preliminary Blood - Arm, Left NO GROWTH AFTER 3 DAYS Anaerobic Blood Culture - Preliminary NO GROWTH AFTER 3 DAYS 08/05/18 11:52 Aerobic Blood Culture - Preliminary Blood - Arm, Left NO GROWTH AFTER 3 DAYS Anaerobic Blood Culture - Preliminary NO GROWTH AFTER 3 DAYS 08/05/18 12:37 Urine Culture - Final Urine, Quick Cath (In-Out) Enterococcus Faecalis Med Orders - Current: Current Medications Acetaminophen (Tylenol) 650 mg PO Q4H PRN PRN Reason: Pain (Mild 1-3)/fever Last Admin: 08/06/18 10:14 Dose: 650 mg Amitriptyline HCl (Elavil) 50 mg PO BEDTIME [facility] Last Admin: 08/07/18 20:22 Dose: 50 mg Cyclobenzaprine HCl (Flexeril) 5 mg PO DAILY [facility] Last Admin: 08/08/18 08:28 Dose: 5 mg Duloxetine HCl (Cymbalta) 60 mg PO DAILY [facility] Last Admin: 08/08/18 08:28 Dose: 60 mg Enoxaparin Sodium (Lovenox) 40 mg SUBCUT Q24H [facility] Fentanyl (Duragesic) 25 mcg TRDERM Q72H [facility] Last Admin: 08/06/18 21:46 Dose: 25 mcg Furosemide (Lasix) 40 mg IVPUSH Q12H [facility] Last Admin: 08/08/18 07:01 Dose: 40 mg Piperacillin Sod/Tazobactam (Sod 2.25 gm/ Sodium Chloride) 50 mls @ 100 mls/hr IV Q6H [facility] Last Admin: 08/08/18 10:58 Dose: 100 mls/hr Vancomycin HCl 1.2 gm/ Sodium (Chloride) 250 mls @ 166.667 mls/hr IV Q12H [facility] Last Admin: 08/08/18 09:08 Dose: 166.667 mls/hr Potassium Chloride 20 meq/Lidocaine HCl 2 ml/ Sodium Chloride 112 mls @ 56 mls/ hr IV Q2H [facility] Stop: 08/08/18 13:59 Last Admin: 08/08/18 11:24 Dose: 56 mls/hr Insulin Glargine (Lantus Solostar) 16 units SUBCUT BEDTIME [facility] Last Admin: 08/07/18 21:16 Dose: 16 unit Insulin Human Lispro (Humalog) 0 unit SUBCUT QIDACANDBED [facility]; Protocol Last Admin: 08/08/18 11:26 Dose: 1 units Lactobacillus Rhamnosus (Culturelle) 1 cap PO BID [facility] Last Admin: 08/08/18 08:28 Dose: 1 cap Latanoprost (Xalatan 0.005% Ophth Soln) 0 ml EYEBOTH BEDTIME [facility] Last Admin: 08/07/18 20:22 Dose: 1 drop Verify Fentanyl (Patch) 0 each .XX BID [facility] Last Admin: 08/08/18 09:09 Dose: Not Given Ondansetron HCl (Zofran) 4 mg IV Q4H PRN PRN Reason: Nausea/Vomiting Oxycodone HCl (Oxycodone) 5 mg PO Q4H PRN PRN Reason: PAIN Last Admin: 08/08/18 08:39 Dose: 5 mg Pantoprazole Sodium (Protonix) 40 mg PO ACBREAKFAST [facility] Last Admin: 08/08/18 07:47 Dose: 40 mg Polyethylene Glycol (Miralax) 17 gm PO DAILY PRN PRN Reason: Constipation Last Admin: 08/07/18 08:22 Dose: 17 gm Potassium Chloride (Potassium Chloride) 10 meq PO TID [facility] Last Admin: 08/08/18 08:28 Dose: 10 meq Potassium Chloride (Klor-Con M20) 40 meq PO ONETIME ONE Stop: 08/08/18 17:01 Prednisone (Prednisone) 20 mg PO DAILY [facility] Last Admin: 08/08/18 09:09 Dose: 20 mg Sodium Chloride (Saline Flush) 10 ml FLUSH ASDIRECTED PRN PRN Reason: Keep Vein Open Discontinued Medications Enoxaparin Sodium (Lovenox) 30 mg SUBCUT Q24H [facility] Last Admin: 08/07/18 16:38 Dose: 30 mg Furosemide (Lasix) 40 mg IVPUSH NOW ONE Stop: 08/07/18 17:01 Last Admin: 08/07/18 16:03 Dose: 40 mg Sodium Chloride (Normal Saline) 1,000 mls @ 250 mls/hr IV ASDIRECTED [facility] Last Admin: 08/05/18 12:29 Dose: 250 mls/hr Ertapenem 1 gm/ Sodium (Chloride) 100 mls @ 200 mls/hr IV ONETIME ONE Stop: 08/05/18 12:33 Last Admin: 08/05/18 12:29 Dose: 200 mls/hr Lactated Ringer's (Ringers, Lactated) 1,000 mls @ 125 mls/hr IV ASDIRECTED [facility] Last Admin: 08/06/18 12:51 Dose: 125 mls/hr Piperacillin/Tazobactam/ (Dextrose 3.375 gm/ Premix) 50 mls @ 100 mls/hr IV ONETIME ONE Stop: 08/05/18 16:59 Last Admin: 08/05/18 17:14 Dose: 100 mls/hr Piperacillin Sod/Tazobactam (Sod 2.25 gm/ Sodium Chloride) 50 mls @ 100 mls/hr IV Q8H [facility] Last Admin: 08/06/18 09:23 Dose: 100 mls/hr Vancomycin HCl 1.2 gm/ Sodium (Chloride) 250 mls @ 166.667 mls/hr IV Q24H [facility] Last Admin: 08/07/18 18:36 Dose: 166.667 mls/hr Potassium Chloride (Klor-Con M20) 40 meq PO ONETIME ONE Stop: 08/08/18 09:01 Last Admin: 08/08/18 09:08 Dose: 40 meq Torsemide (Demadex) 20 mg PO DAILY [facility] Last Admin: 08/07/18 08:08 Dose: 20 mg Vancomycin HCl (Vancomycin) 1 gm IV .PHARMACY TO DOSE [facility] Stop: 08/05/18 15:51 - Exam Quality Assessment: DVT Prophylaxis General: Alert, Oriented, Cooperative, Mild Distress Lungs: Clear to Auscultation, Normal Respiratory Effort Cardiovascular: Regular Rate, Regular Rhythm, No Murmurs GI/Abdominal Exam: Soft, Non-Tender, No Organomegaly, No Distention Extremities: Non-Tender, Pedal Edema, Increased Warmth, Redness - Problem List Review Problem List Initiated/Reviewed/Updated: Yes - My Orders Last 24 Hours: My Active Orders 08/07/18 21:00 Insulin Glarg,Human.Rec.Analog [LantUS Solostar] 16 units SUBCUT BEDTIME 08/08/18 06:30 Furosemide [Lasix] 40 mg IVPUSH Q12H 08/08/18 09:00 Vancomycin 1.2 gm Sodium Chloride 0.9% [Normal Saline] 250 ml IV Q12H 08/08/18 10:00 Potassium Chloride 20 meq Lidocaine 1% [Xylocaine 1%] 2 ml Sodium Chloride 0.9 % [Normal Saline] 100 ml IV Q2H 08/08/18 12:01 Enoxaparin [Lovenox] 40 mg SUBCUT Q24H 08/08/18 17:00 Potassium Chloride [Klor-Con M20] 40 meq PO ONETIME ONE 08/09/18 05:00 BASIC METABOLIC PANEL,BMP [CHEM] Timed CBC WITH AUTO DIFF [HEME] Timed INR,PT,PROTHROMBIN TIME [COAG] Timed MAGNESIUM [CHEM] Timed - Plan Plan:: ASSESSMENT AND PLAN CELLULITIS OF THE RIGHT LEG WITH SEPSIS-improved from admission with current antibiotic therapy and diuresis, area of erythema has receded but not resolved. White blood cell count has slowly improved from admission. Ongoing edema in the right lower extremity is likely contributing to slow resolution of cellulitis. Culture obtained in the emergency department growing enterococcus, review of urinalysis shows no obvious evidence of infection -Furosemide 40 mg IV every 12 hours -Blood cultures pending, negative thus far -Saline lock IV -IV vancomycin and Zosyn, pending culture results. Broad-spectrum antibiotics utilized at this time because of recent failure of outpatient therapy CHRONIC KIDNEY DISEASE STAGE IIIb- renal function has improved from admission with mild decrease in creatinine -Closely monitor urine output and renal function HYPERGLYCEMIA-she denies previous history of type 2 diabetes mellitus and home medication list includes no medications for diabetes. Glucose levels have remained elevated despite sliding scale insulin -Lantus insulin 16 units subcutaneous daily at bedtime -Monitor glucose levels and treat with sliding scale insulin MAINTENANCE ISSUES -DVT prophylaxis; Lovenox 40 mg subcutaneous daily -GI prophylaxis; not indicated -Carlos catheter; not indicated -Nutrition; 2 g sodium diet -Nicotine dependence; not required CODE STATUS-DNR/DNI ADMISSION STATUS-patient will be admitted to inpatient status, expect at least a 2 night hospital stay for evaluation and management of problems as outlined above. At the time of this admission I do not reasonably expected evaluation and management of this problem will require more than a 96 hour hospital stay. DISPOSITION-anticipate discharge back to [facility] PRIMARY CARE PROVIDER-Dr. Machuca
[2018-08-08] MEDS ORDERED: Enoxaparin 40 MG/0.4 ML Syringe SUBCUT SCH (17:00)
[2018-08-08] MEDS: Latanoprost 0.005% Ophth Soln 2.5 ML Bottle EYEBOTH SCH (20:18)
[2018-08-08] MEDS: Insulin Glargine,Human Rec. Analog 100 Units/ML 3 ML Pen SUBCUT SCH (22:04)
[2018-08-09] MEDS: Piperacillin/Tazobactam 2.25 GM in Sodium Chloride 0.9% 50 ML IV SCH ×3 (04:39→16:39)
[2018-08-09] MEDS: Furosemide 40 MG/4 ML VIAL IVPUSH SCH (06:16)
[2018-08-09] MEDS: Insulin Lispro 100 Unit/ML 3 ML KwikPen SUBCUT SCH ×4 (08:09→21:02)
[2018-08-09] MEDS ORDERED: Sodium Chloride 0.9% 1,000 ML IV SCH ×2 (08:30→18:00)
[2018-08-09] MEDS: DULoxetine 30 MG Cap PO SCH (09:09)
[2018-08-09] MEDS: Pantoprazole 40 MG Tab.CR PO SCH (09:09)
[2018-08-09] MEDS: Lactobacillus Rhamnosus GG (Probiotic) Cap PO SCH ×2 (09:09→21:04)
[2018-08-09] MEDS: predniSONE 20 MG Tab PO SCH (09:10)
[2018-08-09] MEDS: Cyclobenzaprine 10 MG Tab PO SCH (09:10)
[2018-08-09] MEDS: Potassium Chloride 10 MEQ Cap.ER PO SCH ×3 (09:10→21:05)
[2018-08-09] MEDS: VERIFY FENTANYL PATCH SCH ×2 (09:12→21:05)
--- NOTE | 2018-08-09 11:59 | PCM.PN ---
- General Info Date of Service: 08/09/18 Subjective Update: Ms. Watson is unfortunately developed acute kidney injury and mild hyperkalemia, likely secondary to diuresis with intravascular volume depletion. She has remained afebrile and white blood cell count is only slightly elevated, down from 30,000 at the time of admission. She reports less pain in the leg and edema has improved with diuresis. Functional Status: Reports: Pain Controlled, Tolerating Diet, Urinating - Review of Systems General: Reports: Weakness. Denies: Fever, Chills Pulmonary: Reports: No Symptoms Cardiovascular: Reports: Edema. Denies: Chest Pain, Dyspnea on Exertion, Orthopnea, PND Gastrointestinal: Reports: No Symptoms Musculoskeletal: Reports: Other (Preventative peripheral edema with diuresis) Skin: Reports: Other (Erythema in the lower portion of the right leg has improved with less warmth.) - Patient Data Vitals - Most Recent: Last Vital Signs Temp 95.7 F 08/09/18 10:31 Pulse 99 08/09/18 10:31 Resp 16 08/09/18 10:31 BP 145/57 H 08/09/18 10:31 Pulse Ox 96 08/09/18 10:31 Weight - Most Recent: 176 lb 2.389 oz I&O - Last 24 Hours: Intake & Output 08/08/18 08/09/18 08/09/18 22:59 06:59 14:59 Intake Total 1939 Balance 1939 Lab Results Last 24 Hours: Laboratory Results - last 24 hr 08/09/18 08/09/18 08/09/18 Range/Units 05:19 05:19 05:19 WBC 11.2 H (4.5-11.0) K/uL RBC 2.85 L (3.30-5.50) M/uL Hgb 11.3 L (12.0-15.0) g/dL Hct 32.1 L (36.0-48.0) % MCV 113 H (80-98) fL MCH 40 H (27-31) pg MCHC 35 (32-36) % Plt Count 223 (150-400) K/uL Neut % (Auto) 85 H (36-66) % Lymph % (Auto) 6 L (24-44) % [place] % (Auto) 9 H (2-6) % Eos % (Auto) 0 L (2-4) % Baso % (Auto) 0 (0-1) % PT 9.7 (9.5-12.0) sec INR 0.88 (0.80-1.20) Sodium 140 (140-148) mmol/L Potassium 5.5 H (3.6-5.2) mmol/L Chloride 106 (100-108) mmol/L Carbon Dioxide 29 (21-32) mmol/L Anion Gap 10.5 (5.0-14.0) mmol/L BUN 21 H D (7-18) mg/dL Creatinine 2.1 H D (0.6-1.0) mg/dL Est Cr Clr Drug Dosing 14.07 mL/min Estimated GFR (MDRD) 22 L (>60) Glucose 139 H (74-106) mg/dL Calcium 9.1 (8.5-10.1) mg/dL Magnesium 1.8 (1.8-2.4) mg/dL Sharath Results Last 24 Hours: Microbiology 08/05/18 11:45 Aerobic Blood Culture - Preliminary Blood - Arm, Left NO GROWTH AFTER 3 DAYS Anaerobic Blood Culture - Preliminary NO GROWTH AFTER 3 DAYS 08/05/18 11:52 Aerobic Blood Culture - Preliminary Blood - Arm, Left NO GROWTH AFTER 3 DAYS Anaerobic Blood Culture - Preliminary NO GROWTH AFTER 3 DAYS Med Orders - Current: Current Medications Acetaminophen (Tylenol) 650 mg PO Q4H PRN PRN Reason: Pain (Mild 1-3)/fever Last Admin: 08/06/18 10:14 Dose: 650 mg Amitriptyline HCl (Elavil) 50 mg PO BEDTIME [facility] Last Admin: 08/08/18 20:18 Dose: 50 mg Cyclobenzaprine HCl (Flexeril) 5 mg PO DAILY [facility] Last Admin: 08/09/18 09:10 Dose: 5 mg Duloxetine HCl (Cymbalta) 60 mg PO DAILY [facility] Last Admin: 08/09/18 09:09 Dose: 60 mg Enoxaparin Sodium (Lovenox) 30 mg SUBCUT Q24H [facility] Fentanyl (Duragesic) 25 mcg TRDERM Q72H [facility] Last Admin: 08/06/18 21:46 Dose: 25 mcg Piperacillin Sod/Tazobactam (Sod 2.25 gm/ Sodium Chloride) 50 mls @ 100 mls/hr IV Q6H [facility] Last Admin: 08/09/18 09:22 Dose: 100 mls/hr Sodium Chloride (Normal Saline) 1,000 mls @ 100 mls/hr IV ASDIRECTED [facility] Stop: 08/09/18 18:30 Last Admin: 08/09/18 09:22 Dose: 100 mls/hr Insulin Glargine (Lantus Solostar) 16 units SUBCUT BEDTIME [facility] Last Admin: 08/08/18 22:04 Dose: 16 unit Insulin Human Lispro (Humalog) 0 unit SUBCUT QIDACANDBED [facility]; Protocol Last Admin: 08/09/18 08:09 Dose: Not Given Lactobacillus Rhamnosus (Culturelle) 1 cap PO BID [facility] Last Admin: 08/09/18 09:09 Dose: 1 cap Latanoprost (Xalatan 0.005% Ophth Soln) 0 ml EYEBOTH BEDTIME [facility] Last Admin: 08/08/18 20:18 Dose: 1 drop Verify Fentanyl (Patch) 0 each .XX BID [facility] Last Admin: 08/09/18 09:12 Dose: Not Given Ondansetron HCl (Zofran) 4 mg IV Q4H PRN PRN Reason: Nausea/Vomiting Oxycodone HCl (Oxycodone) 5 mg PO Q4H PRN PRN Reason: PAIN Last Admin: 08/08/18 14:40 Dose: 5 mg Pantoprazole Sodium (Protonix) 40 mg PO ACBREAKFAST [facility] Last Admin: 08/09/18 09:09 Dose: 40 mg Polyethylene Glycol (Miralax) 17 gm PO DAILY PRN PRN Reason: Constipation Last Admin: 08/07/18 08:22 Dose: 17 gm Potassium Chloride (Potassium Chloride) 10 meq PO TID [facility] Last Admin: 08/09/18 09:10 Dose: 10 meq Prednisone (Prednisone) 20 mg PO DAILY [facility] Last Admin: 08/09/18 09:10 Dose: 20 mg Sodium Chloride (Saline Flush) 10 ml FLUSH ASDIRECTED PRN PRN Reason: Keep Vein Open Discontinued Medications Enoxaparin Sodium (Lovenox) 30 mg SUBCUT Q24H [facility] Last Admin: 08/07/18 16:38 Dose: 30 mg Enoxaparin Sodium (Lovenox) 40 mg SUBCUT Q24H [facility] Last Admin: 08/08/18 18:33 Dose: 40 mg Furosemide (Lasix) 40 mg IVPUSH NOW ONE Stop: 08/07/18 17:01 Last Admin: 08/07/18 16:03 Dose: 40 mg Furosemide (Lasix) 40 mg IVPUSH Q12H [facility] Last Admin: 08/09/18 06:16 Dose: 40 mg Sodium Chloride (Normal Saline) 1,000 mls @ 250 mls/hr IV ASDIRECTED [facility] Last Admin: 08/05/18 12:29 Dose: 250 mls/hr Ertapenem 1 gm/ Sodium (Chloride) 100 mls @ 200 mls/hr IV ONETIME ONE Stop: 08/05/18 12:33 Last Admin: 08/05/18 12:29 Dose: 200 mls/hr Lactated Ringer's (Ringers, Lactated) 1,000 mls @ 125 mls/hr IV ASDIRECTED [facility] Last Admin: 08/06/18 12:51 Dose: 125 mls/hr Piperacillin/Tazobactam/ (Dextrose 3.375 gm/ Premix) 50 mls @ 100 mls/hr IV ONETIME ONE Stop: 08/05/18 16:59 Last Admin: 08/05/18 17:14 Dose: 100 mls/hr Piperacillin Sod/Tazobactam (Sod 2.25 gm/ Sodium Chloride) 50 mls @ 100 mls/hr IV Q8H [facility] Last Admin: 08/06/18 09:23 Dose: 100 mls/hr Vancomycin HCl 1.2 gm/ Sodium (Chloride) 250 mls @ 166.667 mls/hr IV Q24H [facility] Last Admin: 08/07/18 18:36 Dose: 166.667 mls/hr Vancomycin HCl 1.2 gm/ Sodium (Chloride) 250 mls @ 166.667 mls/hr IV Q12H [facility] Last Admin: 08/08/18 20:18 Dose: 166.667 mls/hr Potassium Chloride 20 meq/Lidocaine HCl 2 ml/ Sodium Chloride 112 mls @ 56 mls/ hr IV Q2H [facility] Stop: 08/08/18 13:59 Last Admin: 08/08/18 11:24 Dose: 56 mls/hr Potassium Chloride (Klor-Con M20) 40 meq PO ONETIME ONE Stop: 08/08/18 09:01 Last Admin: 08/08/18 09:08 Dose: 40 meq Potassium Chloride (Klor-Con M20) 40 meq PO ONETIME ONE Stop: 08/08/18 17:01 Last Admin: 08/08/18 18:32 Dose: 40 meq Torsemide (Demadex) 20 mg PO DAILY [facility] Last Admin: 08/07/18 08:08 Dose: 20 mg Vancomycin HCl (Vancomycin) 1 gm IV .PHARMACY TO DOSE [facility] Stop: 08/05/18 15:51 - Exam Quality Assessment: DVT Prophylaxis General: Alert, Cooperative, Mild Distress Lungs: Clear to Auscultation, Normal Respiratory Effort Cardiovascular: Regular Rate, Regular Rhythm, No Murmurs GI/Abdominal Exam: Soft, Non-Tender, No Organomegaly, No Distention Extremities: Non-Tender, Pedal Edema, Other (Mild residual erythema and increased warmth right lower leg, significantly improved over the past few days) - Problem List Review Problem List Initiated/Reviewed/Updated: Yes - My Orders Last 24 Hours: My Active Orders 08/09/18 08:30 Sodium Chloride 0.9% [Normal Saline] 1,000 ml IV ASDIRECTED 08/09/18 17:00 BASIC METABOLIC PANEL,BMP [CHEM] Stat Enoxaparin [Lovenox] 30 mg SUBCUT Q24H 08/10/18 05:00 BASIC METABOLIC PANEL,BMP [CHEM] Timed CBC WITH AUTO DIFF [HEME] Timed - Plan Plan:: ASSESSMENT AND PLAN CELLULITIS OF THE RIGHT LEG WITH SEPSIS-other improvement with less erythema warmth and tenderness right lower leg. Improvement in edema with diuresis, white blood cell count almost within normal range -Old diuretic therapy -Blood cultures negative thus far -Saline lock IV -Continue IV Zosyn ACUTE KIDNEY INJURY-large jump in creatinine over the last 24 hours, likely secondary to intravascular volume depletion with diuresis. At baseline she does have chronic kidney disease stage IIIb -Hold diuretic therapy -Normal saline 100 mL per hour, discontinue after 1 L -Recheck renal function later this afternoon HYPERKALEMIA-mild secondary to acute kidney injury -Normal saline as above -Recheck potassium later today and again in the a.m. HYPERGLYCEMIA-she denies previous history of type 2 diabetes mellitus and home medication list includes no medications for diabetes. Glucose levels have improved with current management and improvement in cellulitis -Lantus insulin 16 units subcutaneous daily at bedtime -Monitor glucose levels and treat with sliding scale insulin MAINTENANCE ISSUES -DVT prophylaxis; Lovenox 40 mg subcutaneous daily -GI prophylaxis; not indicated -Carlos catheter; not indicated -Nutrition; 2 g sodium diet -Nicotine dependence; not required CODE STATUS-DNR/DNI ADMISSION STATUS-patient will be admitted to inpatient status, expect at least a 2 night hospital stay for evaluation and management of problems as outlined above. At the time of this admission I do not reasonably expected evaluation and management of this problem will require more than a 96 hour hospital stay. DISPOSITION-anticipate discharge back to [facility] PRIMARY CARE PROVIDER-Dr. Machuca
[2018-08-09] MEDS: Enoxaparin 30 MG/0.3 ML Syringe SUBCUT SCH (16:40)
[2018-08-09] MEDS ORDERED: Meropenem 500 MG in Sodium Chloride 0.9% 100 ML IV SCH (21:00)
[2018-08-09] MEDS: Insulin Glargine,Human Rec. Analog 100 Units/ML 3 ML Pen SUBCUT SCH (21:03)
[2018-08-09] MEDS: Latanoprost 0.005% Ophth Soln 2.5 ML Bottle EYEBOTH SCH (21:05)
[2018-08-09] MEDS: oxyCODONE 5 MG Tab PO PRN (21:12)
[2018-08-09] MEDS: fentaNYL 25 MCG/HR Transdermal Patch TRDERM SCH (21:14)
[2018-08-10] MEDS: oxyCODONE 5 MG Tab PO PRN ×2 (08:20→20:23)
[2018-08-10] MEDS: Insulin Lispro 100 Unit/ML 3 ML KwikPen SUBCUT SCH ×4 (08:21→21:48)
[2018-08-10] MEDS: Cyclobenzaprine 10 MG Tab PO SCH (08:22)
[2018-08-10] MEDS: Pantoprazole 40 MG Tab.CR PO SCH (08:22)
[2018-08-10] MEDS: Lactobacillus Rhamnosus GG (Probiotic) Cap PO SCH ×2 (08:22→20:19)
[2018-08-10] MEDS: DULoxetine 30 MG Cap PO SCH (08:23)
[2018-08-10] MEDS: VERIFY FENTANYL PATCH SCH ×2 (08:24→20:19)
[2018-08-10] MEDS: Meropenem 500 MG in Sodium Chloride 0.9% 50 ML IV SCH ×2 (10:23→21:47)
[2018-08-10] MEDS: predniSONE 20 MG Tab PO SCH (10:23)
--- NOTE | 2018-08-10 13:50 | PCM.PN ---
- General Info Date of Service: 08/10/18 Subjective Update: There were no acute events overnight. Creatinine level is stable today compared to yesterday. Patient reports ongoing pain in the right leg which is stable. She does endorse bilateral edema which she thinks is stable to slightly worse today. She endorses shortness of breath but thinks this is at her baseline. She has not had any fevers. No new positive culture results. Functional Status: Reports: Pain Controlled, Tolerating Diet - Review of Systems General: Reports: Weakness Pulmonary: Denies: Shortness of Breath Musculoskeletal: Reports: Leg Pain (right lower leg ) - Patient Data Vitals - Most Recent: Last Vital Signs Temp 36.6 C 08/10/18 12:03 Pulse 100 08/10/18 12:03 Resp 20 08/10/18 12:03 BP 117/63 08/10/18 12:03 Pulse Ox 95 08/10/18 13:00 Weight - Most Recent: 83.28 kg I&O - Last 24 Hours: Intake & Output 08/09/18 08/10/18 08/10/18 22:59 06:59 14:59 Intake Total 1660 100 930 Balance 1660 100 930 Lab Results Last 24 Hours: Laboratory Results - last 24 hr 08/09/18 08/09/18 08/10/18 Range/Units 16:44 23:10 05:56 WBC 12.1 H (4.5-11.0) K/uL RBC 2.96 L (3.30-5.50) M/uL Hgb 11.3 L (12.0-15.0) g/dL Hct 33.0 L (36.0-48.0) % MCV 112 H (80-98) fL MCH 38 H (27-31) pg MCHC 34 (32-36) % Plt Count 285 (150-400) K/uL Add Manual Diff Yes Neutrophils % (Manual) 79 H (36-66) % Band Neutrophils % 3 L (5-11) % Lymphocytes % (Manual) 10 L (24-44) % Monocytes % (Manual) 6 (2-6) % Eosinophils % (Manual) 1 L (2-4) % Blast Cells % 1 % Sodium 139 L (140-148) mmol/L Potassium 5.5 H 4.6 (3.6-5.2) mmol/L Chloride 104 (100-108) mmol/L Carbon Dioxide 28 (21-32) mmol/L Anion Gap 12.5 (5.0-14.0) mmol/L BUN 25 H (7-18) mg/dL Creatinine 2.6 H (0.6-1.0) mg/dL Est Cr Clr Drug Dosing 11.36 mL/min Estimated GFR (MDRD) 17 L (>60) Glucose 206 H (74-106) mg/dL Calcium 9.0 (8.5-10.1) mg/dL 08/10/18 Range/Units 05:56 WBC (4.5-11.0) K/uL RBC (3.30-5.50) M/uL Hgb (12.0-15.0) g/dL Hct (36.0-48.0) % MCV (80-98) fL MCH (27-31) pg MCHC (32-36) % Plt Count (150-400) K/uL Add Manual Diff Neutrophils % (Manual) (36-66) % Band Neutrophils % (5-11) % Lymphocytes % (Manual) (24-44) % Monocytes % (Manual) (2-6) % Eosinophils % (Manual) (2-4) % Blast Cells % % Sodium 140 (140-148) mmol/L Potassium 4.2 (3.6-5.2) mmol/L Chloride 107 (100-108) mmol/L Carbon Dioxide 26 (21-32) mmol/L Anion Gap 7.0 (5.0-14.0) mmol/L BUN 27 H (7-18) mg/dL Creatinine 2.7 H (0.6-1.0) mg/dL Est Cr Clr Drug Dosing 10.94 mL/min Estimated GFR (MDRD) 17 L (>60) Glucose 86 (74-106) mg/dL Calcium 8.9 (8.5-10.1) mg/dL Sharath Results Last 24 Hours: Microbiology 08/05/18 11:45 Aerobic Blood Culture - Final Blood - Arm, Left NO GROWTH AFTER 5 DAYS Anaerobic Blood Culture - Final NO GROWTH AFTER 5 DAYS 08/05/18 11:52 Aerobic Blood Culture - Final Blood - Arm, Left NO GROWTH AFTER 5 DAYS Anaerobic Blood Culture - Final NO GROWTH AFTER 5 DAYS Med Orders - Current: Current Medications Acetaminophen (Tylenol) 650 mg PO Q4H PRN PRN Reason: Pain (Mild 1-3)/fever Last Admin: 08/06/18 10:14 Dose: 650 mg Amitriptyline HCl (Elavil) 50 mg PO BEDTIME [facility] Last Admin: 08/09/18 21:04 Dose: 50 mg Cyclobenzaprine HCl (Flexeril) 5 mg PO DAILY [facility] Last Admin: 08/10/18 08:22 Dose: 5 mg Duloxetine HCl (Cymbalta) 60 mg PO DAILY [facility] Last Admin: 08/10/18 08:23 Dose: 60 mg Enoxaparin Sodium (Lovenox) 30 mg SUBCUT Q24H [facility] Last Admin: 08/09/18 16:40 Dose: 30 mg Fentanyl (Duragesic) 25 mcg TRDERM Q72H [facility] Last Admin: 08/09/18 21:14 Dose: 25 mcg Meropenem 500 mg/ Sodium (Chloride) 50 mls @ 100 mls/hr IV Q12H [facility] Last Admin: 08/10/18 10:23 Dose: 100 mls/hr Insulin Glargine (Lantus Solostar) 16 units SUBCUT BEDTIME [facility] Last Admin: 08/09/18 21:03 Dose: 16 unit Insulin Human Lispro (Humalog) 0 unit SUBCUT QIDACANDBED [facility]; Protocol Last Admin: 08/10/18 13:13 Dose: 2 units Lactobacillus Rhamnosus (Culturelle) 1 cap PO BID [facility] Last Admin: 08/10/18 08:22 Dose: 1 cap Latanoprost (Xalatan 0.005% Ophth Soln) 0 ml EYEBOTH BEDTIME [facility] Last Admin: 08/09/18 21:05 Dose: 1 drop Verify Fentanyl (Patch) 0 each .XX BID [facility] Last Admin: 08/10/18 08:24 Dose: Not Given Ondansetron HCl (Zofran) 4 mg IV Q4H PRN PRN Reason: Nausea/Vomiting Oxycodone HCl (Oxycodone) 5 mg PO Q4H PRN PRN Reason: PAIN Last Admin: 08/10/18 08:20 Dose: 5 mg Pantoprazole Sodium (Protonix) 40 mg PO ACBREAKFAST [facility] Last Admin: 08/10/18 08:22 Dose: 40 mg Polyethylene Glycol (Miralax) 17 gm PO DAILY PRN PRN Reason: Constipation Last Admin: 08/07/18 08:22 Dose: 17 gm Prednisone (Prednisone) 20 mg PO DAILY [facility] Last Admin: 08/10/18 10:23 Dose: 20 mg Sodium Chloride (Saline Flush) 10 ml FLUSH ASDIRECTED PRN PRN Reason: Keep Vein Open Discontinued Medications Enoxaparin Sodium (Lovenox) 30 mg SUBCUT Q24H [facility] Last Admin: 08/07/18 16:38 Dose: 30 mg Enoxaparin Sodium (Lovenox) 40 mg SUBCUT Q24H [facility] Last Admin: 08/08/18 18:33 Dose: 40 mg Furosemide (Lasix) 40 mg IVPUSH NOW ONE Stop: 08/07/18 17:01 Last Admin: 08/07/18 16:03 Dose: 40 mg Furosemide (Lasix) 40 mg IVPUSH Q12H [facility] Last Admin: 08/09/18 06:16 Dose: 40 mg Sodium Chloride (Normal Saline) 1,000 mls @ 250 mls/hr IV ASDIRECTED [facility] Last Admin: 08/05/18 12:29 Dose: 250 mls/hr Ertapenem 1 gm/ Sodium (Chloride) 100 mls @ 200 mls/hr IV ONETIME ONE Stop: 08/05/18 12:33 Last Admin: 08/05/18 12:29 Dose: 200 mls/hr Lactated Ringer's (Ringers, Lactated) 1,000 mls @ 125 mls/hr IV ASDIRECTED [facility] Last Admin: 08/06/18 12:51 Dose: 125 mls/hr Piperacillin/Tazobactam/ (Dextrose 3.375 gm/ Premix) 50 mls @ 100 mls/hr IV ONETIME ONE Stop: 08/05/18 16:59 Last Admin: 08/05/18 17:14 Dose: 100 mls/hr Piperacillin Sod/Tazobactam (Sod 2.25 gm/ Sodium Chloride) 50 mls @ 100 mls/hr IV Q8H [facility] Last Admin: 08/06/18 09:23 Dose: 100 mls/hr Vancomycin HCl 1.2 gm/ Sodium (Chloride) 250 mls @ 166.667 mls/hr IV Q24H [facility] Last Admin: 08/07/18 18:36 Dose: 166.667 mls/hr Piperacillin Sod/Tazobactam (Sod 2.25 gm/ Sodium Chloride) 50 mls @ 100 mls/hr IV Q6H [facility] Last Admin: 08/09/18 16:39 Dose: 100 mls/hr Vancomycin HCl 1.2 gm/ Sodium (Chloride) 250 mls @ 166.667 mls/hr IV Q12H [facility] Last Admin: 08/08/18 20:18 Dose: 166.667 mls/hr Potassium Chloride 20 meq/Lidocaine HCl 2 ml/ Sodium Chloride 112 mls @ 56 mls/ hr IV Q2H [facility] Stop: 08/08/18 13:59 Last Admin: 08/08/18 11:24 Dose: 56 mls/hr Sodium Chloride (Normal Saline) 1,000 mls @ 100 mls/hr IV ASDIRECTED [facility] Stop: 08/09/18 18:30 Last Admin: 08/09/18 09:22 Dose: 100 mls/hr Sodium Chloride (Normal Saline) 1,000 mls @ 125 mls/hr IV ASDIRECTED [facility] Stop: 08/10/18 02:01 Last Admin: 08/10/18 00:16 Dose: 125 mls/hr Meropenem 500 mg/ Sodium (Chloride) 100 mls @ 200 mls/hr IV Q12H [facility] Last Admin: 08/09/18 21:14 Dose: 200 mls/hr Potassium Chloride (Potassium Chloride) 10 meq PO TID [facility] Last Admin: 08/09/18 21:05 Dose: Not Given Potassium Chloride (Klor-Con M20) 40 meq PO ONETIME ONE Stop: 08/08/18 09:01 Last Admin: 08/08/18 09:08 Dose: 40 meq Potassium Chloride (Klor-Con M20) 40 meq PO ONETIME ONE Stop: 08/08/18 17:01 Last Admin: 08/08/18 18:32 Dose: 40 meq Torsemide (Demadex) 20 mg PO DAILY [facility] Last Admin: 08/07/18 08:08 Dose: 20 mg Vancomycin HCl (Vancomycin) 1 gm IV .PHARMACY TO DOSE [facility] Stop: 08/05/18 15:51 - Exam Quality Assessment: No: Supplemental Oxygen General: Alert, Oriented, Cooperative, No Acute Distress Lungs: Clear to Auscultation, Normal Respiratory Effort Cardiovascular: Regular Rate, Regular Rhythm GI/Abdominal Exam: Soft, No Distention Extremities: Pedal Edema (pitting edema to the waist bilaterally ), Increased Warmth (right lower leg below the knee ) Skin: Warm, Dry, Rash (erythema right lower leg from foot proximally about [address] the font[place]z) Psy/Mental Status: Alert, Normal Affect - Problem List Review Problem List Initiated/Reviewed/Updated: Yes - My Orders Last 24 Hours: My Active Orders 08/10/18 13:47 Furosemide [Lasix] 40 mg IVPUSH ONETIME ONE 08/11/18 05:00 BASIC METABOLIC PANEL,BMP [CHEM] Timed CBC W/O DIFF,HEMOGRAM [HEME] Timed (1) - Plan Plan:: ASSESSMENT AND PLAN CELLULITIS OF THE RIGHT LEG WITH SEPSIS - leg seems to be improving. Treatment of the cellulitis is hampered by significant lower extremity edema. Diuresis has been challenging with her declining kidney function. She has not had any fevers. No positive culture results. -Low-dose furosemide 1 today -Follow-up blood cultures -Saline lock IV -Continue meropenem, consider transition to doxycycline ACUTE KIDNEY INJURY - large jump in creatinine 2 days ago but level is stable compared to yesterday. I suspect she had interstitial nephritis related to antibiotics versus intravascular volume depletion. -IV fluids at to keep open -Diuresis as above -Recheck renal function in the morning HYPERKALEMIA - resolved. -Normal saline as above -Recheck potassium in the a.m. HYPERGLYCEMIA - she denies previous history of type 2 diabetes mellitus and home medication list includes no medications for diabetes. Glucose levels have improved with current management and improvement in cellulitis -Lantus insulin 16 units subcutaneous daily at bedtime -Hemoglobin A1c in the morning -Monitor glucose levels and treat with sliding scale insulin MAINTENANCE ISSUES -DVT prophylaxis; Lovenox 40 mg subcutaneous daily -GI prophylaxis; not indicated -Carlos catheter; not indicated -Nutrition; 2 g sodium diet DISPOSITION - anticipate discharge back to [facility] Jeff Noble M.D.
[2018-08-10] MEDS ORDERED: Furosemide 40 MG/4 ML VIAL IV ONE (14:00)
[2018-08-10] MEDS: Enoxaparin 30 MG/0.3 ML Syringe SUBCUT SCH (16:27)
[2018-08-10] MEDS: Latanoprost 0.005% Ophth Soln 2.5 ML Bottle EYEBOTH SCH (20:19)
[2018-08-10] MEDS: Insulin Glargine,Human Rec. Analog 100 Units/ML 3 ML Pen SUBCUT SCH (21:48)
[2018-08-10] MEDS: Acetaminophen 325 MG Tab PO PRN (21:50)
[2018-08-11 05:12] LABS: HEMOGLOBIN A1C 4.9 % (4.5-6.2)
[2018-08-11] MEDS: Insulin Lispro 100 Unit/ML 3 ML KwikPen SUBCUT SCH ×4 (08:08→21:12)
[2018-08-11] MEDS: Lactobacillus Rhamnosus GG (Probiotic) Cap PO SCH ×2 (08:20→21:14)
[2018-08-11] MEDS: Pantoprazole 40 MG Tab.CR PO SCH (08:20)
[2018-08-11] MEDS: DULoxetine 30 MG Cap PO SCH (08:21)
[2018-08-11] MEDS: Cyclobenzaprine 10 MG Tab PO SCH (08:21)
[2018-08-11] MEDS: predniSONE 20 MG Tab PO SCH (08:21)
[2018-08-11] MEDS: VERIFY FENTANYL PATCH SCH ×2 (08:22→21:20)
[2018-08-11] MEDS: Doxycycline 100 MG in Sodium Chloride 0.9% 100 ML IV SCH ×2 (09:58→21:23)
--- NOTE | 2018-08-11 13:28 | PCM.PN ---
- General Info Date of Service: 08/11/18 Subjective Update: There were no acute events overnight. Suboptimal response to diuresis but her edema is better today. Redness and swelling have both decreased since yesterday. She reports less pain in the right leg. She reports less shortness of breath. No complaints of abdominal pain or nausea. She has not had any fevers. Creatinine has unfortunately risen since yesterday. Functional Status: Reports: Pain Controlled, Tolerating Diet - Review of Systems General: Denies: Fever Cardiovascular: Reports: Edema Musculoskeletal: Reports: Leg Pain - Patient Data Vitals - Most Recent: Last Vital Signs Temp 35.7 C 08/11/18 10:47 Pulse 99 08/11/18 10:47 Resp 16 08/11/18 10:47 BP 145/68 H 08/11/18 10:47 Pulse Ox 96 08/11/18 10:47 Weight - Most Recent: 83.28 kg I&O - Last 24 Hours: Intake & Output 08/10/18 08/11/18 08/11/18 22:59 06:59 14:59 Intake Total 840 480 Output Total 0 Balance 840 480 Lab Results Last 24 Hours: Laboratory Results - last 24 hr 08/11/18 08/11/18 08/11/18 Range/Units 04:50 04:50 04:50 WBC 15.0 H (4.5-11.0) K/uL RBC 2.90 L (3.30-5.50) M/uL Hgb 10.9 L (12.0-15.0) g/dL Hct 32.0 L (36.0-48.0) % MCV 110 H (80-98) fL MCH 38 H (27-31) pg MCHC 34 (32-36) % Plt Count 319 (150-400) K/uL Sodium 138 L (140-148) mmol/L Potassium 4.4 (3.6-5.2) mmol/L Chloride 105 (100-108) mmol/L Carbon Dioxide 27 (21-32) mmol/L Anion Gap 10.4 (5.0-14.0) mmol/L BUN 33 H (7-18) mg/dL Creatinine 3.1 H (0.6-1.0) mg/dL Est Cr Clr Drug Dosing 9.53 mL/min Estimated GFR (MDRD) 14 L (>60) Glucose 136 H (74-106) mg/dL Hemoglobin A1c 4.9 (4.5-6.2) % Calcium 9.2 (8.5-10.1) mg/dL Sharath Results Last 24 Hours: Microbiology 08/05/18 11:45 Aerobic Blood Culture - Final Blood - Arm, Left NO GROWTH AFTER 5 DAYS Anaerobic Blood Culture - Final NO GROWTH AFTER 5 DAYS 08/05/18 11:52 Aerobic Blood Culture - Final Blood - Arm, Left NO GROWTH AFTER 5 DAYS Anaerobic Blood Culture - Final NO GROWTH AFTER 5 DAYS Med Orders - Current: Current Medications Acetaminophen (Tylenol) 650 mg PO Q4H PRN PRN Reason: Pain (Mild 1-3)/fever Last Admin: 08/10/18 21:50 Dose: 650 mg Amitriptyline HCl (Elavil) 50 mg PO BEDTIME [facility] Last Admin: 08/10/18 20:19 Dose: 50 mg Cyclobenzaprine HCl (Flexeril) 5 mg PO DAILY [facility] Last Admin: 08/11/18 08:21 Dose: 5 mg Duloxetine HCl (Cymbalta) 60 mg PO DAILY [facility] Last Admin: 08/11/18 08:21 Dose: 60 mg Enoxaparin Sodium (Lovenox) 30 mg SUBCUT Q24H [facility] Last Admin: 08/10/18 16:27 Dose: 30 mg Fentanyl (Duragesic) 25 mcg TRDERM Q72H [facility] Last Admin: 08/09/18 21:14 Dose: 25 mcg Doxycycline Hyclate 100 mg/ (Sodium Chloride) 100 mls @ 100 mls/hr IV Q12H [facility] Last Admin: 08/11/18 09:58 Dose: 100 mls/hr Insulin Glargine (Lantus Solostar) 16 units SUBCUT BEDTIME [facility] Last Admin: 08/10/18 21:48 Dose: 16 unit Insulin Human Lispro (Humalog) 0 unit SUBCUT QIDACANDBED [facility]; Protocol Last Admin: 08/11/18 12:30 Dose: 4 units Lactobacillus Rhamnosus (Culturelle) 1 cap PO BID [facility] Last Admin: 08/11/18 08:20 Dose: 1 cap Latanoprost (Xalatan 0.005% Ophth Soln) 0 ml EYEBOTH BEDTIME [facility] Last Admin: 08/10/18 20:19 Dose: 1 drop Verify Fentanyl (Patch) 0 each .XX BID [facility] Last Admin: 08/11/18 08:22 Dose: Not Given Ondansetron HCl (Zofran) 4 mg IV Q4H PRN PRN Reason: Nausea/Vomiting Oxycodone HCl (Oxycodone) 5 mg PO Q4H PRN PRN Reason: PAIN Last Admin: 08/10/18 20:23 Dose: 5 mg Pantoprazole Sodium (Protonix) 40 mg PO ACBREAKFAST [facility] Last Admin: 08/11/18 08:20 Dose: 40 mg Polyethylene Glycol (Miralax) 17 gm PO DAILY PRN PRN Reason: Constipation Last Admin: 08/07/18 08:22 Dose: 17 gm Prednisone (Prednisone) 20 mg PO DAILY [facility] Last Admin: 08/11/18 08:21 Dose: 20 mg Sodium Chloride (Saline Flush) 10 ml FLUSH ASDIRECTED PRN PRN Reason: Keep Vein Open Discontinued Medications Enoxaparin Sodium (Lovenox) 30 mg SUBCUT Q24H [facility] Last Admin: 08/07/18 16:38 Dose: 30 mg Enoxaparin Sodium (Lovenox) 40 mg SUBCUT Q24H [facility] Last Admin: 08/08/18 18:33 Dose: 40 mg Furosemide (Lasix) 40 mg IVPUSH NOW ONE Stop: 08/07/18 17:01 Last Admin: 08/07/18 16:03 Dose: 40 mg Furosemide (Lasix) 40 mg IVPUSH Q12H [facility] Last Admin: 08/09/18 06:16 Dose: 40 mg Furosemide (Lasix) 40 mg IV ONETIME ONE Stop: 08/10/18 14:01 Last Admin: 08/10/18 15:42 Dose: 40 mg Sodium Chloride (Normal Saline) 1,000 mls @ 250 mls/hr IV ASDIRECTED [facility] Last Admin: 08/05/18 12:29 Dose: 250 mls/hr Ertapenem 1 gm/ Sodium (Chloride) 100 mls @ 200 mls/hr IV ONETIME ONE Stop: 08/05/18 12:33 Last Admin: 08/05/18 12:29 Dose: 200 mls/hr Lactated Ringer's (Ringers, Lactated) 1,000 mls @ 125 mls/hr IV ASDIRECTED [facility] Last Admin: 08/06/18 12:51 Dose: 125 mls/hr Piperacillin/Tazobactam/ (Dextrose 3.375 gm/ Premix) 50 mls @ 100 mls/hr IV ONETIME ONE Stop: 08/05/18 16:59 Last Admin: 08/05/18 17:14 Dose: 100 mls/hr Piperacillin Sod/Tazobactam (Sod 2.25 gm/ Sodium Chloride) 50 mls @ 100 mls/hr IV Q8H [facility] Last Admin: 08/06/18 09:23 Dose: 100 mls/hr Vancomycin HCl 1.2 gm/ Sodium (Chloride) 250 mls @ 166.667 mls/hr IV Q24H [facility] Last Admin: 08/07/18 18:36 Dose: 166.667 mls/hr Piperacillin Sod/Tazobactam (Sod 2.25 gm/ Sodium Chloride) 50 mls @ 100 mls/hr IV Q6H [facility] Last Admin: 08/09/18 16:39 Dose: 100 mls/hr Vancomycin HCl 1.2 gm/ Sodium (Chloride) 250 mls @ 166.667 mls/hr IV Q12H [facility] Last Admin: 08/08/18 20:18 Dose: 166.667 mls/hr Potassium Chloride 20 meq/Lidocaine HCl 2 ml/ Sodium Chloride 112 mls @ 56 mls/ hr IV Q2H [facility] Stop: 08/08/18 13:59 Last Admin: 08/08/18 11:24 Dose: 56 mls/hr Sodium Chloride (Normal Saline) 1,000 mls @ 100 mls/hr IV ASDIRECTED [facility] Stop: 08/09/18 18:30 Last Admin: 08/09/18 09:22 Dose: 100 mls/hr Sodium Chloride (Normal Saline) 1,000 mls @ 125 mls/hr IV ASDIRECTED [facility] Stop: 08/10/18 02:01 Last Admin: 08/10/18 00:16 Dose: 125 mls/hr Meropenem 500 mg/ Sodium (Chloride) 100 mls @ 200 mls/hr IV Q12H [facility] Last Admin: 08/09/18 21:14 Dose: 200 mls/hr Meropenem 500 mg/ Sodium (Chloride) 50 mls @ 100 mls/hr IV Q12H [facility] Last Admin: 08/10/18 21:47 Dose: 100 mls/hr Potassium Chloride (Potassium Chloride) 10 meq PO TID [facility] Last Admin: 08/09/18 21:05 Dose: Not Given Potassium Chloride (Klor-Con M20) 40 meq PO ONETIME ONE Stop: 08/08/18 09:01 Last Admin: 08/08/18 09:08 Dose: 40 meq Potassium Chloride (Klor-Con M20) 40 meq PO ONETIME ONE Stop: 08/08/18 17:01 Last Admin: 08/08/18 18:32 Dose: 40 meq Torsemide (Demadex) 20 mg PO DAILY [facility] Last Admin: 08/07/18 08:08 Dose: 20 mg Vancomycin HCl (Vancomycin) 1 gm IV .PHARMACY TO DOSE [facility] Stop: 08/05/18 15:51 - Exam Quality Assessment: No: Supplemental Oxygen General: Alert, Oriented, Cooperative, No Acute Distress Lungs: Clear to Auscultation, Normal Respiratory Effort Cardiovascular: Regular Rate, Regular Rhythm, Murmurs GI/Abdominal Exam: Soft, No Distention Extremities: Pedal Edema, Increased Warmth (mild right lower leg ) Skin: Warm, Dry, Rash (erythema right lower leg is improving ) Psy/Mental Status: Alert, Normal Affect - Problem List Review Problem List Initiated/Reviewed/Updated: Yes - My Orders Last 24 Hours: My Active Orders 08/11/18 10:00 Doxycycline [Vibramycin] 100 mg Sodium Chloride 0.9% [Normal Saline] 100 ml IV Q12H 08/11/18 11:04 OT Evaluation and Treatment [CONS] Routine PT Evaluation and Treatment [CONS] Routine 08/11/18 13:25 Antiembolic Devices [RC] .Routine RAEANN Hose [Antiembolic Hose] [OM.PC] Routine 08/12/18 05:00 BASIC METABOLIC PANEL,BMP [CHEM] Timed CBC W/O DIFF,HEMOGRAM [HEME] Timed (1) - Plan Plan:: ASSESSMENT AND PLAN CELLULITIS OF THE RIGHT LEG WITH SEPSIS - cellulitis steadily improving. Edema slightly better today despite suboptimal diuresis. Cultures remain negative. -Hold diuresis today -Change antibiotics to doxycycline -RAEANN stockings to help with edema -Elevate legs as able ACUTE KIDNEY INJURY - large jump in creatinine can since yesterday. Suspect combination of antibiotics and diuretics. -IV fluids at to keep open -Avoid diuresis -Recheck renal function in the morning HYPERKALEMIA - resolved. -Normal saline as above -Recheck potassium in the a.m. HYPERGLYCEMIA - she denies previous history of type 2 diabetes mellitus And hemoglobin A1c is less than 5. I suspect steroid-induced hyperglycemia complicated by her infection. -Lantus insulin 16 units subcutaneous daily at bedtime -Monitor glucose levels and treat with sliding scale insulin MAINTENANCE ISSUES -DVT prophylaxis; Lovenox 40 mg subcutaneous daily -GI prophylaxis; not indicated -Carlos catheter; not indicated -Nutrition; 2 g sodium diet DISPOSITION - anticipate discharge back to skilled nursing in 2-3 days Jeff Noble M.D.
[2018-08-11] MEDS: Enoxaparin 30 MG/0.3 ML Syringe SUBCUT SCH (17:30)
[2018-08-11] MEDS: Insulin Glargine,Human Rec. Analog 100 Units/ML 3 ML Pen SUBCUT SCH (21:13)
[2018-08-11] MEDS: Latanoprost 0.005% Ophth Soln 2.5 ML Bottle EYEBOTH SCH (21:14)
[2018-08-12] MEDS: Pantoprazole 40 MG Tab.CR PO SCH (08:28)
[2018-08-12] MEDS: Lactobacillus Rhamnosus GG (Probiotic) Cap PO SCH ×2 (08:29→21:15)
[2018-08-12] MEDS: VERIFY FENTANYL PATCH SCH ×2 (08:29→21:16)
[2018-08-12] MEDS: predniSONE 20 MG Tab PO SCH (08:29)
[2018-08-12] MEDS: Cyclobenzaprine 10 MG Tab PO SCH (08:29)
[2018-08-12] MEDS: DULoxetine 30 MG Cap PO SCH (08:29)
[2018-08-12] MEDS: Insulin Lispro 100 Unit/ML 3 ML KwikPen SUBCUT SCH ×4 (09:08→21:13)
[2018-08-12] MEDS: Doxycycline 100 MG in Sodium Chloride 0.9% 100 ML IV SCH (10:50)
[2018-08-12] MEDS: oxyCODONE 5 MG Tab PO PRN (11:03)
[2018-08-12] MEDS ORDERED: Magnesium Hydroxide 400 MG/5 ML Susp 30 ML Cup PO PRN (12:19)
[2018-08-12] MEDS ORDERED: Bisacodyl 5 MG Tab PO PRN (12:20)
--- NOTE | 2018-08-12 12:22 | PCM.PN ---
- General Info Date of Service: 08/12/18 Subjective Update: There were no acute events overnight. She did not have any fevers. Lower extremity edema has improved some though her edema in the dependent areas of the buttocks seems slightly more today. Redness and warmth of the right lower leg are much better today. No complaints of shortness of breath, abdominal pain or nausea. Kidney function slightly better today. Functional Status: Reports: Pain Controlled, Tolerating Diet - Review of Systems General: Reports: Weakness Cardiovascular: Reports: Edema - Patient Data Vitals - Most Recent: Last Vital Signs Temp 36.6 C 08/12/18 11:25 Pulse 82 08/12/18 11:25 Resp 16 08/12/18 11:25 BP 130/61 08/12/18 11:25 Pulse Ox 95 08/12/18 11:25 Weight - Most Recent: 85.003 kg I&O - Last 24 Hours: Intake & Output 08/11/18 08/12/18 08/12/18 22:59 06:59 14:59 Intake Total 100 Balance 100 Lab Results Last 24 Hours: Laboratory Results - last 24 hr 08/12/18 08/12/18 Range/Units 05:30 05:30 WBC 13.9 H (4.5-11.0) K/uL RBC 2.88 L (3.30-5.50) M/uL Hgb 10.6 L (12.0-15.0) g/dL Hct 31.5 L (36.0-48.0) % MCV 109 H (80-98) fL MCH 37 H (27-31) pg MCHC 34 (32-36) % Plt Count 333 (150-400) K/uL Sodium 140 (140-148) mmol/L Potassium 4.2 (3.6-5.2) mmol/L Chloride 106 (100-108) mmol/L Carbon Dioxide 26 (21-32) mmol/L Anion Gap 8.1 (5.0-14.0) mmol/L BUN 37 H (7-18) mg/dL Creatinine 2.9 H (0.6-1.0) mg/dL Est Cr Clr Drug Dosing 10.19 mL/min Estimated GFR (MDRD) 15 L (>60) Glucose 124 H (74-106) mg/dL Calcium 9.1 (8.5-10.1) mg/dL Med Orders - Current: Current Medications Acetaminophen (Tylenol) 650 mg PO Q4H PRN PRN Reason: Pain (Mild 1-3)/fever Last Admin: 08/10/18 21:50 Dose: 650 mg Amitriptyline HCl (Elavil) 50 mg PO BEDTIME [facility] Last Admin: 08/11/18 21:14 Dose: 50 mg Cyclobenzaprine HCl (Flexeril) 5 mg PO DAILY [facility] Last Admin: 08/12/18 08:29 Dose: 5 mg Duloxetine HCl (Cymbalta) 60 mg PO DAILY [facility] Last Admin: 08/12/18 08:29 Dose: 60 mg Enoxaparin Sodium (Lovenox) 30 mg SUBCUT Q24H [facility] Last Admin: 08/11/18 17:30 Dose: 30 mg Fentanyl (Duragesic) 25 mcg TRDERM Q72H [facility] Last Admin: 08/09/18 21:14 Dose: 25 mcg Doxycycline Hyclate 100 mg/ (Sodium Chloride) 100 mls @ 100 mls/hr IV Q12H [facility] Last Admin: 08/12/18 10:50 Dose: 100 mls/hr Insulin Glargine (Lantus Solostar) 16 units SUBCUT BEDTIME [facility] Last Admin: 08/11/18 21:13 Dose: 16 unit Insulin Human Lispro (Humalog) 0 unit SUBCUT QIDACANDBED [facility]; Protocol Last Admin: 08/12/18 11:27 Dose: 1 units Lactobacillus Rhamnosus (Culturelle) 1 cap PO BID [facility] Last Admin: 08/12/18 08:29 Dose: 1 cap Latanoprost (Xalatan 0.005% Ophth Soln) 0 ml EYEBOTH BEDTIME [facility] Last Admin: 08/11/18 21:14 Dose: 1 drop Verify Fentanyl (Patch) 0 each .XX BID [facility] Last Admin: 08/12/18 08:29 Dose: Not Given Ondansetron HCl (Zofran) 4 mg IV Q4H PRN PRN Reason: Nausea/Vomiting Oxycodone HCl (Oxycodone) 5 mg PO Q4H PRN PRN Reason: PAIN Last Admin: 08/12/18 11:03 Dose: 5 mg Pantoprazole Sodium (Protonix) 40 mg PO ACBREAKFAST [facility] Last Admin: 08/12/18 08:28 Dose: 40 mg Polyethylene Glycol (Miralax) 17 gm PO DAILY PRN PRN Reason: Constipation Last Admin: 08/07/18 08:22 Dose: 17 gm Prednisone (Prednisone) 20 mg PO DAILY [facility] Last Admin: 08/12/18 08:29 Dose: 20 mg Sodium Chloride (Saline Flush) 10 ml FLUSH ASDIRECTED PRN PRN Reason: Keep Vein Open Discontinued Medications Enoxaparin Sodium (Lovenox) 30 mg SUBCUT Q24H [facility] Last Admin: 08/07/18 16:38 Dose: 30 mg Enoxaparin Sodium (Lovenox) 40 mg SUBCUT Q24H [facility] Last Admin: 08/08/18 18:33 Dose: 40 mg Furosemide (Lasix) 40 mg IVPUSH NOW ONE Stop: 08/07/18 17:01 Last Admin: 08/07/18 16:03 Dose: 40 mg Furosemide (Lasix) 40 mg IVPUSH Q12H [facility] Last Admin: 08/09/18 06:16 Dose: 40 mg Furosemide (Lasix) 40 mg IV ONETIME ONE Stop: 08/10/18 14:01 Last Admin: 08/10/18 15:42 Dose: 40 mg Sodium Chloride (Normal Saline) 1,000 mls @ 250 mls/hr IV ASDIRECTED [facility] Last Admin: 08/05/18 12:29 Dose: 250 mls/hr Ertapenem 1 gm/ Sodium (Chloride) 100 mls @ 200 mls/hr IV ONETIME ONE Stop: 08/05/18 12:33 Last Admin: 08/05/18 12:29 Dose: 200 mls/hr Lactated Ringer's (Ringers, Lactated) 1,000 mls @ 125 mls/hr IV ASDIRECTED [facility] Last Admin: 08/06/18 12:51 Dose: 125 mls/hr Piperacillin/Tazobactam/ (Dextrose 3.375 gm/ Premix) 50 mls @ 100 mls/hr IV ONETIME ONE Stop: 08/05/18 16:59 Last Admin: 08/05/18 17:14 Dose: 100 mls/hr Piperacillin Sod/Tazobactam (Sod 2.25 gm/ Sodium Chloride) 50 mls @ 100 mls/hr IV Q8H [facility] Last Admin: 08/06/18 09:23 Dose: 100 mls/hr Vancomycin HCl 1.2 gm/ Sodium (Chloride) 250 mls @ 166.667 mls/hr IV Q24H [facility] Last Admin: 08/07/18 18:36 Dose: 166.667 mls/hr Piperacillin Sod/Tazobactam (Sod 2.25 gm/ Sodium Chloride) 50 mls @ 100 mls/hr IV Q6H [facility] Last Admin: 08/09/18 16:39 Dose: 100 mls/hr Vancomycin HCl 1.2 gm/ Sodium (Chloride) 250 mls @ 166.667 mls/hr IV Q12H [facility] Last Admin: 08/08/18 20:18 Dose: 166.667 mls/hr Potassium Chloride 20 meq/Lidocaine HCl 2 ml/ Sodium Chloride 112 mls @ 56 mls/ hr IV Q2H [facility] Stop: 08/08/18 13:59 Last Admin: 08/08/18 11:24 Dose: 56 mls/hr Sodium Chloride (Normal Saline) 1,000 mls @ 100 mls/hr IV ASDIRECTED [facility] Stop: 08/09/18 18:30 Last Admin: 08/09/18 09:22 Dose: 100 mls/hr Sodium Chloride (Normal Saline) 1,000 mls @ 125 mls/hr IV ASDIRECTED [facility] Stop: 08/10/18 02:01 Last Admin: 08/10/18 00:16 Dose: 125 mls/hr Meropenem 500 mg/ Sodium (Chloride) 100 mls @ 200 mls/hr IV Q12H [facility] Last Admin: 08/09/18 21:14 Dose: 200 mls/hr Meropenem 500 mg/ Sodium (Chloride) 50 mls @ 100 mls/hr IV Q12H [facility] Last Admin: 08/10/18 21:47 Dose: 100 mls/hr Potassium Chloride (Potassium Chloride) 10 meq PO TID [facility] Last Admin: 08/09/18 21:05 Dose: Not Given Potassium Chloride (Klor-Con M20) 40 meq PO ONETIME ONE Stop: 08/08/18 09:01 Last Admin: 08/08/18 09:08 Dose: 40 meq Potassium Chloride (Klor-Con M20) 40 meq PO ONETIME ONE Stop: 08/08/18 17:01 Last Admin: 08/08/18 18:32 Dose: 40 meq Torsemide (Demadex) 20 mg PO DAILY [facility] Last Admin: 08/07/18 08:08 Dose: 20 mg Vancomycin HCl (Vancomycin) 1 gm IV .PHARMACY TO DOSE [facility] Stop: 08/05/18 15:51 - Exam Quality Assessment: No: Supplemental Oxygen General: Alert, Oriented, Cooperative, No Acute Distress Lungs: Normal Respiratory Effort Cardiovascular: Regular Rate, Regular Rhythm GI/Abdominal Exam: Soft, No Distention Extremities: Pedal Edema (pitting edema to the waist bilaterally ). No: Increased Warmth Skin: Warm, Dry, Rash (mild erythema remaining over anterior right lower leg ) Psy/Mental Status: Alert, Normal Affect - Problem List Review Problem List Initiated/Reviewed/Updated: Yes - My Orders Last 24 Hours: My Active Orders 08/11/18 13:25 Antiembolic Devices [RC] .Routine RAEANN Hose [Antiembolic Hose] [OM.PC] Routine 08/12/18 12:19 Magnesium Hydroxide [Milk of Magnesia] 30 ml PO BID PRN 08/12/18 12:20 Bisacodyl [Dulcolax] 10 mg PO DAILY PRN 08/12/18 21:00 Doxycycline [Vibramycin] 100 mg PO BID Insulin Glarg,Human.Rec.Analog [LantUS Solostar] 14 units SUBCUT BEDTIME 08/13/18 05:00 BASIC METABOLIC PANEL,BMP [CHEM] Timed CBC W/O DIFF,HEMOGRAM [HEME] Timed (1) - Plan Plan:: ASSESSMENT AND PLAN CELLULITIS OF THE RIGHT LEG WITH SEPSIS - cellulitis steadily improving. Edema slowly improving as well. -Hold diuresis today -Continue doxycycline -RAEANN stockings to help with edema -Elevate legs as able ACUTE KIDNEY INJURY - creatinine slightly better today. Suspect multifactorial kidney injury with medications including antibiotics and diuretics playing a large role. -Saline lock IV -Avoid diuresis -Recheck renal function in the morning HYPERKALEMIA - resolved. -Recheck potassium in the a.m. HYPERGLYCEMIA - she denies previous history of type 2 diabetes mellitus And hemoglobin A1c is less than 5. I suspect steroid-induced hyperglycemia complicated by her infection. -Lantus insulin 14 units subcutaneous daily at bedtime -Monitor glucose levels and treat with sliding scale insulin MAINTENANCE ISSUES -DVT prophylaxis; Lovenox 40 mg subcutaneous daily -GI prophylaxis; not indicated -Carlos catheter; not indicated -Nutrition; 2 g sodium diet DISPOSITION - [facility] days Jeff Noble M.D.
[2018-08-12] MEDS: Enoxaparin 30 MG/0.3 ML Syringe SUBCUT SCH (17:38)
[2018-08-12] MEDS ORDERED: Insulin Glargine,Human Rec. Analog 100 Units/ML 3 ML Pen SUBCUT SCH (21:00)
[2018-08-12] MEDS: Latanoprost 0.005% Ophth Soln 2.5 ML Bottle EYEBOTH SCH (21:16)
[2018-08-12] MEDS: Doxycycline 100 MG Cap PO SCH (21:16)
[2018-08-12] MEDS: fentaNYL 25 MCG/HR Transdermal Patch TRDERM SCH (21:19)
[2018-08-13] MEDS: Insulin Lispro 100 Unit/ML 3 ML KwikPen SUBCUT SCH ×4 (08:00→21:10)
[2018-08-13] MEDS: Pantoprazole 40 MG Tab.CR PO SCH (08:03)
[2018-08-13] MEDS: predniSONE 20 MG Tab PO SCH (08:46)
[2018-08-13] MEDS: DULoxetine 30 MG Cap PO SCH (08:47)
[2018-08-13] MEDS: Cyclobenzaprine 10 MG Tab PO SCH (08:47)
[2018-08-13] MEDS: Lactobacillus Rhamnosus GG (Probiotic) Cap PO SCH ×2 (08:47→21:00)
[2018-08-13] MEDS: Doxycycline 100 MG Cap PO SCH ×2 (08:47→21:00)
[2018-08-13] MEDS: VERIFY FENTANYL PATCH SCH ×2 (08:49→21:02)
--- NOTE | 2018-08-13 15:36 | PCM.PN ---
- General Info Date of Service: 08/13/18 Subjective Update: There were no acute events overnight. Patient has not had any fevers. She reports a decrease in her leg pain from yesterday. She does not feel short of breath. Appetite has been good. She remains weak and requires the assist of at least one person. Kidney function is slowly improving. Vital signs have all been stable. - Review of Systems General: Reports: Weakness. Denies: Fever Cardiovascular: Reports: Edema - Patient Data Vitals - Most Recent: Last Vital Signs Temp 36.1 C 08/13/18 15:03 Pulse 99 08/13/18 15:03 Resp 20 08/13/18 15:03 BP 125/59 L 08/13/18 15:03 Pulse Ox 93 L 08/13/18 15:03 Weight - Most Recent: 85.003 kg I&O - Last 24 Hours: Intake & Output 08/13/18 08/13/18 08/13/18 06:59 14:59 22:59 Intake Total 240 360 Balance 240 360 Lab Results Last 24 Hours: Laboratory Results - last 24 hr 08/13/18 08/13/18 Range/Units 04:50 04:50 WBC 12.8 H (4.5-11.0) K/uL RBC 2.96 L (3.30-5.50) M/uL Hgb 11.1 L (12.0-15.0) g/dL Hct 32.5 L (36.0-48.0) % MCV 110 H (80-98) fL MCH 38 H (27-31) pg MCHC 34 (32-36) % Plt Count 395 (150-400) K/uL Sodium 140 (140-148) mmol/L Potassium 4.0 (3.6-5.2) mmol/L Chloride 104 (100-108) mmol/L Carbon Dioxide 27 (21-32) mmol/L Anion Gap 8.6 (5.0-14.0) mmol/L BUN 41 H (7-18) mg/dL Creatinine 2.8 H (0.6-1.0) mg/dL Est Cr Clr Drug Dosing 10.55 mL/min Estimated GFR (MDRD) 16 L (>60) Glucose 93 (74-106) mg/dL Calcium 9.2 (8.5-10.1) mg/dL Med Orders - Current: Current Medications Acetaminophen (Tylenol) 650 mg PO Q4H PRN PRN Reason: Pain (Mild 1-3)/fever Last Admin: 08/10/18 21:50 Dose: 650 mg Amitriptyline HCl (Elavil) 50 mg PO BEDTIME [facility] Last Admin: 08/12/18 21:15 Dose: 50 mg Bisacodyl (Dulcolax) 10 mg PO DAILY PRN PRN Reason: Constipation Cyclobenzaprine HCl (Flexeril) 5 mg PO DAILY [facility] Last Admin: 08/13/18 08:47 Dose: 5 mg Doxycycline Hyclate (Vibramycin) 100 mg PO BID [facility] Last Admin: 08/13/18 08:47 Dose: 100 mg Duloxetine HCl (Cymbalta) 60 mg PO DAILY [facility] Last Admin: 08/13/18 08:47 Dose: 60 mg Enoxaparin Sodium (Lovenox) 30 mg SUBCUT Q24H [facility] Last Admin: 08/12/18 17:38 Dose: 30 mg Fentanyl (Duragesic) 25 mcg TRDERM Q72H [facility] Last Admin: 08/12/18 21:19 Dose: 25 mcg Insulin Glargine (Lantus Solostar) 14 units SUBCUT BEDTIME [facility] Last Admin: 08/12/18 21:14 Dose: 14 units Insulin Human Lispro (Humalog) 0 unit SUBCUT QIDACANDBED [facility]; Protocol Last Admin: 08/13/18 12:04 Dose: Not Given Lactobacillus Rhamnosus (Culturelle) 1 cap PO BID [facility] Last Admin: 08/13/18 08:47 Dose: 1 cap Latanoprost (Xalatan 0.005% Ophth Soln) 0 ml EYEBOTH BEDTIME [facility] Last Admin: 08/12/18 21:16 Dose: 1 drop Magnesium Hydroxide (Milk Of Magnesia) 30 ml PO BID PRN PRN Reason: Constipation Verify Fentanyl (Patch) 0 each .XX BID [facility] Last Admin: 08/13/18 08:49 Dose: Not Given Ondansetron HCl (Zofran) 4 mg IV Q4H PRN PRN Reason: Nausea/Vomiting Last Admin: 08/12/18 22:27 Dose: 4 mg Oxycodone HCl (Oxycodone) 5 mg PO Q4H PRN PRN Reason: PAIN Last Admin: 08/12/18 11:03 Dose: 5 mg Pantoprazole Sodium (Protonix) 40 mg PO ACBREAKFAST [facility] Last Admin: 08/13/18 08:03 Dose: 40 mg Polyethylene Glycol (Miralax) 17 gm PO DAILY PRN PRN Reason: Constipation Last Admin: 08/07/18 08:22 Dose: 17 gm Prednisone (Prednisone) 20 mg PO DAILY [facility] Last Admin: 08/13/18 08:46 Dose: 20 mg Sodium Chloride (Saline Flush) 10 ml FLUSH ASDIRECTED PRN PRN Reason: Keep Vein Open Discontinued Medications Enoxaparin Sodium (Lovenox) 30 mg SUBCUT Q24H [facility] Last Admin: 08/07/18 16:38 Dose: 30 mg Enoxaparin Sodium (Lovenox) 40 mg SUBCUT Q24H [facility] Last Admin: 08/08/18 18:33 Dose: 40 mg Furosemide (Lasix) 40 mg IVPUSH NOW ONE Stop: 08/07/18 17:01 Last Admin: 08/07/18 16:03 Dose: 40 mg Furosemide (Lasix) 40 mg IVPUSH Q12H [facility] Last Admin: 08/09/18 06:16 Dose: 40 mg Furosemide (Lasix) 40 mg IV ONETIME ONE Stop: 08/10/18 14:01 Last Admin: 08/10/18 15:42 Dose: 40 mg Sodium Chloride (Normal Saline) 1,000 mls @ 250 mls/hr IV ASDIRECTED [facility] Last Admin: 08/05/18 12:29 Dose: 250 mls/hr Ertapenem 1 gm/ Sodium (Chloride) 100 mls @ 200 mls/hr IV ONETIME ONE Stop: 08/05/18 12:33 Last Admin: 08/05/18 12:29 Dose: 200 mls/hr Lactated Ringer's (Ringers, Lactated) 1,000 mls @ 125 mls/hr IV ASDIRECTED [facility] Last Admin: 08/06/18 12:51 Dose: 125 mls/hr Piperacillin/Tazobactam/ (Dextrose 3.375 gm/ Premix) 50 mls @ 100 mls/hr IV ONETIME ONE Stop: 08/05/18 16:59 Last Admin: 08/05/18 17:14 Dose: 100 mls/hr Piperacillin Sod/Tazobactam (Sod 2.25 gm/ Sodium Chloride) 50 mls @ 100 mls/hr IV Q8H [facility] Last Admin: 08/06/18 09:23 Dose: 100 mls/hr Vancomycin HCl 1.2 gm/ Sodium (Chloride) 250 mls @ 166.667 mls/hr IV Q24H [facility] Last Admin: 08/07/18 18:36 Dose: 166.667 mls/hr Piperacillin Sod/Tazobactam (Sod 2.25 gm/ Sodium Chloride) 50 mls @ 100 mls/hr IV Q6H [facility] Last Admin: 08/09/18 16:39 Dose: 100 mls/hr Vancomycin HCl 1.2 gm/ Sodium (Chloride) 250 mls @ 166.667 mls/hr IV Q12H [facility] Last Admin: 08/08/18 20:18 Dose: 166.667 mls/hr Potassium Chloride 20 meq/Lidocaine HCl 2 ml/ Sodium Chloride 112 mls @ 56 mls/ hr IV Q2H [facility] Stop: 08/08/18 13:59 Last Admin: 08/08/18 11:24 Dose: 56 mls/hr Sodium Chloride (Normal Saline) 1,000 mls @ 100 mls/hr IV ASDIRECTED [facility] Stop: 08/09/18 18:30 Last Admin: 08/09/18 09:22 Dose: 100 mls/hr Sodium Chloride (Normal Saline) 1,000 mls @ 125 mls/hr IV ASDIRECTED [facility] Stop: 08/10/18 02:01 Last Admin: 08/10/18 00:16 Dose: 125 mls/hr Meropenem 500 mg/ Sodium (Chloride) 100 mls @ 200 mls/hr IV Q12H [facility] Last Admin: 08/09/18 21:14 Dose: 200 mls/hr Meropenem 500 mg/ Sodium (Chloride) 50 mls @ 100 mls/hr IV Q12H [facility] Last Admin: 08/10/18 21:47 Dose: 100 mls/hr Doxycycline Hyclate 100 mg/ (Sodium Chloride) 100 mls @ 100 mls/hr IV Q12H [facility] Last Admin: 08/12/18 10:50 Dose: 100 mls/hr Insulin Glargine (Lantus Solostar) 16 units SUBCUT BEDTIME [facility] Last Admin: 08/11/18 21:13 Dose: 16 unit Potassium Chloride (Potassium Chloride) 10 meq PO TID [facility] Last Admin: 08/09/18 21:05 Dose: Not Given Potassium Chloride (Klor-Con M20) 40 meq PO ONETIME ONE Stop: 08/08/18 09:01 Last Admin: 08/08/18 09:08 Dose: 40 meq Potassium Chloride (Klor-Con M20) 40 meq PO ONETIME ONE Stop: 08/08/18 17:01 Last Admin: 08/08/18 18:32 Dose: 40 meq Torsemide (Demadex) 20 mg PO DAILY [facility] Last Admin: 08/07/18 08:08 Dose: 20 mg Vancomycin HCl (Vancomycin) 1 gm IV .PHARMACY TO DOSE [facility] Stop: 08/05/18 15:51 - Exam Quality Assessment: No: Supplemental Oxygen General: Alert, Oriented, Cooperative, No Acute Distress Lungs: Normal Respiratory Effort Cardiovascular: Regular Rate, Regular Rhythm GI/Abdominal Exam: Soft, No Distention Extremities: Pedal Edema. No: Increased Warmth Skin: Warm, Dry, Rash (very mild erythema and petechia anterior right fontanez ) Psy/Mental Status: Alert, Normal Affect - Problem List Review Problem List Initiated/Reviewed/Updated: Yes - My Orders Last 24 Hours: My Active Orders 08/12/18 21:00 Doxycycline [Vibramycin] 100 mg PO BID Insulin Glarg,Human.Rec.Analog [LantUS Solostar] 14 units SUBCUT BEDTIME 08/13/18 16:30 GLUCOSE POC LAB TO COLLECT [POC] QIDACANDBED 08/13/18 21:00 GLUCOSE POC LAB TO COLLECT [POC] QIDACANDBED Insulin Glarg,Human.Rec.Analog [LantUS Solostar] 10 units SUBCUT BEDTIME 08/14/18 05:00 BASIC METABOLIC PANEL,BMP [CHEM] Timed CBC W/O DIFF,HEMOGRAM [HEME] Timed (1) - Plan Plan:: ASSESSMENT AND PLAN CELLULITIS OF THE RIGHT LEG WITH SEPSIS - cellulitis steadily improving. Edema slowly improving as well. -Hold diuresis today -Continue doxycycline -RAEANN stockings to help with edema -Elevate legs as able ACUTE KIDNEY INJURY - creatinine slightly better again today. Suspect multifactorial kidney injury with medications including antibiotics and diuretics playing a large role. -Saline lock IV -Avoid diuresis -Recheck renal function in the morning HYPERKALEMIA - resolved. -Recheck potassium in the a.m. HYPERGLYCEMIA - she denies previous history of type 2 diabetes mellitus And hemoglobin A1c is less than 5. I suspect steroid-induced hyperglycemia complicated by her infection. -Lantus insulin 10 units subcutaneous daily at bedtime -Monitor glucose levels and treat with sliding scale insulin MAINTENANCE ISSUES -DVT prophylaxis; Lovenox 40 mg subcutaneous daily -GI prophylaxis; not indicated -Carlos catheter; not indicated -Nutrition; 2 g sodium diet DISPOSITION - anticipate discharge back to [facility] in tomorrow Jeff Noble M.D.
[2018-08-13] MEDS: Enoxaparin 30 MG/0.3 ML Syringe SUBCUT SCH (17:03)
[2018-08-13] MEDS ORDERED: Insulin Glargine,Human Rec. Analog 100 Units/ML 3 ML Pen SUBCUT SCH (21:00)
[2018-08-13] MEDS: Latanoprost 0.005% Ophth Soln 2.5 ML Bottle EYEBOTH SCH (21:01)
[2018-08-13] MEDS: oxyCODONE 5 MG Tab PO PRN (21:06)
[2018-08-14 07:41] VITALS: BP 134/70
[2018-08-14] MEDS: Insulin Lispro 100 Unit/ML 3 ML KwikPen SUBCUT SCH (08:38)
[2018-08-14] MEDS: Pantoprazole 40 MG Tab.CR PO SCH (08:39)
[2018-08-14] MEDS: Lactobacillus Rhamnosus GG (Probiotic) Cap PO SCH (08:39)
[2018-08-14] MEDS: predniSONE 20 MG Tab PO SCH (08:39)
[2018-08-14] MEDS: DULoxetine 30 MG Cap PO SCH (08:39)
[2018-08-14] MEDS: Doxycycline 100 MG Cap PO SCH (08:40)
[2018-08-14] MEDS: Cyclobenzaprine 10 MG Tab PO SCH (08:40)
[2018-08-14] MEDS: VERIFY FENTANYL PATCH SCH (08:41)
[2018-08-14] MEDS: oxyCODONE 5 MG Tab PO PRN (10:35)
--- NOTE | 2018-08-14 10:57 | PCM.DCSUM1 ---
Discharge Summary - Hospital Course Brief History: 83-year-old female with history of autoimmune hemolytic anemia, chronic lower extremity edema, stage III kidney disease who presented with redness, pain and swelling of the right lower extremity. She was admitted for management of cellulitis. Diagnosis: Stroke: No - Discharge Data Discharge Date: 08/14/18 Discharge Disposition: DC/Tfer to [facility] 03 Condition: Fair - Discharge Diagnosis/Problem(s) (1) Acute kidney injury superimposed on chronic kidney disease SNOMED Code(s): 00945747 ICD Code: N17.9 - ACUTE KIDNEY FAILURE, UNSPECIFIED; N18.9 - CHRONIC KIDNEY DISEASE, UNSPECIFIED Status: Acute Current Visit: Yes (2) Cellulitis of right lower leg SNOMED Code(s): 752102452 ICD Code: L03.115 - CELLULITIS OF RIGHT LOWER LIMB Status: Acute Current Visit: Yes (3) Autoimmune hemolytic anemia SNOMED Code(s): 848329345 ICD Code: D59.1 - OTHER AUTOIMMUNE HEMOLYTIC ANEMIAS Status: Chronic Current Visit: No Problem Details: on chronic prednisone therapy (4) Hyperkalemia SNOMED Code(s): 54346819 ICD Code: E87.5 - HYPERKALEMIA Status: Acute Current Visit: Yes (5) Steroid-induced hyperglycemia SNOMED Code(s): 226305860 ICD Code: R73.9 - HYPERGLYCEMIA, UNSPECIFIED; T38.0X5A - ADVERSE EFFECT OF GLUCOCORT/SYNTH ANALOG, INIT Status: Acute Current Visit: Yes - Patient Summary/Data Consults: Consultations 08/11/18 11:04 OT Evaluation and Treatment [CONS] Routine Please Evaluate and Treat. OT Reason for Consult: ADL's This query below is only for informational purposes and is not editable. Admission Diagnosis/Problem: Cellulitis PT Evaluation and Treatment [CONS] Routine Please Evaluate and Treat. PT Reason for Consult: Strengthening This query below is only for informational purposes and is not editable. Admission Diagnosis/Problem: Cellulitis Hospital Course: Ally presented to the emergency room with fever, anorexia and weakness despite outpatient antibiotic therapy for right lower extremity cellulitis. Workup in the emergency room did suggest sepsis with lactic acidosis. She was started on broad-spectrum antibiotics and received IV fluids and was admitted to the hospital for further management. She was initially started on broad-spectrum antibiotics with vancomycin and Zosyn. Lactic acidosis improved with dehydration. Over the next couple of days the leg did start to show some slow improvement. Treating the infection was complicated by chronic lower extremity edema. Once the lactic acidosis had improved diuresis was started to help with the infection treatment plan. Unfortunately a couple days after the diuresis was started the patient had a quick jump in her creatinine from 1 up to 2.1. This was thought to be a combination of the diuretics as well as antibiotics. Vancomycin was discontinued and then later the Zosyn. Antibiotics were transitioned to meropenem. Her creatinine peaked at 3.2 and did start to trend down. Unfortunately the creatinine has been stagnant in the upper 2 range. I suspect that the acute on chronic kidney injury is a combination of antibiotics and diuretics. Her diuretics have been on hold. Antibiotics have been changed to doxycycline. I would anticipate her kidney function will return to normal over time. She did have mild issues with hyperkalemia during the early part of the hospital stay but this did resolve. The hyperkalemia may have been related to mild interstitial nephritis from her Bactrim. Her cellulitis has improved dramatically. The redness has essentially resolved. She does have a few scattered petechiae remaining over the area of infection in the right lower leg. We have made some progress in her lower extremity swelling utilizing RAEANN stockings. She does still have a fair amount of swelling in her thighs and buttocks area. I have recommended that we hold her diuretics through the weekend to give her kidneys a few more days to bounce back before we restart her diuretics. I have requested a BMP to be completed in 4 days time to recheck her kidney function and electrolytes. If her kidney function has started to improve in the diuretics can be reinitiated. She will need 7 more doses of doxycycline to complete her treatment for the cellulitis. Vitals have otherwise been stable. She is feeling well and is excited to get back to the half-way. - Patient Instructions Diet: Low Sodium Activity: As Tolerated Showering/Bathing: May Shower Notify Provider of: Fever, Increased Pain, Nausea and/or Vomiting Other/Special Instructions: 1. You were in the hospital for management of right lower extremity cellulitis. Your condition has been improving with antibiotic therapy. I do recommend 7 additional doses of doxycycline. You should take doxycycline 100 mg twice daily with your next dose being due tonight. Your hospital stay was complicated by the development of acute kidney injury. I suspect the kidney difficulties were related to a side effect of the antibiotics cause of irritation/inflammation of the kidneys. Your kidney function has been slowly improving but I would recommend that we not use any diuretics until your kidneys have improved further. Your creatinine was 3.0 on the day of discharge. 2. Hold torsemide until Friday, restart will depend on results of BMP and kidney function. 3. BMP 08/18 Dx: DELVIS. 4. Accucheck BIDAC before breakfast and supper. 5. Referral to PT and OT for strengthening. 6. Code status - DNR/DNI. 7. Knee-high RAEANN - please place on in the morning and remove at bedtime. 8. Seek medical attention if you develop fever greater than 101, persistent vomiting or severe diarrhea. - Discharge Plan *PRESCRIPTION DRUG MONITORING PROGRAM REVIEWED*: Not Applicable *COPY OF PRESCRIPTION DRUG MONITORING REPORT IN PATIENT EMILIANA: Not Applicable Prescriptions/Med Rec: Doxycycline [Vibramycin] 100 mg PO BID #7 cap Insulin Glarg,Human.Rec.Analog [Lantus Solostar] 12 units SUBCUT BEDTIME #2 pen Lactobacillus Rhamnosus GG [Culturelle] 1 cap PO BID #15 cap Home Medications: Home Meds Amitriptyline [Elavil] 50 mg PO BEDTIME 02/23/14 [History] Cod Liver Oil 1 cap PO DAILY 07/01/14 [History] Multivitamin [Multivitamins] 1 tab PO DAILY 07/01/14 [History] Vitamin B Complex [B Complex] 1 tab PO DAILY 07/01/14 [History] Folic Acid 1 mg PO DAILY 04/26/15 [History] predniSONE [Prednisone] 20 mg PO DAILY 03/31/16 [History] Acetaminophen [Tylenol Extra Strength] 1,000 mg PO BID 05/21/17 [History] Benzonatate [Tessalon Perle] 100 mg PO TID PRN #20 capsule 05/21/17 [Rx] Omeprazole 20 mg PO DAILY 05/21/17 [History] Calcium Carb & Citrate/Vit D3 [Calcium + D3 ER Tablet] 1 each PO DAILY 12/19/17 [History] Cholecalciferol (Vitamin D3) [Vitamin D3] 1,000 unit PO DAILY 12/19/17 [History] Travoprost [Travatan Z 0.004% Ophth Soln] 1 drop OP BEDTIME 12/19/17 [History] oxyCODONE HCl [Oxycodone HCl] 5 mg PO BID 12/19/17 [History] DULoxetine [Cymbalta] 60 mg PO DAILY 03/08/18 [History] Potassium Chloride 10 meq PO TID 08/05/18 [History] Torsemide 20 mg PO DAILY 08/05/18 [History] fentaNYL [Duragesic] 25 mcg TD Q72H 08/05/18 [History] Doxycycline [Vibramycin] 100 mg PO BID #7 cap 08/14/18 [Rx] Insulin Glarg,Human.Rec.Analog [Lantus Solostar] 12 units SUBCUT BEDTIME #2 pen 08/14/18 [Rx] Lactobacillus Rhamnosus GG [Culturelle] 1 cap PO BID #15 cap 08/14/18 [Rx] Oxygen Therapy Mode: Room Air Patient Handouts: Cellulitis, Adult, Doxycycline tablets or capsules Referrals: Charbel Machuca MD [Physician] - (1-2 weeks - follow-up hospital stay for cellulitis and acute kidney injury) - Discharge Summary/Plan Comment DC Time >30 min.: Yes (45 - half-way discharge) - Patient Data Vitals - Most Recent: Last Vital Signs Temp 36.3 C 08/14/18 07:39 Pulse 88 08/14/18 07:39 Resp 18 08/14/18 07:39 BP 134/70 08/14/18 07:39 Pulse Ox 92 L 08/14/18 07:39 Weight - Most Recent: 85.003 kg I&O - Last 24 hours: Intake & Output 08/13/18 08/14/18 08/14/18 22:59 06:59 14:59 Intake Total 560 100 400 Balance 560 100 400 Lab Results - Last 24 hrs: Laboratory Results - last 24 hr 08/14/18 08/14/18 Range/Units 04:50 04:50 WBC 12.9 H (4.5-11.0) K/uL RBC 2.76 L (3.30-5.50) M/uL Hgb 10.3 L (12.0-15.0) g/dL Hct 30.1 L (36.0-48.0) % MCV 109 H (80-98) fL MCH 37 H (27-31) pg MCHC 34 (32-36) % Plt Count 402 H (150-400) K/uL Sodium 139 L (140-148) mmol/L Potassium 4.0 (3.6-5.2) mmol/L Chloride 104 (100-108) mmol/L Carbon Dioxide 27 (21-32) mmol/L Anion Gap 12.0 (5.0-14.0) mmol/L BUN 47 H (7-18) mg/dL Creatinine 3.0 H (0.6-1.0) mg/dL Est Cr Clr Drug Dosing 9.85 mL/min Estimated GFR (MDRD) 15 L (>60) Glucose 161 H (74-106) mg/dL Calcium 9.0 (8.5-10.1) mg/dL Med Orders - Current: Current Medications Acetaminophen (Tylenol) 650 mg PO Q4H PRN PRN Reason: Pain (Mild 1-3)/fever Last Admin: 08/10/18 21:50 Dose: 650 mg Amitriptyline HCl (Elavil) 50 mg PO BEDTIME [facility] Last Admin: 08/13/18 21:02 Dose: 50 mg Bisacodyl (Dulcolax) 10 mg PO DAILY PRN PRN Reason: Constipation Cyclobenzaprine HCl (Flexeril) 5 mg PO DAILY [facility] Last Admin: 08/14/18 08:40 Dose: 5 mg Doxycycline Hyclate (Vibramycin) 100 mg PO BID [facility] Last Admin: 08/14/18 08:40 Dose: 100 mg Duloxetine HCl (Cymbalta) 60 mg PO DAILY [facility] Last Admin: 08/14/18 08:39 Dose: 60 mg Enoxaparin Sodium (Lovenox) 30 mg SUBCUT Q24H [facility] Last Admin: 08/13/18 17:03 Dose: 30 mg Fentanyl (Duragesic) 25 mcg TRDERM Q72H [facility] Last Admin: 08/12/18 21:19 Dose: 25 mcg Insulin Glargine (Lantus Solostar) 10 units SUBCUT BEDTIME [facility] Last Admin: 08/13/18 21:09 Dose: 10 units Insulin Human Lispro (Humalog) 0 unit SUBCUT QIDACANDBED [facility]; Protocol Last Admin: 08/14/18 08:38 Dose: Not Given Lactobacillus Rhamnosus (Culturelle) 1 cap PO BID [facility] Last Admin: 08/14/18 08:39 Dose: 1 cap Latanoprost (Xalatan 0.005% Ophth Soln) 0 ml EYEBOTH BEDTIME [facility] Last Admin: 08/13/18 21:01 Dose: 1 drop Magnesium Hydroxide (Milk Of Magnesia) 30 ml PO BID PRN PRN Reason: Constipation Verify Fentanyl (Patch) 0 each .XX BID [facility] Last Admin: 08/14/18 08:41 Dose: Not Given Ondansetron HCl (Zofran) 4 mg IV Q4H PRN PRN Reason: Nausea/Vomiting Last Admin: 08/12/18 22:27 Dose: 4 mg Oxycodone HCl (Oxycodone) 5 mg PO Q4H PRN PRN Reason: PAIN Last Admin: 08/14/18 10:35 Dose: 5 mg Pantoprazole Sodium (Protonix) 40 mg PO ACBREAKFAST [facility] Last Admin: 08/14/18 08:39 Dose: 40 mg Polyethylene Glycol (Miralax) 17 gm PO DAILY PRN PRN Reason: Constipation Last Admin: 08/07/18 08:22 Dose: 17 gm Prednisone (Prednisone) 20 mg PO DAILY [facility] Last Admin: 08/14/18 08:39 Dose: 20 mg Sodium Chloride (Saline Flush) 10 ml FLUSH ASDIRECTED PRN PRN Reason: Keep Vein Open Discontinued Medications Enoxaparin Sodium (Lovenox) 30 mg SUBCUT Q24H [facility] Last Admin: 08/07/18 16:38 Dose: 30 mg Enoxaparin Sodium (Lovenox) 40 mg SUBCUT Q24H [facility] Last Admin: 08/08/18 18:33 Dose: 40 mg Furosemide (Lasix) 40 mg IVPUSH NOW ONE Stop: 08/07/18 17:01 Last Admin: 08/07/18 16:03 Dose: 40 mg Furosemide (Lasix) 40 mg IVPUSH Q12H [facility] Last Admin: 08/09/18 06:16 Dose: 40 mg Furosemide (Lasix) 40 mg IV ONETIME ONE Stop: 08/10/18 14:01 Last Admin: 08/10/18 15:42 Dose: 40 mg Sodium Chloride (Normal Saline) 1,000 mls @ 250 mls/hr IV ASDIRECTED [facility] Last Admin: 08/05/18 12:29 Dose: 250 mls/hr Ertapenem 1 gm/ Sodium (Chloride) 100 mls @ 200 mls/hr IV ONETIME ONE Stop: 08/05/18 12:33 Last Admin: 08/05/18 12:29 Dose: 200 mls/hr Lactated Ringer's (Ringers, Lactated) 1,000 mls @ 125 mls/hr IV ASDIRECTED [facility] Last Admin: 08/06/18 12:51 Dose: 125 mls/hr Piperacillin/Tazobactam/ (Dextrose 3.375 gm/ Premix) 50 mls @ 100 mls/hr IV ONETIME ONE Stop: 08/05/18 16:59 Last Admin: 08/05/18 17:14 Dose: 100 mls/hr Piperacillin Sod/Tazobactam (Sod 2.25 gm/ Sodium Chloride) 50 mls @ 100 mls/hr IV Q8H [facility] Last Admin: 08/06/18 09:23 Dose: 100 mls/hr Vancomycin HCl 1.2 gm/ Sodium (Chloride) 250 mls @ 166.667 mls/hr IV Q24H [facility] Last Admin: 08/07/18 18:36 Dose: 166.667 mls/hr Piperacillin Sod/Tazobactam (Sod 2.25 gm/ Sodium Chloride) 50 mls @ 100 mls/hr IV Q6H [facility] Last Admin: 08/09/18 16:39 Dose: 100 mls/hr Vancomycin HCl 1.2 gm/ Sodium (Chloride) 250 mls @ 166.667 mls/hr IV Q12H [facility] Last Admin: 08/08/18 20:18 Dose: 166.667 mls/hr Potassium Chloride 20 meq/Lidocaine HCl 2 ml/ Sodium Chloride 112 mls @ 56 mls/ hr IV Q2H [facility] Stop: 08/08/18 13:59 Last Admin: 08/08/18 11:24 Dose: 56 mls/hr Sodium Chloride (Normal Saline) 1,000 mls @ 100 mls/hr IV ASDIRECTED [facility] Stop: 08/09/18 18:30 Last Admin: 08/09/18 09:22 Dose: 100 mls/hr Sodium Chloride (Normal Saline) 1,000 mls @ 125 mls/hr IV ASDIRECTED [facility] Stop: 08/10/18 02:01 Last Admin: 08/10/18 00:16 Dose: 125 mls/hr Meropenem 500 mg/ Sodium (Chloride) 100 mls @ 200 mls/hr IV Q12H [facility] Last Admin: 08/09/18 21:14 Dose: 200 mls/hr Meropenem 500 mg/ Sodium (Chloride) 50 mls @ 100 mls/hr IV Q12H [facility] Last Admin: 08/10/18 21:47 Dose: 100 mls/hr Doxycycline Hyclate 100 mg/ (Sodium Chloride) 100 mls @ 100 mls/hr IV Q12H [facility] Last Admin: 08/12/18 10:50 Dose: 100 mls/hr Insulin Glargine (Lantus Solostar) 16 units SUBCUT BEDTIME [facility] Last Admin: 08/11/18 21:13 Dose: 16 unit Insulin Glargine (Lantus Solostar) 14 units SUBCUT BEDTIME [facility] Last Admin: 08/12/18 21:14 Dose: 14 units Potassium Chloride (Potassium Chloride) 10 meq PO TID [facility] Last Admin: 08/09/18 21:05 Dose: Not Given Potassium Chloride (Klor-Con M20) 40 meq PO ONETIME ONE Stop: 08/08/18 09:01 Last Admin: 08/08/18 09:08 Dose: 40 meq Potassium Chloride (Klor-Con M20) 40 meq PO ONETIME ONE Stop: 08/08/18 17:01 Last Admin: 08/08/18 18:32 Dose: 40 meq Torsemide (Demadex) 20 mg PO DAILY [facility] Last Admin: 08/07/18 08:08 Dose: 20 mg Vancomycin HCl (Vancomycin) 1 gm IV .PHARMACY TO DOSE [facility] Stop: 08/05/18 15:51 - Exam Quality Assessment: Denies: Supplemental Oxygen General: Reports: Alert, Oriented, Cooperative, No Acute Distress Lungs: Reports: Clear to Auscultation, Normal Respiratory Effort Cardiovascular: Reports: Regular Rate, Regular Rhythm GI/Abdominal Exam: Soft, No Distention Extremities: Pedal Edema Skin: Reports: Warm, Dry, Rash (Small quantity of petechiae right anterior fontanez. Minimal erythema and no warmth) Psy/Mental Status: Reports: Alert, Normal Affect
== END 2018-08-14 12:10 | DRG 872 ==
LOC: JP.ED 11:08 → JP.MS 14:17
PROVIDERS: ADMIT Hospitalist; ATTEND Internal Medicine
DX: A41.9 Sepsis, unspecified organism (principal); L03.115 Cellulitis of right lower limb; E27.40 Unspecified adrenocortical insufficiency; N17.9 Acute kidney failure, unspecified; N18.9 Chronic kidney disease, unspecified; D59.1 Other autoimmune hemolytic anemias; N12 Tubulo-interstitial nephritis, not specified as acute or chronic; I50.9 Heart failure, unspecified; J45.909 Unspecified asthma, uncomplicated; K21.9 Gastro-esophageal reflux disease without esophagitis; D64.9 Anemia, unspecified; M19.90 Unspecified osteoarthritis, unspecified site; M54.9 Dorsalgia, unspecified; D69.41 Evans syndrome; G89.29 Other chronic pain; M51.16 Intervertebral disc disorders with radiculopathy, lumbar region; H54.7 Unspecified visual loss; H35.30 Unspecified macular degeneration; F03.90 Unspecified dementia, unspecified severity, without behavioral disturbance, psychotic disturbance, mood disturbance, and anxiety; E86.0 Dehydration; E66.9 Obesity, unspecified; N18.3 Chronic kidney disease, stage 3 (moderate); E87.5 Hyperkalemia; R73.9 Hyperglycemia, unspecified; T38.0X5A Adverse effect of glucocorticoids and synthetic analogues, initial encounter; R09.02 Hypoxemia; R06.02 Shortness of breath; R82.71 Bacteriuria; R60.0 Localized edema; R53.83 Other fatigue; R50.9 Fever, unspecified; L53.9 Erythematous condition, unspecified; T36.8X5A Adverse effect of other systemic antibiotics, initial encounter; E86.9 Volume depletion, unspecified; Z90.49 Acquired absence of other specified parts of digestive tract; Z91.011 Allergy to milk products; Z88.8 Allergy status to other drugs, medicaments and biological substances; Z91.018 Allergy to other foods; Z79.2 Long term (current) use of antibiotics; Z91.81 History of falling; Z87.440 Personal history of urinary (tract) infections; Z79.891 Long term (current) use of opiate analgesic; Z79.52 Long term (current) use of systemic steroids; Z90.710 Acquired absence of both cervix and uterus; Z96.642 Presence of left artificial hip joint
CPT/HCPCS: 36415; 71045; 80053; 81001; 83605; 84145; 85025; 87040 ×2; 87086; 87088; 87186; 96361; 96365; 99284; 99285; J1335; J7030 ×2; 80048; 80202; 82962; 83036; 83735; 84132; 85027; 85610; 94762; 97110-GP; 97162-GP; 97165-GO; 97530-GP; A9270-GY; J1650; J1815; J1815-GY; J1940; J2001; J2185; J2405; J2543; J3370; J3480; J3490; J7050; J7120